=== PATIENT | female | born 1955 | race American Indian/Alaskan Native ===

== ENCOUNTER 2017-08-20 18:51 | Inpatient (IN) | payer OTHER ==
[~2017-08-20] VITALS: Ht 160 cm; Wt 74.4 kg
[~2017-08-20 18:51] MED LIST: ABILIFY5 MG; ABILIFY5 MG PO; ALLOPURINOL100 MG PO; AMITRIPTYLINE H10 MG PO; AMITRIPTYLINE H50 MG PO; ASPIR 8181 MG PO; BUPROPION HCL100 MG PO; CALCICARB650 MG PO; CALCIUM 600 +1 EAC3 PO; CALCIUM500 MG PO; CARAFATE1 GM PO; CELEBREX200 MG PO; CLONAZEPAM0.5 MG PO; CYCLOBENZAPRINE10 MG PO; FIORICET 50-301 EACH PO; HYDROCODON-ACE1 EAC8 PO; IMITREX25 MG PO; LORAZEPAM1 MG PO; MUPIROCIN22 GM TOP; NORCO 5-325 TA1 EACH PO; OMEGA-31000 MG PO; OMEPRAZOLE20 MG PO; OXYCODONE-ACET1 EAC1 PO; PRILOSEC20 MG PO; REGLAN10 MG PO; ROBAXIN-750750 MG PO; SIMVASTATIN20 MG PO; SUCRALFATE1 GM PO; TOPROL XL25 MG PO; VITAMIN B COMP1 EAC1 PO; VITAMIN D350000 UNIT PO; ZESTRIL40 MG PO; ZOFRAN2 MG/1 ML PO
--- NOTE | 2017-08-20 22:52 | NUR ---
PT ARRIVED FROM ED ON STRETCHER, HAS HAD MID ABDOMINAL PAIN ALL DAY SINCE EATING [place] FRIED NOODLES FROM A LOCAL BUSINESS. VOMITED MULT TIMES TODAY, WELL HAD LOOSE STOOLS. RATES HER PAIN 3/10 AT THIS TIME. H/O OF ACID REFLUX AND SURGERY TO REPAIR. ASSISTED PT UP TO USE THE BATHOOM, ABLE TO AMBULATE WITHOUT DIFFICULTY. IV IN LA INFUSING PER ORDER. EDUCATED PATIENT ON THE CALL LIGHT, THE BED CONTROLS, THE LIGHT CONTROLS, REQUESTED PT TO CALL FOR ASSISTANCE. PLAN TO COMPARE WEIGHTS WITH STANDING SCALE PT SURPRISED OF HER WEIGHT, BELIEVES SHE WEIGHS MORE.
--- NOTE | 2017-08-20 23:40 | NUR ---
MEDICATED WITH ZOFRAN 4MG IV C/O FEELING NAUSEATED, NO EMESIS NOTED. IN BED COOPERATIVE, IVF INFUSING W/O PROBLEMS
--- NOTE | 2017-08-21 00:44 | NUR ---
RESTING, EYES CLOSED, NO FURTHER C/O UPSET STOMACH
--- NOTE | 2017-08-21 02:07 | NUR ---
AWAKE, NO C/O PAIN OR N/V, COMFORTABLE
--- NOTE | 2017-08-21 06:03 | NUR ---
PT CURRENTLY RESTING, EYES CLOSED. CONTINUES TO NICK UPSET STOMACH, WAS MEDICATED X1 WITH ZOFRAN, EFFECTIVE, NO FURTHER C/O UPSET STOMACH STATED. uP TO BRP WITH 1 SBA, VOIDING QS, IVF INFUSING W/O PROBLEMS. NO TOEHR REQUESTS OR C/O
--- NOTE | 2017-08-21 06:49 | NUR ---
C/O H/A, ICE PACKS GIVEN NO C.O ABD PAIN OR N/V. DR OTOOLE IN ROOM TALKING TO PT
--- NOTE | 2017-08-21 07:20 | NUR ---
REPORT RECEIVED FROM PAVEL IZQUIERDO. PT IS AWAKE LAYING IN BED WITH ICE PACK TO HEAD. REPORTED HEADACHE TO PAVEL IZQUIERDO THIS AM. DENIES OTHER NEEDS AT THIS TIME.
--- NOTE | 2017-08-21 08:59 | NUR ---
PT RESTING IN BED WITH EYES CLOSED AND BLANKET OVER HEAD. EASILY AROUSED. GIVEN IMATREX FOR HEADACHE PAIN 12/18. UP TO BATHROOM WITH SBA. REPORTED SOME DIZZINESS/NAUSEA. HAS ONLY BEEN TAKING SMALL SIPS OF WATER. RESTING AGAIN WITH EYE MASK ON. DENIES OTHER NEEDS AT THIS TIME.
--- NOTE | 2017-08-21 09:00 | NUR ---
PATIENT SLEEPING, WILL CHECK IN LATER.
--- NOTE | 2017-08-21 09:54 | NUR ---
PATIENT RESTING IN BED WITH EYES CLOSED. PATIENT STATES THAT THE MEDICATION IS STARTING TO HELP HER HEAD ACHE TO GO AWAY AND REFUSED ANYMORE ICE PACKS. PATIENT HAS NOT EATEN ANY OF HER CLEAR LIQUIDS AT THIS TIME. FRESH ICE WATER GIVEN. CALL BUTTON IN REACH. NO OTHER NEEDS AT THIS TIME.
--- NOTE | 2017-08-21 10:04 | NUR ---
PT APPEARS TO BE SLEEPING. RESPIRATIONS EVEN AND UNLABORED.
--- NOTE | 2017-08-21 12:03 | NUR ---
PT RESTING IN BED. STATES PAIN IN HEAD IS MANAGEABLE. ATE A CUP OF JELLO BEFORE TAKING DOSE OF POTASSIUM. HAS TOLERATED SO FAR. EMESIS BAG AT BEDSIDE. PT WILL CALL IF THEY BECOME NAUSEOUS. DC PLAN DISCUSSED. DENIES OTHER NEEDS AT THIS TIME. CALL LIGHT IN REACH.
--- NOTE | 2017-08-21 12:27 | NUR ---
PT LAYING IN BED, RM DARKENED. PT WAS ALERT, ORIENTED AND PLEASANT UNDER THE CIRCUMSTANCES. SHE MENTIONED THAT PAIN IS BETTER THAN YESTERDAY, AND THAT THE DR SEEMS TO FEEL IT IS A PROBLEM WITH K STONES OR THE DUCTS. PT REQUESTED PRAYER. WILL CONTINUE TO FOLLOW NEEDED
--- NOTE | 2017-08-21 13:23 | NUR ---
PT BACK TO BED. TOOK SHOWER. DENIED DIZZINESS OR NAUSEA. HAS BEEN TOLERATING SMALL AMOUNTS OF CLEAR LIQUIDS.
--- NOTE | 2017-08-21 14:15 | NUR ---
PT IN BED WITH LIGHTS OFF. RATED PAIN 6/10. DECLINED PAIN MEDS. ICE PACK TO FOREHEAD. STATED THAT SHE WAS STARTING TO FEEL NAUSEOUS BUT HAS NOT HAD EMESIS. EMESIS BAG ON BED. SOME GENERALIZED TRACE EDEMA, MOST NOTICABLE IN HANDS/ARMS. LUNGS CLEAR. HEART REGULAR.
--- NOTE | 2017-08-21 15:22 | NUR ---
PT GIVEN 1 TAB OF EXCEDRIN FOR HEADACHE 09/17 UNRELIEVED WITH REST AND ICE PACK. PT GIVEN POTASSIUM WITH CUP OF JELLO. UP TO BATHROOM, SBA. SOME DIZZINESS WHEN SITTING UP. KNOWS OWN LIMIT. VOIDING QS. BACK TO BED WITH WARM BLANKET FOR COMFORT. CALL LIGHT IN REACH.
--- NOTE | 2017-08-21 16:03 | NUR ---
PT GOT 8MG ZOFRAN FOR PERSISTANT NAUSEA. DILUTED AND INFUSED OVER 6 MINUTES. PT STATED "IT HELPED". APPEARS COMFORTABLE. IN BED ON CELL PHONE WITH ICE PACK STILL TO FOREHEAD.
--- NOTE | 2017-08-21 17:00 | NUR ---
PT HAD MIGRAINE AND NAUSEA THROUGHOUT DAY. RELIEVED WITH IMAGEX X1, EXCEDRIN X1 AND 8MG ZOFRAN. PT HAS BEEN SBA TO BATHROOM. SHOWERED TODAY. HAS KEPT ROOM DARK ALL DAY AND ICE PACK TO FOREHEAD. LARGE QUANTITY OF PALE YELLOW URINE. NO HEMATURIA NOTED. BEEN TOLERATING SMALL AMOUNTS OF CLEAR LIQUID DIET. NEEDS STOOL SAMPLE. PLAN TO OBSERVE AND RE-EVALUATE CONDITION IN AM.
--- NOTE | 2017-08-21 18:00 | NUR ---
PT RESTING IN BED WATCHING TV. DENIES NEEDS OR CONCERNS AT THIS TIME. CALL LIGHT WITHIN REACH.
--- NOTE | 2017-08-21 19:10 | NUR ---
REPORT RECEIVED FROM DAY SHIFT NURSE. PATIENT RESTING IN BED WATCHING TV. PATIENT DENIES ANY NEEDS AT THIS TIME. CALL LIGHT WITHIN REACH.
--- NOTE | 2017-08-21 19:20 | CONS ---
[facility] [address], [place] [address] Signed DATE OF CONSULTATION: 08/21/2017 CHIEF COMPLAINT: Generalized abdominal pain. HISTORY OF PRESENT ILLNESS: Michael is a 61-year-old lady who has chosen not to take any medications for 2 years. She also suffers with significant headaches and has had prior strokes apparently related to hypertension. She comes in with generalized abdominal pain, nausea, vomiting, and diarrhea, and a headache. In the emergency room, her white count was up a little bit of 16.9 and she said there is always blood in her urine, but to her knowledge has never been worked up. She ended up with a CT scan and she has had a previous cholecystectomy and she spoke of having a common bile duct and a pancreatic duct stent in the past. She cannot remember that any stones were actually removed from her duct at [facility] back in the day. There seemed to be some old stones there now and her liver function tests seemed to be fine. I was asked to admit her last night as a general surgeon on-call. PAST MEDICAL HISTORY: Gastroesophageal reflux disease, TIAs, hypertension, depression, hyperlipidemia, gastroparesis, migraine headaches. PAST SURGICAL HISTORY: 1. Laparoscopic band converted to laparoscopic fundoplication at [facility] in [facility]. 2. Hysterectomy. 3. Laparoscopic cholecystectomy at [facility]. 4. Left upper extremity fracture repair with metal remaining and common bile duct and pancreatic duct stents placed at [facility]. SOCIAL HISTORY: She quit smoking, but she likes marijuana. She does not drink. She is with the [facility]. Mariana Key is her sister at [phone]. FAMILY HISTORY: Not reviewed. REVIEW OF SYSTEMS: She had 10 systems reviewed and no new findings. ALLERGIES: None. Electronically Signed By: ESTEFANY OTOOLE MD 08/21/17 192 PATIENT NAME: MICHAEL DAWSON CONSULTATION DATE OF : 57 REPORT #: [id number] PHYSICIAN: ESTEFANY OTOOLE MD PCP: DONA LIN REPORT IS CONFIDENTIAL AND NOT TO BE RELEASED WITHOUT AUTHORIZATION [facility] [address], [place] [address] Signed MEDICATIONS: She has taken none of these in 2 years including Robaxin, Fioricet, aspirin, simvastatin, vitamin D, omega-3, lisinopril, calcium, Percocet, amitriptyline, Prilosec, and Abilify. PHYSICAL EXAMINATION: VITAL SIGNS: Blood pressure 163/76, heart rate 62, respiratory rate 16, and temperature is 98.2. She is 98% on room air. She is 5 feet 3 inches, at 74 kg. She has been able to take some diet last night, had a bowel movement and had 1.8 L out of urine. GENERAL: Michael is a 61-year-old female, lying supine in her hospital bed with an ice bag on her head because of the headaches. She told me she had previous temporal artery biopsies. LUNGS: Clear to auscultation. HEART: Regular rate and rhythm. ABDOMEN: Soft and flat, but she seems to be diffusely tender. LABORATORY DATA: Her white blood count is 16.9, hemoglobin 16, neutrophils 79, and bands are 14. BUN 9, creatinine 0.7. Liver function tests are negative. Albumin is 5. Urine shows some protein, ketones and some blood, which she says is chronic. RADIOGRAPHIC STUDIES: CT scan of abdomen and pelvis is reviewed and she has what looks like some stones in her common bile duct with the common bile duct about 15 mm, apparently that is an old finding. ASSESSMENT AND PLAN: Probable gastroenteritis with untreated medical conditions including her hypertension, headaches, and her hematuria. She has taken no medications for 2 years. At this point, I am not sure that she is a surgical patient. We are going to go ahead and consult our hospitalist and see if we can help her with these chronic medical issues and her headache. She has expressed understanding and agrees with above plan. Estefany Otoole MD ALB/MODL /[id number] Electronically Signed By: ESTEFANY OTOOLE MD 08/21/17 1920 PATIENT NAME: MICHAEL DAWSON CONSULTATION DATE OF : 57 REPORT #: [id number] PHYSICIAN: ESTEFANY OTOOLE MD PCP: DONA LIN REPORT IS CONFIDENTIAL AND NOT TO BE RELEASED WITHOUT AUTHORIZATION [address] [address] Signed cc: MD Adriano Mason MD Copies: ESTEFANY OTOOLE MD, REX MD ~ Electronically Signed By: ESTEFANY OTOOLE MD 08/21/17 1920 PATIENT NAME: MICHAEL DAWSON CONSULTATION DATE OF : 57 REPORT #: [id number] PHYSICIAN: ESTEFANY OTOOLE MD PCP: DONA LIN REPORT IS CONFIDENTIAL AND NOT TO BE RELEASED WITHOUT AUTHORIZATION
--- NOTE | 2017-08-21 20:50 | NUR ---
PATIENT ASSESSMENT COMPLETED. PATIENT REQUESTS PAIN MEDICATION 9/10 PAIN. WHEN RETURNED TO THE ROOM PATIENT FOUND DRY HEAVINGM, NO EMESIS NOTED. PRN NAUSEA MEDICATION GIVEN. PATIENT EDUCATED ABOUT WAITING TO TAKE PAIN MEDICAITON TIL NAUSEA SUBSIDES. ICA PACK PLACED ON FOREHEAD. I&Os RECORDED. WILL CONTINUE TO MONITOR. CALL LIGHT WITHIN REACH. PATIENT DENIES ANY OTHER NEEDS. WILL RETURN.
--- NOTE | 2017-08-21 21:30 | NUR ---
PATIENT STATES NAUSEA IS SUBSIDED. NO EMESIS NOTED. JELLO X1 GIVEN. PRN PAIN MEDICATION GIVEN. PATIENT TOLERATED SNACK WELL. VITAL SIGNS RECORDED. PATIENT ASSISTED TO THE RESTROOM, SBA. PATIENT ABLE TO VOID. PATIENT BACK IN BED WATCHING TV. ICE PACK PLACED ON FOREHEAD. PATIENT DENIES ANY OTHER NEEDS AT THIS TIME. CALL LIGHT WITHIN REACH. WILL CONTINUE TO MONITOR.
--- NOTE | 2017-08-21 23:45 | NUR ---
PATIENT RESTING IN BED WITH EYES CLOSED, TV OFF. BREATHING UNLABORED AND EVEN, RR 16. IV RUNNING CONTINUOUSLY. CALL LIGHT WITHIN REACH.
--- NOTE | 2017-08-22 02:30 | NUR ---
PATIENT RESTING IN BED WITH EYES CLOSED. PATIENT STATES PAIN IS "OKAY". IV FLUIDS RUNNING CONTINUOUSLY. PATIENT DENIES ANY NEEDS AT THIS TIME. RR 15. CALL LIGHT WITHIN REACH. ASSESSMENT COMPLETED.
--- NOTE | 2017-08-22 04:52 | NUR ---
PATIENT RESTED WELL THROUGHOUT THE NIGHT. PATIENT WAS NOTED DRY HEAVING DURING THE NIGHT X1. PRN NAUSEA MEDICATION GIVEN X1. PATIENT STATED MIGRAINE X1. PRN PAIN MEDICATION GIVEN X1. PATIENT ON RA. CLEAR LIQUID DIET. SBA WITH AMBULATION. CONTINUOUS IV FLUIDS RUNNING IN LEFT FOREARM. NO EMESIS NOTED. STOOL SAMPLE NEEDS TO BE COLLECTED. VOIDED YELLOW URINE, QS.
--- NOTE | 2017-08-22 05:20 | NUR ---
PATIENT UP TO RESTROOM, SBA. PATIENT ABLE TO VOID. VITAL SIGNS AND I&Os RECORDED. WARM BLANKET PROVIDED. PATIENT DENIES ANY OTHER NEEDS AT THIS TIME. CALL LIGHT WITHIN REACH.
--- NOTE | 2017-08-22 05:56 | NUR ---
PATIENT RATES PAIN 6/10 IN ABDOMEN. PATIENT DENIES THE NEED FOR PRN PAIN MEDICATION. WARM BLANKET PROVIDED FOR COMFORT. PATIENT DENIES ANY OTHER NEEDS AT THIS TIME. CALL LIGHT WITHIN REACH.
--- NOTE | 2017-08-22 06:35 | NUR ---
PATIENT COMPLAINED OF NAUSEA. PRN NAUSEA MEDICATION GIVEN PER ORDER. PATIENT RESTING IN BED. PATIENT DENIES ANY OTHER NEEDS AT THIS TIME. CALL LIGHT WITHIN REACH. PATIENT STATES PAIN IS TOLERABLE.
--- NOTE | 2017-08-22 07:15 | NUR ---
BEDSIDE HANDOFF REPORT RECEIVED FROM HAMMER REPAIRER RN. PT SLEEPING, LEFT UNDISTURBED.
--- NOTE | 2017-08-22 08:40 | NUR ---
PT RESTING IN BED. PT ASSISTED TO BATHROOM, SBA, COMPLAINT OF DIZZINESS, VOIDING WIHOUT DIFFICULTY. PT ON ROOM AIR, LUNG SOUNDS CLEAR, DENIES SOB. PT BOWEL TONES ACTIVE, SMALL APPETITE, TOLERATING CLEAR LIQUID DIET, DENIES NAUSEA. CMS INTACT, WIHTOUT EDEMA. D5LR INFUSING AT 100 ML/HR. PT DENIES OTHER NEEDS AT THIS TIME. DISCUSSED PLAN OF CARE FOR THE DAY.
--- NOTE | 2017-08-22 09:26 | NUR ---
PATIENT SITTING UP IN BED. PATIENT STATES PAIN LEVEL IS A 4 OUT OF 10. RN NOTIFIED. CALL LIGHT WITHIN REACH. VITALS & I&Os DONE. FRESH ICE WATER. NO OTHER NEEDS AT THIS TIME.
--- NOTE | 2017-08-22 09:27 | NUR ---
MED REC COMPLETE
--- NOTE | 2017-08-22 11:12 | NUR ---
PATIENT RESTING IN BED UPON ENTERING ROOM, IV PUMP CLEARED, PATIENT WAKES AND DENIES NAUSEA. PATIENT WAS ABLE TO EAT JELLO AND TEA WITHOUT NAUSEA/VOMITTING. PATIENT DOES REPORT SLIGHT RIGHT SIDE HEADACHE, PATIENT DENIES NEED FOR INTERVENTIONS.
--- NOTE | 2017-08-22 15:02 | NUR ---
PATIENT SITTING UP IN BED. CALL LIGHT WITHIN REACH. NO OTHER NEEDS AT THIS TIME.
--- NOTE | 2017-08-22 15:45 | NUR ---
PT ASSISTED TO BATHROOM AND BACK TO BED. PT ON ROOM AIR, LUNG SOUNDS CLEAR. PT CONTINUES TO RATE PAIN 4/10. IV FLUIDS INFUSING D5LR AT 75 ML/HR, IV MAGNESIUM INFUSING. PT TOLERATING CLEAR LIQUID DIET, WILL ATTEMPT FULL LIQUIDS FOR DINNER, DENIES NAUSEA. NO ACUTE CHANGES. PT DENIES NEEDS AT THIS TIME.
--- NOTE | 2017-08-22 17:32 | NUR ---
PT ON ROOM AIR, LUNG SOUNDS CLEAR. PT ADVANCED TO FULL LIQUID DIET, TOLERATING WELL. COMPLAINT OF ABD PAIN, DID NOT REQUIRE PAIN MEDICATION. D5LR AT 75 ML/HR, MAG RIDER GIVEN. CORNELIUS GONZALEZ ACTIVE, UNABLE TO COLLECT STOOL SAMPLE. SBA TO BATHROOM, COMPLAINT OF DIZZINESS AT TIMES. VOIDING QS.
--- NOTE | 2017-08-22 18:08 | NUR ---
PT HYPERTENIVE, RECEIVED AMLODIPINE AT 1700, CONTINUES TO BE HYPERTENISVE, BP NOW 178/101. MD NOTIFIED, NO NEW ORDERS, CONTINUE TO MONITOR.
--- NOTE | 2017-08-22 19:05 | NUR ---
REPORT RECEIVED FROM DAY SHIFT NURSE. PATIENT RESTING IN BED WATCHING TV. PATIENT DENIES ANY NEEDS AT THIS TIME. CALL LIGHT WITHIN REACH.
--- NOTE | 2017-08-22 19:56 | NUR ---
PATIENT SITTING UP IN BED. CALL LIGHT WITHIN REACH. NO OTHER NEEDS AT THIS TIME.
--- NOTE | 2017-08-22 20:00 | NUR ---
PATIENTS ASSESSMENT COMPLETED. PATIENT RATES PAIN 4/10 IN ABDOMEN. PATIENT STATES THIS IS TOLERABLE AND DENIES PRN PAIN MEDICATION. PATIENTS BP ELEVATED, MD NOTIFIED. PATIENTS IV FLUIDS RUNNING CONTINUOUSLY. FULL LIQUID DIET. SBA WHEN AMBULATING. WARM BLANKET AND FRESH WATER PROVIDED. PATIENT DENIES ANY OTHER NEEDS AT THIS TIME. CALL LIGHT WITHIN REACH. PATIENT DENIES NAUSEA. WILL CONTINUE TO MONITOR.
--- NOTE | 2017-08-22 21:45 | NUR ---
BP MEDICATION GIVEN PER ORDER. PATIENT COMPLAINS OF "SLIGHT" HEADACHE, DENIES THE NEED FOR PRN PAIN MEDICATION. PATIENT DENIES ANY OTHER NEEDS AT THIS TIME. WILL CONTINUE TO MONITOR. CALL LIGHT WITHIN REACH.
--- NOTE | 2017-08-22 22:51 | NUR ---
PATIENTS BP REASSESED, BP WNL. PATIENT RATES PAIN 5/10 IN HER HEAD AND ABDOMEN. PRN PAIN MEDICATION GIVEN PER ORDER. PATIENT DENIES NAUSEA. IV FLUIDS RUNNING CONTINUOUSLY. PATIENT RESTING IN BED WATCHING TV. PATIENT DENIES ANY OTHER NEEDS. CALL LIGHT WITHIN REACH.
--- NOTE | 2017-08-23 00:42 | NUR ---
PATIENT RESTING IN BED WITH EYES CLOSED. BREATHING UNLABORED AND EVEN, RR 14. IV FLUIDS RUNNING CONTINUOUSLY. CALL LIGHT WITHIN REACH.
--- NOTE | 2017-08-23 02:58 | NUR ---
PATIENT ASSESSMENT COMPLETED. PATIENT UP TO RESTROOM, SBA. PATIENTS GAIT STEADY. PATIENT DENIES NAUSEA. PATIENT RATES PAIN 5/10, PRN PAIN MEDICATION OFFERED. PATIENT DENIES THE NEED FOR PRN MEDICATION. WILL CONTINUE TO MONITOR. IV FLUIDS RUNNING CONINUOUSLY. WARM BLANKET APPLIED TO ABDOMEN FOR COMFORT. FRESH WATER GIVEN. PATIENT DENIES ANY OTHER NEEDS AT THIS TIME. CALL LIGHT WITHIN REACH.
--- NOTE | 2017-08-23 05:01 | NUR ---
PATIENT RESTED WELL THROUGHOUT THE NIGHT. PATIENT IS ON RA. FULL LIQUID DIET. PATIENT DENIED NAUSEA THROUGHTOUT THE NIGHT. PRN PAIN MEDICATION GIVEN X1. PATIENT UP INDEPENDENT IN ROOM X1. PATIENTS IV FLUIDS RUNNING CONTINUOUSLY IN LEFT FOREARM. PATIENT VOIDING QS. PATIENT AMBULATES WITH A STEADY GAIT. STOOL SAMPLE NEEDED.
--- NOTE | 2017-08-23 06:16 | NUR ---
PATIENT RESTING IN BED. ASSESSMENT COMPLETED. PATIENT RATES PAIN 5/10 IN HER HEAD. PATIENT DENIES THE NEED FOR PRN PAIN MEDICATIONS. PATIENT STATES IT IS TOLERABLE. PATIENT DENIES NAUSEA. PATIENT DENIES ANY OTHER NEEDS AT THIS TIME. CALL LIGHT WITHIN REACH.
--- NOTE | 2017-08-23 07:05 | NUR ---
BEDSIDE HAND OFF REPORT RECEIVED FROM SLIP COVER ESTIMATOR RN. PT SLEEPING, LEFT UNDISTURBED.
--- NOTE | 2017-08-23 09:15 | NUR ---
PT RESTING IN BED. PT RATING PAIN 4/10 AT THIS TIME. PT DENIES NAUSEA. PT ON ROOM AIR, LUNG SOUNDS CLEAR. BOWEL TONES ACTIVE, TOLERATING FULL LIQUID DIET. CMS INTACT, WITHOUT EDEMA, PULSES PALPABLE. IV FLUIDS INFUSING AT 75 ML/HR, IV PATENT. PT INDEPENDENT IN ROOM. VOIDING QS. PT HAS STILL NOT HAD A BOWEL MOVEMENT, STOOL SAMPLE NEEDED. PT DENIES OTHER NEEDS AT THIS TIME.
--- NOTE | 2017-08-23 11:21 | NUR ---
PT COMPLAINT OF NAUSEA, IV INFILTARTED, IV INFUSION STOPPED, IV DISCONTINUED. NEW IV OBTAINED TO RIGHT UPPER ARM, 8 MG IV ZOFRAN GIVEN, D5LR INFUSING AT 75 ML/HR. PT DENIES OTHER NEEDS AT THIS TIME.
--- NOTE | 2017-08-23 14:46 | NUR ---
PT LAYING IN BED, WELCOMED ME IN. SHE IS ALERT AND ORIENTED. WAS VERY EXCITED TO TELL ME ABOUT HER VILLAGRAN WHEN I COMMENTED ON THEM. FEELING BETTER, DID MENTION THAT SHE FELT SOME NAUSEA EARLIER TODAY, BUT SEEMS TO HAVE SUBSIDED. I EXTENDED A BLESSING, WILL FOLLOW NEEDED
[2017-08-23] MEDS ORDERED: NORVASC5 MG PO (15:29)
[2017-08-23] MEDS ORDERED: LISINOPRIL10 MG PO (15:30)
--- NOTE | 2017-08-24 07:57 | DS ---
[facility] [address], [place] [address] Signed ADMISSION DATE: 08/22/2017 DISCHARGE DATE: 08/23/2017 FINAL DIAGNOSES: 1. Gastroenteritis. 2. Hypertension. 3. Hypercholesterolemia. 4. Chronic hematuria. 5. Headache. PROCEDURES: CT scan of abdomen and pelvis. HISTORY OF PRESENT ILLNESS: Michael is a 61-year-old female, who 2 years ago decided to take herself off all medications, which is a fair list actually. She had come into the emergency room with generalized abdominal pain, nausea, vomiting, and diarrhea. She had generalized abdominal tenderness on exam. Systolic blood pressures were running in the 160s and her white count was up at 16.9. She also has some chronic blood in her urine. CT scan showed really no major issues. She apparently had some stones either in her common bile duct or in the pancreatic duct in the past. Apparently, those were old. She talked about having a common bile duct and pancreatic duct stent in the past. As a result, I was asked to admit her with probable gastroenteritis, her headache and her uncontrolled hypertension. HOSPITAL COURSE: Michael was admitted as above and I started on IV fluids and we had our Internal Medicine Service come and see her. Within a day, she was already looking and feeling much better. She had passed flatus. She was tolerating a clear liquid diet. Her abdominal pain was improved and she had mild diffuse tenderness by the 2nd day. White count had come down to normal at 7, so we increased her diet and decreased IV fluids. She was started on lisinopril 10 mg p.o. at bedtime and amlodipine 5 mg p.o. daily per the Internal Medicine Service. Her systolic blood pressures came down nicely into the 130s. Hemoglobin A1c was checked and it was good at 5.2. Lipid panel was sent off and sure enough, her cholesterol is running high. Overall, though she is markedly improved, I felt that she could go home. DISCHARGE PLANS AND MEDICATIONS: I had a long discussion with Michael and I explained to her that her blood pressures have been running high and so is a cholesterol and she really needs to address those issues with her primary care provider as they will cause her trouble in the future. Electronically Signed By: ESTEFANY OTOOLE MD 08/24/17 0757 PATIENT NAME: MICHAEL DAWSON DISCHARGE SUMMARY DATE OF : 57 REPORT #: [id number] PHYSICIAN: ESTEFANY OTOOLE MD PCP: DONA LIN REPORT IS CONFIDENTIAL AND NOT TO BE RELEASED WITHOUT AUTHORIZATION [facility] [address], [place] [address] Signed When she goes home, she will be able to continue her diet as tolerated and continue her activities of daily living as tolerated including walking up and down stairs and showering and bathing as usual. There was really no need to follow up my office. She can certainly call us if she has any concerns. I have asked her to call her primary care provider and follow up within a week or 2 for some of these chronic issues. Her headache responded nicely to Imitrex, but I think she gets her blood pressure under control that will help significantly. She has expressed understanding and agrees above plan. Estefany Otoole MD ALB/MODL /[id number] cc: MD Estefany Parker MD Copies: LORIN CARVER MD, ANDREW L MD ~ Electronically Signed By: ESTEFANY OTOOLE MD 08/24/17 0757 PATIENT NAME: MICHAEL DAWSON DISCHARGE SUMMARY DATE OF : 57 REPORT #: [id number] PHYSICIAN: ESTEFANY OTOOLE MD PCP: DONA LIN REPORT IS CONFIDENTIAL AND NOT TO BE RELEASED WITHOUT AUTHORIZATION
== END 2017-08-23 16:05 | disposition home or self-care (01) | DRG 392 ==
LOC: ED 18:51 → MS 18:54
PROVIDERS: ADMIT Colon & Rectal Surgery
DX: K52.9 Noninfective gastroenteritis and colitis, unspecified (principal); K91.86 Retained cholelithiasis following cholecystectomy; R31.9 Hematuria, unspecified; I10 Essential (primary) hypertension; K21.9 Gastro-esophageal reflux disease without esophagitis; E78.5 Hyperlipidemia, unspecified; F32.9 Major depressive disorder, single episode, unspecified; G43.909 Migraine, unspecified, not intractable, without status migrainosus; Z87.891 Personal history of nicotine dependence; Z86.73 Personal history of transient ischemic attack (TIA), and cerebral infarction without residual deficits
CPT/HCPCS: 36415; 74177; 80048; 80053; 80061; 81001; 83036; 83690; 83735; 85025; 85610; 85730; 96361; 96374; 96375; 96376; 99285; G0378; J1170; J2405; J3475; J7030; J7040; J7120; Q9967

== ENCOUNTER 2017-10-24 19:24 | Emergency (ER) | payer OTHER ==
[~2017-10-24] VITALS: Ht 160 cm; Wt 74.4 kg
[~2017-10-24 19:24] MED LIST changes: +LISINOPRIL10 MG PO; +NORVASC5 MG PO
[2017-10-24] MEDS ORDERED: OMEPRAZOLE20 MG PO (21:41)
[2017-10-24] MEDS ORDERED: REGLAN10 MG PO (21:41)
== END 2017-10-24 21:57 | disposition home or self-care (01) ==
LOC: ED 19:24
DX: K31.84 Gastroparesis (principal); I10 Essential (primary) hypertension; Z87.891 Personal history of nicotine dependence; Z79.899 Other long term (current) drug therapy
CPT/HCPCS: 80053; 81001; 83690; 85025; 96361; 96374; 96375; 99284; J1200; J2270; J2405; J2765; J7030

== ENCOUNTER 2017-12-25 13:57 | Emergency (ER) | payer OTHER ==
[~2017-12-25] VITALS: Ht 160 cm; Wt 74.4 kg
--- OUTSIDE RECORDS SUMMARY | ~2017-12-25 | XMS | Clinical Summary ---
Demographics + + + | Address | [address] | | | [place] [address] | + + + | Home Phone | | + + + | Preferred Language | Unknown | + + + | Marital Status | Single | + + + | Rastafarian Affiliation | Unknown | + + + | Race | Unknown | + + + | Ethnic Group | Unknown | + + + Author + + + | Author | [facility] | | | and [place] | + + + | Organization | [facility] | | | and [place] | + + + | Address | Unknown | + + + | Phone | Unavailable | + + + Support + + + + + | Name | Relationship | Address | Phone | + + + + + | Mariana Scott | ECON | [place] | | | | | [phone] | | + + + + + Care Team Providers + +------+ + | Care Promotional Marketing Agent Name | Role | Phone | + +------+ + | Herminio Gomez PA-C | PP | Unavailable | + +------+ + Allergies No Known Allergies Current Medications No known medications Active Problems + + + | Problem | Noted Date | + + + | Headache | 06/08/2016 | + + + | Blurred vision | 06/08/2016 | + + + | Double vision | 06/08/2016 | + + + | Rheumatoid arthritis (HCC) | 06/08/2016 | + + + | Gastroparesis | 05/30/2014 | + + + | Hypertension | 05/30/2014 | + + + | MALAISE | 06/10/2011 | + + + | INFLUENZA | 06/10/2011 | + + + | OTHER NONSPECIFIC ABNORMAL SERUM ENZYME LEVELS | 06/10/2011 | + + + + + | Overview: 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 | + + + + + | OTHER ABNORMAL BLOOD CHEMISTRY | 06/10/2011 | + + + + + | Overview: 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 | + + + +---+ | HYPERLIPIDEMIA | | + +---+ | HYPERTENSION, BENIGN | | + +---+ | CHEST PAIN | | + +---+ | FATIGUE | | + +---+ Family History + + +------+ + | [...] on file | | + + + Last Filed Vital Signs + + + + | Vital Sign | Reading | Time Taken | + + + + | Blood Pressure | 126/80 | 07/04/2016854 PDT | + + + + | Pulse | 62 | 07/04/2016854 PDT | + + + + | Temperature | 36.4 C (97.6 F) | 06/13/2016856 PST | + + + + | Respiratory Rate | 14 | 07/04/2016854 PDT | + + + + | Oxygen Saturation | 98% | 06/13/2016856 PST | + + + + | Inhaled Oxygen | - | - | | Concentration | | | + + + + | Weight | 77.1 kg (170 lb) | 07/04/2016854 PDT | + + + + | Height | 165.1 cm (5' 5") | 07/04/2016854 PDT | + + + + | Body Mass Index | 28.29 | 07/04/2016854 PDT | + + + + Plan of Treatment + + + + + | Health Maintenance | Due Date | Last Done | Comments | + + + + + | Hepatitis C | | | | | Screening | 7 | | | + + + + + | Vaccine: | | | | | Dtap/Tdap/Td (1 - | 6 | | | | Tdap) | | | | + + + + + | Vaccine: | | | | | Pneumococcal 19-64 | 6 | | | | (PPSV23 only) Medium | | | | | Risk (1 of 1 - | | | | | PPSV23) | | | | + + + + + | BREAST CANCER | | | | | SCREENING (MAMM Q2 | 7 | | | | YEARS 50-74) | | | | + + [...] | | | | (optimal intensity) | 5 | | | + + + + + | Vaccine: Influenza | | | | | (#1) | 8 | | | + + + + + Results Not on filefrom Last 3 Months Insurance +-------+--------+ +------+-------+---------+ | Payer | Benefi | Subscriber | Type | Phone | Address | | | t Plan | ID | | | | | | / | | | | | | | Group | | | | | +-------+--------+ +------+-------+---------+ | AETNA | AETNA | [id number] | PPO | | | | | PPO | | | | | +-------+--------+ +------+-------+---------+ + +--------+ +--------+ + + | Guarantor Name | Accoun | Relation to | Date | Phone | Billing Address | | | t Type | Patient | of | | | | | | | | | | + +--------+ +--------+ + + | MICHAEL DAWSON | Person | Self [birth year] | Home: | [address] | | | [address] | | 1955 | [phone] | [address] [place], | | | [place] | | | [phone] | [place] [phone] | + +--------+ +--------+ + +
--- OUTSIDE RECORDS SUMMARY | ~2017-12-25 | XMS | Clinical Summary ---
Demographics + + + | Address | [address] | | | [place] [address] | + + + | Home Phone | | + + + | Preferred Language | Unknown | + + + | Marital Status | Single | + + + | Religion Affiliation | Unknown | + + + | Race | Unknown | + + + | Ethnic Group | Unknown | + + + Author + + + | Author | [facility] | | | and [place] | + + + | Organization | [facility] | | | and [place] | + + + | Address | Unknown | + + + | Phone | Unavailable | + + + Support + + + + + | Name | Relationship | Address | Phone | + + + + + | Mariana Scott | ECON | [place] | | | | | [phone] | | + + + + + Care Team Providers + +------+ + | Care Material Attendant Name | Role | Phone | + [...] + + + | 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
[2017-12-25] MEDS ORDERED: ONDANSETRON ODT8 MG PO (19:52)
[2017-12-25] MEDS ORDERED: NORCO 5-325 TA1 EACH PO (19:52)
== END 2017-12-25 20:08 | disposition home or self-care (01) ==
LOC: ED 13:57
DX: K52.9 Noninfective gastroenteritis and colitis, unspecified (principal); I10 Essential (primary) hypertension; K21.9 Gastro-esophageal reflux disease without esophagitis; Z79.899 Other long term (current) drug therapy
CPT/HCPCS: 70450; 74177; 80053; 81001; 83690; 85025; 96361; 96374; 96375; 99284; J1170; J2405; J7030; J7040; Q9967

== ENCOUNTER 2018-08-25 07:43 | Emergency (ER) | payer BC, OTHER ==
[~2018-08-25] VITALS: Ht 160 cm; Wt 74.4 kg
--- OUTSIDE RECORDS SUMMARY | ~2018-08-25 | XMS | Clinical Summary ---
Demographics + + + | Address | [address] | | | [place] [address] | + + + | Home Phone | | + + + | Preferred Language | Unknown | + + + | Marital Status | Single | + + + | Anabaptism Affiliation | Unknown | + + + | Race | Unknown | + + + | Ethnic Group | Unknown | + + + Author + + + | Author | [facility] | | | and [place] | + + + | Organization | [facility] | | | and [place] | + + + | Address | Unknown | + + + | Phone | Unavailable | + + + Support + + + + + | Name | Relationship | Address | Phone | + + + + + | Mariana Scott | ECON | [place] | | | | | [phone] | | + + + + + Care Team Providers + +------+ + | Care Improvement Spec Name | Role | Phone | + +------+ + | Herminio Gomez PA-C | PP | Unavailable | + +------+ + Allergies No Known Allergies Medications No known medications Active Problems + [...] + + + | 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: 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 | + + + + + | OTHER ABNORMAL BLOOD CHEMISTRY | 06/10/2011 | + + + + + | 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: 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 | + + + +---+ | [...] Vaccine: Influenza | | | | | (Season Ended) | 9 | | | + + + + + Results Not on filefrom Last 3 Months Insurance +-------+--------+ +--------+-------+---------+------+ | Payer | Benefi | Subscriber | Effect | Phone | Address | Type | | | t Plan | ID | leeann | | | | | | / | | Dates | | | | | | Group | | | | | | +-------+--------+ +--------+-------+---------+------+ | AETNA | AETNA | [id number] | 05/11/19 | | | PPO | | | PPO | | 17-Pre | | | | | | | | sent | | | | +-------+--------+ +--------+-------+---------+------+ + +--------+ +--------+ + + | Guarantor Name | Accoun | Relation to | Date | Phone | Billing Address | | | t Type | Patient | of | | | | | | | | | | + +--------+ +--------+ + + | Swathi Dumont | Person | Self | [birth year] | | [address] | | | al/[place] | | 1956 | [phone] | [address] [place], | | | [place] | | | [address] (Home) | [place] [phone] | + +--------+ +--------+ + + Advance Directives Patient has advance care planning documents on file. For more information, please contact:[facility] [place] [address]
--- OUTSIDE RECORDS SUMMARY | ~2018-08-25 | XMS | Clinical Summary ---
Demographics + + + | Address | [address] | | | [place] [address] | + + + | Home Phone | | + + + | Preferred Language | Unknown | + + + | Marital Status | Single | + + + | Pentecostal Affiliation | Unknown | + + + | Race | Unknown | + + + | Ethnic Group | Unknown | + + + Author + + + | Author | [facility] | | | and [place] | + + + | Organization | [facility] | | | and [place] | + + + | Address | Unknown | + + + | Phone | Unavailable | + + + Support + + + + + | Name | Relationship | Address | Phone | + + + + + | Mariana Scott | ECON | [place] | | | | | [phone] | | + + + + + Care Team Providers + +------+ + | Care Senior Geotechnical Engineer Name | Role | Phone | + [...] + + + | Overview: Problem 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 For more information, please contact:[facility] [place] [address]
[~2018-08-25 07:43] MED LIST changes: +ONDANSETRON ODT8 MG PO
--- NOTE | 2018-08-25 13:19 | EKG ---
[facility] [address] [facility] [place], [place] [address] Signed Sinus bradycardia Otherwise normal ECG No previous ECGs available Confirmed by ISMA STREETER DO ([id number]) on 08/25/2018 1:19:40 PM Electronically Signed By: ISMA STREETER DO 08/25/18 1319 PATIENT NAME: MICHAEL DAWSON Electrocardiogram DATE OF : 57 PHYSICIAN: ISMA STREETER DO REPORT #: [id number] REPORT IS CONFIDENTIAL AND NOT TO BE RELEASED WITHOUT AUTHORIZATION
== END 2018-08-25 10:45 | disposition short-term general hospital (02) ==
LOC: ED 07:43
DX: K80.51 Calculus of bile duct without cholangitis or cholecystitis with obstruction (principal); I10 Essential (primary) hypertension; E78.5 Hyperlipidemia, unspecified; Z87.891 Personal history of nicotine dependence; Z90.710 Acquired absence of both cervix and uterus; Z90.49 Acquired absence of other specified parts of digestive tract
CPT/HCPCS: 80053; 83690; 85025; 93005; 93010; 96361; 96365; 96375; 96376; 99285-25; C9113; J0696; J1170; J2405; J2550; J7030

== ENCOUNTER 2018-09-02 10:13 | Observation (INO) | payer OTHER ==
[~2018-09-02] VITALS: Ht 160 cm; Wt 73.4 kg
--- OUTSIDE RECORDS SUMMARY | ~2018-09-02 | XMS | Encounter Summary ---
Demographics + + + | [address] | | | [place] [address] | + + + | Home Phone | | + + + | Preferred Language | Unknown | + + + | Marital Status | Single | + + + | Scientologist Affiliation | Unknown | + + + | Race | Unknown | + + + | Ethnic Group | Unknown | + + + Author + + + | Author | [facility] | | | and [place] | + + + | Organization | [facility] | | | and [place] | + + + | Address | Unknown | + + + | Phone | Unavailable | + + + Support + + + + + | Name | Relationship | Address | Phone | + + + + + | Mariana Scott | ECON | [place] | | | | | [phone] | | + + + + + Care Team Providers + +------+ + | Care Medical Nurse Name | Role | Phone | + +------+ + | Herminio Gomez PA-C | PCP | Unavailable | + +------+ + Reason for Visit Auth/Cert +--------+--------+ + + + + | Status | Reason | Specialty | Diagnoses / | Referred By | Referred To | | | | | Procedures | Contact | Contact | +--------+--------+ + + + + | | | | Diagnoses | | | | | | | | | | | | | | cholelithias | | | | | | | is | | | | | | | Procedures | | | | | | | ERCP | | | +--------+--------+ + + + + Encounter Details +--------+ + + + + | Date | Type | Department | Care Team | Description | +--------+ + + + + | 08/26/ | Anesthesia | [facility] | Lester Zhao MD | | | 2019 | Event | [facility] | [address] | | | | | [address] | [place] | | | | | [place] | [address] | | | | | [phone] | [phone] | | | | | [phone] | | | +--------+ + + + + Anesthesia Record + + + + + | Procedure Name | Responsible | Anesthesia Start | Anesthesia Stop Time | | | Anesthesiologist | Time | | + + + + + | ERCP (N/A Jamil) | Lester Zhao MD | 08/26/18803 | 08/26/18913 | + + + + + +----+---+ + + | Da | T | Event | Comment | | te | i | | | | | m | | | | | e | | | +----+---+ + + | 05 | 0 | An Checkout | Pre-use anesthesia machine/equipment checkout. | | /1 | 7 | | | | 9/ | 5 | | | | 20 | 8 | | | | 19 | | | | +----+---+ + + | | 0 | An Start | Reassessment prior to anesthesia induction/procedure. | | | 8 | | | | | 0 | | | | | 4 | | | +----+---+ + + | | 0 | | | | | 8 | | | | | 0 | | | | | 6 | | | +----+---+ + + | | 0 | An Start | | | | 8 | Data | | | | 0 | | | | | 6 | | | +----+---+ + + | | 0 | An | | | | 8 | Induction | | | | 0 | | | | | 8 | | | +----+---+ + + | | 0 | An | | | | 8 | Intubation | | | | 0 | | | | | 9 | | | +----+---+ + + | | 0 | Pre-Procedu | | | | 8 | ral Timeout | | | | 1 | Completed | | | | 0 | | | +----+---+ + + | | 0 | First | | | | 8 | Inc/Proc St | | | | 1 | | | | | 1 | | | +----+---+ + + | | 0 | Breathing | | | | 9 | Spontaneous | | | | 0 | ly | | | | 7 | | | +----+---+ + + | | 0 | an stop | | | | 9 | data | | | | 0 | | | | | 7 | | | +----+---+ + + | | 0 | An Stop | Patient handed off to recovery nurse. | | | 1 | | | | | 4 | | | +----+---+ + + +------+ | Meds | +------+ + + + | Name | Total | + + + | propofol | 170 mg | + + + | propofol | 741.64 mg | + + + | lidocaine 2% | 50 mg | + + + | lactated ringers (LR) infusion | 550 mL | + + + + + | No agents on file. | + + + + | No blood administrations on file. | + + +--------+ + + + | Type | Details | Placement | Removal | +--------+ + + + | Periph | 08/25/18; yes; Left; Antecubital; | 08/25/18 0000 by | 08/28/18 1500 by | | eral | 20 gauge; site symptomatic; | Michelle Smallwood RN | Lizzeth Pete RN | | IV | 08/28/18; 1500 | | | +--------+ + + + | Airway | Placement Date: 08/26/18; | 08/26/18 0809 by | 08/26/18 0908 by Jarod | | | Placement Time: 08; Airway | Lester Zhao MD | Angela Murrieta RN | | | Type: laryngeal mask, oral, | | | | | cuffed; Size: 3 (LMA Gastro); | | | | | Tube Reference Point: secure and | | | | | patent; Trauma: none; Placement | | | | | Check: bilateral chest rise, | | | | | exhaled CO2 detection device; | | | | | Removal: removed by RN, per | | | | | protocol; Removal Date: 08/26/18; | | | | | Removal Time: 0908 | | | +--------+ + + + documented in this encounter Social History + + + +--------+------+ | Tobacco Use | Types | Packs/Day | Years | Date | | | | | Used | | + + + +--------+------+ | Current Every Day | Cigarettes | 0.3 | | | | Smoker | | | | | + + + +--------+------+ + +---+---+---+ | Smokeless Tobacco: | | | | | Never Used | | | | + +---+---+---+ + + | Comments: Started smoking age 18. | + + + + +---------+ + | Alcohol Use | Drinks/We | oz/Week | Comments | | | ek | | | + + +---------+ + | No | | | | + + +---------+ + + + + | Sex Assigned at | Date Recorded | | | | + + + | Not on file | | + + + + + + + | Job Start Date | Occupation | Industry | + + + + | Not on file | Not on file | Not on file | + + + + + + + + | Travel History | Travel Start | Travel End | + + + + + + | No recent travel history available. | + + documented as of this encounter Plan of Treatment Not on filedocumented as of this encounter Visit Diagnoses Not on filedocumented in this encounter Administered Medications + + + +------+-------+------+ | Medication Order | MAR | Action | Dose | Rate | Site | | | Action | Date | | | | + + + +------+-------+------+ | lactated ringers (LR) infusion | Continue | 08/27/19 | | 100 | | | at 100 mL/hr, Intravenous, | d Bag | 19 9:53 | | mL/hr | | | CONTINUOUS, Starting 08/25/18 | | PDT | | | | | at 1230 | | | | | | + + + +------+-------+------+ +---------+ +---+-------+---+ | New Bag | 08/27/19 | | | | | | 19 7:55 | | | | | | PDT | | | | +---------+ +---+-------+---+ | New Bag | 08/26/19 | | 100 | | | | 19 23:16 | | mL/hr | | | | PDT | | | | +---------+ +---+-------+---+ +---+---+ | | | +---+---+ + +-------+ +-------+---+---+ | lidocaine (PF) 2% injection | Given | 08/27/19 | 50 mg | | | | Intravenous, PRN, Starting Sun | | 19 8:08 | | | | | 08/26/18 at 08, Anesthesia | | PDT | | | | | Intra-op | | | | | | + +-------+ +-------+---+---+ +---+---+ | | | +---+---+ + +-------+ +-------+---+---+ | propofol (DIPRIVAN) injection | Given | 08/27/19 | 50 mg | | | | Intravenous, PRN, Starting Sun | | 19 8:11 | | | | | 08/26/18 at 0808, Anesthesia | | PDT | | | | | Intra-op | | | | | | + +-------+ +-------+---+---+ +-------+ +--------+---+---+ | Given | 08/27/19 | 110 mg | | | | | 19 8:09 | | | | | | PDT | | | | +-------+ +--------+---+---+ | Given | 08/27/19 | 10 mg | | | | | 19 8:08 | | | | | | PDT | | | | +-------+ +--------+---+---+ +---+---+ | | | +---+---+ + + + + +-------+---+ | propofol (DIPRIVAN) injection | Rate/Dos | 08/27/19 | 210 | 95.3 | | | Intravenous, CONTINUOUS PRN, | e Change | 19 8:30 | mcg/kg/m | mL/hr | | | Starting 08/26/18 at 0810, | | PDT | in | | | | Anesthesia Intra-op | | | | | | + + + + +-------+---+ + + + +-------+---+ | Rate/Dose Change | 08/27/19 | 200 | 90.7 | | | | 19 8:22 | mcg/kg/m | mL/hr | | | | PDT | in | | | + + + +-------+---+ | Rate/Dose Change | 08/27/19 | 180 | 81.6 | | | | 19 8:11 | mcg/kg/m | mL/hr | | | | PDT | in | | | + + + +-------+---+ +---+---+ | | | +---+---+ documented in this encounter"
--- OUTSIDE RECORDS SUMMARY | ~2018-09-02 | XMS | Encounter Summary ---
Demographics + + + | [facility] [address] [facility] [facility] | | [place] [address] | + + + | Home Phone | | + + + | Preferred Language | Unknown | + + + | Marital Status | Single | + + + | Roman Catholic Affiliation | Unknown | + + + | Race | Unknown | + + + | Ethnic Group | Unknown | + + + Author + + + | Author | [facility] | | | and [place] | + + + | Organization | [facility] | | | and [place] | + + + | Address | Unknown | + + + | Phone | Unavailable | + + + Support + + + + + | Name | Relationship | Address | Phone | + + + + + | Mariana Scott | ECON | [place] | | | | | [phone] | | + + + + + Care Team Providers + +------+ + | Care Freezing Room Worker Name | Role | Phone | + [...] | | | | | | | COMMON BILE | | | | | | | DUCT STONES | | | +--------+--------+ + + + + Encounter Details +--------+ + + + + | Date | Type | Department | Care Team | Description | +--------+ + + + + | 08/26/ | Hospital | [facility] | Polo Ferrell MD | Calculus of bile | | 2019 - | Encounter | [facility] | [address] [place] | duct with acute on | | | | SURGICAL [address] | [address] [place], [place] | chronic | | 08/30/ | | [place], [place] | [address] | cholecystitis with | | 2019 | | [address] | | obstruction; | | | | [phone] | Amarjit, Miranda, | Essential | | | | | [address] | hypertension; | | | | | [address] | Choledocholithiasis; | | | | | [place] [address] | Acute biliary | | | | | [phone] | pancreatitis without | | | | | | infection or | | | | | Lynne Sweet | necrosis; Acute | | | | | MD Alejandro [address] | biliary | | | | | [address] | pancreatitis, | | | | | [place] [address] | unspecified | | | | | [phone] | complication status; | | | | | | Depression, | | | | | | unspecified | | | | | | depression type; S/P | | | | | | ERCP; Acute | | | | | | pancreatitis, | | | | | | unspecified | | | | | | complication status, | | | | | | unspecified | | | | | | pancreatitis type | +--------+ + + + + Social History + + + +--------+------+ | [...] + + documented as of this encounter Last Filed Vital Signs + + + + | Vital Sign | Reading | Time Taken | + + + + | Blood Pressure | 146/89 | 08/30/2018 0721 PDT | + + + + | Pulse | 67 | 08/30/2018720 PDT | + + + + | Temperature | 37.1 C (98.8 F) | 08/30/2018720 PDT | + + + + | Respiratory Rate | 16 | 08/30/2018720 PDT | + + + + | Oxygen Saturation | 98% | 08/30/2018720 PDT | + + + + | Inhaled Oxygen | - | - | | Concentration | | | + + + + | Weight | 74.1 kg (163 lb 6.4 | 08/26/2018 1530 PDT | | | oz) | | + + + + | Height | 160 cm (5' 3") | 08/26/2018 1530 PDT | + + + + | Body Mass Index | 28.95 | 08/26/2018 1530 PDT | + + + + documented in this encounter Discharge Summaries Lynne Sweet MD - 08/30/2018 0856 PDTFormatting of this note might be differ ent from the original. [facility] FACULTY HOSPITALIST DISCHARGE SUMMARY PATIENT NAME: Swathi Dumont DATE OF : 1955 DATE OF ADMISSION: 08/26/2018 DATE OF DISCHARGE: 08/30/18 PRIMARY CARE PHYSICIAN: Herminio Gomez PA-C ISSUES REQUIRING FOLLOW UP AFTER DISCHARGE: as below FOLLOW UP: Herminio Gomez PA-C [id number] [facility] [id number] office will call to schedule appt Marj Colbert MD [address] [facility] [address] [facility] [place] [phone] will need f/up for stent placement in 6-8 weeks DISCHARGE DISPOSITION: Home CONSULTANTS THIS ADMISSION: GI([facility]) HOSPITAL COURSE: Mrs. Dumont is a 62-year-old lady with h/o HTN, TIA, depression and anxiety, marijuana use , cholecystectomy 1995, gastroparesis s/p pyloroplasty in 2014 and long-standing history of choledocholithiasis admitted on 08/26/18 as a transfer from OSH after failed ERCP at OSH on for symptomatic CBD stones with elevated LFTs. Acute gallstone pancreatitis. ERCP/EUS by on 08/27 sphincterotomy, sphincteroplasty and stone removal and stent placement. Needed epi infection due to bleeding post sphincteroplasty. Hgb remained stable after proce dure. Pt had post procedure pancreatitis/abd pain that has been managed for >48 hours on ora l pain control, dilaudid oral seems to work best. Pt was also started on lisinopril and norv asc for accelerated htn. Pt has been tolerating oral diet and denies nausea >24 hours. given 1 week worth or oral dilaudid at d/c. Pt moving bowels. Pt will need to f/up with GI in 6-8 weeks in regards to stent. DISCHARGE DIAGNOSES: Active Hospital Problems Diagnosis Choledocholithiasis with obstruction Acute pancreatitis Depression Anxiety TIA (transient ischemic attack) Essential hypertension Resolved Hospital Problems No resolved problems to display. DISCHARGE EXAM: Temp: [36.2 C (97.1 F)-37.1 C (98.8 F)] 37.1 C (98.8 F) Pulse: [62-78] 67 Resp: [16-20] 16 BP: (111-189)/(69-121) 146/89 Physical Exam Constitutional: She is oriented to person, place, and time. She appears well-developed and well-nourished. HENT: Head: Normocephalic. Nose: Nose normal. Eyes: Pupils are equal, round, and reactive to light. Conjunctivae are normal. Neck: Normal range of motion. Neck supple. Cardiovascular: Normal rate and intact distal pulses. Pulmonary/Chest: Effort normal and breath sounds normal. Abdominal: Soft. Bowel sounds are normal. Musculoskeletal: Normal range of motion. Neurological: She is alert and oriented to person, place, and time. Skin: Skin is warm. Capillary refill takes less than 2 seconds. Psychiatric: She has a normal mood and affect. Nursing note and vitals reviewed. DISCHARGE MEDICATIONS: Discharge Medications New Medications Details amLODIPine 5 mg tablet Take 1 tablet by mouth Daily. aka: NORVASC Start: 08/31/2018 HYDROmorphone 4 MG tablet Replaces: HYDROmorphone injection Take 1-2 tablets by mouth every 4 hours as needed for Pain. aka: DILAUDID lisinopril 20 mg tablet Take 1 tablet by mouth Daily. aka: PRINIVIL ZESTRIL Start: 08/31/2018 ondansetron 4 mg disintegrating tablet Take 1 tablet by mouth every 6 hours as needed for Nausea or Vomiting. aka: ZOFRAN ODT pantoprazole 40 mg tablet Take 1 tablet by mouth every morning (before breakfast). aka: PROTONIX Unchanged Medications Details polyethylene glycol packet Take 1 diluted packet by mouth Daily as needed for Constipation. aka: MIRALAX Discontinued Medications acetaminophen 325 mg tablet aka: TYLENOL aluminum & magnesium hydroxide-simethicone 200-200-20 mg/5 mL suspension aka: MAALOX PLUS REGULAR STRENGTH docusate sodium 100 MG capsule aka: COLACE hydrALAZINE 20 mg/mL injection aka: APRESOLINE HYDROmorphone injection aka: DILAUDID Replaced by: HYDROmorphone 4 MG tablet labetalol 5 mg/mL injection aka: TRANDATE lactated ringers infusion aka: LR metoprolol tartrate 1 mg/mL injection aka: LOPRESSOR naloxone 0.4 mg/mL injection aka: NARCAN ondansetron 2 mg/mL Soln aka: ZOFRAN PROCEDURES THIS ADMISSION: as above PERTINENT LAB AND IMAGING RESULTS: as above CONDITION AT DISCHARGE: Fair TIME SPENT ON DISCHARGE: greater than 30 minutes Electronically signed by: Lynne Sweet MD 08/30/2018 9:09 Portions of this chart may have been created with Stemnion voice recognition software. Occasi onal wrong-word or sound-alike substitutions may have occurred due to the inherent pino itations of voice recognition software. Please read the chart carefully and recognize, using context, where these substitutions have occurred documented in this encounter Discharge Instructions Instructions Lynne Sweet MD - 08/30/2018Formatting of this note might be di fferent from the original. Discharge Instructions for Acute Pancreatitis You have been diagnosed with acute pancreatitis. Your pancreas is inflamed or swollen. The pancreas is an organ that makes digestive juices and hormones. Gallstones are a common cause of pancreatitis. These hard stones form in the gallbladder. The gallbladder shares a tube w ith the pancreas into the small intestine. If gallstones block this tube, fluid can t leav e the pancreas. The fluid backs up and causes redness and swelling (inflammation).There ar e other causes of pancreatitis. Make sure you understand the cause of your pancreatitis. The n you can try to stop it from happening again. Immediate home care Find someone to drive you to appointments. Acute pancreatitis is a serious condition, an d you should never drive if you are experiencing symptoms. Stop drinking if your illness was caused by alcohol. ? Ask your healthcare provider about alcohol abuse programs and support groups such as [place] holics Anonymous. ? Ask your provider about prescription medicines that can help you stop drinking. ? Tell your provider about the alcohol withdrawal symptoms you have when you stop drinking. This is very important. You may need close medical supervision and special medicineswhen you stop drinking. This will depend on your alcohol withdrawal history. Take your medicines exactly as directed. Don t skip doses. Eat a low-fat diet. Ask your provider for menus and other diet information. Learn to take your own pulse. Keep a record of your results. Ask your provider which eva dings mean that you need medical attention. Ongoingcare Tell your provider about any medicines you are taking. Some medicines can cause this con dition. Before starting any new medicine, ask your provider if it will harm your pancreas. This includes any new huvb-rcf-uguishb medicines, vitamins, or herbal supplements. Tell your provider if you lose weight without dieting. Be aware of symptoms that may mean your pancreatitis has come back. These symptoms inclu de belly pain, nausea and vomiting, and fever. Keep all follow-up appointments with your provider. Problems can often show up later. Follow-up Follow up with your healthcare provider, or as advised. When to call your provider Call your healthcare provider right away if you have any of the following: [id number](38.0C) or higher, or as advised by your provider Severe pain from your upper belly to your back Nausea and vomiting Feely dizzy or lightheaded Yellowing of your skin or eyes (jaundice) Bruises on your belly or back Belly swelling and tenderness Rapid pulse Shallow, fast breathing Date Last Reviewed: 11/09/201519995005-7287 [employer]. [address] [place] [address], [place] [address]. All righ ts reserved. This information is not intended as a substitute for professional medical care. Always follow your healthcare professional's instructions. documented in this encounter Medications at Time of Discharge + + + +---------+ + + | Medication | Sig | Dispensed | Refills | Start | End Date | | | | | | Date | | + + + +---------+ + + | amLODIPine | Take 1 tablet by | 30 | 3 | 09/01/19 | | | (NORVASC) 5 mg | mouth Daily. | tablet | | 19 | | | tablet | | | | | | + + + +---------+ + + | HYDROmorphone | Take 1-2 tablets by | 40 | 0 | 08/31/19 | | | (DILAUDID) 4 MG | mouth every 4 hours | tablet | | 19 | | | tablet | as needed for Pain. | | | | | + + + +---------+ + + | lisinopril | Take 1 tablet by | 30 | 3 | 09/01/19 | | | (PRINIVIL, ZESTRIL) | mouth Daily. | tablet | | 19 | | | 20 mg tablet | | | | | | + + + +---------+ + + | ondansetron | Take 1 tablet by | 20 | 0 | 08/31/19 | | | (ZOFRAN ODT) 4 mg | mouth every 6 hours | tablet | | 19 | | | disintegrating | as needed for Nausea | | | | | | tablet | or Vomiting. | | | | | + + + +---------+ + + | pantoprazole | Take 1 tablet by | 30 | 3 | 08/31/19 | | | (PROTONIX) 40 mg | mouth every morning | tablet | | 19 | | | tablet | (before breakfast). | | | | | + + + +---------+ + + | polyethylene | Take 1 diluted | | 0 | 08/27/19 | | | glycol (MIRALAX) | packet by mouth | | | 19 | | | packet | Daily as needed for | | | | | | | Constipation. | | | | | + + + +---------+ + + documented as of this encounter Progress Notes Lynne Sweet MD - 08/30/2018 0921 PDT08/30/2018 To Whom it May Concern, Ms Swathi Dumont has been hospitalized at [facility] from 08/27/18 to 08/09 06/26. She was transferred from [facility] where she stayed from 08/25/18 to 08/27/18. Please excuse Ms Dumont from work. Barring complications, anticipate she will be able to return to work on Tuesday, September 04, 2018. Sincerely, Dr Lynne Sweet MD ocaLynne darnell MD - 08/29/2018 1401 PDTFormatting of this note migh t be different from the original. Patient: Swathi Dumont Date of : 1955 Admit Date: 08/26/2018 Date of Service: 08/29/2018 PCP: Herminio Gomez PA-C Hospital Day: 2 Hospital Course: Mrs. Dumont is a 62-year-old lady with h/o HTN, TIA, depression and anxiety, marijuana use , cholecystectomy 1995, gastroparesis s/p pyloroplasty in 2014 and long-standing history of choledocholithiasis admitted on 08/26/18 as a transfer from OSH after failed ERCP at OSH on for symptomatic CBD stones with elevated LFTs. Acute gallstone pancreatitis. ERCP/EUS by on 08/27 sphincterotomy, sphincteroplasty and stone removal and stent placement. Needed epi infection due to bleeding post sphincteroplasty. Gi rec f/u H and H post procedu re 12 hrs and then 24 hrs. Assessment and Plan: Assessment of active problems addressed today: Choledocholithiasis with obstruction/elevated LFTs after failed ERCP at OSH: ERCP attempt failed on 08/26/18 at OSH ERCP and EUS on 08/27. S/p sphincterotomy and stent placement She had bleeding at the sphincterotomy site needing epi infection Still in significant pain, changing pain meds to dilaudid po and valium. Advance diet slowly based on pain control- LFTs are improving. Stent removal planned for 2 months in outpt setting. Essential hypertension: Poor controlin the setting ofpain andnonadherencewith antihypertensive medication s Not on any medications at home Lisinopril and amlodipine started inpatient. Acute pancreatitis. Gall stone related. S/p remote cholecystectomy S/p ERCP Lipase improving Advance diet slowly per clinical improvement and pain control Depression and anxiety: Med mgmt defer to PCP Active Hospital Problems Diagnosis Choledocholithiasis with obstruction Acute pancreatitis Depression Anxiety TIA (transient ischemic attack) Essential hypertension Resolved Hospital Problems No resolved problems to display. I have reviewed and updated the problem list. Disposition: home CODE STATUS: Full Code DVT prophylaxis: subcutaneous heparin Subjective: CC: pt is c/o pain. When pain is worst, BP is 180/110. Changed pain meds to dilaudid and va lium from [employer] to see if helped. Pt toleratign diet, no vomiting. Review of Systems Constitutional: Positive for malaise/fatigue. Negative for fever. HENT: Negative. Eyes: Negative. Respiratory: Negative for cough. Cardiovascular: Negative for chest pain. Gastrointestinal: Positive for abdominal pain. Negative for blood in stool, nausea and vomi ting. Genitourinary: Negative. Musculoskeletal: Negative. Skin: Negative. Neurological: Negative. Endo/Heme/Allergies: Negative. Psychiatric/Behavioral: Negative. Objective: Vital Signs 08/27 0700 - 08/28 0659 08/28 0700 - 08/29 0659 08/29 0700 - 08/29 1401 Most Rec ent Temp (C) 36.1 - 37.5 36.1 - 36.9 36.9 - 37 36.9 (98.4) Pulse 60 - 79 62 - 79 61 - 78 78 Resp 16 - 20 18 - 20 18 - 20 20 BP 140/68 - 222/117 139/79 - 156/81 156/83 - 189/121 189/121 SpO2 (%) 95 - 99 96 - 100 97 - 98 97 I/O last 3 completed shifts: In: 1992 [P.O.:1020; I.V.:973] Out: 2149 [Urine:2149] Wt Readings from Last 3 Encounters: 08/26/18 74.1 kg (163 lb 6.4 oz) 08/25/18 75.6 kg (166 lb 10.7 oz) 07/04/16 77.1 kg (170 lb) Active Lines None Active Tubes/Drains None Physical Exam Constitutional: She appears well-developed and well-nourished. HENT: Head: Normocephalic. Nose: Nose normal. Eyes: Pupils are equal, round, and reactive to light. Conjunctivae are normal. Neck: Normal range of motion. Neck supple. Cardiovascular: Normal rate and intact distal pulses. Pulmonary/Chest: Effort normal and breath sounds normal. Abdominal: Soft. Bowel sounds are normal. Musculoskeletal: Normal range of motion. Neurological: She is alert. Skin: Skin is warm. Capillary refill takes less than 2 seconds. Psychiatric: She has a normal mood and affect. Nursing note and vitals reviewed. 24 HOUR LABS: Recent Results (from the past 24 hour(s)) Comprehensive Metabolic Panel Result Value Ref Range Na 136 135 - 145 mmol/L K 3.2 (L) 3.5 - 5.0 mmol/L Cl 104 99 - 109 mmol/L CO2 23 21 - 28 mmol/L Ca 8.9 8.5 - 10.2 mg/dL Anion Gap 9 5 - 16 mmol/L Albumin 4.0 3.3 - 4.8 g/dL BUN 6 (L) 8 - 25 mg/dL Creatinine 0.69 0.50 - 1.00 mg/dL Glucose 117 (H) 65 - 99 mg/dL Total Protein 6.4 6.1 - 7.8 g/dL Alkaline Phosphatase 222 (H) 35 - 115 U/L ALT 112 (H) 10 - 65 U/L AST 110 (H) 10 - 45 U/L Bilirubin Total 1.1 0.2 - 1.1 mg/dL Estimated GFR 94 >=90 mL/min/1.73m2 Lipase Result Value Ref Range Lipase 85 (H) 11 - 82 U/L C-Reactive Protein Result Value Ref Range CRP 12.4 (H) 0.0 - 1.5 mg/dL No results found for: POCGLU All pertinent labs and imaging have been reviewed. Please refer to the Assessment and Plan for details on management. I spent 35 minutes with the patient and on the patient's unit, with over 50% spent in coun seling and/or coordination of care. Please refer to the Assessment and Plan for details. Electronically signed by: Lynne Sweet MD 08/29/2018 14:01 Portions of this chart may have been created with St[employer] voice recognition software. Occasi onal wrong-word or sound-alike substitutions may have occurred due to the inherent pino itations of voice recognition software. Please read the chart carefully and recognize, using context, where these substitutions have occurred Davida Barnard RN - 08/29/2018 1346 PDTVAT: assessed both forearms with ultrasound and could not fine viable vein. She has some surface veins that may accommodate a 24 gauge. Primary RN says annette at she has oral medications ordered and is ok without IV access at this time. May consider m idline placement if reliable access is needed. Electronically signed by: Kathy Morales 08/29/2018 13:48 Kristen Howard MSW - 08/29/2018 1038 PDTBlue: no d/c needs identified at this time. Brianna Nugent PA - 08/29/2018 0856 PDT GASTROENTEROLOGY INPATIENT DAILY PROGRESS NOTE Brianna Connolly PA-C PATIENT INFORMATION Patient Name: Swathi Dumont Date of : 1955 Date of Admission: 08/26/2018 Hospital Day #: LOS: 2 days Encounter Information: Date of Service: 08/29/2018 8:57 Impression and Plan: -Choledocholithiasis s/p ERCP w/ sphincterotomy, sphincteroplasty, and stone removal -Post-sphincterotomy bleeding s/p placement of 10 mm x 4 cm full covered metal stent -Gallstone pancreatitis s/p ERCP Pt seen and examined, and case discussed with Dr. Dr. Ortez. Pt feels worse today. Oral pain meds not controlling her pain. I will switch her back to clear liquids for now , and r echeck a lipase and CRP. ( I suspect her pain still related to pancreatitis) She definitely needs IV access of some type in order to get her pain under better control. Further recomnendations to follow. Subjective: Swathi Dumont is a 62 y.o. female being seen in follow-up s/p ERCP. LFTs trending down- Pt in more pain today. Trying full liquids but still with pain. Team was unable to get IV or PICC yest (per pt) so she is just on oral pain meds- not contr olling he rpain. Fever past 24 hrs: NONE Remarkable labs: see LFTs below Abx: none GI meds: none Anticoag: none Diet: full liquids Tolerating? yes Results for SWATHI DUMONT ( ) as of 08/29/2018 08:56 Ref. Range 08/27/2018 05:11 08/27/2018 08:54 08/28/2018 02:57 08/29/2018 00:42 ALK PHOS Latest Ref Range: 35 - 115 U/L 287 (H) 242 (H) 222 (H) ALT (SGPT) (REF) Latest Ref Range: 10 - 65 U/L 151 (H) 126 (H) 112 (H) AST (SGOT) (REF) Latest Ref Range: 10 - 45 U/L 131 (H) 143 (H) 110 (H) Bilirubin Total (Calculated) Latest Ref Range: 0.2 - 1.1 mg/dL 1.5 (H) 1.3 (H) 1.1 Objective: Vitals: Temp: 37 C (98.6 F) BP: 156/83 Pulse: 61 Resp: 18 SpO2: 98 % on Min/Max Temp past 24 hours:Temp Av.6 C (97.9 F) Min: 36.1 C (97 F) Max: 37 C (98.6 F) Wt. Admission: Weight: 74.1 kg (163 lb 6.4 oz) Wt. Current: Weight: 74.1 kg (163 lb 6.4 oz) Physical Examination: GEN: well-developed, well-nourished; in no acute distress. Pt diaphoretic HEENT: atraumatic, normocephalic, conjunctiva clear; sclera nonicteric RESP: lungs clear without W/R/R, normal respiratory effort C/V: regular rate and rhythm without murmurs GI: soft, + diffuse TTP all quads, nondistended with active bowel tones; no organomegaly o r masses SKIN: warm, dry, no lesions, rash, jaundice M/S: Gait deferred PSYCH: normal mood and affect, cooperative NEURO: alert and oriented x 3 Recent Labs Lab 08/27/18 2234 08/27/18 0511 08/26/18 0557 WBC 13.52* 10.54 8.1 HGB 15.1 15.9* 14.0 HCT 44.3 46.8* 42.1 PLT 268 307 311 Recent Labs Lab 08/29/18 0042 08/28/18 0257 08/27/18 0511 NA 136 138 140 K 3.2* 3.7 3.6 CL 104 105 104 CO2 23 34* 23 BUN 6* <5* 7* CREA 0.69 0.61 0.71 CALCIUM 8.9 8.5 9.1 Laboratory and Diagnostic Studies Reviewed: Available data and images were reviewed person ally. See reports. Significant results and findings are addressed here or in the Assessment and Plan. Brianna Connolly PA-C [facility] ynne Sweet MD - 08/28/2018 1557 PDT Patient: Swathi Dumont Date of : 1955 Admit Date: 08/26/2018 Date of Service: 08/28/2018 PCP: Herminio Gomez PA-C Hospital Day: 1 Hospital Course: Mrs. Dumont is a 62-year-old lady with h/o HTN, TIA, depression and anxiety, marijuana use , cholecystectomy 1995, gastroparesis s/p pyloroplasty in 2014 and long-standing history of choledocholithiasis admitted on 08/26/18 as a transfer from OSH after failed ERCP at OSH on for symptomatic CBD stones with elevated LFTs. Acute gallstone pancreatitis. ERCP/EUS by on 08/27 sphincterotomy, sphincteroplasty and stone removal and stent placement. Needed epi infection due to bleeding post sphincteroplasty. Gi rec f/u H and H post procedu re 12 hrs and then 24 hrs. Assessment and Plan: Assessment of active problems addressed today: Choledocholithiasis with obstruction/elevated LFTs after failed ERCP at OSH: ERCP attempt failed on 08/26/18 at OSH ERCP and EUS on 08/27. S/p sphincterotomy and stent placement She had bleeding at the sphincterotomy site needing epi infection Still in significant pain. Advance diet slowly based on pain control- LFTs are improving. Stent removal planned for 2 months in outpt setting. Essential hypertension: Poor control in the setting of pain andnon adherence with antihypertensive medications Not on any medications at home Lisinopril and amlodipine started inpatient. Acute pancreatitis. Gall stone related. S/p remote cholecystectomy S/p ERCP Lipase improving Advance diet slowly per clinical improvement and pain control Depression and anxiety: Med mgmt defer to PCP Active Hospital Problems Diagnosis Choledocholithiasis with obstruction Acute pancreatitis Depression Anxiety TIA (transient ischemic attack) Essential hypertension Resolved Hospital Problems No resolved problems to display. I have reviewed and updated the problem list. Disposition: home CODE STATUS: Prior DVT prophylaxis: SCDs Subjective: CC: pt still c/o pain in abdomen, but tolerating clears today. Lost IV site. Review of Systems Constitutional: Negative for fever. HENT: Negative. Eyes: Negative. Respiratory: Negative for cough. Cardiovascular: Negative for chest pain. Gastrointestinal: Negative for nausea. Genitourinary: Negative. Musculoskeletal: Negative. Skin: Negative. Neurological: Positive for weakness. Endo/Heme/Allergies: Negative. Psychiatric/Behavioral: Negative. Objective: Vital Signs 08/26 07 - 08/27 0659 08/27 07 - 08/28 0659 08/28 07 - 08/28 1557 Most Rec ent Temp (C) 36.2 - 36.9 36.1 - 37.5 36.1 - 36.9 36.1 (97) Pulse 55 - 85 60 - 79 62 - 68 62 Resp 13 - 16 16 - 20 18 - 20 18 BP 145/70 - 210/118 140/68 - 222/117 139/79 - 151/73 139/79 SpO2 (%) 93 - 99 95 - 99 96 - 97 97 Weight (kg) 74.1 I/O last 3 completed shifts: In: 2074 [P.O.:100; I.V.:1974] Out: 651 [Urine:651] Wt Readings from Last 3 Encounters: 08/26/18 74.1 kg (163 lb 6.4 oz) 08/25/18 75.6 kg (166 lb 10.7 oz) 07/04/16 77.1 kg (170 lb) Active Lines PIV Line Peripheral IV Line - Single Lumen 08/25/18 Left Antecubital 20 gauge 3 days Active Tubes/Drains None Physical Exam 24 HOUR LABS: Recent Results (from the past 24 hour(s)) CBC no Differential Result Value Ref Range WBC 13.52 (H) 3.80 - 11.00 K/uL RBC 5.07 3.70 - 5.10 M/uL Hemoglobin 15.1 11.3 - 15.5 g/dL Hct 44.3 34.0 - 46.0 % MCV 87.4 80.0 - 100.0 fL MCH 29.8 27.0 - 34.0 pg MCHC 34.1 32.0 - 35.5 g/dL RDW-CV 13.2 11.0 - 15.5 % Platelet Count 268 150 - 400 K/uL MPV 10.1 9.3 - 12.7 fL Comprehensive Metabolic Panel Result Value Ref Range Na 138 135 - 145 mmol/L K 3.7 3.5 - 5.0 mmol/L Cl 105 99 - 109 mmol/L CO2 34 (H) 21 - 28 mmol/L Ca 8.5 8.5 - 10.2 mg/dL Anion Gap -1 (L) 5 - 16 mmol/L Albumin 4.0 3.3 - 4.8 g/dL BUN <5 (L) 8 - 25 mg/dL Creatinine 0.61 0.50 - 1.00 mg/dL Glucose 80 65 - 99 mg/dL Total Protein 6.2 6.1 - 7.8 g/dL Alkaline Phosphatase 242 (H) 35 - 115 U/L ALT 126 (H) 10 - 65 U/L AST 143 (H) 10 - 45 U/L Bilirubin Total 1.3 (H) 0.2 - 1.1 mg/dL Estimated GFR 98 >=90 mL/min/1.73m2 Lipase Result Value Ref Range Lipase 212 (H) 11 - 82 U/L No results found for: POCGLU All pertinent labs and imaging have been reviewed. Please refer to the Assessment and Plan for details on management. I spent 30 minutes with the patient and on the patient's unit, with over 50% spent in coun seling and/or coordination of care. Please refer to the Assessment and Plan for details. Electronically signed by: Lynne Sweet MD 08/28/2018 15:57 Portions of this chart may have been created with St[employer] voice recognition software. Occasi onal wrong-word or sound-alike substitutions may have occurred due to the inherent pino itations of voice recognition software. 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 PAIN MODERATELY WELL M ANAGED PO NORCO. IV INFILTRATED DC'D. IV THERAPY ASSESSED, PATIENT IS DIFFICULT TO RESTART OR PLACE PICC. DIET ADVANCED , PLAN TO ENCOURAGE ORAL INTAKE. Dx/Tx: Procedure(s) (LRB): ENDOSCOPIC RETROGRADE CHOLANGIOPANREATOG with sphincterotomy, dilation and stent placement (N/A) ENDOSCOPIC ULTRASOUND (UPPER) (N/A) Anesthesia Type General OR/Procedure Time Date of Surgery 08/27/2018 1 Day Post-Op Active Diet Order: Active Orders Diet Diet fiber restricted; full liquid; Effective Now PICC/Central Line? Active PICC Lines None Active Gtt: sodium chloride 0.9% Stopped (08/28/18 1100) Abn Labs/Tx: Skin/Wounds: Jean Carlos Score: 21 Comments: Mobility/HRF: Therapy Involved? (PT/OT/ST/RT) [] Yes [x] No DC Plan: (Able to manage at home?) Rawls/Voiding: [x] Voiding [] BU [] Check Void Time Active Urinary Caths None Drain: Active Drains None Ostomy: Active NG/OG/PEGs None Last bowel movement: Stool Occurrence: 1(In toliet for nurse/doc to see. Type 6.) (08/27/18 1607) Last Bowel Movement: 08/24/18 (08/28/18 0104) Pain Management: Next Dose: CAM CAM Score: no MD Notification: Notification Provider Name/Title: DR VILLA (08/28/18851) Reason for Communication: (LOST IV) (08/28/18851) Method of Communication: Call (08/28/18851) Photographic Artist for Provider: LUZ ZHAO (08/28/18851) Response: See orders (08/28/18851) Vitals: 08/27/18 2103 08/28/18 0026 08/28/18 0300 08/28/18 0810 BP: 140/68 168/89 155/72 151/73 Pulse: 71 67 74 65 Resp: 16 16 20 20 Temp: 37.5 C (99.5 F) 36.3 C (97.4 F) 36.8 C (98.3 F) 36.9 C (98.5 F) TempSrc: Oral Temporal Temporal Oral SpO2: 95% 95% 96% 96% Weight: Height: No results found for: POCGLU Brianna Nugent PA - 2018 1043 PDT GASTROENTEROLOGY INPATIENT DAILY PROGRESS NOTE Brianna Connolly PA-C PATIENT INFORMATION Patient Name: Swathi Dumont Date of : 1955 Date of Admission: 08/26/2018 Hospital Day #: LOS: 1 day Encounter Information: Date of Service: 08/28/2018 10:43 Impression and Plan: -Choledocholithiasis s/p ERCP w/ sphincterotomy, sphincteroplasty, and stone removal -Post-sphincterotomy bleeding s/p placement of 10 mm x 4 cm full covered metal stent -Gallstone pancreatitis s/p ERCP Pt seen and examined, and case discussed with Dr. Colbert. Pt is feeling a bit better. Lipase and LFTs are trending down. Hgb stable. No evidence of ongoing post-sphincterotomy bleeding. We will arrange for f/u ERCP 2 months for stent removal. Home once tolerating po and on ora l pain meds. Subjective: Swathi Dumont is a 62 y.o. female being seen in follow-up s/p ERCP. LFTs trending down- She is feeling a bit better than pre-procedure. She has tolerated clear liquids and is plan del to try solids for lunch. Lipase continues to trend down. Fever past 24 hrs: tmax 99.5 Remarkable labs: see LFTs below Abx: none GI meds: none Anticoag: none Diet: NPO Tolerating? Results for SWATHI DUMONT ( ) as of 08/28/2018 10:48 Ref. Range 08/27/2018 05:11 08/27/2018 08:54 08/28/2018 02:57 ALK PHOS Latest Ref Range: 35 - 115 U/L 287 (H) 242 (H) ALT (SGPT) (REF) Latest Ref Range: 10 - 65 U/L 151 (H) 126 (H) AST (SGOT) (REF) Latest Ref Range: 10 - 45 U/L 131 (H) 143 (H) Bilirubin Total (Calculated) Latest Ref Range: 0.2 - 1.1 mg/dL 1.5 (H) 1.3 (H) Objective: Vitals: Temp: 36.9 C (98.5 F) BP: 151/73 Pulse: 65 Resp: 20 SpO2: 96 % on Min/Max Temp past 24 hours:Temp Av.7 C (98.1 F) Min: 36.1 C (97 F) Max: 37. 5 C (99.5 F) Wt. Admission: Weight: 74.1 kg (163 lb 6.4 oz) Wt. Current: Weight: 74.1 kg (163 lb 6.4 oz) Physical Examination: GEN: well-developed, well-nourished; in no acute distress HEENT: atraumatic, normocephalic, conjunctiva clear; sclera nonicteric RESP: lungs clear without W/R/R, normal respiratory effort C/V: regular rate and rhythm without murmurs GI: soft, + diffuse TTP all quads, nondistended with active bowel tones; no organomegaly o r masses SKIN: warm, dry, no lesions, rash, jaundice M/S: Gait deferred PSYCH: normal mood and affect, cooperative NEURO: alert and oriented x 3 Recent Labs Lab 08/27/18 2234 08/27/18 0511 08/26/18 0557 WBC 13.52* 10.54 8.1 HGB 15.1 15.9* 14.0 HCT 44.3 46.8* 42.1 PLT 268 307 311 Recent Labs Lab 08/28/18 0257 08/27/18 0511 08/26/18 0557 NA 138 140 136 K 3.7 3.6 3.6 CL 105 104 103 CO2 34* 23 26 BUN <5* 7* 6* CREA 0.61 0.71 0.73 CALCIUM 8.5 9.1 9.1 Laboratory and Diagnostic Studies Reviewed: Available data and images were reviewed person pilyy. See reports. Significant results and findings are addressed here or in the Assessment and Plan. Brianna Connolly PA-C [facility] [place] Reyes RN - 2018 1030 PDTVAT pt assessed with US for PIV, however, pt at this time does not have any sites to place a PIV. Please consider other options ---> CL or Midline. T don you Miranda Giraldo MD - 08/27/2018 1641 PDT Patient: Swathi Dumont Date of : 1955 Admit Date: 08/26/2018 Date of Service: 08/27/2018 PCP: Herminio Gomez PA-C Hospital Day: 0 Hospital Course: Mrs. Dumont is a 62-year-old lady with h/o HTN, TIA, depression and anxiety, marijuana use , cholecystectomy 1995, gastroparesis s/p pyloroplasty in 2014 and long-standing history of choledocholithiasis admitted on 08/26/18 as a transfer from OSH after failed ERCP at OSH on for symptomatic CBD stones with elevated LFTs. Acute gallstone pancreatitis. ERCP/EUS by on 08/27 sphincterotomy, sphincteroplasty and stone removal and stent placement. Needed epi infection due to bleeding post sphincteroplasty. Gi rec f/u H and H post procedu re 12 hrs and then 24 hrs. Assessment and Plan: Assessment of active problems addressed today: Symptomatic Choledocholithiasis with obstruction with elevated LFTs and failed ERCP at OSH: AST 363, ALT 254, T jacob 4.5 and alkaline phosphatase 276 on 08/25/18 ERCP attempt failed on 08/26/18 at OSH Received ceftriaxone 1 dose on 08/25/18 per OSH record No indication for antibiotics ERCP and EUS on 08/27. S/p sphincterotomy and stent placement She had bleeding at the sphincterotomy site needing epi infection GI recs f/u H and H 12 hrs and then in 24 hrs H and H ordered fro 1200 pm today Still in significant pain. Change diet to ice chips and sips only Advance diet slowly based on pain control and clinical improvement. IVF. Essential hypertension: Poor control in the setting of pain and non adherence with antihypertensive medications Not on any medications at home for 2.5 years Started lisinopril and amlodipine Hx of stroke Prn labetalol and hydralazine Acute pancreatitis. Gall stone related. S/p cholecystectomy remote S/p ERCP Lipase improving Advance diet slowly per clinical improvement and pain control Depression and anxiety: Stable Not on any medications at home for 2.5 years Med mgmt defer to PCP H/o TIA: Asymptomatic Not on antiplatelet therapy for 2.5 years Discussed starting her on aspirin and low dose statin Pt agreeable. Would wait now in the setting of acute pancreatitis Could start EC aspirin if hb stable on discharge. Disposition: home in 2 days. DVT prophylaxis: SCDs hold off on heparin or lovenox. CODE STATUS: Prior Active Hospital Problems Diagnosis Choledocholithiasis with obstruction Depression Anxiety TIA (transient ischemic attack) Essential hypertension Resolved Hospital Problems No resolved problems to display. I have reviewed and updated the problem list. Subjective: CC: reports abdominal pain, nausea. Denies headache, sob or cp ROS: as above. Objective: Vital Signs 08/25 07 - 08/26 0659 08/26 07 - 08/27 0659 08/27 699 - 08/27 1641 Most Rec ent Temp (C) 36.9 - 37.7 36.2 - 36.9 36.4 - 37.3 36.5 (97.7) Pulse 59 - 69 55 - 85 60 - 79 65 Resp 14 - 16 13 - 16 16 - 18 16 BP 158/83 - 190/90 145/70 - 210/118 145/98 - 222/117 165/84 SpO2 (%) 94 - 98 93 - 99 95 - 99 95 Weight (kg) 75.6 74.1 I/O last 3 completed shifts: In: 320 [I.V.:320] Out: - Wt Readings from Last 3 Encounters: 08/26/18 74.1 kg (163 lb 6.4 oz) 08/25/18 75.6 kg (166 lb 10.7 oz) 07/04/16 77.1 kg (170 lb) Active Lines PIV Line Peripheral IV Line - Single Lumen 08/25/18 Left Antecubital 20 gauge 2 days Active Tubes/Drains None Physical Exam Constitutional: She is oriented to person, place, and time. No distress. HENT: Head: Normocephalic. Eyes: Pupils are equal, round, and reactive to light. Neck: Neck supple. Cardiovascular: Normal rate and regular rhythm. Pulmonary/Chest: Effort normal and breath sounds normal. No respiratory distress. Abdominal: Soft. Bowel sounds are normal. Epi and bilateral upper quadrants pain Tender to palpation No guarding Musculoskeletal: She exhibits no edema. Neurological: She is alert and oriented to person, place, and time. In pain Vitals reviewed. 24 HOUR LABS: Recent Results (from the past 24 hour(s)) CBC with Differential Result Value Ref Range WBC 10.54 3.80 - 11.00 K/uL RBC 5.35 (H) 3.70 - 5.10 M/uL Hemoglobin 15.9 (H) 11.3 - 15.5 g/dL Hct 46.8 (H) 34.0 - 46.0 % MCV 87.5 80.0 - 100.0 fL MCH 29.7 27.0 - 34.0 pg MCHC 34.0 32.0 - 35.5 g/dL RDW-CV 13.1 11.0 - 15.5 % Platelet Count 307 150 - 400 K/uL MPV 9.4 9.3 - 12.7 fL % Neutrophils 76.3 (H) 40.0 - 75.0 % % Lymphocytes 11.1 (L) 15.0 - 48.0 % % Monocytes 9.1 0.0 - 12.0 % % Eosinophils 2.3 0.0 - 7.0 % % Basophils 0.4 0.0 - 2.0 % % Immature Granulocytes 0.8 0.0 - 1.0 % Absolute Neutrophils 8.04 (H) 1.90 - 7.40 K/uL Absolute Lymphocytes 1.17 1.00 - 3.90 K/uL Absolute Monocytes 0.96 (H) 0.00 - 0.80 K/uL Absolute Eosinophils 0.24 0.00 - 0.50 K/uL Absolute Basophils 0.04 0.00 - 0.10 K/uL Absolute Immature Granulocytes 0.08 (H) 0.00 - 0.03 K/uL Comprehensive Metabolic Panel Result Value Ref Range Na 140 135 - 145 mmol/L K 3.6 3.5 - 5.0 mmol/L Cl 104 99 - 109 mmol/L CO2 23 21 - 28 mmol/L Ca 9.1 8.5 - 10.2 mg/dL Anion Gap 13 5 - 16 mmol/L Albumin 4.3 3.3 - 4.8 g/dL BUN 7 (L) 8 - 25 mg/dL Creatinine 0.71 0.50 - 1.00 mg/dL Glucose 91 65 - 99 mg/dL Total Protein 6.7 6.1 - 7.8 g/dL Alkaline Phosphatase 287 (H) 35 - 115 U/L ALT 151 (H) 10 - 65 U/L AST 131 (H) 10 - 45 U/L Bilirubin Total 1.5 (H) 0.2 - 1.1 mg/dL Estimated GFR 92 >=90 mL/min/1.73m2 Lipase Result Value Ref Range Lipase 607 (H) 11 - 82 U/L No results found for: POCGLU I expect this patient will be hospitalized for greater than 2-midnights and expect the post -hospital plan to be discharge to home or to an adult foster home. All pertinent labs and imaging have been reviewed. Please refer to the Assessment and Plan for details on management. I spent 35 minutes with the patient and on the patient's unit, with over 50% spent in coun seling and/or coordination of care. Please refer to the Assessment and Plan for details. Electronically signed by: Miranda Ocasio MD 08/27/2018 16:41 Portions of this chart may have been created with Stemnion voice recognition software. Occasi onal wrong-word or sound-alike substitutions may have occurred due to the inherent pino itations of voice recognition software. Please read the chart carefully and recognize, using context, where these substitutions have occurred lNiki tamez RN - 08/26/2018 1536 PDTAdmission screen completed by Mil Prince Report handoff given to 5 [facility] PAVEL Jaeger RN has completed admission flow sheet except for shift assessment, fall risk, jean carlos assessment. Mil RN has also completed Patient belongings Information for admission documentation was received from patient Patient is A+O Electronically signed by: Niki Castañeda RN 08/26/2018 15:37 documented in this en counter Plan of Treatment Not on filedocumented as of this encounter Procedures + +--------+ + + + | Procedure Name | Priori | Date/Time | Associated Diagnosis | Comments | | | ty | | | | + +--------+ + + + | COMPREHENSIVE | Routin | 08/30/2018 | | Results for this | | METABOLIC PANEL | e | 9:40 PDT | | procedure are in the | | | | | | results section. | + +--------+ + + + | C-REACTIVE PROTEIN | Routin | 08/29/2018 | | Results for this | | | e | 12:13 PDT | | procedure are in the | | | | | | results section. | + +--------+ + + + | LIPASE | Routin | 08/29/2018 | | Results for this | | | e | 12:13 PDT | | procedure are in the | | | | | | results section. | + +--------+ + + + | COMPREHENSIVE | Routin | 08/29/2018 | | Results for this | | METABOLIC PANEL | e | 0:42 PDT | | procedure are in the | | | | | | results section. | + +--------+ + + + | LIPASE | Routin | 08/28/2018 | | Results for this | | | e | 2:57 PDT | | procedure are in the | | | | | | results section. | + +--------+ + + + | COMPREHENSIVE | Routin | 08/28/2018 | | Results for this | | METABOLIC PANEL | e | 2:57 PDT | | procedure are in the | | | | | | results section. | + +--------+ + + + | CBC NO DIFFERENTIAL | Routin | 08/27/2018 | | Results for this | | | e | 22:34 PDT | | procedure are in the | | | | | | results section. | + +--------+ + + + | ENDOSCOPIC | | 08/27/2018 | | | | ULTRASOUND (UPPER) | | 13:20 PDT | choledecleolithesis | | + +--------+ + + + | ENDOSCOPIC | | 08/27/2018 | | | | RETROGRADE | | 13:20 PDT | choledecleolithesis | | | CHOLANGIOPANREATOG | | | | | + +--------+ + + + | FL ERCP BILIARY ONLY | Routin | 08/27/2018 | | Results for this | | | e | 11:46 PDT | | procedure are in the | | | | | | results section. | + +--------+ + + + | ENDOSCOPIC | Routin | 08/27/2018 | | Results for this | | ULTRASOUND (UPPER) | e | 10:42 PDT | | procedure are in the | | | | | | results section. | + +--------+ + + + | ERCP | Routin | 08/27/2018 | | Results for this | | | e | 10:42 PDT | | procedure are in the | | | | | | results section. | + +--------+ + + + | LIPASE | Routin | 08/27/2018 | | Results for this | | | e | 8:54 PDT | | procedure are in the | | | | | | results section. | + +--------+ + + + | CBC WITH | Routin | 08/27/2018 | | Results for this | | DIFFERENTIAL | e | 5:11 PDT | | procedure are in the | | | | | | results section. | + +--------+ + + + | COMPREHENSIVE | Routin | 08/27/2018 | | Results for this | | METABOLIC PANEL | e | 5:11 PDT | | procedure are in the | | | | | | results section. | + +--------+ + + + documented in this encounter Results Comprehensive Metabolic Panel (08/30/2018 9:40 PDT) + + + + + + | Component | Value | Ref Range | Performed | Pathologist | | | | | At | Signature | + + + + + + | Na | 138 | 135 - 145 | [facility] | | | | | mmol/L | [facility] | | | | | [facility] | | | | | | [facility] | | | | | | [facility] | | | | | | LABORATORY | | | | | | [facility] | | + + + + + + | K | 3.9 | 3.5 - 5.0 | [facility] | | | | | mmol/L | [facility] | | | | | [facility] | | | | | | [facility] | | | | | | [facility] | | | | | | LABORATORY | | | | | | [facility] | | + + + + + + | Cl | 106 | 99 - 109 mmol/L | [facility] | | | | | | [facility] | [facility] | | | | | | [facility] | | | | | | [facility] | | | | | | LAB[facility]ATORY | | | | | | [facility] | | + + + + + + | CO2 | 19 (L) | 21 - 28 mmol/L | [facility] | | | | | | [facility] | [facility] | | | | | | [facility] | | | | | | [facility] | | | | | | LAB[facility]ATORY | | | | | | [facility] | | + + + + + + | Ca | 9.2 | 8.5 - 10.2 | [facility] | | | | | mg/dL | [facility] | | | | | [facility] | | | | | | [facility] | | | | | | [facility] | | | | | | LAB[facility]ATORY | | | | | | [facility] | | + + + + + + | Anion Gap | 13 | 5 - 16 mmol/L | [facility] | | | | | | [facility] | [facility] | | | | | | [facility] | | | | | | [facility] | | | | | | LAB[facility] | | | | | | [facility] | | + + + + + + | Albumin | 4.2 | 3.3 - 4.8 g/dL | [facility] | | | | | | [facility] | [facility] | | | | | | [facility] | | | | | | [facility] | | | | | | LAB[facility]ATORY | | | | | | [facility] | | + + + + + + | BUN | 9 | 8 - 25 mg/dL | [facility] | | | | | | [facility] | | | | | [facility] | | | | | | [facility] | | | | | | [facility] | | | | | | LAB[facility]ATORY | | | | | | [facility] | | + + + + + + | Creatinine | 0.63 | 0.50 - 1.00 | [facility] | | | | | mg/dL | [facility] | | | | | [facility] | | | | | | [facility] | | | | | | [facility] | | | | | | LAB[facility]ATORY | | | | | | [facility] | | + + + + + + | Glucose | 88 | 65 - 99 mg/dL | [facility] | | | | | | [facility] | | [facility] | [facility] | | | | | | [facility] | | | | | | [facility] | | | | | | LAB[facility]ATORY | | | | | | [facility] | | + + + + + + | Total | 6.9 | 6.1 - 7.8 g/dL | [facility] | | | Protein | | | [facility] | | | | | | [facility] | | | | | | [facility] | | | | | | [facility] | | | | | | LAB[facility]ATORY | | | | | | [facility] | | + + + + + + | Alkaline | 213 (H) | 35 - 115 U/L | [facility] | | | Phosphatase | | | [facility] | | | | | [facility] | | | | | | [facility] | | | | | | [facility] | | | | | | LABORATORY | | | | | | [facility] | | + + + + + + | ALT | 96 (H) | 10 - 65 U/L | [facility] | | | | | | [facility] | | | | | | [facility] | | | | | | [facility] | | | | | | [facility]ENTER | | | | | | LABORATORY | | | | | | [facility] | | + + + + + + | AST | 101 (H) | 10 - 45 U/L | [facility] | | | | | | [facility] | | | | | | [facility] | | | | | | MED[facility] | | | | | | CENTER | | | | | | LABORATORY | | | | | | [facility] | | + + + + + + | Bilirubin | 0.9 | 0.2 - 1.1 mg/dL | [facility] | | | Total | | | [facility] | | | | | | [facility] | | | | | | MED[facility] | | | | | | [facility]ENTER | | | | | | LABORATORY | | | | | | [facility] | | + + + + + + | Estimated | 97Comment: eGFR<60 | >=90 | [facility] | | | GFR | consistent with impaired | mL/min/1.73m2 | [facility] | | | | kidney | | HEART | | | | function.Performed by | | MEDICAL | | | | [facility] [address], | | [place] | | | | [place] [address] | | LABORATORY | | | | | | [facility] | | + + + + + + + + | Specimen | + + | Blood | + + + + + + + | Performing | Address | City/State/Zipcode | Phone Number | | Organization | | | | + + + + + | [facility] | [address] | [place] [address] | | | [facility] | | | | | [facility]AT[facility] | | | | + + + + + C-Reactive Protein (08/29/2018 12:13 PDT) + + + + + + | Component | Value | Ref Range | Performed | Pathologist | | | | | At | Signature | + + + + + + | CRP | 12.4 (H)Comment: | 0.0 - 1.5 mg/dL | [facility] | | | | Performed by [facility] [address] | | [facility] | | | | [address] [place], [place] | | HEART | | | | [address] | | MEDICAL | | | | | | CENTER | | | | | | LABORATORY | | | | | | [facility] | | + + + + + + + + | Specimen | + + | Blood | + + + + + + + | Performing | Address | City/State/Zipcode | Phone Number | | Organization | | | | + + + + + | [facility] | [address] | [place] [address] | | | [facility] | | | | | LAB[facility]AT[facility] | | | | + + + + + Lipase (08/29/2018 12:13 PDT) + + + + + + | Component | Value | Ref Range | Performed | Pathologist | | | | | At | Signature | + + + + + + | Lipase | 85 (H)Comment: | 11 - 82 U/L | [facility] | | | | Performed by [facility] [address] | | [facility] | | | | [address], [place] | | HEART | | | | | | MEDICAL | | | | | | CENTER | | | | | | LABORATORY | | | | | | [facility] | | + + + + + + + + | Specimen | + + | Blood | + + + + + + + | Performing | Address | City/State/Zipcode | Phone Number | | Organization | | | | + + + + + | [facility] | [address] | [place] | | | [facility] | | | | | [facility]AT[facility] | | | | + + + + + Comprehensive Metabolic Panel (08/29/2018 0:42 PDT) + + + + + + | Component | Value | Ref Range | Performed | Pathologist | | | | | At | Signature | + + + + + + | Na | 136 | 135 - 145 | [facility] | | | | | mmol/L | [facility] | | | | | | HE[facility] | | | | | | MEDICAL | | | | | | CENTER | | | | | | LABORATORY | | | | | | [facility] | | + + + + + + | K | 3.2 (L) | 3.5 - 5.0 | [facility] | | | | | mmol/L | [facility] | | | | | | HE[facility] | | | | | | MEDICAL | | | | | | CENTER | | | | | | LABORATORY | | | | | | [facility] | | + + + + + + | Cl | 104 | 99 - 109 mmol/L | [facility] | | | | | | [facility] | | | | | | HE[facility] | | | | | | MEDICAL | | | | | | CENTER | | | | | | LABORATORY | | | | | | [facility] | | + + + + + + | CO2 | 23 | 21 - 28 mmol/L | [facility] | | | | | | [facility] | | | | | | HE[facility] | | | | | | MEDICAL | | | | | | CENTER | | | | | | LABORATORY | | | | | | [facility] | | + + + + + + | Ca | 8.9 | 8.5 - 10.2 | [facility] | | | | | mg/dL | [facility] | | | | | | [facility] | | | | | | MEDICAL | | | | | | CENTER | | | | | | LABORATORY | | | | | | [facility] | | + + + + + + | Anion Gap | 9 | 5 - 16 mmol/L | [facility] | | | | | | [facility] | | | | | | [facility] | | | | | | MED[facility] | | | | | | CENTER | | | | | | LABORATORY | | | | | | [facility] | | + + + + + + | Albumin | 4.0 | 3.3 - 4.8 g/dL | [facility] | | | | | | [facility] | | | | | | [facility] | | | | | | MED[facility] | | | | | | CENTER | | | | | | LABORATORY | | | | | | [facility] | | + + + + + + | BUN | 6 (L) | 8 - 25 mg/dL | [facility] | | | | | | [facility] | | | | | | [facility] | | | | | | [facility] | | | | | | CENTER | | | | | | LABORATORY | | | | | | [facility] | | + + + + + + | Creatinine | 0.69 | 0.50 - 1.00 | [facility] | | | | | mg/dL | [facility] | | | | | | [facility] | | | | | | MEDICAL | | | | | | CENTER | | | | | | LABORATORY | | | | | | [facility] | | + + + + + + | Glucose | 117 (H) | 65 - 99 mg/dL | [facility] | | | | | | [facility] | | | | | | [facility] | | | | | | MED[facility] | | | | | | CENTER | | | | | | LABORATORY | | | | | | [facility] | | + + + + + + | Total | 6.4 | 6.1 - 7.8 g/dL | [facility] | | | Protein | | | [facility] | | | | | | [facility] | | | | | | MEDICAL | | | | | | CENTER | | | | | | LABORATORY | | | | | | [facility] | | + + + + + + | Alkaline | 222 (H) | 35 - 115 U/L | [facility] | | | Phosphatase | | | [facility] | | | | | | [facility] | | | | | | MEDICAL | | | | | | CENTER | | | | | | LABORATORY | | | | | | [facility] | | + + + + + + | ALT | 112 (H) | 10 - 65 U/L | [facility] | | | | | | [facility] | | | | | | [facility] | | | | | | MED[facility] | | | | | | [facility]ENTER | | | | | | LABORATORY | | | | | | [facility] | | + + + + + + | AST | 110 (H) | 10 - 45 U/L | [facility] | | | [facility] | [facility] | [facility] | | | | | | [facility] | | | | | | [facility]ENTER | | | | | | LABORATORY | | | | | | [facility] | | + + + + + + | Bilirubin | 1.1 | 0.2 - 1.1 mg/dL | [facility] | | | Total | | | [facility] | | | | | | [facility] | | | | | | MEDICAL | | | | | | [facility]ENTER | | | | | | LABORATORY | | | | | | [facility] | | + + + + + + | Estimated | 94Comment: eGFR<60 | >=90 | [facility] | | | GFR | consistent with impaired | mL/min/1.73m2 | [facility] | | | | kidney | | HEART | | | | function.Performed by | | MEDICAL | | | | [facility] [address], | | [place] | | | | [place] [address] | | LABORATORY | | | | | | ASHANTI | | + + + + + + + + | Specimen | + + | Blood | + + + + + + + | Performing | Address | City/State/Zipcode | Phone Number | | Organization | | | | + + + + + | [facility] | [address] | [place] [address] | | | [facility] | | | | | LABORAT[facility] | | | | + + + + + Lipase (08/28/2018 2:57 PDT) + + + + + + | Component | Value | Ref Range | Performed | Pathologist | | | | | At | Signature | + + + + + + | Lipase | 212 (H)Comment: | 11 - 82 U/L | [facility] | | | | Performed by [facility] [address] | | [facility]CR[facility] | | | | [address] [place], [place] | | HEART | | | | [id number] | | MEDICAL | | | | | | CENTER | | | | | | LABORATORY | | | | | | [facility] | | + + + + + + + + | Specimen | + + | Blood | + + + + + + + | Performing | Address | City/State/Zipcode | Phone Number | | Organization | | | | + + + + + | [facility] | [address] | [place] [address] | | | [facility] | | | | | LABORAT[facility] | | | | + + + + + Comprehensive Metabolic Panel (08/28/2018 2:57 PDT) + + + + + + | Component | Value | Ref Range | Performed | Pathologist | | | | | At | Signature | + + + + + + | Na | 138 | 135 - 145 | [facility] | | | | | mmol/L | [facility]CRED | | | | | | HEART | | | | | | MEDICAL | | | | | | CENTER | | | | | | LABORATORY | | | | | | [facility] | | + + + + + + | K | 3.7 | 3.5 - 5.0 | [facility] | | | | | mmol/L | SACRED | | | | | | HEART | | | | | | MEDICAL | | | | | | CENTER | | | | | | LABORATORY | | | | | | [facility] | | + + + + + + | Cl | 105 | 99 - 109 mmol/L | [facility] | | | | | | [facility]CR[facility] | | | | | | HEART | | | | | | MEDICAL | | | | | | CENTER | | | | | | LABORATORY | | | | | | [facility] | | + + + + + + | CO2 | 34 (H) | 21 - 28 mmol/L | [facility] | | | | | | [facility]CR[facility] | | | | | | HEART | | | | | | MEDICAL | | | | | | CENTER | | | | | | LABORATORY | | | | | | [facility] | | + + + + + + | Ca | 8.5 | 8.5 - 10.2 | [facility] | | | | | mg/dL | SACRED | | | | | | HEART | | | | | | MEDICAL | | | | | | CENTER | | | | | | LABORATORY | | | | | | [facility] | | + + + + + + | Anion Gap | -1 (L) | 5 - 16 mmol/L | [facility] | | | | | | [facility]CR[facility] | | | | | | HEART | | | | | | MEDICAL | | | | | | CENTER | | | | | | LABORATORY | | | | | | [facility] | | + + + + + + | Albumin | 4.0 | 3.3 - 4.8 g/dL | [facility] | | | | | | [facility] | | | | | | HEART | | | | | | MEDICAL | | | | | | CENTER | | | | | | LABORATORY | | | | | | [facility] | | + + + + + + | BUN | <5 (L) | 8 - 25 mg/dL | [facility] | | | | | | [facility]CR[facility] | | | | | | HEART | | | | | | MEDICAL | | | | | | CENTER | | | | | | LABORATORY | | | | | | [facility] | | + + + + + + | Creatinine | 0.61 | 0.50 - 1.00 | [facility] | | | | | mg/dL | SACRED | | | | | | HEART | | | | | | MEDICAL | | | | | | CENTER | | | | | | LABORATORY | | | | | | [facility] | | + + + + + + | Glucose | 80 | 65 - 99 mg/dL | [facility] | | | | | | [facility]CR[facility] | | | | | | HEART | | | | | | MEDICAL | | | | | | CENTER | | | | | | LABORATORY | | | | | | [facility] | | + + + + + + | Total | 6.2 | 6.1 - 7.8 g/dL | [facility] | | | Protein | | | SACRED | | | | | | HEART | | | | | | MEDICAL | | | | | | CENTER | | | | | | LABORATORY | | | | | | [facility] | | + + + + + + | Alkaline | 242 (H) | 35 - 115 U/L | [facility] | | | Phosphatase | | | SACRED | | | | | | HEART | | | | | | MEDICAL | | | | | | CENTER | | | | | | LABORATORY | | | | | | [facility] | | + + + + + + | ALT | 126 (H) | 10 - 65 U/L | [facility] | | | | | | [facility]CR[facility] | | | | | | HEART | | | | | | MEDICAL | | | | | | CENTER | | | | | | LABORATORY | | | | | | [facility] | | + + + + + + | AST | 143 (H) | 10 - 45 U/L | [facility] | | | | | | [facility]CR[facility] | | | | | | HEART | | | | | | MEDICAL | | | | | | CENTER | | | | | | LABORATORY | | | | | | [facility] | | + + + + + + | Bilirubin | 1.3 (H) | 0.2 - 1.1 mg/dL | [facility] | | | Total | | | SACRED | | | | | | HEART | | | | | | MEDICAL | | | | | | CENTER | | | | | | LABORATORY | | | | | | [facility] | | + + + + + + | Estimated | 98Comment: eGFR<60 | >=90 | [facility] | | | GFR | consistent with impaired | mL/min/1.73m2 | SACRED | | | | kidney | | HEART | | | | function.Performed by | | MEDICAL | | | | [facility] [address], | | CENTER | | | | [place] [address] | | LABORATORY | | | | | | [facility] | | + + + + + + + + | Specimen | + + | Blood | + + + + + + + | Performing | Address | City/State/Zipcode | Phone Number | | Organization | | | | + + + + + | [facility] | [address] | [place] [address] | | | [facility] | | | | | LABORATORY [facility] | | | | + + + + + CBC no Differential (08/27/2018 22:34 PDT) + + + +-------- -----+ + | Component | Value | Ref Range | Perform ed | Pathologist | | | | | At | Signature | + + + +-------- -----+ + | WBC | 13.52 (H) | 3.80 - 11.00 | [facility] | | | | | K/uL | SACRED | | | | | | HEART | | | | | | MEDICAL | | | | | | CENTER | | | | | | LABORAT ORY | | | | | | [facility] | | + + + +-------- -----+ + | RBC | 5.07 | 3.70 - 5.10 | [facility] | | | | | M/uL | [facility]CRED | | | | | | HEART | | | | | | MEDICAL | | | | | | CENTER | | | | | | LABORAT ORY | | | | | | [facility] | | + + + +-------- -----+ + | Hemoglobin | 15.1 | 11.3 - 15.5 | [facility] | | | | | g/dL | SACRED | | | | | | HEART | | | | | | MEDICAL | | | | | | CENTER | | | | | | LABORAT ORY | | | | | | [facility] | | + + + +-------- -----+ + | Hct | 44.3 | 34.0 - 46.0 % | [facility] | | | | | | SACRED | | | | | | HEART | | | | | | MEDICAL | | | | | | CENTER | | | | | | LABORAT ORY | | | | | | [facility] | | + + + +-------- -----+ + | MCV | 87.4 | 80.0 - 100.0 fL | [facility] | | | | | | SACRED | | | | | | HEART | | | | | | MEDICAL | | | | | | CENTER | | | | | | LABORAT ORY | | | | | | [facility] | | + + + +-------- -----+ + | MCH | 29.8 | 27.0 - 34.0 pg | [facility] | | | | | | SACRED | | | | | | HEART | | | | | | MEDICAL | | | | | | CENTER | | | | | | LABORAT ORY | | | | | | [facility] | | + + + +-------- -----+ + | MCHC | 34.1 | 32.0 - 35.5 | [facility] | | | | | g/dL | SACRED | | | | | | HEART | | | | | | MEDICAL | | | | | | CENTER | | | | | | LABORAT ORY | | | | | | [facility] | | + + + +-------- -----+ + | RDW-CV | 13.2 | 11.0 - 15.5 % | [facility] | | | | | | [facility]CRED | | | | | | HEART | | | | | | MEDICAL | | | | | | CENTER | | | | | | LABORAT ORY | | | | | | [facility] | | + + + +-------- -----+ + | Platelet | 268 | 150 - 400 K/uL | [facility] | | | Count | | | SACRED | | | | | | HEART | | | | | | MEDICAL | | | | | | CENTER | | | | | | LABORAT ORY | | | | | | [facility] | | + + + +-------- -----+ + | MPV | 10.1Comment: Performed | 9.3 - 12.7 fL | [facility] | | | | by [facility] [address], | | SACRED | | | | [place] [address] | | HEART | | | |Performed by [facility] [address], [place] [address] | | MEDICAL | | | | | | CENTER | | | | | | LABORAT ORY | | | | | | [facility] | | + + + +-------- -----+ + + + | Specimen | + + | Blood | + + + + + + + | Performing | Address | City/State/Zipcode | Phone Number | | Organization | | | | + + + + + | [facility] | [address] | [place] [address] | | | [facility] | | | | | BRENDA BURRELL | | | | + + + + + [place] ERCP Biliary Only (08/27/2018 11:46 PDT) + + | Specimen | + + | | + + + + + | Narrative | Performed At | + + + | ERCP BILIARY CLINICAL INFORMATION: Common bile duct stone. | [facility] | | COMPARISON: 08/25/2018. FINDINGS: Nineteen spot views obtained | | | shows placement of a common bile duct stent. 2 minutes 15 | | | seconds IMPRESSION: Fluoroscopic assistance for ERCP and CBD | | | stent placement. Signed by: Zain Abbott, Daniel Sign | | | Date/Time: 08/27/2018 12:34 PM | | + + + + + | Procedure Note | + + | Brad, Rad Results In - 08/27/2018 1238 PDT | | ERCP BILIARY | | | | CLINICAL INFORMATION: | | Common bile duct stone. | | | | COMPARISON: | | 08/25/2018. | | | | FINDINGS: | | Nineteen spot views obtained shows placement of a common bile duct | | stent. | | | | 2 minutes 15 seconds | | | | IMPRESSION: | | Fluoroscopic assistance for ERCP and CBD stent placement. | | | | | | | | | | Signed by: Zain Abbott, Daniel | | Sign Date/Time: 08/27/2018 12:34 PM | + + + +---------+ + + | Performing | Address | City/State/Zipcode | Phone Number | | Organization | | | | + +---------+ + + | [facility] | | | | + +---------+ + + EUS Upper (08/27/2018 10:42 PDT) + + | Specimen | + + | | + + + + + | Narrative | Performed At | + + + | [facility] | [place] | | [facility] | [facility] | | [facility] | | | Patient Name: Swathi Dumont Procedure | | | Date: 08/27/2018 10:42 AMMRN: | | | [id number] Account Number: | | | [id number] of : 1955 Note | | | Status: FinalizedAttending MD: MARJ COLBERT MD | | | | | | Procedure Type: Upper | | | EUSIndications: Suspected | | | choledocholithiasisPatient Profile: Patient with | | | choledocholithiasis, had a failed ERCP | | | yesterday in [place], | | | undergoing EUS to evaluate | | | and rule out distal CBD | | | stricture or pancreatic mass | | | lesionReferring: | | | KINGS ANDREA, | | | MDMedicines: Monitored Anesthesia | | | CareComplications: No immediate | | | complications. | | | Procedure: Pre-Anesthesia | | | Assessment: - Prior to the procedure, a History and Physical | | | was performed, and patient medications and allergies were | | | reviewed. The patient's tolerance of previous anesthesia was | | | also reviewed. The risks and benefits of the procedure and | | | the sedation options and risks were discussed with the | | | patient. All questions were answered, and informed consent was | | | obtained. Prior Anticoagulants: The patient has taken no | | | previous anticoagulant or antiplatelet agents. ASA Grade | | | Assessment: II - A patient with mild systemic disease. After | | | reviewing the risks and benefits, the patient was deemed in | | | satisfactory condition to undergo the procedure. After | | | informed consent was obtained including risks, benefits and | | | alternatives, the endoscope was passed under direct vision. Throughout | | | the procedure, the patient's blood pressure, pulse, and | | | oxygen saturations were monitored continuously. The Endoscope | | | was introduced through the mouth, and advanced to the second | | | part of duodenum. The upper EUS was accomplished without | | | difficulty. The patient tolerated the procedure | | | well. | | | | | | Findings: ENDOSONOGRAPHIC FINDING: | | | : There was no sign of significant endosonographic abnormality | | | in the pancreatic head, pancreatic body, pancreatic tail, | | | uncinate process of the pancreas, pancreatic neck and main | | | pancreatic duct. The pancreatic duct measured up to 4 mm in | | | diameter. No masses, no cysts, no calcifications. | | | There was dilation in the common bile duct which measured up to 12 | | | mm. Two stones were visualized endosonographically in the | | | common bile duct. The stones measured up to 10 mm in greatest | | | dimension. The stones were oval. They were hyperechoic and | | | characterized by shadowing. Evidence of a previous | | | cholecystectomy was identified endosonographically. | | | Visualized portions of the left lobe of the liver, spleen, left | | | adrenal gland and left kidney were normal on ultrasound | | | examination. No abnormal-appearing lymph nodes were | | | identified in the mediastinum or | | | abdomen. | | | | | | Impression: - There was no sign of | | | significant pathology in the pancreatic head, pancreatic | | | body, pancreatic tail, uncinate process of the pancreas, | | | pancreatic neck and main pancreatic duct. - There was dilation | | | in the common bile duct which measured up to 12 mm. - Two | | | stones were visualized endosonographically in the common bile | | | duct. - Evidence of a cholecystectomy. - No specimens | | | collected. | | | | | | Recommendation: - Resume previous | | | diet. - Continue present medications. - Return patient | | | to [facility] for [facility]. - Perform an ERCP | | | today. | | | | | | MARJ COLBERT MD08/27/2018 | | | 11:54:31 AMThis report has been signed electronically. Note Initiated | | | On: 08/27/2018 10:42 AMNumber of Addenda: 0 [facility] | | | [facility] | | | | | | [facility] | | + + + + +---------+ + + | Performing | Address | City/State/Zipcode | Phone Number | | Organization | | | | + +---------+ + + | [facility] | | | | + +---------+ + + ERCP (08/27/2018 10:42 PDT) + + | Specimen | + + | | + + + + + | Narrative | Performed At | + + + | [facility] | [place] [facility] | | [facility] | [facility] | | [facility] | | | Patient Name: Swathi Dumont Procedure | | | Date: 08/27/2018 10:42 AMMRN: | | | [id number] Account Number: | | | [id number] of : 1955 Note | | | Status: FinalizedAttending MD: MARJ COLBERT MD | | | | | | Procedure Type: | | | ERCPIndications: Bile duct stone(s)Patient | | | Profile: CBD stonesReferring: SIEW | | | MIN NOAM ANDREAedicines: Monitored Anesthesia | | | CareComplications: No immediate | | | complications. | | | Procedure: Pre-Anesthesia | | | Assessment: - Prior to the procedure, a History and Physical | | | was performed, and patient medications and allergies were | | | reviewed. The patient's tolerance of previous anesthesia was | | | also reviewed. The risks and benefits of the procedure and | | | the sedation options and risks were discussed with the | | | patient. All questions were answered, and informed consent was | | | obtained. Prior Anticoagulants: The patient has taken no | | | previous anticoagulant or antiplatelet agents. ASA Grade | | | Assessment: II - A patient with mild systemic disease. After | | | reviewing the risks and benefits, the patient was deemed in | | | satisfactory condition to undergo the procedure. - The patient | | | was placed in left lateral decubitus position. After informed | | | consent was obtained including risks, benefits and | | | alternatives, the scope was passed under direct vision. Throughout the | | | procedure, the patient's blood pressure, pulse, and oxygen | | | saturations were monitored continuously. The duodenoscope was | | | introduced through the mouth, and advanced to the duodenum | | | and used to inject contrast into the bile duct. The ERCP was | | | accomplished without difficulty. The patient tolerated the | | | procedure | | | well. | | | | | | Findings: A collections professional film of the abdomen | | | was obtained. Surgical clips, consistent with previous | | | cholecystectomy, were seen in the area of the right upper | | | quadrant of the abdomen. The esophagus was successfully intubated | | | under direct vision. The scope was advanced to a normal major | | | papilla in the descending duodenum without detailed | | | examination of the pharynx, larynx and associated structures, | | | and upper GI tract. The upper GI tract was grossly normal. | | | Using a 4.4 spine sphincterotome loaded with a 0.035 inch | | | guidewire, deep biliary cannulation was easily achieved. Contrast | | | was injected and I personally interpreted all radiological | | | images. The common bile duct was dilated to about 12-13 mm in | | | size. 2 filling defects were seen in the mid to distal CBD. | | | A generous sphincterotomy was then performed. After that, a | | | 10 mm hurricane balloon catheter was used to perform | | | sphincteroplasty. One stent, a 12-15 mm retrieval balloon | | | catheter was used to perform balloon sweeps and during stone | | | delivery, bleeding was seen and the stones likely flew through into | | | the duodenum. Further balloon sweeps did not deliver any more | | | stones. Occlusion cholangiogram showed normal intrahepatics | | | and a dilated CBD of about 15 mm tapering down to about 12 mm | | | distally. No further filling defects were seen. Bleeding was | | | seen from the sphincterotomy site and an inflated balloon | | | was used to perform balloon tamponade but this did not stop | | | the bleeding. Then, a 10 mm x 4 cm fully covered [employer] | | | wall flex biliary stent was successfully placed across the | | | papilla. Bleeding decreased significantly but oozing was | | | still seen. A total of 4 mL of 1 in 10,000 epinephrine was | | | then injected at the tip of the sphincterotomy. Good | | | hemostasis was achieved and procedure was terminated. The | | | total fluoroscopy exposure time was 2 minutes and 15 | | | seconds. | | | | | | Impression: 1. Choledocholithiasis | | | status post sphincterotomy, sphincteroplasty and stone | | | removal using balloon sweeps 2. Due to post-sphincterotomy | | | bleeding, 10 mm x 4 cm fully covered metal stent placed and | | | epinephrine | | | injected | | | | | | Recommendation: - Continue present | | | medications. - Return patient to [facility] for ongoing | | | care. - Advance diet as tolerated. - Check CBC q12 x | | | 24 hours - Watch for persistent GI bleed - Repeat ERCP | | | in 2 months for stent | | | removal | | | | | | MARJ COLBERT MD08/27/2018 | | | 11:59:53 AMThis report has been signed electronically. Note Initiated | | | On: 08/27/2018 10:42 AMNumber of Addenda: 0 [facility] | | | [facility] | | + + + + +---------+ + + | Performing | Address | City/State/Zipcode | Phone Number | | Organization | | | | + +---------+ + + | [facility] | | | | + +---------+ + + Lipase (08/27/2018 8:54 PDT) + + + + + + | Component | Value | Ref Range | Performed | Pathologist | | | | | At | Signature | + + + + + + | Lipase | 607 (H)Comment: | 11 - 82 U/L | [facility] | | | | Performed by [facility] [address] | SACRED | | | | [address] [place] | | HEART | | | | [id number] | | MEDICAL | | | | | | CENTER | | | | | | LABORATORY | | | | | | [facility] | | + + + + + + + + | Specimen | + + | Blood | + + + + + + + | Performing | Address | City/State/Zipcode | Phone Number | | Organization | | | | + + + + + | [facility] | [address] | [place] [address] | | | [facility] | | | | | LABORAT[facility] | | | | + + + + + Comprehensive Metabolic Panel (08/27/2018 5:11 PDT) + + + + + + | Component | Value | Ref Range | Performed | Pathologist | | | | | At | Signature | + + + + + + | Na | 140 | 135 - 145 | [facility] | | | | | mmol/L | SACRED | | | | | | HEART | | | | | | MEDICAL | | | | | | CENTER | | | | | | LABORATORY | | | | | | [facility] | | + + + + + + | K | 3.6 | 3.5 - 5.0 | [facility] | | | | | mmol/L | SACRED | | | | | | HEART | | | | | | MEDICAL | | | | | | CENTER | | | | | | LABORATORY | | | | | | [facility] | | + + + + + + | Cl | 104 | 99 - 109 mmol/L | [facility] | | | | | | SACRED | | | | | | HEART | | | | | | MEDICAL | | | | | | CENTER | | | | | | LABORATORY | | | | | | [facility] | | + + + + + + | CO2 | 23 | 21 - 28 mmol/L | [facility] | | | | | | SACRED | | | | | | HEART | | | | | | MEDICAL | | | | | | CENTER | | | | | | LABORATORY | | | | | | [facility] | | + + + + + + | Ca | 9.1 | 8.5 - 10.2 | [facility] | | | | | mg/dL | SACRED | | | | | | HEART | | | | | | MEDICAL | | | | | | CENTER | | | | | | LABORATORY | | | | | | [facility] | | + + + + + + | Anion Gap | 13 | 5 - 16 mmol/L | [facility] | | | | | | SACRED | | | | | | HEART | | | | | | MEDICAL | | | | | | CENTER | | | | | | LABORATORY | | | | | | [facility] | | + + + + + + | Albumin | 4.3 | 3.3 - 4.8 g/dL | [facility] | | | | | | SACRED | | | | | | HEART | | | | | | MEDICAL | | | | | | CENTER | | | | | | LABORATORY | | | | | | [facility] | | + + + + + + | BUN | 7 (L) | 8 - 25 mg/dL | [facility] | | | | | | SACRED | | | | | | HEART | | | | | | MEDICAL | | | | | | CENTER | | | | | | LABORATORY | | | | | | [facility] | | + + + + + + | Creatinine | 0.71 | 0.50 - 1.00 | [facility] | | | | | mg/dL | SACRED | | | | | | HEART | | | | | | MEDICAL | | | | | | CENTER | | | | | | LABORATORY | | | | | | [facility] | | + + + + + + | Glucose | 91 | 65 - 99 mg/dL | [facility] | | | | | | SACRED | | | | | | HEART | | | | | | MEDICAL | | | | | | CENTER | | | | | | LABORATORY | | | | | | [facility] | | + + + + + + | Total | 6.7 | 6.1 - 7.8 g/dL | [facility] | | | Protein | | | SACRED | | | | | | HEART | | | | | | MEDICAL | | | | | | CENTER | | | | | | LABORATORY | | | | | | [facility] | | + + + + + + | Alkaline | 287 (H) | 35 - 115 U/L | [facility] | | | Phosphatase | | | SACRED | | | | | | HEART | | | | | | MEDICAL | | | | | | CENTER | | | | | | LABORATORY | | | | | | [facility] | | + + + + + + | ALT | 151 (H) | 10 - 65 U/L | [facility] | | | | | | SACRED | | | | | | HEART | | | | | | MEDICAL | | | | | | CENTER | | | | | | LABORATORY | | | | | | [facility] | | + + + + + + | AST | 131 (H) | 10 - 45 U/L | [facility] | | | | | | SACRED | | | | | | HEART | | | | | | MEDICAL | | | | | | CENTER | | | | | | LABORATORY | | | | | | [facility] | | + + + + + + | Bilirubin | 1.5 (H) | 0.2 - 1.1 mg/dL | [facility] | | | Total | | | SACRED | | | | | | HEART | | | | | | MEDICAL | | | | | | CENTER | | | | | | LABORATORY | | | | | | [facility] | | + + + + + + | Estimated | 92Comment: eGFR<60 | >=90 | [facility] | | | GFR | consistent with impaired | mL/min/1.73m2 | SACRED | | | | kidney | | HEART | | | | function.Performed by | | MEDICAL | | | | [facility] [address] | | CENTER | | | | [place] [address] | | LABORATORY | | | | | | [facility] | | + + + + + + + + | Specimen | + + | Blood | + + + + + + + | Performing | Address | City/State/Zipcode | Phone Number | | Organization | | | | + + + + + | [facility] | [address] | [place] [address] | | | [facility] | | | | | [facility]AT[facility] | | | | + + + + + CBC with Differential (08/27/2018 5:11 PDT) + + + + + + | Component | Value | Ref Range | Performed | Pathologist | | | | | At | Signature | + + + + + + | WBC | 10.54 | 3.80 - 11.00 | [facility] | | | | | K/uL | SACRED | | | | | | HEART | | | | | | MEDICAL | | | | | | CENTER | | | | | | LABORATORY | | | | | | [facility] | | + + + + + + | RBC | 5.35 (H) | 3.70 - 5.10 | [facility] | | | | | M/uL | SACRED | | | | | | HEART | | | | | | MEDICAL | | | | | | CENTER | | | | | | LABORATORY | | | | | | [facility] | | + + + + + + | Hemoglobin | 15.9 (H) | 11.3 - 15.5 | [facility] | | | | | g/dL | SACRED | | | | | | HEART | | | | | | MEDICAL | | | | | | CENTER | | | | | | LABORATORY | | | | | | [facility] | | + + + + + + | Hct | 46.8 (H) | 34.0 - 46.0 % | [facility] | | | | | | SACRED | | | | | | HEART | | | | | | MEDICAL | | | | | | CENTER | | | | | | LABORATORY | | | | | | [facility] | | + + + + + + | MCV | 87.5 | 80.0 - 100.0 fL | [facility] | | | | | | SACRED | | | | | | HEART | | | | | | MEDICAL | | | | | | CENTER | | | | | | LABORATORY | | | | | | [facility] | | + + + + + + | MCH | 29.7 | 27.0 - 34.0 pg | [facility] | | | | | | SACRED | | | | | | HEART | | | | | | MEDICAL | | | | | | CENTER | | | | | | LABORATORY | | | | | | [facility] | | + + + + + + | MCHC | 34.0 | 32.0 - 35.5 | [facility] | | | | | g/dL | SACRED | | | | | | HEART | | | | | | MEDICAL | | | | | | CENTER | | | | | | LABORATORY | | | | | | [facility] | | + + + + + + | RDW-CV | 13.1 | 11.0 - 15.5 % | [facility] | | | | | | SACRED | | | | | | HEART | | | | | | MEDICAL | | | | | | CENTER | | | | | | LABORATORY | | | | | | [facility] | | + + + + + + | Platelet | 307 | 150 - 400 K/uL | [facility] | | | Count | | | SACRED | | | | | | HEART | | | | | | MEDICAL | | | | | | CENTER | | | | | | LABORATORY | | | | | | [facility] | | + + + + + + | MPV | 9.4 | 9.3 - 12.7 fL | [facility] | | | | | | SACRED [facility] | | | | [facility] | | | | | | [facility] | | | | | | LABORATORY | | | | | | [facility] | | + + + + + + | % | 76.3 (H) | 40.0 - 75.0 % | [facility] | | | Neutrophils | | | [facility] | | | | [facility] | | | | | | [facility] | | | | | | [facility]ENTER | | | | | | LABORATORY | | | | | | [facility] | | + + + + + + | % | 11.1 (L) | 15.0 - 48.0 % | [facility] | | | Lymphocytes | | | [facility] | | | | | [facility] | | | | | | [facility] | | | | | | [facility]ENTER | | | | | | LABORATORY | | | | | | [facility] | | + + + + + + | % Monocytes | 9.1 | 0.0 - 12.0 % | [facility] | | [facility] | [facility] | | | | | | [facility] | | | | | | [facility] | | | | | | LABORATORY | | | | | | [facility] | | + + + + + + | % | 2.3 | 0.0 - 7.0 % | [facility] | | | Eosinophils | | | [facility] | | | | | | HEART | | | | | | MEDICAL | | | | | | CENTER | | | | | | LABORATORY | | | | | | [facility] | | + + + + + + | % Basophils | 0.4 | 0.0 - 2.0 % | [facility] | | | | | | [facility] | | | | | | [facility] | | | | | | [facility] | | | | | | [facility]ENTER | | | | | | LABORATORY | | | | | | [facility] | | + + + + + + | % Immature | 0.8Comment: Immature | 0.0 - 1.0 % | [facility] | | | Granulocyte | granulocytes are | | [facility] | | | s | left-shifted | | HEART | | | | granulocytes and do not | | MEDICAL | | | | equal blasts. They | | CENTER | | | | are composed of | | LABORATORY | | | | metamyelocytes, | | [facility] | | | | myelocytes, and | | | | | | promyelocytes. Their | | | | | | presence can be seen in | | | | | | infection, inflammation, | | | | | | certain medication's | | | | | | effect, or other bone | | | | | | marrow | | | | | | stimuli. Occasionally | | | | | | , persistent increase in | | | | | | immature granulocytes | | | | | | may be part of myeloid | | | | | | neoplastic | | | | | | process. Correlation | | | | | | with clinical findings | | | | | | is recommended for | | | | | | complete interpretation | | | | | | of this | | | | | | parameter. Please | | | | | | also note that | | | | | | peripheral blood with | | | | | | immature granulocytes | | | | | | >5% will be manually | | | | | | reviewed by lab | | | | | | personnel and/or | | | | | | pathologists. | | | | + + + + + + | Absolute | 8.04 (H) | 1.90 - 7.40 | [facility] | | | Neutrophils | | K/uL | [facility] | | | | | | [facility] | | | | | | MEDICAL | | | | | | CENTER | | | | | | LABORATORY | | | | | | [facility] | | + + + + + + | Absolute | 1.17 | 1.00 - 3.90 | [facility] | | | Lymphocytes | | K/uL | [facility] | | | | | | HE[facility] | | | | | | MEDICAL | | | | | | CENTER | | | | | | LABORATORY | | | | | | [facility] | | + + + + + + | Absolute | 0.96 (H) | 0.00 - 0.80 | [facility] | | | Monocytes | | K/uL | [facility] | | | | | | HE[facility] | | | | | | MEDICAL | | | | | | CENTER | | | | | | LABORATORY | | | | | | [facility] | | + + + + + + | Absolute | 0.24 | 0.00 - 0.50 | [facility] | | | Eosinophils | | K/uL | [facility] | | | | | | HE[facility] | | | | | | MEDICAL | | | | | | CENTER | | | | | | LABORATORY | | | | | | [facility] | | + + + + + + | Absolute | 0.04 | 0.00 - 0.10 | [facility] | | | Basophils | | K/uL | [facility] | | | | | | HEART | | | | | | MEDICAL | | | | | | CENTER | | | | | | LABORATORY | | | | | | [facility] | | + + + + + + | Absolute | 0.08 (H)Comment: | 0.00 - 0.03 | [facility] | | | Immature | Performed by [facility] [address] | K/uL | [facility] | | | Granulocyte | [address], [place] | | HEART | | | s | [id number] | | MEDICAL | | | | | | CENTER | | | | | | LABORATORY | | | | | | [facility] | | + + + + + + + + | Specimen | + + | Blood | + + + + + + + | Performing | Address | City/State/Zipcode | Phone Number | | Organization | | | | + + + + + | [facility] | [address] 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 with obstruction | + + | Essential hypertension Unspecified essential hypertension | + + | Choledocholithiasis Calculus of bile duct without mention of cholecystitis or | | obstruction | + + | Acute biliary pancreatitis without infection or necrosis | + + | Acute biliary pancreatitis, unspecified complication status | + + | Depression, unspecified depression type | + + | S/P ERCP Personal history of surgery to other organs | + + | Acute pancreatitis, unspecified complication status, unspecified pancreatitis type | + + | Anxiety Anxiety state, unspecified | + + | TIA (transient ischemic attack) Unspecified transient cerebral ischemia | + + documented in this encounter Administered Medications + +--------+ +--------+------+------+ | Medication Order | MAR | Action | Dose | Rate | Site | | | Action | Date | | | | + +--------+ +--------+------+------+ | acetaminophen (TYLENOL) tablet | Given | 08/28/19 | 650 mg | | | | 650 mg 650 mg, Oral, EVERY 4 | | 19 2:57 | | | | | HOURS PRN, Pain, or fever >= 38.6 | | PDT | | | | | C (101.5 F), Starting Sun | | | | | | | 08/26/18 at 1046 | | | | | | + +--------+ +--------+------+------+ +-------+ +--------+---+---+ | Given | 08/27/19 | 650 mg | | | | | 19 23:01 | | | | | | PDT | | | | +-------+ +--------+---+---+ | Given | 08/27/19 | 650 mg | | | | | 19 17:08 | | | | | | PDT | | | | +-------+ +--------+---+---+ +---+---+ | | | +---+---+ + +-------+ +------+---+---+ | amLODIPine (NORVASC) tablet 5 | Given | 08/31/19 | 5 mg | | | | mg 5 mg, Oral, DAILY, First dose | | 19 8:08 | | | | | on 08/27/18 at 1445 | | PDT | | | | + +-------+ +------+---+---+ +-------+ +------+---+---+ | Given | 08/30/19 | 5 mg | | | | | 19 8:33 | | | | | | PDT | | | | +-------+ +------+---+---+ | Given | 08/29/19 | 5 mg | | | | | 19 11:31 | | | | | | PDT | | | | +-------+ +------+---+---+ +---+---+ | | | +---+---+ + +---------+ +---+ +---+ | balanced electrolytes in water | New Bag | 08/27/19 | | 65 mL/hr | | | (PLASMALYTE-148/NORMOSOL-R) | | 19 23:00 | | | | | infusion at 65 mL/hr, | | PDT | | | | | Intravenous, CONTINUOUS, Starting | | | | | | | 08/27/18 at 0000, When pt NPO | | | | | | | for ERCP, | | | | | | + +---------+ +---+ +---+ +---+---+ | | | +---+---+ + +-------+ +--------+---+---+ | cloNIDine (CATAPRES) tablet | Given | 08/30/19 | 0.1 mg | | | | 0.1-0.2 mg 0.1-0.2 mg, Oral, 4 | | 19 13:43 | | | | | TIMES DAILY PRN, SBP >180/100, | | PDT | | | | | Starting 08/29/18 at 1309 | | | | | | + +-------+ +--------+---+---+ +---+---+ | | | +---+---+ + +-------+ +------+---+---+ | diazePAM (VALIUM) tablet 5 mg | Given | 08/31/19 | 5 mg | | | | 5 mg, Oral, ONCE, [facility] 08/30/18 at | | 19 10:49 | | | | | 0930, For 1 dose | | PDT | | | | + +-------+ +------+---+---+ +---+---+ | | | +---+---+ + +-------+ +------+---+---+ | diazePAM (VALIUM) tablet 5-10 | Given | 08/30/19 | 5 mg | | | | mg 5-10 mg, Oral, EVERY 6 HOURS | | 19 13:43 | | | | | PRN, Anxiety, Muscle spasms, | | PDT | | | | | Starting [facility] 08/29/18 at 1311 | | | | | | + +-------+ +------+---+---+ + +---+ | | | + +---+ | docusate-senna (SENOKOT-S) | | | 50-8.6 mg per tablet 2 tablet 2 | | | tablet, Oral, 2 TIMES DAILY PRN, | | | Constipation, Starting [facility] | | | 08/30/18 at 0830 | | + +---+ | | | + +---+ + +-------+ +-------+---+---+ | hydrALAZINE (APRESOLINE) | Given | 08/28/19 | 10 mg | | | | injection 10 mg 10 mg, | | 19 4:14 | | | | | Intravenous, EVERY 4 HOURS PRN, | | PDT | | | | | Systolic BP greater than 160 | | | | | | | mmHg, Starting 08/26/18 at | | | | | | | 1451 | | | | | | + +-------+ +-------+---+---+ +---+---+ | | | +---+---+ + +-------+ +------+---+---+ | hydrALAZINE (APRESOLINE) | Given | 08/28/19 | 5 mg | | | | injection 5 mg 5 mg, | | 19 12:33 | | | | | Intravenous, ONCE, 08/27/18 at | | PDT | | | | | 1300, For 1 dose, Post-op/Phase | | | | | | | II | | | | | | + +-------+ +------+---+---+ +---+---+ | | | +---+---+ + +-------+ +-------+---+---+ | hydrALAZINE (APRESOLINE) tablet | Given | 08/28/19 | 50 mg | | | | 50 mg 50 mg, Oral, 2 TIMES | | 19 8:03 | | | | | DAILY, First dose on 08/26/18 | | PDT | | | | | at 1515 | | | | | | + +-------+ +-------+---+---+ +-------+ +-------+---+---+ | Given | 08/27/19 | 50 mg | | | | | 19 15:07 | | | | | | PDT | | | | +-------+ +-------+---+---+ +---+---+ | | | +---+---+ + +-------+ +---------+---+---+ | HYDROcodone-acetaminophen | Given | 05/22/20 | 2 | | | | (NORCO) 10-325 mg per tablet 1-2 | | 19 12:34 | tablets | | | | tablet 1-2 tablet, Oral, EVERY 4 | | PDT | | | | | HOURS PRN, Pain, Starting Tue | | | | | | | 08/28/18 at 1630 | | | | | | + +-------+ +---------+---+---+ +-------+ +---------+---+---+ | Given | 08/30/19 | 2 | | | | | 19 8:33 | tablets | | | | | PDT | | | | +-------+ +---------+---+---+ | Given | 08/30/19 | 2 | | | | | 19 4:16 | tablets | | | | | PDT | | | | +-------+ +---------+---+---+ +---+---+ | | | +---+---+ + +-------+ +---------+---+---+ | HYDROcodone-acetaminophen | Given | 08/29/19 | 2 | | | | (NORCO) 5-325 mg per tablet 1-2 | | 19 16:06 | tablets | | | | tablet 1-2 tablet, Oral, EVERY 4 | | PDT | | | | | HOURS PRN, Pain, Starting Mon | | | | | | | 08/27/18 at 1600 | | | | | | + +-------+ +---------+---+---+ +-------+ +---------+---+---+ | Given | 08/29/19 | 2 | | | | | 19 12:23 | tablets | | | | | PDT | | | | +-------+ +---------+---+---+ | Given | 08/29/19 | 2 | | | | | 19 7:52 | tablets | | | | | PDT | | | | +-------+ +---------+---+---+ + +---+ | | | + +---+ | HYDROmorphone (DILAUDID) 2 | | | mg/mL injection Starting Mon | | | 08/27/18 at 1217, For 1 dose, | | | Jaky Castellano : yolie | | | override, | | + +---+ | | | + +---+ + +-------+ +--------+---+---+ | HYDROmorphone (DILAUDID) | Given | 08/27/19 | 0.2 mg | | | | injection 0.2 mg 0.2 mg, | | 19 15:07 | | | | | Intravenous, EVERY 2 HOURS PRN, | | PDT | | | | | Pain, Starting 08/26/18 at | | | | | | | 1047, Use IV morphine first if | | | | | | | ordered. Slow IV push, not faster | | | | | | | than 0.25 mg/minute. If | | | | | | | ineffective or not tolerated and | | | | | | | unable to take oral opioid - | | | | | | | contact MD., | | | | | | + +-------+ +--------+---+---+ +---+---+ | | | +---+---+ + +-------+ +--------+---+---+ | HYDROmorphone (DILAUDID) | Given | 08/28/19 | 0.4 mg | | | | injection 0.2-0.4 mg 0.2-0.4 mg, | | 19 15:42 | | | | | Intravenous, EVERY 2 HOURS PRN, | | PDT | | | | | Pain, Starting 08/26/18 at | | | | | | | 1643, Use IV morphine first if | | | | | | | ordered. Slow IV push, not faster | | | | | | | than 0.25 mg/minute. If | | | | | | | ineffective or not tolerated and | | | | | | | unable to take oral opioid - | | | | | | | contact MD., | | | | | | + +-------+ +--------+---+---+ +-------+ +--------+---+---+ | Given | 08/28/19 | 0.4 mg | | | | | 19 7:35 | | | | | | PDT | | | | +-------+ +--------+---+---+ | Given | 08/28/19 | 0.4 mg | | | | | 19 5:44 | | | | | | PDT | | | | +-------+ +--------+---+---+ +---+---+ | | | +---+---+ + +-------+ +--------+---+---+ | HYDROmorphone (DILAUDID) | Given | 08/28/19 | 0.5 mg | | | | injection 0.4-0.8 mg 0.4-0.8 mg, | | 19 22:53 | | | | | Intravenous, EVERY 2 HOURS PRN, | | PDT | | | | | Pain, Starting 08/27/18 at | | | | | | | 1600, Use IV morphine first if | | | | | | | ordered. Slow IV push, not faster | | | | | | | than 0.25 mg/minute. If | | | | | | | ineffective or not tolerated and | | | | | | | unable to take oral opioid - | | | | | | | contact MD., | | | | | | + +-------+ +--------+---+---+ +-------+ +--------+---+---+ | Given | 08/28/19 | 0.8 mg | | | | | 19 20:37 | | | | | | PDT | | | | +-------+ +--------+---+---+ | Given | 08/28/19 | 0.8 mg | | | | | 19 18:13 | | | | | | PDT | | | | +-------+ +--------+---+---+ +---+---+ | | | +---+---+ + +-------+ +--------+---+---+ | HYDROmorphone (DILAUDID) | Given | 08/28/19 | 0.5 mg | | | | injection 0.5 mg 0.5 mg, | | 19 12:47 | | | | | Intravenous, EVERY 10 MIN PRN, | | PDT | | | | | Pain, Starting 08/27/18 at | | | | | | | 1216, For 4 doses, Post-op/Phase | | | | | | | II | | | | | | + +-------+ +--------+---+---+ +-------+ +--------+---+---+ | Given | 08/28/19 | 0.5 mg | | | | | 19 12:19 | | | | | | PDT | | | | +-------+ +--------+---+---+ +---+---+ | | | +---+---+ + +-------+ +------+---+---+ | HYDROmorphone (DILAUDID) tablet | Given | 08/31/19 | 8 mg | | | | 4-8 mg 4-8 mg, Oral, EVERY 4 | | 19 10:49 | | | | | HOURS PRN, Pain, Starting Wed | | PDT | | | | | 08/29/18 at 1310 | | | | | | + +-------+ +------+---+---+ +-------+ +------+---+---+ | Given | 08/31/19 | 8 mg | | | | | 19 6:27 | | | | | | PDT | | | | +-------+ +------+---+---+ | Given | 08/31/19 | 8 mg | | | | | 19 2:21 | | | | | | PDT | | | | +-------+ +------+---+---+ +---+---+ | | | +---+---+ + +-------+ +--------+---+---+ | indomethacin (INDOCIN) | Given | 08/28/19 | 100 mg | | | | suppository PRN, Starting Mon | | 19 11:14 | | | | | 08/27/18 at 1114 | | PDT | | | | + +-------+ +--------+---+---+ + +---+ | | | + +---+ | labetalol (TRANDATE) 5 mg/mL | | | injection 10-20 mg 10-20 mg, | | | Intravenous, EVERY 4 HOURS PRN, | | | SBP greater than 170, Starting | | | 08/27/18 at 1536 | | + +---+ | | | + +---+ + +-------+ +-------+---+---+ | lisinopril (PRINIVIL, ZESTRIL) | Given | 08/31/19 | 20 mg | | | | tablet 20 mg 20 mg, Oral, DAILY, | | 19 8:08 | | | | | First dose on Mon08/27/18 at | | PDT | | | | | 1600 | | | | | | + +-------+ +-------+---+---+ +-------+ +-------+---+---+ | Given | 08/30/19 | 20 mg | | | | | 19 8:33 | | | | | | PDT | | | | +-------+ +-------+---+---+ | Given | 08/29/19 | 20 mg | | | | | 19 11:31 | | | | | | PDT | | | | +-------+ +-------+---+---+ +---+---+ | | | +---+---+ + +-------+ +------+---+---+ | ondansetron (ZOFRAN ODT) | Given | 08/30/19 | 4 mg | | | | disintegrating tablet 4 mg 4 mg, | | 19 18:34 | | | | | Oral, EVERY 6 HOURS PRN, Nausea, | | PDT | | | | | Vomiting, Starting 08/28/18 | | | | | | | at 0543 | | | | | | + +-------+ +------+---+---+ +-------+ +------+---+---+ | Given | 08/30/19 | 4 mg | | | | | 19 8:04 | | | | | | PDT | | | | +-------+ +------+---+---+ | Given | 08/30/19 | 4 mg | | | | | 19 5:00 | | | | | | PDT | | | | +-------+ +------+---+---+ +---+---+ | | | +---+---+ + +-------+ +------+---+---+ | ondansetron (ZOFRAN) injection | Given | 08/28/19 | 4 mg | | | | 4 mg 4 mg, Intravenous, EVERY 6 | | 19 12:11 | | | | | HOURS PRN, Nausea, Vomiting, | | PDT | | | | | Starting 08/26/18 at 1047, | | | | | | | First line agent, | | | | | | + +-------+ +------+---+---+ +-------+ +------+---+---+ | Given | 08/28/19 | 4 mg | | | | | 19 5:35 | | | | | | PDT | | | | +-------+ +------+---+---+ | Given | 08/27/19 | 4 mg | | | | | 19 17:56 | | | | | | PDT | | | | +-------+ +------+---+---+ +---+---+ | | | +---+---+ + +-------+ +------+---+---+ | ondansetron (ZOFRAN) injection | Given | 08/29/19 | 4 mg | | | | 4 mg 4 mg, Intravenous, EVERY 6 | | 19 5:15 | | | | | HOURS PRN, Nausea, Vomiting, | | PDT | | | | | Starting 08/28/18 at 0543 | | | | | | + +-------+ +------+---+---+ +---+---+ | | | +---+---+ + +-------+ +------+---+---+ | oxyCODONE (ROXICODONE) tablet | Given | 08/28/19 | 5 mg | | | | 5-10 mg 5-10 mg, Oral, EVERY 4 | | 19 2:57 | | | | | HOURS PRN, Pain, Moderate Pain, | | PDT | | | | | Severe Pain, Starting 08/26/18 | | | | | | | at 2122 | | | | | | + +-------+ +------+---+---+ +-------+ +------+---+---+ | Given | 08/27/19 | 5 mg | | | | | 19 23:01 | | | | | | PDT | | | | +-------+ +------+---+---+ + +---+ | | | + +---+ | polyethylene glycol (MIRALAX) | | | powder 17 g 17 g, Oral, DAILY | | | PRN, Constipation, Starting [place] | | | 08/30/18 at 0829 | | + +---+ | | | + +---+ + +-------+ +-------+---+---+ | prochlorperazine (COMPAZINE) | Given | 08/29/19 | 10 mg | | | | injection 10 mg 10 mg, | | 19 7:47 | | | | | Intravenous, EVERY 6 HOURS PRN, | | PDT | | | | | Nausea, Vomiting, Starting Sun | | | | | | | 08/26/18 at 1047 | | | | | | + +-------+ +-------+---+---+ +-------+ +-------+---+---+ | Given | 08/28/19 | 10 mg | | | | | 19 7:45 | | | | | | PDT | | | | +-------+ +-------+---+---+ +---+---+ | | | +---+---+ + +-------+ +-------+---+---+ | prochlorperazine tablet 10 mg | Given | 08/30/19 | 10 mg | | | | 10 mg, Oral, EVERY 6 HOURS PRN, | | 19 19:13 | | | | | Nausea, Vomiting, Starting Sun | | PDT | | | | | 08/26/18 at 1047, Use if | | | | | | | ondansetron ineffective after 30 | | | | | | | minutes or not ordered., | | | | | | + +-------+ +-------+---+---+ +-------+ +-------+---+---+ | Given | 08/27/19 | 10 mg | | | | | 19 17:08 | | | | | | PDT | | | | +-------+ +-------+---+---+ +---+---+ | | | +---+---+ + +---------+ +---+-------+---+ | sodium chloride 0.9% (NS) | New Bag | 08/29/19 | | 125 | | | infusion at 125 mL/hr, | | 19 7:15 | | mL/hr | | | Intravenous, CONTINUOUS, Starting | | PDT | | | | | 08/27/18 at 1600 | | | | | | + +---------+ +---+-------+---+ +---------+ +---+-------+---+ | New Bag | 05/20/20 | | 125 | | | | 19 16:07 | | mL/hr | | | | PDT | | | | +---------+ +---+-------+---+ +---+---+ | | | +---+---+ documented in this encounter
--- OUTSIDE RECORDS SUMMARY | ~2018-09-02 | XMS | Encounter Summary ---
Demographics + + + | [address] [facility] [address] | | | [place] [address] | + + + | Home Phone | | + + + | Preferred Language | Unknown | + + + | Marital Status | Single | + + + | Cheondoism Affiliation | Unknown | + + + | Race | Unknown | + + + | Ethnic Group | Unknown | + + + Author + + + | Author | [facility] | | | and [place] | + + + | Organization | [facility] | | | and [place] | + + + | Address | Unknown | + + + | Phone | Unavailable | + + + Support + + + + + | Name | Relationship | Address | Phone | + + + + + | Mariana Scott | ECON | [place] | | | | | [phone] | | + + + + + Care Team Providers + +------+ + | Care Services Delivery Driver Name | Role | Phone | + [...] | +--------+ + + + + | 08/27/ | Anesthesia | [facility] | Beatris Hartmann MD | | | 2019 | Event | [facility] | [address] | | | | | INTRA OP [address] | [place] [address] | | | | | Ave [place], [place] | [phone] | | | | | [address] | | | | | | [phone] | | | +--------+ + + + + Anesthesia Record + + + + + | Procedure Name | Responsible | Anesthesia Start | Anesthesia Stop Time | | | Anesthesiologist | Time | | + + + + + | ENDOSCOPIC | Beatris Hartmann MD | 08/27/18 1052 | 08/27/18 1157 | | RETROGRADE | | | | | CHOLANGIOPANREATOG | | | | | with sphincterotomy, | | | | | dilation and stent | | | | | placement (N/A ) | | | | + + + + + +----+---+ + + | Da | T | Event | Comment | | te | i | | | | | m | | | | | e | | | +----+---+ + + | 05 | 1 | | | | /2 | 0 | | | | 0/ | 4 | | | | 20 | 3 | | | | 19 | | | | +----+---+ + + | | 1 | An Checkout | Pre-use anesthesia machine/equipment checkout. | | | 0 | | | | | 4 | | | | | 5 | | | +----+---+ + + | | 1 | An Start | Reassessment prior to anesthesia induction/procedure. | | | 0 | | | | | 5 | | | | | 2 | | | +----+---+ + + | | 1 | AN Bite | | | | 0 | Block | | | | 5 | | | | | 9 | | | +----+---+ + + | | 1 | An | | | | 1 | Induction | | | | 0 | | | | | 1 | | | +----+---+ + + | | 1 | Pre-Procedu | | | | 1 | ral Timeout | | | | 0 | Completed | | | | 2 | | | +----+---+ + + | | 1 | AN | Per surgeon request | | | 1 | Antibiotic | | | | 0 | declined | | | | 2 | | | +----+---+ + + | | 1 | First | | | | 1 | Inc/Proc St | | | | 0 | | | | | 3 | | | +----+---+ + + | | 1 | Quick Note | BP cuff adjusted. | | | 1 | | | | | 0 | | | | | 7 | | | +----+---+ + + | | 1 | Quick Note | Scope out | | | 1 | | | | | 0 | | | | | 9 | | | +----+---+ + + | | 1 | Oropharynx | | | | 1 | Suctioned | | | | 2 | | | | | 3 | | | +----+---+ + + | | 1 | an tyson now | Epi injection at surgical site by Dr. Colbert | | | 1 | | | | | 3 | | | | | 4 | | | +----+---+ + + | | 1 | an tyson now | Scope out | | | 1 | | | | | 3 | | | | | 5 | | | +----+---+ + + | | 1 | Moving | | | | 1 | Purposefull | | | | 4 | y | | | | 3 | | | +----+---+ + + | | 1 | An Stop | Patient handed off to recovery nurse. BP elevated. Dr. Hartmann | | | 1 | | informed. Labetolol and hydralazine administered. All other VSS | | | 5 | | and [place] airway patent on Ra.. Patient alert, oriented and | | | 7 | | resting comfortably at this time. Report given and all questions | | | | | answered. Electronically signed by: Lolis Velarde CRNA at | | | | | 08/27/2018 11:57 | +----+---+ + + +------+ | Meds | +------+ + + + | Name | Total | + + + | lidocaine 2% | 60 mg | + + + | propofol | 50 mg | + + + | propofol | 440.9 mg | + + + | fentaNYL (Intravenous) | 100 mcg | + + + | labetalol | 20 mg | + + + | hydrALAZINE (APRESOLINE) | 5 mg | | injection (vial) | | + + + | LR (Infusion) | 500 mL | + + + + + | Name | + + | N2O Flow Rate (L/Min) | + + | O2 Flow Rate (L/Min) | + + | Insp O2 | + + | Exp N2O | + + | Air Flow Rate (L/Min) | + + + + | No [...] filedocumented in this encounter Administered Medications + +--------+ +--------+------+------+ | Medication Order | MAR | Action | Dose | Rate | Site | | | Action | Date | | | | + +--------+ +--------+------+------+ | fentaNYL (PF) injection | Given | 08/28/19 | 50 mcg | | | | Intravenous, PRN, Starting Mon | | 19 11:15 | | | | | 08/27/18 at 1115, Anesthesia | | PDT | | | | | Intra-op | | | | | | + +--------+ +--------+------+------+ +-------+ +--------+---+---+ | Given | 08/28/19 | 50 mcg | | | | | 19 11:12 | | | | | | PDT | | | | +-------+ +--------+---+---+ +---+---+ | | | +---+---+ + +-------+ +------+---+---+ | hydrALAZINE (APRESOLINE) | Given | 08/28/19 | 5 mg | | | | injection PRN, Starting Mon | | 19 11:54 | | | | | 08/27/18 at 1154, Anesthesia | | PDT | | | | | Intra-op | | | | | | + +-------+ +------+---+---+ +---+---+ | | | +---+---+ + +-------+ +-------+---+---+ | labetalol (TRANDATE) 5 mg/mL | Given | 08/28/19 | 10 mg | | | | injection Intravenous, PRN, | | 19 11:48 | | | | | Starting 08/27/18 at 1128, | | PDT | | | | | Anesthesia Intra-op | | | | | | + +-------+ +-------+---+---+ +-------+ +------+---+---+ | Given | 08/28/19 | 5 mg | | | | | 19 11:32 | | | | | | PDT | | | | +-------+ +------+---+---+ | Given | 08/28/19 | 5 mg | | | | | 19 11:28 | | | | | | PDT | | | | +-------+ +------+---+---+ +---+---+ | | | +---+---+ + +---------+ +---+---+---+ | lactated ringers (LR) infusion | New Bag | 08/28/19 | | | | | Intravenous, CONTINUOUS PRN, | | 19 10:53 | | | | | Starting 08/27/18 at 1053, | | PDT | | | | | Anesthesia Intra-op | | | | | | + +---------+ +---+---+---+ +---+---+ | | | +---+---+ + +-------+ +-------+---+---+ | lidocaine (PF) 2% injection | Given | 05/20/20 | 60 mg | | | | Intravenous, PRN, Starting Mon | | 19 11:01 | | | | | 08/27/18 at 1101, Anesthesia | | PDT | | | | | Intra-op | | | | | | + +-------+ +-------+---+---+ +---+---+ | | | +---+---+ + +-------+ +-------+---+---+ | propofol (DIPRIVAN) injection | Given | 08/28/19 | 50 mg | | | | Intravenous, PRN, Starting Mon | | 19 11:01 | | | | | 08/27/18 at 1101, Anesthesia | | PDT | | | | | Intra-op | | | | | | + +-------+ +-------+---+---+ +---+---+ | | | +---+---+ + + + + +-------+---+ | propofol (DIPRIVAN) injection | Rate/Dos | 08/28/19 | 200 | 88.9 | | | Intravenous, CONTINUOUS PRN, | e Change | 19 11:28 | mcg/kg/m | mL/hr | | | Starting 08/27/18 at 1101, | | PDT | in | | | | Anesthesia Intra-op | | | | | | + + + + +-------+---+ + + + +-------+---+ | Rate/Dose Change | 08/28/19 | 150 | 66.7 | | | | 19 11:19 | mcg/kg/m | mL/hr | | | | PDT | in | | | + + + +-------+---+ | Rate/Dose Change | 08/28/19 | 200 | 88.9 | | | | 19 11:09 | mcg/kg/m | mL/hr | | | | PDT | in | | | + + + +-------+---+ +---+---+ | | | +---+---+ documented in this encounter"
--- OUTSIDE RECORDS SUMMARY | ~2018-09-02 | XMS | Encounter Summary ---
Demographics + + + | [address] | [address] | | | [place] [address] | + + + | Home Phone | | + + + | Preferred Language | Unknown | + + + | Marital Status | Single | + + + | Restorationism Affiliation | Unknown | + + + | Race | Unknown | + + + | Ethnic Group | Unknown | + + + Author + + + | Author | [facility] | | | and [place] | + + + | Organization | [facility] | | | and [place] | + + + | Address | Unknown | + + + | Phone | Unavailable | + + + Support + + + + + | Name | Relationship | Address | Phone | + + + + + | Mariana Scott | ECON | [place] | | | | | [address] | | + + + + + Care Team Providers + +------+ + | Care Pumping Station Supervisor Name | Role | Phone | + [...] +--------+--------+ + + + + Encounter Details +--------+---------+ + + + | Date | Type | Department | Care Team | Description | +--------+---------+ + + + | 08/26/ | Surgery | [facility] | Zari Murdock MD | ERCP | | 2019 | | MED [facility] | [address] | | | | | [address] | [place], [place] | | | | | [place], [place] | [address] | | | | | [address] | [phone] | | | | | [phone] | | | +--------+---------+ + + + Social History + + [...] + + + | Blood Pressure | 193/88 | 08/26/20181054 PDT | + + + + | Pulse | 60 | 08/26/20181054 PDT | + + + + | Temperature | 36.9 C (98.4 F) | 08/26/20181054 PDT | + + + + | Respiratory Rate | 16 | 08/26/20181054 PDT | + + + + | Oxygen Saturation | 95% | 08/26/2018 1055 PDT | + + + + | Inhaled Oxygen | - | - | | Concentration | | | + + + + | Weight | 75.6 kg (166 lb 10.7 | 08/25/2018 2124 PDT | | | oz) | | + + + + | Height | 160 cm (5' 3") | 08/25/2018 1145 PDT | + + + + | Body Mass Index | 29.52 | 08/25/2018 1145 PDT | + + + + documented in this encounter Discharge Summaries Mariluz aBker MD - 08/26/2018 1247 PDTFormatting of this note might be different alonso m the original. Patient Id: Swathi Dumont [id number] 62 y.o.. 1955 Admit date: 08/25/2018 Discharge date and time: 08/26/2018 Admitting Physician: Mauro Ellis MD Discharge Physician: Mariluz [place] Admission Diagnoses: Choledocholithiasis with obstruction Discharge Diagnoses: Problem List Items Addressed This Visit Digestive * (Principal) Choledocholithiasis with obstruction Admission Condition: fair Discharged Condition: stable Indication for Admission: Choledocholithiasis with obstruction Hospital Course: Ms Swathi Dumont is a 62 y.o. white female with a past medical history significant for TIA, GERD, laparoscopic cholecystectomy, hysterectomy, laparoscopic band converted to laparo scopic fundoplication,?Rheumatoid arthritis/?MS who presented to the ED at [facility] for evaluation of rt UQ pain x 2-3 days. Upon further evaluation there she was referred for adm ission here due to concern for choledocholithiasis and evaluation for ERCP. She had reporte d 2-3 times yearly episodes of similar rt UQ pain and epigastric pain. This particular episo de started 2 nights prior to presentation. This time the rt UQ pain was persistent and she h ad decreased oral intake due to nausea and dry heaves throughout the day. She denied having any fever or chills, diarrhea, chest pain or shortness of breath. No imaging was performed a t the outside facility. A prior CT abd/pelvis from 04/25/2018 showed choledocholithiasis wit h two 8 mm stones present in the common bile duct. A CT of the abdomen and pelvis was done here yesterday and demonstrated multiple gallstones within the common bile duct. The most d istal calculus within the common bile duct was in the head of the pancreas and measured 7.7 mm. The CBD measured 1.2 cm in diameter. Labs were performed here which showed a wbc of 1 0, bili of 5.3, AST 409, ALT 250, alk phos 242. Her initial lipase was 72 and today it was u p to 1864. She was given a dose of IV ceftriaxone on admission. GI consultation was request ed and Dr.Siewmin Murdock saw her in consultation and recommended doing an ERCP today. Unfortu nately she was unable to cannulate the common bile duct so she recommended the patient be tr ansferred to a higher level of care where the ERCP can be done. Ms. Dumont is stable for transfer to [facility] in [place]. [facility] will do her ERCP tomorrow. Consults: GI Significant Diagnostic Studies: Recent Labs Lab 08/26/18 0557 08/25/18 1253 WBC 8.1 10.0 HGB 14.0 15.3 HCT 42.1 46.7 MCV 87.9 90.3 PLT 311 267 NEUPCT 73.4 82.9* Recent Labs Lab 08/26/18 0557 08/25/18 1258 GLU 87 94 NA 136 137 K 3.6 4.2 CL 103 106 CO2 26 22 ANIONGAP 7 9 BUN 6* 5* CREA 0.73 0.70 GFRNONAA >60 >60 CALCIUM 9.1 9.0 ALBUMIN 4.0 4.0 TOTALPROTEIN 6.2 6.4 BILITOT 2.8* 4.5* ALKPHOS 275* 276* ALT 179* 254* AST 169* 363* Recent Labs Lab 08/26/18 0557 08/25/18 1258 MG 1.8 1.8 Recent Labs Lab 08/26/18 0953 08/25/18 1258 LIPASE 1,864* 72* Ct Abdomen Pelvis W Contrast Result Date: 08/26/2018 CT ABDOMEN AND PELVIS WITH CONTRAST CLINICAL INFORMATION: Eval for CBD dilation, stones. CO MPARISON: CT ABDOMEN PELVIS W CONTRAST (04/25/2018); PROCEDURE: Axial images through the abdo men and pelvis after the administration of 85 ml Omnipaque 350 intravenous contrast. Multipl cinthya reconstructions. At least one of the following CT dose optimization techniques were use d: Automated exposure control; Adjustment of mA and/or kV according to patient size; Use of iterative reconstruction technique. FINDINGS: LUNG BASES: No significant pulmonary abnormali ty. No pleural effusion or pneumothorax. ABDOMEN Liver and Biliary: There are multiple galls tones within the common bile duct. The most distal calculus within the common bile duct in the head of the pancreas measures 7.7 mm. Common bile duct measures 1.3 cm in diameter. No intrahepatic biliary ductal dilatation. Mildly heterogeneous hepatic attenuation. The prasanth er demonstrates mild diffuse fatty infiltration. Gallbladder absent. Pancreas, Spleen and A drenals: No pancreatitis or pancreatic mass. No splenomegaly, splenic mass or splenic hemorr jonny. No significant adrenal abnormality. Kidneys: No solid renal mass or hydronephrosis. T iny punctate nonobstructing calculus inferior pole left kidney. ABDOMEN AND PELVIS Bowel: No small bowel or colonic dilation or adjacent inflammation. No appendiceal dilation or inflam mation. Vessels: No significant abnormality in the aorta or its proximal branches. No signif icant abnormality in the portal veins, mesenteric veins or systemic veins. Lymph Nodes: No a denopathy. Peritoneum and Retroperitoneum: Small amount of free fluid in the pelvis. No yonny e air. No significant retroperitoneal abnormality. PELVIS Genitourinary: Small volume free f luid in the pelvis. Distal ureters and bladder appear normal. No pelvic masses. BODY WALL Soft Tissues: No bowel or inflamed fat containing hernia, mass or hemorrhage. Bones: No acut e fracture or vertebral end plate destruction. No lytic or blastic lesion. IMPRESSION- Gosia docholithiasis, with multiple common bile duct stones present. Mildly dilated common bile du ct, measuring 1.3 cm. No intrahepatic biliary ductal dilatation. A teleradiology preliminar y report was provided by Zain Mcfarlane, Su, 08/25/2018 9:55:18 PM Dictated and Signed by: Tian Smallwood MD Electronically signed: 08/26/2018 12:43 PM Treatments: IV hydration, analgesia: Dilaudid, cardiac meds: metoprolol and procedures: ERCP (unsuccess ful) Discharge Exam: General Appearance: Sleepy post procedure, no distress, appears stated age Head: Normocephalic, without obvious abnormality, atraumatic Eyes: PERRL, conjunctiva/corneas clear, EOM's intact, fundi benign, both eyes Nose: Nares normal, septum midline, mucosa normal, no drainage or sinus tenderness Throat: Lips, mucosa, and tongue normal; teeth and gums normal Neck: Supple, symmetrical, trachea midline, no adenopathy; thyroid: No enlargement/tenderness/nodules; no carotid bruit or JVD Lungs: Clear to auscultation bilaterally, respirations unlabored Chest wall: No tenderness or deformity Heart: Regular rate and rhythm, S1 and S2 normal, no murmur, rub or gallop Abdomen: Soft, non-tender, bowel sounds active all four quadrants, no masses, no organomegaly Extremities: Extremities normal, atraumatic, no cyanosis or edema Pulses: 2+ and symmetric all extremities Skin: Skin color, texture, turgor normal, no rashes or lesions Lymph nodes: Cervical, supraclavicular, and axillary nodes normal Neurologic: CNII-XII intact. Normal strength, sensation and reflexes throughout Disposition: [facility] [place] Discharge Medications New Medications Details acetaminophen 325 mg tablet Take 2 tablets by mouth every 4 hours as needed for Pain (or fever >= 38.6 C (101.5 F)). aka: TYLENOL aluminum & magnesium hydroxide-simethicone 200-200-20 mg/5 mL suspension Take 30 mLs by mouth every 4 hours as needed for Indigestion. aka: MAALOX PLUS REGULAR STRENGTH docusate sodium 100 MG capsule Take 100 mg by mouth Twice daily as needed for Constipation. aka: COLACE hydrALAZINE 20 mg/mL injection Inject 0.5 mLs into the vein every 4 hours as needed (SBPn> 180; DBP> 105). aka: APRESOLINE HYDROmorphone injection Inject 0.8 mg into the vein every 3 hours as needed for Pain. aka: DILAUDID labetalol 5 mg/mL injection Inject 2 mLs into the vein every 4 hours as needed (SBP >200; DBP >110. Hold if HR < 55). Indications: Hypertensive Urgency, Severely High Blood Pressure aka: TRANDATE lactated ringers infusion Inject into the vein continuous. aka: LR metoprolol tartrate 1 mg/mL injection Inject 10 mLs into the vein every 6 hours. aka: LOPRESSOR naloxone 0.4 mg/mL injection Inject 0.1 mLs into the vein as needed for Apnea or Decreased Responsiveness. aka: NARCAN ondansetron 2 mg/mL Soln Inject 2 mLs into the vein every 6 hours as needed for Nausea or Vomiting. aka: ZOFRAN polyethylene glycol packet Take 1 diluted packet by mouth Daily as needed for Constipation. aka: MIRALAX Patient Instructions: Activity: activity as tolerated Diet: NPO for now Wound Care: as directed Follow-up with Herminio Gomez PA-C in 5 days. Time invested in discharge planning was greater than 30 minutes Signed: Mariluz Baker MD 08/26/2018 12:47 [facility] documented in this e ncounter Medications at Time of Discharge + + + +---------+ + + | Medication | Sig | Dispensed | Refills | Start | End Date | | | | | | Date | | + + + +---------+ + + | amLODIPine | Take 1 tablet by | 30 | 3 | / | | | (NORVASC) 5 mg | [...] tablet by | 30 | 3 | 05/24/20 | | | (PRINIVIL, ZESTRIL) | mouth [...] + + + +---------+ + + | acetaminophen | Take 2 tablets by | 120 | 0 | 08/27/19 | | | (TYLENOL) 325 mg | mouth every 4 hours | tablet | | 19 | 9 | | tablet | as needed for Pain | | | | | | | (or fever >= 38.6 C | | | | | | | (101.5 F)). | | | | | + + + +---------+ + + | aluminum & | Take 30 mLs by mouth | | 0 | 08/27/19 | | | magnesium | every 4 hours as | | | 19 | 9 | | hydroxide-simethicon | needed for | | | | | | e (MAALOX PLUS | Indigestion. | | | | | | REGULAR STRENGTH) | | | | | | | 200-200-20 mg/5 mL | | | | | | | suspension | | | | | | + + + +---------+ + + | docusate sodium | Take 100 mg by mouth | 30 | 0 | 08/27/19 | | | (COLACE) 100 MG | Twice daily as | capsule | | 19 | 9 | | capsule | needed for | | | | | | | Constipation. | | | | | + + + +---------+ + + | hydrALAZINE | Inject 0.5 mLs into | | 0 | 08/27/19 | | | (APRESOLINE) 20 | the vein every 4 | | | 19 | 9 | | mg/mL injection | hours as needed | | | | | | | (SBPn> 180; DBP> | | | | | | | 105). | | | | | + + + +---------+ + + | HYDROmorphone | Inject 0.8 mg into | | 0 | 08/27/19 | | | (DILAUDID) injection | the vein every 3 | | | 19 | 9 | | | hours as needed for | | | | | | | Pain. | | | | | + + + +---------+ + + | labetalol | Inject 2 mLs into | | 0 | 08/27/19 | | | (TRANDATE) 5 mg/mL | the vein every 4 | | | 19 | 9 | | injectionIndications | hours as needed (SBP | | | | | | : Hypertensive | >200; DBP >110. | | | | | | Urgency, Severe | Hold if HR < 55). | | | | | | Hypertension | Indications: | | | | | | | Hypertensive | | | | | | | Urgency, Severely | | | | | | | High Blood Pressure | | | | | + + + +---------+ + + | lactated ringers | Inject into the | | 0 | 08/27/19 | | | (LR) infusion | vein continuous. | | | 19 | 9 | + + + +---------+ + + | metoprolol | Inject 10 mLs into | | 0 | 08/27/19 | | | tartrate (LOPRESSOR) | the vein every 6 | | | 19 | 9 | | 1 mg/mL injection | hours. | | | | | + + + +---------+ + + | naloxone (NARCAN) | Inject 0.1 mLs into | | 0 | 08/27/19 | | | 0.4 mg/mL injection | the vein as needed | | | 19 | 9 | | | for Apnea or | | | | | | | Decreased | | | | | | | Responsiveness. | | | | | + + + +---------+ + + | ondansetron | Inject 2 mLs into | 84 mL | 0 | 08/27/19 | | | (ZOFRAN) 2 mg/mL | the vein every 6 | | | 19 | 9 | | SOLN | hours as needed for | | | | | | | Nausea or Vomiting. | | | | | + + + +---------+ + + documented as of this encounter Plan of Treatment Not on filedocumented as of this encounter Procedures + +--------+ + + + | Procedure Name | Priori | Date/Time | Associated Diagnosis | Comments | | | ty | | | | + +--------+ + + + | ECG - EXTERNAL SCAN | | 08/30/2018 | | Results for this | | | | 0:00 PDT | | procedure are in the | | | | | | results section. | + +--------+ + + + | LIPASE | Routin | 08/26/2018 | | Results for this | | | e | 9:53 PDT | | procedure are in the | | | | | | results section. | + +--------+ + + + | FL ERCP | Routin | 08/26/2018 | | Results for this | | | e | 8:56 PDT | | procedure are in the | | | | | | results section. | + +--------+ + + + | ERCP | | 08/26/2018 | cholelithiasis | | | | | 8:00 PDT | | | + +--------+ + + + | PROTIME INR | Routin | 08/26/2018 | | Results for this | | | e | 5:57 PDT | | procedure are in the | | | | | | results section. | + +--------+ + + + | CBC WITH | Routin | 08/26/2018 | | Results for this | | DIFFERENTIAL | e | 5:57 PDT | | procedure are in the | | | | | | results section. | + +--------+ + + + | MAGNESIUM | Routin | 08/26/2018 | | Results for this | | | e | 5:57 PDT | | procedure are in the | | | | | | results section. | + +--------+ + + + | COMPREHENSIVE | Routin | 08/26/2018 | | Results for this | | METABOLIC PANEL | e | 5:57 PDT | | procedure are in the | | | | | | results section. | + +--------+ + + + | CT ABDOMEN PELVIS W | Routin | 08/25/2018 | | Results for this | | CONTRAST | e | 17:27 PDT | | procedure are in the | | | | | | results section. | + +--------+ + + + | LACTIC ACID | STAT | 08/25/2018 | | Results for this | | | | 13:01 PDT | | procedure are in the | | | | | | results section. | + +--------+ + + + | MAGNESIUM | STAT | 08/25/2018 | | Results for this | | | | 12:58 PDT | | procedure are in the | | | | | | results section. | + +--------+ + + + | LIPASE | STAT | 08/25/2018 | | Results for this | | | | 12:58 PDT | | procedure are in the | | | | | | results section. | + +--------+ + + + | HEPATIC FUNCTION | STAT | 08/25/2018 | | Results for this | | PANEL | | 12:58 PDT | | procedure are in the | | | | | | results section. | + +--------+ + + + | BASIC METABOLIC | STAT | 08/25/2018 | | Results for this | | PANEL | | 12:58 PDT | | procedure are in the | | | | | | results section. | + +--------+ + + + | URINALYSIS WITH | Routin | 08/25/2018 | | Results for this | | MICROSCOPIC WITH | e | 12:57 PDT | | procedure are in the | | CULTURE IF INDICATED | | | | results section. | + +--------+ + + + | PROTIME INR | STAT | 08/25/2018 | | Results for this | | | | 12:53 PDT | | procedure are in the | | | | | | results section. | + +--------+ + + + | CBC WITH | STAT | 08/25/2018 | | Results for this | | DIFFERENTIAL | | 12:53 PDT | | procedure are in the | | | | | | results section. | + +--------+ + + + | IMAGING REPORT - | | 04/25/2018 | | Results for this | | EXTERNAL SCAN | | 0:00 PST | | procedure are in the | | | | | | results section. | + +--------+ + + + documented in this encounter Results ECG - EXTERNAL SCAN (08/30/2018 0:00 PDT) + + + | Narrative | Performed At | + + + | Ordered by an | | | unspecified provider. | | + + + Lipase (08/26/2018 9:53 PDT) + + + + + + | Component | Value | Ref Range | Performed | Pathologist | | | | | At | Signature | + + + + + + | Lipase | 1,864 (H) | 12 - 53 U/L | [facility] | | | | | [facility] | | [facility] | | | | | | [facility] - | | | | | | LABORATORY | | + + + + + + + + | Specimen | + + | Blood | + + + + + + + | Performing | Address | City/State/Zipcode | Phone Number | | Organization | | | | + + + + + | [facility] | [address] | [place] | [phone] | | [facility] | | [address] | | | - LABORATORY | | | | + + + + + FL ERCP (08/26/2018 8:56 PDT) + + | Specimen | + + | | + + + + + | Narrative | Performed At | + + + | FINDING/IMPRESSION - Fluoroscopic images are obtained during | [facility] | | an ERCP. See procedure report for further details. Dictated and | | | Signed by: Tian Smallwood MD Electronically signed: 08/26/2018 | | | 2:55 PM | | + + + + + | Procedure Note | + + | Chente Salinas Results In - 08/26/2018 1458 PDT | | FINDING/IMPRESSION - | | | | Fluoroscopic images are obtained during an ERCP. See procedure report for | | further details. | | | | Dictated and Signed by: Tian Smallwood MD | | Electronically signed: 08/26/2018 2:55 PM | + + + +---------+ + + | Performing | Address | City/State/Zipcode | Phone Number | | Organization | | | | + +---------+ + + | [facility] | | | | + +---------+ + + Protime INR (08/26/2018 5:57 PDT) + + + + + + | Component | Value | Ref Range | Performed | Pathologist | | | | | At | Signature | + + + + + + | Prothrombin | 12.9 | 11.3 - 13.9 | [facility] | | | Time | | seconds | [facility] | | | | | | MEDICAL | | | | | | CENTER - | | | | | | LABORATORY | | + + + + + + | INR | 1.0Comment: Usual Oral | 0.9 - 1.1 | [facility] | | | | Anticoagulation | | [facility] | | | | Range: 2.0 - | | MEDICAL | | | | 3.0High Level Oral | | CENTER - | | | | Anticoagulation Range: | | LABORATORY | | | | 2.5 - 3.5 | | | | + + + + + + + + | Specimen | + + | Blood | + + + + + + + | Performing | Address | City/State/Zipcode | Phone Number | | Organization | | | | + + + + + | [facility] | [address] | [place] | [phone] | | [facility] | | [address] | | | - LABORATORY | | | | + + + + + Magnesium (08/26/2018 5:57 PDT) + +-------+ + + + | Component | Value | Ref Range | Performed | Pathologist | | | | | At | Signature | + +-------+ + + + | Magnesium | 1.8 | 1.6 - 2.6 mg/dL | [facility] | | | | | | [facility] | | | | | | [facility] | | | | | | CENTER - | | | | | | LABORATORY | | + +-------+ + + + + + | Specimen | + + | Blood | + + + + + + + | Performing | Address | City/State/Zipcode | Phone Number | | Organization | | | | + + + + + | [facility] | [address] | [place] | [phone] | | [facility] | | [address] | | | - LABORATORY | | | | + + + + + Comprehensive Metabolic Panel (08/26/2018 5:57 PDT) + + + + + + | Component | Value | Ref Range | Performed | Pathologist | | | | | At | Signature | + + + + + + | Na | 136 | 136 - 145 | [facility] | | | | | mmol/L | [facility] | | | | | | MEDICAL | | | | | | CENTER - | | | | | | LABORATORY | | + + + + + + | K | 3.6 | 3.4 - 5.1 | [facility] | | | | | mmol/L | [facility] | | | | | | MEDICAL | | | | | | CENTER - | | | | | | LABORATORY | | + + + + + + | Cl | 103 | 98 - 107 mmol/L | [facility] | | | | | | [facility] | | | | | | MEDICAL | | | | | | CENTER - | | | | | | LABORATORY | | + + + + + + | CO2 | 26 | 20 - 31 mmol/L | [facility] | | | | | | [facility] | | | | | | MEDICAL | | | | | | CENTER - | | | | | | LABORATORY | | + + + + + + | Anion Gap | 7 | 3 - 16 mmol/L | [facility] | | | | | | [facility] | | | | | | MEDICAL | | | | | | CENTER - | | | | | | LABORATORY | | + + + + + + | Glucose | 87 | 60 - 106 mg/dL | [facility] | | | | | | [facility] | | | | | [facility] | | | | | | CENTER - | | | | | | LABORATORY | | + + + + + + | BUN | 6 (L) | 9 - 23 mg/dL | [facility] | | | | | | [facility] | | | | | | MEDICAL | | | | | | CENTER - | | | | | | LABORATORY | | + + + + + + | Creatinine | 0.73 | 0.55 - 1.02 | [facility] | | | | | mg/dL | [facility] | | | | | | MED[facility] | | | | | | CENTER - | | | | | | LABORATORY | | + + + + + + | eGFR if not | >60Comment: GLOMERULAR | >=60 | [facility] | | | | FILTRATION | mL/min/1.73m2 | [facility] | | | QATARI | RATE,ESTIMATED mL/min | | MEDICAL | | | | /[id number] than 60 | | CENTER - | | | | Chronic kidney | | LABORATORY | | | | disease,if found over a | | | | | | 3-month period.Less than | | | | | | 15 Kidney | | | | | | failureFor | | | | | | Americans,multiply the | | | | | | calculated GFR by 1.21. | | | | | | | | | | + + + + + + | Ca | 9.1 | 8.7 - 10.4 | [facility] | | | | | mg/dL | [facility] | | | | | | [facility] | | | | | | CENTER - | | | | | | LABORATORY | | + + + + + + | Albumin | 4.0 | 3.2 - 4.8 g/dL | [facility] | | | | | | [facility] | | | | | | MEDICAL | | | | | | CENTER - | | | | | | LABORATORY | | + + + + + + | Bilirubin | 2.8 (H) | 0.3 - 1.2 mg/dL | [facility] | | | Total | | | [facility] | | | | | | MEDICAL | | | | | | CENTER - | | | | | | LABORATORY | | + + + + + + | Total | 6.2 | 5.7 - 8.2 g/dL | [facility] | | | Protein | | | [facility] | | | | | | MEDICAL | | | | | | CENTER - | | | | | | LABORATORY | | + + + + + + | AST | 169 (H) | 0 - 34 U/L | [facility] | | | | | | [facility] | | | | | | [facility]ICAL | | | | | | CENTER - | | | | | | LABORATORY | | + + + + + + | ALT | 179 (H) | 10 - 49 U/L | [facility] | | | | | | [facility] | | | | | | MEDICAL | | | | | | CENTER - | | | | | | LABORATORY | | + + + + + + | Alkaline | 275 (H) | 46 - 116 U/L | [facility] | | | Phosphatase | | | [facility] | | | | | | MEDICAL | | | | | | CENTER - | | | | | | LABORATORY | | + + + + + + | Globulin | 2.2 | 2.1 - 3.8 g/dL | [facility] | | | | | | [facility] | | | | | | MEDICAL | | | | | | CENTER - | | | | | | LABORATORY | | + + + + + + | Albumin/Gifty | 1.8 | 0.8 - 1.9 | [facility] | | | bulin Ratio | | | [facility] | | | | | | MEDICAL | | | | | | CENTER - | | | | | | LABORATORY | | + + + + + + | BUN/Creatin | 8.2 | | [facility] | | | ine Ratio | | | [facility] | | | | | | MEDICAL | | | | | | CENTER - | | | | | | LABORATORY | | + + + + + + + + | Specimen | + + | Blood | + + + + + + + | Performing | Address | City/State/Zipcode | Phone Number | | Organization | | | | + + + + + | [facility] | [address] | [place] | [phone] | | [facility] | | [address] | | | - LABORATORY | | | | + + + + + CBC with Differential (08/26/2018 5:57 PDT) + + + + + + | Component | Value | Ref Range | Performed | Pathologist | | | | | At | Signature | + + + + + + | WBC | 8.1 | 4.0 - 11.0 K/uL | [facility] | | | | | | [facility] | | | | | | MEDICAL | | | | | | CENTER - | | | | | | LABORATORY | | + + + + + + | RBC | 4.79 | 3.70 - 5.20 | [facility] | | | | | M/uL | [facility] | | | | | | [facility] | | | | | | CENTER - | | | | | | LABORATORY | | + + + + + + | Hemoglobin | 14.0 | 11.5 - 16.0 | [facility] | | | | | g/dL | [facility] | | | | | | MEDICAL | | | | | | CENTER - | | | | | | LABORATORY | | + + + + + + | Hematocrit | 42.1 | 34.0 - 47.0 % | [facility] | | | | | | [facility] | | | | | | MEDICAL | | | | | | CENTER - | | | | | | LABORATORY | | + + + + + + | MCV | 87.9 | 83.0 - 101.0 fL | [facility] | | | | | | [facility] | | | | | | [facility] | | | | | | CENTER - | | | | | | LABORATORY | | + + + + + + | MCH | 29.2 | 28.0 - 35.0 pg | [facility] | | | | | | [facility] | | | | | | [facility] | | | | | | CENTER - | | | | | | LABORATORY | | + + + + + + | MCHC | 33.3 | 32.0 - 36.0 | [facility] | | | | | g/dL | [facility] | | | | | | MEDICAL | | | | | | CENTER - | | | | | | LABORATORY | | + + + + + + | RDW-CV | 13.3 | <15.0 % | [facility] | | | | | | [facility] | | | | | | MEDICAL | | | | | | CENTER - | | | | | | LABORATORY | | + + + + + + | RDW-SD | 43.5 | 35.1 - 46.3 fL | [facility] | | | | | | [facility] | | | | | | MED[facility] | | | | | | CENTER - | | | | | | LABORATORY | | + + + + + + | Platelet | 311 | 140 - 440 K/uL | [facility] | | | Count | | | [facility] | | | | | [facility] | | | | [facility] - | | | | | | LABORATORY | | + + + + + + | MPV | 9.7 | 6.5 - 12.4 fL | [facility] | | | | | | [facility] | | [facility] | | | [facility] | | | | | | [facility] - | | | | | | LABORATORY | | + + + + + + | % | 73.4 | 45.0 - 82.0 % | [facility] | | | Neutrophils | | | [facility] | | | | | | [facility] | | | | | | [facility]ENTER - | | | | | | LABORATORY | | + + + + + + | % | 13.7 (L) | 20.0 - 45.0 % | [facility] | | | Lymphocytes | | | [facility] | | | | | | [facility] | | | | | | [facility] - | | | | | | LABORATORY | | + + + + + + | % Monocytes | 9.6 | 4.0 - 12.0 % | [facility] | | | | | | [facility] | | | | | | [facility] | | | | | | [facility] - | | | | | | LABORATORY | | + + + + + + | % | 2.3 | 0.0 - 5.0 % | [facility] | | | Eosinophils | | | [facility] | | | | | | [facility] | | | | | | CENTER - | | | | | | LABORATORY | | + + + + + + | % Basophils | 0.5 | 0.0 - 1.0 % | [facility] | | | | | | [facility] | | | | | | [facility] | | | | | | C[facility] - | | | | | | LABORATORY | | + + + + + + | % Immature | 0.5 (H)Comment: | 0.0 - 0.4 % | [facility] | | | Granulocyte | Preliminary studies have | | [facility] | | | s | indicated the IG% | | MEDICAL | | | | and/or IG# show promise | | CENTER - | | | | as an early indicator | | LABORATORY | | | | for infection. | | | | + + + + + + | Absolute | 5.96 | 1.80 - 8.50 | [facility] | | | Neutrophils | | K/uL | [facility] | | | | | | [facility] | | | | | | C[facility] - | | | | | | LABORATORY | | + + + + + + | Absolute | 1.11 | 0.60 - 3.20 | [facility] | | | Lymphocytes | | K/uL | [facility] | | | | | | [facility] | | | | | | CENTER - | | | | | | LABORATORY | | + + + + + + | Absolute | 0.78 | 0.00 - 1.00 | [facility] | | | Monocytes | | K/uL | [facility] | | [facility] | [facility] | | | | | | CENTER - | | | | | | LABORATORY | | + + + + + + | Absolute | 0.19 | 0.00 - 0.40 | [facility] | | | Eosinophils | | K/uL | [facility] | | | | | | [facility] | | | | | | CENTER - | | | | | | LABORATORY | | + + + + + + | Absolute | 0.04 | 0.00 - 0.10 | [facility] | | | Basophils | | K/uL | [facility] | | | | | | [facility] | | | | | | CENTER - | | | | | | LABORATORY | | + + + + + + | Absolute | 0.04 (H) | 0.00 - 0.03 | [facility] | | | Immature | | K/uL | [facility] | | | Granulocyte | | | MEDICAL | | | s | | | CENTER - | | | | | | LABORATORY | | + + + + + + | % nRBC | 0 | 0 - 2 per 100 | [facility] | | | | | WBCs | [facility] | | | | | | [facility]ICAL | | | | | | CENTER - | | | | | | LABORATORY | | + + + + + + | Absolute | 0.00 | 0.00 - 0.01 | [facility] | | | nRBC | | K/uL | [facility] | | | | | | [facility]ICAL | | | | | | CENTER - | | | | | | LABORATORY | | + + + + + + + + | Specimen | + + | Blood | + + + + + + + | Performing | Address | City/State/Zipcode | Phone Number | | Organization | | | | + + + + + | [facility] | [address] | [place], [place] | [phone] | | [facility] | | [address] | | | - LABORATORY | | | | + + + + + CT Abdomen Pelvis w Contrast (08/25/2018 17:27 PDT) + + | Specimen | + + | | + + + + + | Narrative | Performed At | + + + | CT ABDOMEN AND PELVIS WITH CONTRAST CLINICAL INFORMATION: | [facility] | | Eval for CBD dilation, stones. COMPARISON: CT ABDOMEN PELVIS W | | | CONTRAST (04/25/2018); PROCEDURE: Axial images through the abdomen | | | and pelvis after the administration of 85 ml Omnipaque 350 | | | intravenous contrast. Multiplanar reconstructions. At least one of | | | the following CT dose optimization techniques were used: Automated | | | exposure control; Adjustment of mA and/or kV according to patient | | | size; Use of iterative reconstruction technique. FINDINGS: LUNG | | | BASES: No significant pulmonary abnormality. No pleural effusion or | | | pneumothorax. ABDOMEN Liver and Biliary: There are multiple | | | gallstones within the common bile duct. The most distal calculus | | | within the common bile duct in the head of the pancreas measures 7.7 | | | mm. Common bile duct measures 1.3 cm in diameter. No | | | intrahepatic biliary ductal dilatation. Mildly heterogeneous | | | hepatic attenuation. The liver demonstrates mild diffuse fatty | | | infiltration. Gallbladder absent. Pancreas, Spleen and Adrenals: | | | No pancreatitis or pancreatic mass. No splenomegaly, splenic mass or | | | splenic hemorrhage. No significant adrenal abnormality. Kidneys: No | | | solid renal mass or hydronephrosis. Tiny punctate nonobstructing | | | calculus inferior pole left kidney. ABDOMEN AND PELVIS Bowel: No | | | small bowel or colonic dilation or adjacent inflammation. No | | | appendiceal dilation or inflammation. Vessels: No significant | | | abnormality in the aorta or its proximal branches. No significant | | | abnormality in the portal veins, mesenteric veins or systemic veins. | | | Lymph Nodes: No adenopathy. Peritoneum and Retroperitoneum: Small | | | amount of free fluid in the pelvis. No free air. No significant | | | retroperitoneal abnormality. PELVIS Genitourinary: Small volume | | | free fluid in the pelvis. Distal ureters and bladder appear | | | normal. No pelvic masses. BODY WALL Soft Tissues: No bowel or | | | inflamed fat containing hernia, mass or hemorrhage. Bones: No acute | | | fracture or vertebral end plate destruction. No lytic or blastic | | | lesion. IMPRESSION- Choledocholithiasis, with multiple common | | | bile duct stones present. Mildly dilated common bile duct, measuring | | | 1.3 cm. No intrahepatic biliary ductal dilatation. A | | | teleradiology preliminary report was provided by Zain Mcfarlane, | | | Su, 08/25/2018 9:55:18 PM Dictated and Signed by: | | | Tian Smallwood MD Electronically signed: 08/26/2018 12:43 PM | | + + + + + | Procedure Note | + + | Brad, Rad Results In - 08/26/2018 1246 PDT | | CT ABDOMEN AND PELVIS WITH CONTRAST | | | | CLINICAL INFORMATION: | | Eval for CBD dilation, stones. | | | | COMPARISON: | | CT ABDOMEN PELVIS W CONTRAST (04/25/2018); | | | | PROCEDURE: | | Axial images through the abdomen and pelvis after the administration of | | 85 ml Omnipaque 350 intravenous contrast. Multiplanar reconstructions. | | | | At least one of the following CT dose optimization techniques were | | used: Automated exposure control; Adjustment of mA and/or kV according | | to patient size; Use of iterative reconstruction technique. | | | | FINDINGS: | | LUNG BASES: No significant pulmonary abnormality. No pleural effusion | | or pneumothorax. | | | | ABDOMEN | | Liver and Biliary: There are multiple gallstones within the common bile | | duct. The most distal calculus within the common bile duct in the head | | of the pancreas measures 7.7 mm. Common bile duct measures 1.3 cm in | | diameter. No intrahepatic biliary ductal dilatation. Mildly | | heterogeneous hepatic attenuation. The liver demonstrates mild diffuse | | fatty infiltration. Gallbladder absent. | | Pancreas, Spleen and Adrenals: No pancreatitis or pancreatic mass. No | | splenomegaly, splenic mass or splenic hemorrhage. No significant | | adrenal abnormality. | | Kidneys: No solid renal mass or hydronephrosis. Tiny punctate | | nonobstructing calculus inferior pole left kidney. | | | | ABDOMEN AND PELVIS | | Bowel: No small bowel or colonic dilation or adjacent inflammation. No | | appendiceal dilation or inflammation. | | Vessels: No significant abnormality in the aorta or its proximal | | branches. No significant abnormality in the portal veins, mesenteric | | veins or systemic veins. | | Lymph Nodes: No adenopathy. | | Peritoneum and Retroperitoneum: Small amount of free fluid in the pelvis. No | | free air. No significant | | retroperitoneal abnormality. | | | | PELVIS | | Genitourinary: Small volume free fluid in the pelvis. Distal ureters | | and bladder appear normal. No pelvic masses. | | | | BODY WALL | | Soft Tissues: No bowel or inflamed fat containing hernia, mass or | | hemorrhage. | | Bones: No acute fracture or vertebral end plate destruction. No lytic | | or blastic lesion. | | | | IMPRESSION- | | Choledocholithiasis, with multiple common bile duct stones present. | | Mildly dilated common bile duct, measuring 1.3 cm. No intrahepatic | | biliary ductal dilatation. | | | | | | A teleradiology preliminary report was provided by Zain Mcfarlane, Su, | | 08/25/2018 9:55:18 PM | | | | Dictated and Signed by: Tian Smallwood MD | | Electronically signed: 08/26/2018 12:43 PM | + + + +---------+ + + | Performing | Address | City/State/Zipcode | Phone Number | | Organization | | | | + +---------+ + + | [facility] | | | | + +---------+ + + Lactic Acid (08/25/2018 13:01 PDT) + +-------+ + + + | Component | Value | Ref Range | Performed | Pathologist | | | | | At | Signature | + +-------+ + + + | Lactate | 0.9 | 0.5 - 2.2 | [facility] | | | | | mmol/L | [facility] | | | | | | MEDICAL | | | | | | CENTER - | | | | | | LABORATORY | | + +-------+ + + + + + | Specimen | + + | Blood | + + + + + + + | Performing | Address | City/State/Zipcode | Phone Number | | Organization | | | | + + + + + | [facility] | [address] | [place] | [phone] | | [facility] | | [address] | | | - LABORATORY | | | | + + + + + Lipase (08/25/2018 12:58 PDT) + +--------+ + + + | Component | Value | Ref Range | Performed | Pathologist | | | | | At | Signature | + +--------+ + + + | Lipase | 72 (H) | 12 - 53 U/L | [facility] | | | | | | [facility] | | | | | | MEDICAL | | | | | | CENTER - | | | | | | LABORATORY | | + +--------+ + + + + + | Specimen | + + | Blood | + + + + + + + | Performing | Address | City/State/Zipcode | Phone Number | | Organization | | | | + + + + + | [facility] | [address] | [place] | [phone] | | [facility] | | [address] | | | - LABORATORY | | | | + + + + + Hepatic Function Panel (08/25/2018 12:58 PDT) + + + + + + | Component | Value | Ref Range | Performed | Pathologist | | | | | At | Signature | + + + + + + | Bilirubin | 4.5 (H) | 0.3 - 1.2 mg/dL | [facility] | | | Total | | | [facility] | | | | | | MEDICAL | | | | | | CENTER - | | | | | | LABORATORY | | + + + + + + | Total | 6.4 | 5.7 - 8.2 g/dL | [facility] | | | Protein | | | [facility] | | | | | | [facility] | | | | | | CENTER - | | | | | | LABORATORY | | + + + + + + | Albumin | 4.0 | 3.2 - 4.8 g/dL | [facility] | | | | | | [facility] | | | | | | MEDICAL | | | | | | CENTER - | | | | | | LABORATORY | | + + + + + + | AST | 363 (H) | 0 - 34 U/L | [facility] | | | | | | [facility] | | | | | | MEDICAL | | | | | | CENTER - | | | | | | LABORATORY | | + + + + + + | ALT | 254 (H) | 10 - 49 U/L | [facility] | | | | | | [facility] | | | | | | [facility]ICAL | | | | | | CENTER - | | | | | | LABORATORY | | + + + + + + | Alkaline | 276 (H) | 46 - 116 U/L | [facility] | | | Phosphatase | | | [facility] | | | | | | MEDICAL | | | | | | CENTER - | | | | | | LABORATORY | | + + + + + + | Globulin | 2.4 | 2.1 - 3.8 g/dL | [facility] | | | | | | [facility] | | | | | | MEDICAL | | | | | | CENTER - | | | | | | LABORATORY | | + + + + + + | Albumin/Gifty | 1.7 | 0.8 - 1.9 | [facility] | | | bulin Ratio | | | [facility] | | | | | | MEDICAL | | | | | | CENTER - | | | | | | LABORATORY | | + + + + + + | Bilirubin, | 3.40 (H) | 0.00 - 0.30 | [facility] | | | Direct | | mg/dl | [facility] | | | | | | MEDICAL | | | | | | CENTER - | | | | | | LABORATORY | | + + + + + + + + | Specimen | + + | Blood | + + + + + + + | Performing | Address | City/State/Zipcode | Phone Number | | Organization | | | | + + + + + | [facility] | [address] | [place], [place] | [phone] | | [facility] | | [address] | | | - LABORATORY | | | | + + + + + Basic Metabolic Panel (08/25/2018 12:58 PDT) + + + + + + | Component | Value | Ref Range | Performed | Pathologist | | | | | At | Signature | + + + + + + | Na | 137 | 136 - 145 | [facility] | | | | | mmol/L | [facility] | | | | | | MEDICAL | | | | | | CENTER - | | | | | | LABORATORY | | + + + + + + | K | 4.2 | 3.4 - 5.1 | [facility] | | | | | mmol/L | [facility] | | | | | | MEDICAL | | | | | | CENTER - | | | | | | LABORATORY | | + + + + + + | Cl | 106 | 98 - 107 mmol/L | [facility] | | | | | | [facility] | | | | | | MEDICAL | | | | | | CENTER - | | | | | | LABORATORY | | + + + + + + | CO2 | 22 | 20 - 31 mmol/L | [facility] | | | | | | [facility] | | | | | | MEDICAL | | | | | | CENTER - | | | | | | LABORATORY | | + + + + + + | Anion Gap | 9 | 3 - 16 mmol/L | [facility] | | | | | | [facility] | | | | | | MEDICAL | | | | | | CENTER - | | | | | | LABORATORY | | + + + + + + | Glucose | 94 | 60 - 106 mg/dL | [facility] | | | | | | [facility] | | | | | | MEDICAL | | | | | | CENTER - | | | | | | LABORATORY | | + + + + + + | BUN | 5 (L) | 9 - 23 mg/dL | [facility] | | | | | | [facility] | | | | | | MEDICAL | | | | | | CENTER - | | | | | | LABORATORY | | + + + + + + | Creatinine | 0.70 | 0.55 - 1.02 | [facility] | | | | | mg/dL | [facility] | | | | [facility] | [facility] | | | | | | CENTER - | | | | | | LABORATORY | | + + + + + + | eGFR if not | >60Comment: GLOMERULAR | >=60 | [facility] | | | | FILTRATION | mL/min/1.73m2 | [facility] | | | QATARI | RATE,ESTIMATED mL/min | | MEDICAL | | | | /1.12e5Xgtp than 60 | | CENTER - | | | | Chronic kidney | | LABORATORY | | | | disease,if found over a | | | | | | 3-month period.Less than | | | | | | 15 Kidney | | | | | | failureFor | | | | | | Americans,multiply the | | | | | | calculated GFR by 1.21. | | | | | | | | | | + + + + + + | Ca | 9.0 | 8.7 - 10.4 | [facility] | | | | | mg/dL | [facility] | | | | | | MEDICAL | | | | | | CENTER - | | | | | | LABORATORY | | + + + + + + | BUN/Creatin | 7.1 | | [facility] | | | ine Ratio | | | [facility] | | | | | | MEDICAL | | | | | | CENTER - | | | | | | LABORATORY | | + + + + + + + + | Specimen | + + | Blood | + + + + + + + | Performing | Address | City/State/Zipcode | Phone Number | | Organization | | | | + + + + + | [facility] | [address] | [place] | [phone] | | [facility] | | [address] | | | - LABORATORY | | | | + + + + + Magnesium (08/25/2018 12:58 PDT) + +-------+ + + + | Component | Value | Ref Range | Performed | Pathologist | | | | | At | Signature | + +-------+ + + + | Magnesium | 1.8 | 1.6 - 2.6 mg/dL | [facility] | | | | | | [facility] | | | | | | [facility]ICAL | | | | | | CENTER - | | | | | | LABORATORY | | + +-------+ + + + + + | Specimen | + + | Blood | + + + + + + + | Performing | Address | City/State/Zipcode | Phone Number | | Organization | | | | + + + + + | [facility] | [address] | [place] | [phone] | | [facility] | | [address] | | | - LABORATORY | | | | + + + + + Urinalysis with Microscopic with Culture if Indicated (08/25/2018 12:57 PDT) + + + + + + | Component | Value | Ref Range | Performed | Pathologist | | | | | At | Signature | + + + + + + | Color | Yellow | Light Yellow, | [facility] | | | | | Yellow, Straw | [facility] | | | | | | MEDICAL | | | | | | CENTER - | | | | | | LABORATORY | | + + + + + + | Clarity | Clear | Clear | [facility] | | | | | | [facility] | | | | | | MEDICAL | | | | | | CENTER - | | | | | | LABORATORY | | + + + + + + | pH, Urine | 7.0 | 5.0 - 8.0 | [facility] | | | | | | [facility] | | | | | | MEDICAL | | | | | | CENTER - | | | | | | LABORATORY | | + + + + + + | Specific | 1.006 | 1.001 - 1.030 | [facility] | | | Sagle | | | [facility] | | | | | | MEDICAL | | | | | | CENTER - | | | | | | LABORATORY | | + + + + + + | Protein, | Negative | Negative | [facility] | | | Urine | | | [facility] | | | | | | MEDICAL | | | | | | CENTER - | | | | | | LABORATORY | | + + + + + + | Blood, | Moderate (A) | Negative | [facility] | | | Urine | | | [facility] | | | | | | MEDICAL | | | | | | CENTER - | | | | | | LABORATORY | | + + + + + + | Glucose, | Negative | Negative | [facility] | | | Urine | | | [facility] | | | | | | MEDICAL | | | | | | CENTER - | | | | | | LABORATORY | | + + + + + + | Ketones, | 20 mg/dL (A) | Negative | [facility] | | | Urine | | | [facility] | | | | | | MEDICAL | | | | | | CENTER - | | | | | | LABORATORY | | + + + + + + | Bilirubin, | Negative | Negative | [facility] | | | Urine | | | [facility] | | | | | | MEDICAL | | | | | | CENTER - | | | | | | LABORATORY | | + + + + + + | Nitrite, | Negative | Negative | [facility] | | | Urine | | | [facility] | | | | | | MEDICAL | | | | | | CENTER - | | | | | | LABORATORY | | + + + + + + | Leukocyte | Negative | Negative | [facility] | | | Esterase, | | | [facility] | | | Urine | | | MEDICAL | | | | | | CENTER - | | | | | | LABORATORY | | + + + + + + | Urobilinoge | Negative | 0.2 mg/dL, 1.0 | [facility] | | | n, Urine | | mg/dL, Negative | [facility] | | | | | | MEDICAL | | | | | | CENTER - | | | | | | LABORATORY | | + + + + + + | WBC UA | 0-2 | 0 - 2 /HPF | [facility] | | | | | | [facility] | | | | | | MEDICAL | | | | | | CENTER - | | | | | | LABORATORY | | + + + + + + | RBC UA | 5-10 (A) | 0 - 2 /HPF | [facility] | | | | | | [facility] | | | | | | MEDICAL | | | | | | CENTER - | | | | | | LABORATORY | | + + + + + + | SQUAMOUS | 5-10 (A) | 0 - 2 /LPF | [facility] | | | EPITHELIAL | | | [facility] | | | UA | | | MEDICAL | | | | | | CENTER - | | | | | | LABORATORY | | + + + + + + | BACTERIA UA | 1+ (A) | Negative /HPF | [facility] | | | | | | [facility] | | | | | | MEDICAL | | | | | | CENTER - | | | | | | LABORATORY | | + + + + + + | URINE | Urine Culture Not | | [facility] | | | COMMENT | Indicated | | [facility] | | | | | | [facility] | | | | | | CENTER - | | | | | | LABORATORY | | + + + + + + + + | Specimen | + + | Urine | + + + + + + + | Performing | Address | City/State/Zipcode | Phone Number | | Organization | | | | + + + + + | [facility] | [address] | [place] | [phone] | | [facility] | | [address] | | | - LABORATORY | | | | + + + + + Neelamime INR (08/25/2018 12:53 PDT) + + + + + + | Component | Value | Ref Range | Performed | Pathologist | | | | | At | Signature | + + + + + + | Prothrombin | 12.0 | 11.3 - 13.9 | [facility] | | | Time | | seconds | [facility] | | | | | | MEDICAL | | | | | | CENTER - | | | | | | LABORATORY | | + + + + + + | INR | 0.9Comment: Usual Oral | 0.9 - 1.1 | [facility] | | | | Anticoagulation | | [facility] | | | | Range: 2.0 - | | MEDICAL | | | | 3.0High Level Oral | | CENTER - | | | | Anticoagulation Range: | | LABORATORY | | | | 2.5 - 3.5 | | | | + + + + + + + + | Specimen | + + | Blood | + + + + + + + | Performing | Address | City/State/Zipcode | Phone Number | | Organization | | | | + + + + + | [facility] | [address] | [place], [place] | [phone] | | [facility] | | [address] | | | - LABORATORY | | | | + + + + + CBC with Differential (08/25/2018 12:53 PDT) + + + + + + | Component | Value | Ref Range | Performed | Pathologist | | | | | At | Signature | + + + + + + | WBC | 10.0 | 4.0 - 11.0 K/uL | [facility] | | | | | [facility] | | | | | | C[facility] - | | | | | | LABORATORY | | + + + + + + | RBC | 5.17 | 3.70 - 5.20 | [facility] | | | | | M/uL | [facility] | | | | | | MEDICAL | | | | | | CENTER - | | | | | | LABORATORY | | + + + + + + | Hemoglobin | 15.3 | 11.5 - 16.0 | [facility] | | | | | g/dL | [facility] | | | | | | MEDICAL | | | | | | CENTER - | | | | | | LABORATORY | | + + + + + + | Hematocrit | 46.7 | 34.0 - 47.0 % | [facility] | | | | | | [facility] | | | | | | MEDICAL | | | | | | CENTER - | | | | | | LABORATORY | | + + + + + + | MCV | 90.3 | 83.0 - 101.0 fL | [facility] | | | | | | [facility] | | | | | | MEDICAL | | | | | | CENTER - | | | | | | LABORATORY | | + + + + + + | MCH | 29.6 | 28.0 - 35.0 pg | [facility] | | | | | | [facility] | | | | | | MEDICAL | | | | | | CENTER - | | | | | | LABORATORY | | + + + + + + | MCHC | 32.8 | 32.0 - 36.0 | [facility] | | | | | g/dL | [facility] | | | | | | MEDICAL | | | | | | CENTER - | | | | | | LABORATORY | | + + + + + + | RDW-CV | 13.4 | <15.0 % | [facility] | | | | | | [facility] | | | | | | MEDICAL | | | | | | CENTER - | | | | | | LABORATORY | | + + + + + + | RDW-SD | 45.2 | 35.1 - 46.3 fL | [facility] | | | | | | [facility] | | | | | | MEDICAL | | | | | | CENTER - | | | | | | LABORATORY | | + + + + + + | Platelet | 267 | 140 - 440 K/uL | [facility] | | | Count | | | [facility] | | | | | | MEDICAL | | | | | | CENTER - | | | | | | LABORATORY | | + + + + + + | MPV | 10.3 | 6.5 - 12.4 fL | [facility] | | | | | | [facility] | | | | | | MEDICAL | | | | | | CENTER - | | | | | | LABORATORY | | + + + + + + | % | 82.9 (H) | 45.0 - 82.0 % | [facility] | | | Neutrophils | | | [facility] | | | | | | MEDICAL | | | | | | CENTER - | | | | | | LABORATORY | | + + + + + + | % | 9.3 (L) | 20.0 - 45.0 % | [facility] | | | Lymphocytes | | | [facility] | | | | | | MEDICAL | | | | | | CENTER - | | | | | | LABORATORY | | + + + + + + | % Monocytes | 6.1 | 4.0 - 12.0 % | [facility] | | | | | | [facility] | | | | | | MEDICAL | | | | | | CENTER - | | | | | | LABORATORY | | + + + + + + | % | 0.8 | 0.0 - 5.0 % | [facility] | | | Eosinophils | | | [facility] | | | | | | MEDICAL | | | | | | CENTER - | | | | | | LABORATORY | | + + + + + + | % Basophils | 0.4 | 0.0 - 1.0 % | [facility] | | | | | | [facility] | | | | | | MEDICAL | | | | | | CENTER - | | | | | | LABORATORY | | + + + + + + | % Immature | 0.5 (H)Comment: | 0.0 - 0.4 % | [facility] | | | Granulocyte | Preliminary studies have | | [facility] | | | s | indicated the IG% | | MEDICAL | | | | and/or IG# show promise | | CENTER - | | | | as an early indicator | | LABORATORY | | | | for infection. | | | | + + + + + + | Absolute | 8.29 | 1.80 - 8.50 | [facility] | | | Neutrophils | | K/uL | [facility] | | | | | | MEDICAL | | | | | | CENTER - | | | | | | LABORATORY | | + + + + + + | Absolute | 0.93 | 0.60 - 3.20 | [facility] | | | Lymphocytes | | K/uL | [facility] | | | | | | MED[facility] | | | | | | [facility] - | | | | | | LABORATORY | | + + + + + + | Absolute | 0.61 | 0.00 - 1.00 | [facility] | | | Monocytes | | K/uL | [facility] | | | | | | [facility] | | | | | | [facility] - | | | | | | LABORATORY | | + + + + + + | Absolute | 0.08 | 0.00 - 0.40 | [facility] | | | Eosinophils | | K/uL | [facility] | | | | | | [facility] | | | | | | [facility] - | | | | | | LABORATORY | | + + + + + + | Absolute | 0.04 | 0.00 - 0.10 | [facility] | | | Basophils | | K/uL | [facility] | | | | | | [facility] | | | | | | C[facility] - | | | | | | LABORATORY | | + + + + + + | Absolute | 0.05 (H) | 0.00 - 0.03 | [facility] | | | Immature | | K/uL | [facility] | | | Granulocyte | | | MEDICAL | | | s | | | CENTER - | | | | | | LABORATORY | | + + + + + + | % nRBC | 0 | 0 - 2 per 100 | [facility] | | | | | WBCs | [facility] | | | | | | [facility] | | | | | | CENTER - | | | | | | LABORATORY | | + + + + + + | Absolute | 0.00 | 0.00 - 0.01 | [facility] | | | nRBC | | [facility]uL | [facility] | | | [facility] | [facility] | | | | | | C[facility] - | | | | | | LABORATORY | | + + + + + + + + | Specimen | + + | Blood | + + + + + + + | Performing | Address | City/State/Zipcode | Phone Number | | Organization | | | | + + + + + | [facility] | [address] | [place] | [phone] | | [facility] | | [id number] | | | - LABORATORY | | | | + + + + + IMAGING REPORT - EXTERNAL SCAN (04/25/2018 0:00 PST) + + + | Narrative | Performed At | + + + | Ordered by an | | | unspecified provider. | | + + + documented in this encounter Visit Diagnoses Not on filedocumented in this encounter Admitting Diagnoses + + | Diagnosis | + + | Cholelithiasis Calculus of gallbladder without mention of cholecystitis or | | obstruction | + + documented in this encounter Administered Medications + +--------+ +--------+------+------+ | Medication Order | MAR | Action | Dose | Rate | Site | | | Action | Date | | | | + +--------+ +--------+------+------+ | acetaminophen (TYLENOL) tablet | Given | 08/26/19 | 650 mg | | | | 650 mg 650 mg, Oral, EVERY 4 | | 19 20:24 | | | | | HOURS PRN, Pain, or fever >= 38.6 | | PDT | | | | | C (101.5 F), Starting Sat | | | | | | | 08/25/18 at 1212 | | | | | | + +--------+ +--------+------+------+ + +---+ | | | + +---+ | hydrALAZINE (APRESOLINE) | | | injection 10 mg 10 mg, | | | Intravenous, EVERY 4 HOURS PRN, | | | SBPn> 180; DBP> 105, Starting Sun | | | 08/26/18 at 1032 | | + +---+ | | | + +---+ + +-------+ +--------+---+---+ | HYDROmorphone (DILAUDID) | Given | 08/27/19 | 0.8 mg | | | | injection 0.8 mg 0.8 mg, | | 19 10:32 | | | | | Intravenous, EVERY 3 HOURS PRN, | | PDT | | | | | Pain, Starting 08/25/18 at | | | | | | | 1636 | | | | | | + +-------+ +--------+---+---+ +-------+ +--------+---+---+ | Given | 08/27/19 | 0.8 mg | | | | | 19 5:03 | | | | | | PDT | | | | +-------+ +--------+---+---+ | Given | 08/27/19 | 0.8 mg | | | | | 19 1:47 | | | | | | PDT | | | | +-------+ +--------+---+---+ +---+---+ | | | +---+---+ + +-------+ +-------+---+---+ | labetalol (TRANDATE) 5 mg/mL | Given | 08/27/19 | 10 mg | | | | injection 10 mg 10 mg, | | 19 13:06 | | | | | Intravenous, EVERY 4 HOURS PRN, | | PDT | | | | | SBP >200; DBP >110. Hold if HR < | | | | | | | 55, Starting 08/26/18 at 1032 | | | | | | + +-------+ +-------+---+---+ +---+---+ | | | +---+---+ + + + +---+-------+---+ | lactated ringers (LR) infusion | Continue | 08/27/19 | | 100 | | | at 100 mL/hr, Intravenous, | d Bag | 19 9:53 | | mL/hr | | | CONTINUOUS, Starting 08/25/18 | | PDT | | | | | at 1230 | | | | | | + + + +---+-------+---+ +---------+ +---+-------+---+ | New Bag | 08/27/19 [...] | | +---+---+ + +-------+ +------+---+---+ | metoprolol tartrate (LOPRESSOR) | Given | 08/27/19 | 5 mg | | | | injection 10 mg 10 mg, | | 19 11:44 | | | | | Intravenous, EVERY 6 HOURS (4 | | PDT | | | | | times per day), First dose on Sun | | | | | | | 08/26/18 at 1200, Hold if SBP < | | | | | | | 110; DBP < 55; or HR < 55, | | | | | | + +-------+ +------+---+---+ + +---+ | | | + +---+ | naloxone (NARCAN) 0.4 mg/mL | | | injection 0.04 mg 0.04 mg, | | | Intravenous, PRN, Apnea, | | | Decreased Responsiveness, | | | Starting 08/25/18 at 1214, mix | | | 0.4mg naloxone with 9 ml normal | | | saline in syringe and give 0.04 | | | mg = 1 ml initial dose. Give | | | every 2 minutes as needed | | | Initiate emergency response and | | | contact provider, | | + +---+ | | | + +---+ + +-------+ +------+---+---+ | ondansetron (ZOFRAN) injection | Given | 08/27/19 | 4 mg | | | | 4 mg 4 mg, Intravenous, EVERY 6 | | 19 5:05 | | | | | HOURS PRN, Nausea, Vomiting, | | PDT | | | | | Starting 08/25/18 at 1318 | | | | | | + +-------+ +------+---+---+ +-------+ +------+---+---+ | Given | 08/26/19 | 4 mg | | | | | 19 20:24 | | | | | | PDT | | | | +-------+ +------+---+---+ | Given | 08/26/19 | 4 mg | | | | | 19 13:53 | | | | | | PDT | | | | +-------+ +------+---+---+ +---+---+ | | | +---+---+ documented in this encounter
--- OUTSIDE RECORDS SUMMARY | ~2018-09-02 | XMS | Encounter Summary ---
Demographics + + + | [address] [facility] [address] [facility] [address] | | | [place] [address] | + + + | Home Phone | | + + + | Preferred Language | Unknown | + + + | Marital Status | Single | + + + | Yazidism Affiliation | Unknown | + + + | Race | Unknown | + + + | Ethnic Group | Unknown | + + + Author + + + | Author | [facility] | | | and [place] | + + + | Organization | [facility] | | | and [place] | + + + | Address | Unknown | + + + | Phone | Unavailable | + + + Support + + + + + | Name | Relationship | Address | Phone | + + + + + | Mariana Scott | ECON | [place] | | | | | [address] | | + + + + + Care Team Providers + +------+ + | Care Vat Operator Name | Role | Phone | + [...] + | 08/26/ | Anesthesia | [facility] | Lester Zhao MD | | | 2019 | Event | [facility] | [address] | | | | | [address] | [place] | | | | | [place] | [id number] | | | | | [address] | [phone] | | | | | [phone] | | | +--------+ + + + [...]
--- OUTSIDE RECORDS SUMMARY | ~2018-09-02 | XMS | Clinical Summary ---
Demographics + + + | Address | [address] [facility] | | | [place] [address] | + + + | Home Phone | | + + + | Preferred Language | Unknown | + + + | Marital Status | Single | + + + | Protestant Affiliation | Unknown | + + + | Race | Unknown | + + + | Ethnic Group | Unknown | + + + Author + + + | Author | [facility] | | | and [place] | + + + | Organization | [facility] | | | and [place] | + + + | Address | Unknown | + + + | Phone | Unavailable | + + + Support + + + + + | Name | Relationship | Address | Phone | + + + + + | Mariana Scott | ECON | [place] | | | | | [phone] | | + + + + + Care Team Providers + +------+ + | Care Medical Tech Name | Role | Phone | + +------+ + | Herminio Gomez PA-C | PP | Unavailable | + +------+ + Allergies No Known Allergies Medications + + + +---------+------+------+-------+ | Medication | Sig | Dispensed | Refills | Star | End | Statu | | | | | | t | Date | s | | | | | | Date | | | + + + +---------+------+------+-------+ | polyethylene | Take 1 diluted | | 0 | 05/1 | | Activ | | glycol (MIRALAX) | packet by mouth | | | 9/20 | | e | | packet | Daily as needed for | | | 19 | | | | | Constipation. | | | | | | + + + +---------+------+------+-------+ | amLODIPine | Take 1 tablet by | 30 | 3 | 05/2 | | Activ | | (NORVASC) 5 mg | mouth Daily. | tablet | | 4/20 | | e | | tablet | | | | 19 | | | + + + +---------+------+------+-------+ | HYDROmorphone | Take 1-2 tablets by | 40 | 0 | 05/2 | | Activ | | (DILAUDID) 4 MG | mouth every 4 hours | tablet | | 3/20 | | e | | tablet | as needed for Pain. | | | 19 | | | + + + +---------+------+------+-------+ | lisinopril | Take 1 tablet by | 30 | 3 | 05/2 | | Activ | | (PRINIVIL, ZESTRIL) | mouth Daily. | tablet | | 4/20 | | e | | 20 mg tablet | | | | 19 | | | + + + +---------+------+------+-------+ | ondansetron | Take 1 tablet by | 20 | 0 | 05/2 | | Activ | | (ZOFRAN ODT) 4 mg | mouth every 6 hours | tablet | | 3/20 | | e | | disintegrating | as needed for Nausea | | | 19 | | | | tablet | or Vomiting. | | | | | | + + + +---------+------+------+-------+ | pantoprazole | Take 1 tablet by | 30 | 3 | 05/2 | | Activ | | (PROTONIX) 40 mg | mouth every morning | tablet | | 3/20 | | e | | tablet | (before breakfast). | | | 19 | | | + + + +---------+------+------+-------+ | lactated ringers | Inject into the | | 0 | 05/1 | 05/2 | Disco | | (LR) infusion | vein continuous. | | | / | 3/20 | ntinu | | | | | | 19 | 19 | ed | + + + +---------+------+------+-------+ | acetaminophen | Take 2 tablets by | 120 | 0 | 05/1 | 05/2 | Disco | | (TYLENOL) 325 mg | mouth every 4 hours | tablet | | 9/20 | 3/20 | ntinu | | tablet | as needed for Pain | | | 19 | 19 | ed | | | (or fever >= 38.6 C | | | | | | | | (101.5 F)). | | | | | | + + + +---------+------+------+-------+ | docusate sodium | Take 100 mg by mouth | 30 | 0 | 05/1 | 05/2 | Disco | | (COLACE) 100 MG | Twice daily as | capsule | | 9/20 | 3/20 | ntinu | | capsule | needed for | | | 19 | 19 | ed | | | Constipation. | | | | | | + + + +---------+------+------+-------+ | aluminum & | Take 30 mLs by mouth | | 0 | 05/1 | 05/2 | Disco | | magnesium | every 4 hours as | | | 9/20 | 3/20 | ntinu | | hydroxide-simethicon | needed for | | | 19 | 19 | ed | | e (MAALOX PLUS | Indigestion. | | | | | | | REGULAR STRENGTH) | | | | | | | | 200-200-20 mg/5 mL | | | | | | | | suspension | | | | | | | + + + +---------+------+------+-------+ | naloxone (NARCAN) | Inject 0.1 mLs into | | 0 | 05/1 | 05/2 | Disco | | 0.4 mg/mL injection | the vein as needed | | | 9/20 | 3/20 | ntinu | | | for Apnea or | | | 19 | 19 | ed | | | Decreased | | | | | | | | Responsiveness. | | | | | | + + + +---------+------+------+-------+ | ondansetron | Inject 2 mLs into | 84 mL | 0 | 05/1 | 05/2 | Disco | | (ZOFRAN) 2 mg/mL | the vein every 6 | | | 9/20 | 3/20 | ntinu | | SOLN | hours as needed for | | | 19 | 19 | ed | | | Nausea or Vomiting. | | | | | | + + + +---------+------+------+-------+ | HYDROmorphone | Inject 0.8 mg into | | 0 | 05/1 | 05/2 | Disco | | (DILAUDID) injection | the vein every 3 | | | 9/20 | 3/20 | ntinu | | | hours as needed for | | | 19 | 19 | ed | | | Pain. | | | | | | + + + +---------+------+------+-------+ | metoprolol | Inject 10 mLs into | | 0 | 05/1 | 05/2 | Disco | | tartrate (LOPRESSOR) | the vein every 6 | | | 9/20 | 3/20 | ntinu | | 1 mg/mL injection | hours. | | | 19 | 19 | ed | + + + +---------+------+------+-------+ | hydrALAZINE | Inject 0.5 mLs into | | 0 | 05/1 | 05/2 | Disco | | (APRESOLINE) 20 | the vein every 4 | | | 9/20 | 3/20 | ntinu | | mg/mL injection | hours as needed | | | 19 | 19 | ed | | | (SBPn> 180; DBP> | | | | | | | | 105). | | | | | | + + + +---------+------+------+-------+ | labetalol | Inject 2 mLs into | | 0 | 08/08 | 08/09 | Disco | | (TRANDATE) 5 mg/mL | the vein every 4 | | | 12/28 | 06/27 | ntinu | | injectionIndications | hours as needed (SBP | | | 19 | 19 | ed | | : Hypertensive | >200; DBP >110. | | | | | | | Urgency, Severe | Hold if HR < 55). | | | | | | | Hypertension | Indications: | | | | | | | | Hypertensive | | | | | | | | Urgency, Severely | | | | | | | | High Blood Pressure | | | | | | + + + +---------+------+------+-------+ Active Problems + + + | Problem | Noted Date | + + + | Cholelithiasis | 08/26/2018 | + + + | LFT elevation | 08/26/2018 | + + + | Acute pancreatitis | 08/26/2018 | + + + | Depression | 08/26/2018 | + + + | Anxiety | 08/26/2018 | + + + | TIA (transient ischemic attack) | 08/26/2018 | + + + | Choledocholithiasis with obstruction | 08/25/2018 | + + + | Headache | 06/08/2016 | + + + | Blurred vision | 06/08/2016 | + + + | Double vision | 06/08/2016 | + + + | Rheumatoid arthritis | 06/08/2016 | + + + | Gastroparesis | 05/30/2014 | + + + | Essential hypertension | 05/30/2014 | + + + | MALAISE | 06/10/2011 | + + + | INFLUENZA | 06/10/2011 | + + + | OTHER NONSPECIFIC ABNORMAL SERUM ENZYME LEVELS | 06/10/2011 | + + + + + | 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 | + + + + + | OTHER ABNORMAL BLOOD CHEMISTRY | 06/10/2011 | + + + + + | 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 | + + + +---+ | HYPERLIPIDEMIA | | + +---+ | Hypertension, benign | | + +---+ | CHEST PAIN | | + +---+ | FATIGUE | | + +---+ Encounters +--------+ + + + + | Date | Type | Specialty | Care Team | Description | +--------+ + + + + | 08/31/ | Telephone | | Luz, | Hospital Follow-up | | 2019 | | | Lynne Allen MD | | +--------+ + + + + | 08/30/ | Orders Only | | Marj Colbert MD | Common bile duct | | 2018 | | | | calculus (Primary | | | | | | Dx) | +--------+ + + + + | 08/28/ | Orders Only | | Brianna Connolly PA | Choledocholithiasis | | 2018 | | | | (Primary Dx) | +--------+ + + + + | 08/27/ | Surgery | | | ENDOSCOPIC | | 2019 | | | | RETROGRADE | | | | | | CHOLANGIOPANREATOG | | | | | | with sphincterotomy, | | | | | | dilation and stent | | | | | | placement | +--------+ + + + + | 08/27/ | Anesthesia | | Beatris Hartmann MD | | | 2019 | Event | | | | +--------+ + + + + | 08/26/ | Hospital | | Polo Ferrell MD | Calculus of bile | | 2018 - | Encounter | | Miranda Ocasio, | duct with acute on | | | | | MD Escobar, | chronic | | 08/30/ | | | Lynne Allen MD | cholecystitis with | | 2019 | | | | obstruction; | | | | | | Essential | | | | | | hypertension; | | | | | | Choledocholithiasis; | | | | | | Acute biliary | | | | | | pancreatitis without | | | | | | infection or | | | | | | necrosis; Acute | | | | | | biliary | | | | | | pancreatitis, | | | | | | unspecified | | | | | | complication status; | | | | [...] type | +--------+ + + + + +---+ + | | Discharge | | | Summary - | | | Luz, | | | Lynne | | | MD Alejandro | | | - | | | 08/30/2018 | | | 8:56 PDT | | | Formatting | | | of this | | | note might | | | be | | | different | | | from the | | | original.[place] | [facility] | | | [facility]OSPITAL[facility] | | | DISCHARGE | | | SUMMARYPATI | | | ENT NAME: | | | Swathi | | | Meli | | | JohnsonDATE | | | OF : | | | 1955DA | | | TE OF | | | ADMISSION: | | | 08/26/2018DA | | | TE OF | | | DISCHARGE: | | | 08/30/18PRI | | | [facility] | | | PHYSICIAN: | | | Herminio Miller | | | Patricia | | | DAVE | | | REQUIRING | | | FOLLOW UP | | | AFTER | | | DISCHARGE: | | | as | | | belowFOLLOW | | | UP: Herminio | | | L Patricia, | | | [id number] | | | CONFEDERATE | | | D | | | [place] | | | n [place] | | | [phone] | | | [phone] | | | e will call | | | to | | | schedule | | | apptNishant | | | [place], | | | MD[address] | | | [phone] | | | [place] | | | [phone] | | | [phone] | | | need f/up | | | for stent | | | placement | | | in 6-8 | | | weeksDISCHA | | | RGE | | | DISPOSITION | | | : | | | HomeCONSULT | | | ANTS THIS | | | ADMISSION: | | | GI([facility] | | | PITAL | | | COURSE:Mrs. | | | Tim is | | | a | | | 62-year-old | | | lady with | | | h/o HTN, | | | TIA, | | | depression | | | and | | | anxiety, | | | marijuana | | | use, | | | cholecystec | | | dennis 1995, | | | gastropares | | | is s/p | | | pyloroplast | | | y in 2014 | | | and | | | long-standi | | | ng history | | | of | | | choledochol | | | ithiasis | | | admitted on | | | 08/26/18 as | | | a transfer | | | from OSH | | | after | | | failed ERCP | | | at OSH on | | | 08/26/18 for | | | | | | symptomatic | | | CBD stones | | | with | | | elevated | | | LFTs. Acute | | | gallstone | | | pancreatiti | | | s. ERCP/EUS | | | by | | | Dr.[place] on | | | 08/27 | | | sphincterot | | | bhakti, | | | sphincterop | | | lasty and | | | stone | | | removal and | | | stent | | | placement. | | | Needed epi | | | infection | | | due to | | | bleeding | | | post | | | sphincterop | | | lasty. Hgb | | | remained | | | stable | | | after | | | procedure. | | | Pt had post | | | procedure | | | pancreatiti | | | s/abd pain | | | that has | | | been | | | managed for | | | >48 hours | | | on oral | | | pain | | | control, | | | dilaudid | | | oral seems | | | to work | | | best. Pt | | | was also | | | started on | | | lisinopril | | | and norvasc | | | for | | | accelerated | | | htn. Pt | | | has been | | | tolerating | | | oral diet | | | and denies | | | nausea >24 | | | hours. | | | given 1 | | | week worth | | | or oral | | | dilaudid at | | | d/c. Pt | | | moving | | | bowels. Pt | | | will need | | | to f/up | | | with GI in | | | 6-8 weeks | | | in regards | | | to | | | stent.DISCH | | | ARGE | | | DIAGNOSES:A | | | ctive | | | Hospital | | | Problems | | | Diagnosis | | | | | | | | | Choledochol | | | ithiasis | | | with | | | obstruction | | | | | | Acute | | | pancreatiti | | | s | | | | | | Depression | | | | | | Anxiety | | | | | | TIA | | | (transient | | | ischemic | | | attack) | | | Essential | | | | | | hypertensio | | | n Resolved | | | Hospital | | | Problems No | | | resolved | | | problems to | | | display. | | | DISCHARGE | | | EXAM:Temp: | | | [36.2 C | | | (97.1 | | | F)-37.1 | | | C (98.8 | | | F)] 37.1 | | | C (98.8 | | | F)Pulse: | | | [62-78] | | | 67Resp: | | | [16-20] | | | 16BP: | | | (111-189)/( | | | 69-121) | | | 146/89Physi | | | onur Exam | | | Constitutio | | | nal: She is | | | oriented | | | to person, | | | place, and | | | time. She | | | appears | | | well-develo | | | ped and | | | well-nouris | | | hed. HENT: | | | Head: | | | Normocephal | | | ic. Nose: | | | Nose | | | normal. | | | Eyes: | | | Pupils are | | | equal, | | | round, and | | | reactive to | | | light. | | | Conjunctiva | | | e are | | | normal. | | | Neck: | | | Normal | | | range of | | | motion. | | | Neck | | | supple. | | | Cardiovascu | | | lar: Normal | | | rate and | | | intact | | | distal | | | pulses. | | | Pulmonary/C | | | hest: | | | Effort | | | normal and | | | breath | | | sounds | | | normal. | | | Abdominal: | | | Soft. Bowel | | | sounds are | | | normal. | | | Musculoskel | | | etal: | | | Normal | | | range of | | | motion. | | | Neurologica | | | l: She is | | | alert and | | | oriented to | | | person, | | | place, and | | | time. Skin: | | | Skin is | | | warm. | | | Capillary | | | refill | | | takes less | | | than 2 | | | seconds. | | | Psychiatric | | | : She has a | | | normal | | | mood and | | | affect. | | | Nursing | | | note and | | | vitals | | | reviewed.DI | | | SCHARGE | | | MEDICATIONS | | | : Discharge | | | | | | Medications | | | New | | | Medications | | | Details | | | amLODIPine | | | 5 mg | | | tablet Take | | | 1 tablet | | | by mouth | | | Daily.aka: | | | | | | NORVASCStar | | | t: | | | 08/31/2018 | | | HYDROmorpho | | | ne 4 MG | | | tabletRepla | | | luther: | | | HYDROmorpho | | | ne | | | injection | | | Take 1-2 | | | tablets by | | | mouth every | | | 4 hours as | | | needed for | | | Pain.aka: | | | DILAUDID | | | lisinopril | | | 20 mg | | | tablet Take | | | 1 tablet | | | by mouth | | | Daily.aka: | | | PRINIVIL, | | | ZESTRILStar | | | t: | | | 08/31/2018 | | | ondansetron | | | 4 mg | | | disintegrat | | | ing tablet | | | Take 1 | | | tablet by | | | mouth every | | | 6 hours as | | | needed for | | | Nausea or | | | Vomiting.ak | | | a: ZOFRAN | | | ODT | | | pantoprazol | | | e 40 mg | | | tablet Take | | | 1 tablet | | | by mouth | | | every | | | morning | | | (before | | | breakfast). | | | aka: | | | PROTONIX | | | Unchanged | | | Medications | | | Details | | | | | | polyethylen | | | e glycol | | | packet Take | | | 1 diluted | | | packet by | | | mouth Daily | | | as needed | | | for | | | Constipatio | | | n.aka: | | | MIRALAX | | | Discontinue | | | d | | | Medications | | | | | | acetaminoph | | | en 325 mg | | | tabletaka: | | | TYLENOL | | | aluminum & | | | magnesium | | | hydroxide-s | | | imethicone | | | 200-200-20 | | | mg/5 mL | | | suspensiona | | | ka: MAALOX | | | PLUS | | | REGULAR | | | STRENGTH | | | docusate | | | sodium 100 | | | MG | | | capsuleaka: | | | COLACE | | | hydrALAZINE | | | 20 mg/mL | | | injectionak | | | a: | | | APRESOLINE | | | HYDROmorpho | | | ne | | | injectionak | | | a: | | | DILAUDIDRep | | | laced by: | | | HYDROmorpho | | | ne 4 MG | | | tablet | | | labetalol 5 | | | mg/mL | | | injectionak | | | a: | | | TRANDATE | | | lactated | | | ringers | | | infusionaka | | | : LR | | | metoprolol | | | tartrate 1 | | | mg/mL | | | injectionak | | | a: | | | LOPRESSOR | | | naloxone | | | 0.4 mg/mL | | | injectionak | | | a: NARCAN | | | ondansetron | | | 2 mg/mL | | | Solnaka: | | | ZOFRAN | | | PROCEDURES | | | THIS | | | ADMISSION: | | | as | | | abovePERTIN | | | ENT LAB AND | | | IMAGING | | | RESULTS: as | | | | | | aboveCONDIT | | | ION AT | | | DISCHARGE: | | | FairTIME | | | SPENT ON | | | DISCHARGE: | | | greater | | | than 30 | | | minutesElec | | | tronically | | | signed by: | | | Lynne | | | S. | | | Luz, | | | MD | | | 08/30/2018 | | | 9:09Portion | | | s of this | | | chart may | | | have been | | | created | | | with Dragon | | | voice | | | recognition | | | software. | | | Occasional | | | wrong-word | | | or | | | | | | sound-alike | | | | | | | | | substitutio | | | ns may have | | | occurred | | | due to the | | | inherent | | | limitations | | | of voice | | | recognition | | | software. | | | Please read | | | the chart | | | carefully | | | and | | | recognize, | | | using | | | context, | | | where these | | | | | | substitutio | | | ns have | | | occurred | | | Electronica | | | lly signed | | | by | | | Lynne | | | Alejandro | | | Luz | | | at | | | 08/30/2018 | | | 9:09 PDT | +---+ + +--------+ +---+ + + | 08/26/ | Anesthesia | | Lester Zhao MD | | | 2018 | Event | | | | +--------+ +---+ + + | 08/26/ | Surgery | | Zari Andrea MD | ERCP | | 2018 | | | | | +--------+ +---+ + + | 08/25/ | Hospital | | Mauro Ellis, | Calculus of bile | | 2018 - | Encounter | | MD | duct without | | | | | | cholecystitis with | | 08/26/ | | | | obstruction; Acute | | 2018 | | | | biliary pancreatitis | | | | | | without infection | | | | | | or necrosis; Blurred | | | | | | vision; Mixed | | | | | | hyperlipidemia; | | | | | | Essential | | | | | | hypertension | +--------+ +---+ + + +---+ + | | Discharge | | | Summary - | | | Awobokun, | | | Oluyemisi, | | | MD - | | | 08/26/2018 | | | 12:47 PDT | | | Formatting | | | of this | | | note might | | | be | | | different | | | from the | | | original.Pa | | | tient | | | Id:Swathi | | | M | | | [id number] | | | [id number] | | | y.o.. | | | [birth year]Admit | | | date: | | | 08/25/2018Di | | | scharge | | | date and | | | time: | | | 08/26/2018Ad | | | mitting | | | Physician: | | | Mauro | | | Meillier, | | | MDDischarge | | | Physician: | | | Oluyemisi | | | AwobokunAdm | | | ission | | | Diagnoses: | | | Choledochol | | | ithiasis | | | with | | | obstruction | | | Discharge | | | Diagnoses: | | | Problem | | | List Items | | | Addressed | | | This Visit | | | | | | Digestive | | | * | | | (Principal) | | | | | | Choledochol | | | ithiasis | | | with | | | obstruction | | | Admission | | | Condition: | | | | | | fairDischar | | | ged | | | Condition: | | | stableIndic | | | ation for | | | Admission:C | | | holedocholi | | | thiasis | | | with | | | obstruction | | | Hospital | | | Course: Ms | | | Swathi M | | | Tim is | | | a 62 y.o. | | | white | | | female with | | | a past | | | medical | | | history | | | significant | | | for TIA, | | | GERD, | | | laparoscopi | | | c | | | cholecystec | | | dennis, | | | hysterectom | | | y, | | | laparoscopi | | | c band | | | converted | | | to | | | laparoscopi | | | c | | | fundoplicat | | | ion,?Rheuma | | | toid | | | arthritis/? | | | MS who | | | presented | | | to [facility] ED | | | at [facility] | | | for | | | evaluation | | | of rt UQ | | | pain x 2-3 | | | days. Upon | | | further | | | evaluation | | | there she | | | was | | | referred | | | for | | | admission | | | here due to | | | concern | | | for | | | choledochol | | | ithiasis | | | and | | | evaluation | | | for ERCP. | | | She had | | | reported | | | 2-3 times | | | yearly | | | episodes of | | | similar rt | | | UQ pain | | | and | | | epigastric | | | pain. This | | | particular | | | episode | | | started 2 | | | nights | | | prior to | | | presentatio | | | n. This | | | time the rt | | | UQ pain | | | was | | | persistent | | | and she had | | | decreased | | | oral intake | | | due to | | | nausea and | | | dry heaves | | | throughout | | | the day. | | | She denied | | | having any | | | fever or | | | chills, | | | diarrhea, | | | chest pain | | | or | | | shortness | | | of breath. | | | No imaging | | | was | | | performed | | | at the | | | outside | | | facility. | | | A prior CT | | | abd/pelvis | | | from | | | 04/25/2018 | | | showed | | | choledochol | | | ithiasis | | | with two 8 | | | mm stones | | | present in | | | the common | | | bile duct. | | | A CT of | | | the abdomen | | | and pelvis | | | was done | | | here | | | yesterday | | | and | | | demonstrate | | | d multiple | | | gallstones | | | within the | | | common bile | | | duct. The | | | most | | | distal | | | calculus | | | within the | | | common bile | | | duct was | | | in the head | | | of the | | | pancreas | | | and | | | measured | | | 7.7 mm. | | | The CBD | | | measured | | | 1.2 cm in | | | diameter. | | | Labs were | | | performed | | | here which | | | showed a | | | wbc of 10, | | | bili of | | | 5.3, AST | | | 409, ALT | | | 250, alk | | | phos 242. | | | Her initial | | | lipase was | | | 72 and | | | today it | | | was up to | | | 1864. She | | | was given a | | | dose of IV | | | | | | ceftriaxone | | | on | | | admission. | | | GI | | | consultatio | | | n was | | | requested | | | and | | | | | | Andrea saw | | | her in | | | consultatio | | | n and | | | recommended | | | doing an | | | ERCP today. | | | | | | Unfortunate | | | ly she was | | | unable to | | | cannulate | | | the common | | | bile duct | | | so she | | | recommended | | | the | | | patient be | | | transferred | | | to a | | | higher | | | level of | | | care where | | | the ERCP | | | can be | | | done.Ms. | | | Tim is | | | [facility] | [facility] | [place] | | | will do her | | | ERCP | | | tomorrow. | | | Consults: | | | GISignifica | | | nt | | | Diagnostic | | | Studies: | | | Recent Labs | | | Lab | | | | | | 7 | | | | | | 3 WBC 8.1 | | | 10.0 HGB | | | 14.0 15.3 | | | HCT 42.1 | | | 46.7 MCV | | | 87.9 90.3 | | | PLT 311 267 | | | NEUPCT | | | 73.4 82.9* | | | Recent | | | Labs Lab | | | | | | 7 | | | | | | 8 GLU 87 94 | | | NA 136 137 | | | K 3.6 4.2 | | | CL 103 106 | | | CO2 26 22 | | | ANIONGAP 7 | | | 9 BUN 6* 5* | | | CREA 0.73 | | | 0.70 | | | GFRNONAA | | | >60 >60 | | | CALCIUM 9.1 | | | 9.0 | | | ALBUMIN 4.0 | | | 4.0 | | | TOTALPROTEI | | | N 6.2 6.4 | | | BILITOT | | | 2.8* 4.5* | | | ALKPHOS | | | 275* 276* | | | ALT 179* | | | 254* AST | | | 169* 363* | | | Recent Labs | | | Lab | | | | | | 7 | | | | | | 8 MG 1.8 | | | 1.8 Recent | | | Labs Lab | | | | | | 3 | | | | | | 8 LIPASE | | | 1,864* 72* | | | Ct Abdomen | | | Pelvis W | | | ContrastRes | | | ult Date: | | | 08/26/2018CT | | | ABDOMEN | | | AND PELVIS | | | WITH | | | CONTRAST | | | CLINICAL | | | INFORMATION | | | : Eval for | | | CBD | | | dilation, | | | stones. | | | COMPARISON: | | | CT ABDOMEN | | | PELVIS W | | | CONTRAST | | | (04/25/2018) | | | ; | | | PROCEDURE: | | | Axial | | | images | | | through the | | | abdomen | | | and pelvis | | | after the | | | administrat | | | ion of 85 | | | ml | | | Omnipaque | | | 350 | | | intravenous | | | contrast. | | | Multiplanar | | | | | | reconstruct | | | ions. At | | | least one | | | of the | | | following | | | CT dose | | | optimizatio | | | n | | | techniques | | | were used: | | | Automated | | | exposure | | | control; | | | Adjustment | | | of mA | | | and/or kV | | | according | | | to patient | | | size; Use | | | of | | | iterative | | | reconstruct | | | ion | | | technique. | | | FINDINGS: | | | LUNG BASES: | | | No | | | significant | | | pulmonary | | | abnormality | | | . No | | | pleural | | | effusion or | | | | | | pneumothora | | | x. ABDOMEN | | | Liver and | | | Biliary: | | | There are | | | multiple | | | gallstones | | | within the | | | common bile | | | duct. The | | | most | | | distal | | | calculus | | | within the | | | common bile | | | duct in | | | the head of | | | the | | | pancreas | | | measures | | | 7.7 mm. | | | Common bile | | | duct | | | measures | | | 1.3 cm in | | | diameter. | | | No | | | intrahepati | | | c biliary | | | ductal | | | dilatation. | | | Mildly | | | heterogeneo | | | us hepatic | | | attenuation | | | . The | | | liver | | | demonstrate | | | s mild | | | diffuse | | | fatty | | | infiltratio | | | n. | | | Gallbladder | | | absent. | | | Pancreas, | | | Spleen and | | | Adrenals: | | | No | | | pancreatiti | | | s or | | | pancreatic | | | mass. No | | | splenomegal | | | y, splenic | | | mass or | | | splenic | | | hemorrhage. | | | No | | | significant | | | adrenal | | | abnormality | | | . Kidneys: | | | No solid | | | renal mass | | | or | | | hydronephro | | | sis. Tiny | | | punctate | | | nonobstruct | | | ing | | | calculus | | | inferior | | | pole left | | | kidney. | | | ABDOMEN AND | | | PELVIS | | | Bowel: No | | | small bowel | | | or colonic | | | dilation | | | or adjacent | | | | | | inflammatio | | | n. No | | | appendiceal | | | dilation | | | or | | | inflammatio | | | n. Vessels: | | | No | | | significant | | | | | | abnormality | | | in the | | | aorta or | | | its | | | proximal | | | branches. | | | No | | | significant | | | | | | abnormality | | | in the | | | portal | | | veins, | | | mesenteric | | | veins or | | | systemic | | | veins. | | | Lymph | | | Nodes: No | | | adenopathy. | | | Peritoneum | | | and | | | Retroperito | | | neum: Small | | | amount of | | | free fluid | | | in the | | | pelvis. No | | | free air. | | | No | | | significant | | | | | | retroperito | | | mindy | | | abnormality | | | . PELVIS | | | Genitourina | | | ry: Small | | | volume free | | | fluid in | | | the pelvis. | | | Distal | | | ureters and | | | bladder | | | appear | | | normal. No | | | pelvic | | | masses. | | | BODY WALL | | | Soft | | | Tissues: No | | | bowel or | | | inflamed | | | fat | | | containing | | | hernia, | | | mass or | | | hemorrhage. | | | Bones: No | | | acute | | | fracture or | | | vertebral | | | end plate | | | destruction | | | . No lytic | | | or blastic | | | lesion. | | | IMPRESSION- | | | | | | Choledochol | | | ithiasis, | | | with | | | multiple | | | common bile | | | duct | | | stones | | | present. | | | Mildly | | | dilated | | | common bile | | | duct, | | | measuring | | | 1.3 cm. No | | | | | | intrahepati | | | c biliary | | | ductal | | | dilatation. | | | A | | | teleradiolo | | | gy | | | preliminary | | | report was | | | provided | | | by | | | Mcfarlane, | | | M.D., | | | Su, | | | 08/25/2018 | | | 9:55:18 PM | | | Dictated | | | and Signed | | | by: Tian | | | MD Cl | | | | | | Electronica | | | lly signed: | | | 08/26/2018 | | | 12:43 PM | | | Treatments: | | | IV | | | hydration, | | | analgesia: | | | Dilaudid, | | | cardiac | | | meds: | | | metoprolol | | | and | | | procedures: | | | ERCP | | | (unsuccessf | | | ul)Discharg | | | e | | | Exam:Genera | | | l | | | Appearance: | | | Sleepy | | | post | | | procedure, | | | no | | | distress, | | | appears | | | stated age | | | Head: | | | Normocephal | | | ic, without | | | obvious | | | abnormality | | | , | | | atraumatic | | | Eyes: | | | PERRL, | | | conjunctiva | | | /corneas | | | clear, | | | EOM's | | | intact, | | | fundi | | | benign, | | | both eyes | | | Nose: | | | Nares | | | normal, | | | septum | | | midline, | | | mucosa | | | normal, no | | | drainage | | | or sinus | | | tenderness | | | Throat: | | | Lips, | | | mucosa, and | | | tongue | | | normal; | | | teeth and | | | gums normal | | | Neck: | | | Supple, | | | symmetrical | | | , trachea | | | midline, no | | | | | | adenopathy; | | | | | | thyroid: | | | No | | | enlargement | | | /tenderness | | | /nodules; | | | no carotid | | | bruit or | | | JVD Lungs: | | | Clear | | | to | | | auscultatio | | | n | | | bilaterally | | | , | | | respiration | | | s unlabored | | | Chest | | | wall: No | | | tenderness | | | or | | | deformity | | | Heart: | | | Regular | | | rate and | | | rhythm, S1 | | | and S2 | | | normal, no | | | murmur, rub | | | or | | | gallop | | | Abdomen: | | | Soft, | | | non-tender, | | | bowel | | | sounds | | | active all | | | four | | | quadrants, | | | no | | | masses, no | | | organomegal | | | y | | | Extremities | | | : | | | Extremities | | | normal, | | | atraumatic, | | | no | | | cyanosis or | | | edema | | | Pulses: | | | 2+ and | | | symmetric | | | all | | | extremities | | | Skin: | | | Skin color, | | | texture, | | | turgor | | | normal, no | | | rashes or | | | lesions | | | Lymph | | | nodes: | | | Cervical, | | | supraclavic | | | ular, and | | | axillary | | | nodes | | | normal | | | Neurologic: | | | CNII-XII | | | intact. | | | Normal | | | strength, | | | sensation | | | and | | | reflexes | | | | | | throughout | | | Disposition | [facility] : [facility], | | | [place] | | | Discharge | | | Medications | | | New | | | Medications | | | Details | | | | | | acetaminoph | | | en 325 mg | | | tablet Take | | | 2 tablets | | | by mouth | | | every 4 | | | hours as | | | needed for | | | Pain (or | | | fever >= | | | 38.6 C | | | (101.5 | | | F)).aka: | | | TYLENOL | | | aluminum & | | | magnesium | | | hydroxide-s | | | imethicone | | | 200-200-20 | | | mg/5 mL | | | suspension | | | Take 30 mLs | | | by mouth | | | every 4 | | | hours as | | | needed for | | | Indigestion | | | .aka: | | | MAALOX PLUS | | | REGULAR | | | STRENGTH | | | docusate | | | sodium 100 | | | MG capsule | | | Take 100 mg | | | by mouth | | | Twice | | | daily as | | | needed for | | | Constipatio | | | n.aka: | | | COLACE | | | hydrALAZINE | | | 20 mg/mL | | | injection | | | Inject 0.5 | | | mLs into | | | the vein | | | every 4 | | | hours as | | | needed | | | (SBPn> 180; | | | DBP> | | | 105).aka: | | | APRESOLINE | | | HYDROmorpho | | | ne | | | injection | | | Inject 0.8 | | | mg into the | | | vein every | | | 3 hours as | | | needed for | | | Pain.aka: | | | DILAUDID | | | labetalol 5 | | | mg/mL | | | injection | | | Inject 2 | | | mLs into | | | the vein | | | every 4 | | | hours as | | | needed (SBP | | | >200; DBP | | | >110. Hold | | | if HR < | | | 55). | | | Indications | | | : | | | Hypertensiv | | | e Urgency, | | | Severely | | | High Blood | | | Pressureaka | | | : TRANDATE | | | lactated | | | ringers | | | infusion | | | Inject | | | into the | | | vein | | | continuous. | | | aka: LR | | | metoprolol | | | tartrate 1 | | | mg/mL | | | injection | | | Inject 10 | | | mLs into | | | the vein | | | every 6 | | | hours.aka: | | | LOPRESSOR | | | naloxone | | | 0.4 mg/mL | | | injection | | | Inject 0.1 | | | mLs into | | | the vein as | | | needed for | | | Apnea or | | | Decreased | | | Responsiven | | | ess.aka: | | | NARCAN | | | ondansetron | | | 2 mg/mL | | | Soln Inject | | | 2 mLs into | | | the vein | | | every 6 | | | hours as | | | needed for | | | Nausea or | | | Vomiting.ak | | | a: ZOFRAN | | | polyethylen | | | e glycol | | | packet Take | | | 1 diluted | | | packet by | | | mouth Daily | | | as needed | | | for | | | Constipatio | | | n.aka: | | | MIRALAX | | | Patient | | | Instruction | | | s:Activity: | | | activity | | | as | | | toleratedDi | | | et: NPO for | | | nowWound | | | Care: as | | | directedFol | | | low-up with | | | Herminio L | | | Patricia, | | | PA-C in 5 | | | days.Time | | | invested in | | | discharge | | | planning | | | was greater | | | than 30 | | | minutesSign | | | ed:Oluyemis | | | i Awobokun, | | | | | | MD08/26/2018 | | | 12:47[facility] | | | [facility] | | | Electronica | | | lly signed | | | by | | | Oluyemisi | | | Awobokun, | | | MD at | | | 08/26/2018 | | | 13:19 PDT | +---+ + from Last 3 Months Family History + + +------+ + | Medical History | Relation | Name | Comments | + + +------+ + | Cirrhosis | Father | | | + + +------+ + | Diabetes | Father | | | + + +------+ + | Hepatitis C | Father | | | + + +------+ + | Osteoporosis | Mother | | | + + +------+ + | Other (see comment) | Mother | | Lung Crystalizing | + + +------+ + + +------+--------+ + | Relation | Name | Status | Comments | + +------+--------+ + | Father | | | | + +------+--------+ + | Mother | | | | + +------+--------+ + Social History + + + +--------+------+ [...] recent travel history available. | + + Last Filed Vital Signs + + + + | Vital Sign | Reading | Time Taken | + + + + | Blood Pressure | 146/89 | 08/30/2018720 PDT | + + + [...] | 74.1 kg (163 lb 6.4 | 08/26/20181529 PDT | | | oz) | | + + + + | Height | 160 cm (5' 3") | 08/26/2018 1530 PDT | + + + + | Body Mass Index | 28.95 | 08/26/2018 1530 PDT | + + + + Plan of Treatment + + + + + | Health Maintenance | Due Date | Last Done | Comments | + + + + + | Hepatitis C | | | | | Screening | 7 | | | + + + + + | Vaccine: | | | | | Pneumococcal 19-64 | 6 | | | | (PPSV23 only) Medium | | | | | Risk (1 of 1 - | | | | | PPSV23) | | | | + + + + + | Breast Cancer | | | | | Screening (Ages | 7 | | | | 50-74) | | | | + + + + + | Colorectal Cancer | | | | | Screening | 7 | | | | (Colonoscopy) | | | | + + + + + | Vaccine: Zoster (1 | | | | | of 2) | 7 | | | + + + + + | Vaccine: | | 03/18/2009, 02/14/2003, | | | Dtap/Tdap/Td (1 - | 9 | 01/05/1993, Additional history | | | Tdap) | | exists | | + + + + + | Statin Therapy | | | | | (optimal intensity) | 9 | | | + + + + + | Vaccine: Influenza | | 01/28/2016, 12/31/2014, | | | (Season Ended) | 9 | 01/16/2014, Additional history | | | | | exists | | + + + + + Implants + +-------+-------+ +--------+--------+--------+ | Implanted | Type | Area | Manufacture | Device | Shelf | Model | | | | | r | | Expira | / | | | | | | Identi | tion | Serial | | | | | | fier | Date | / Lot | + +-------+-------+ +--------+--------+--------+ | Stent Bili Wflx [id number] | Stent | N/A: | B[place]ON | | 05/28/ | [id number] / | | - [id number]: Qty: | | Bile | SCIENTIFIC | | 2020 | | | 1 on 08/27/2018 by Filemon, | | Duct | DEDRA - BSCI | | | /[id number] | | MD Marj | | | | | | 541 | + +-------+-------+ +--------+--------+--------+ Procedures + +--------+ + + + | [...] section. | + +--------+ + + + from Last 3 Months Results Comprehensive Metabolic Panel (08/30/2018 9:40 PDT)Only the most recent of 5 results withi n the time period is included. + + + + + + | [...] | | MEDICAL | | | | [facility] [address] [facility] [address], | | CENTER | | | | [place] [address] | | LABORATORY | | | | | | [place] | | + + + + + + + + | Specimen | + + | Blood | + + + + + + + | Performing | Address | City/State/Zipcode | Phone Number | | Organization | | | | + + + + + | [facility] | [address] | [place] [address] | | | [facility] | | | | | LABORATORY ASHANTI | | | | + + + + + ECG - EXTERNAL SCAN (08/30/2018 0:00 PDT) + + + | Narrative | Performed At | + + + | Ordered by an | | | unspecified provider. | | + + + C-Reactive Protein (08/29/2018 12:13 PDT) + + + + + + | Component | Value | Ref Range | Performed | Pathologist | | | | | At | Signature | + + + + + + | CRP | 12.4 (H)Comment: | 0.0 - 1.5 mg/dL | [facility] | | | | Performed by [facility] [address] | | [facility] | | | | [address] [place], [place] | | HEART | | | | [address] | | MEDICAL | | | | | | CENTER | | | | | | LABORATORY | | | | | | [place] | | + + + + + + + + | Specimen | + + | Blood | + + + + + + + | Performing | Address | City/State/Zipcode | Phone Number | | Organization | | | | + + + + + | [facility] | [address] | [place] [address] | | | [facility] | | | | | LABORATORY CERNER | | | | + + + + + Lipase (08/29/2018 12:13 PDT)Only the most recent of 5 results within the time period is in cluded. + + + + + + | Component | Value | Ref Range | Performed | Pathologist | | | | | At | Signature | + + + + + + | Lipase | 85 (H)Comment: | 11 - 82 U/L | [facility] | | | | Performed by [facility] [address] | | [address] | | | [address], [place] | | HEART | | | | [address] | | MEDICAL | | | | [...] + + + + + | [facility] | [address] | [place] [address] | | | [facility] | | | | | LABORATORY CERALEXSANDRA | | | | + + + [...] [facility] | | | | by [facility] [address], | | SACRED | | | | [place] [address] | | HEART | | | |Performed by [facility] [address], [place] [address] | | MEDICAL | | | | | | CENTER | | | | | | [facility]STINE[facility] | | | | | | [place] | | + + + +-------- -----+ + + + | Specimen | + + | Blood | + + + + + + + | Performing | Address | City/State/Zipcode | Phone Number | | Organization | | | | + + + + + | [facility] | [address] | [place] [address] | | | HEART [facility] | | | | | BRENDA BURRELL [...] + | Chente Salinas Results In - 08/27/2018 1238 PDT | [...] Performed At | + + + | [place] | [place] | | [facility] | [place] | | CenterGI | | | Patient Name: Swathi Dumont Procedure | | | Date: 08/27/2018 10:42 AMMRN: | | | [id number] Account Number: | | | [id number] of : 1955 Note | | | Status: FinalizedAttending MD: MARJ COLBERT MD | | | | | | Procedure Type: Upper | | | EUSIndications: Suspected | | | choledocholithiasisPatient Profile: Patient with | | | choledocholithiasis, had a failed ERCP | | | yesterday in [place], | | | undergoing EUS to evaluate | | | and rule out distal CBD | | | stricture or pancreatic mass | | | lesionReferring: | | | ZARI ANDREA, | | | MDMedicines: Monitored Anesthesia [...] On: 08/27/2018 10:42 AMNumber of Addenda: 0 [facility] | | | [facility] | | | | | | [facility] | | + + + + +---------+ + + | Performing | Address | City/State/Zipcode | Phone Number | | Organization | | | | + +---------+ + + | [place] | | | | + +---------+ + + ERCP (08/27/2018 10:42 PDT) + + | Specimen | + + | | + + + + + | Narrative | Performed At | + + + | [place] | [place] | | [facility] | [place] | | CenterGI | | | Patient Name: Swathi Dumont Procedure | | | Date: 08/27/2018 10:42 AMMRN: | | | [id number] Account Number: | | | [id number] of : 1955 Note | | | Status: FinalizedAttending MD: MARJ COLBERT MD | | | | | | Procedure Type: | | | ERCPIndications: Bile duct stone(s)Patient | | | Profile: CBD stonesReferring: SIEW | | | NOAM BLEVINSedicines: Monitored Anesthesia | | | CareComplications: No [...] | | | | | Findings: A graduate fellow film of the abdomen | | | [...] 10 mm x 4 cm fully covered [employer] | | | wall flex biliary [...] On: 08/27/2018 10:42 AMNumber of Addenda: 0 [place] [facility] | | | [facility] | | + + + + +---------+ + + | Performing | Address | City/State/Zipcode | Phone Number | | Organization | | | | + +---------+ + + | [place] | | | | + +---------+ + + CBC with Differential (08/27/2018 5:11 PDT)Only the most recent of 3 results within the ky period is included. + + + + + + | [...] LABORATORY | | | | | | [place] | | + + + + + [...] | | | Immature | Performed by [facility] [address] | K/uL | SACRED | | | Granulocyte | [place] | | HEART | | | s | [address] | | MEDICAL | | | | [...] + + + + + | [facility] | [address] | [place] [address] | | | HE[facility]ICAL CENTER | | | | | LABORATORY ASHANTI [...] +---------+ + + Protime INR (08/26/2018 5:57 PDT)Only the most recent of 2 results within the time period is included. + + + + + + | [...] [address] | [place] | [phone] | | [facility] | | [address] | | | - LABORATORY | | | | + + + + + Magnesium (08/26/2018 5:57 PDT)Only the most recent of 2 results within the time period is included. + +-------+ + + + | Component | Value | Ref Range | Performed | Pathologist | | | | | At | Signature | + +-------+ + + + | Magnesium | 1.8 | 1.6 - 2.6 mg/dL | [facility] | | | | | | [facility] | | | | | | [...] | + + + + + | [facility] | [address] | [place] | [phone] | | [facility] | | [address] | | | - LABORATORY | | [...] A teleradiology preliminary report was provided by Huan Mcfarlane., Su, | | 08/25/2018 9:55:18 PM | [...] + | [facility] | [address] | [place] | [phone] | | [facility] | | [address] | | | - LABORATORY | | [...] + | [facility] | [address] | [place] | [phone] | | [facility] | | [address] | | | - LABORATORY | | [...] | | | | mmol/L | [facility] | | | | [...] | | | | mg/dL | [facility] | | | | | | MEDICAL | | | | | | CENTER - | | | | | | LABORATORY | | + + + + + + | eGFR if not | >60Comment: GLOMERULAR | >=60 | [facility] | | | | FILTRATION | mL/min/1.73m2 | [facility] | | | IVORIAN | RATE,ESTIMATED mL/min | | MEDICAL | | | | /1.12p7Avch than 60 | | CENTER - | [...] | 9.0 | 8.7 - 10.4 | [facility] | | | | | mg/dL | [facility] | | | | | | MEDICAL | | | | | | CENTER - | | | | | | LABORATORY | | + + + + + + | BUN/Creatin | 7.1 | | [facility] | | | ine Ratio | | | [facility] | | | | | | [...] [address] | [place] | [phone] | | [facility] | | [address] | | | - LABORATORY | | [...] - 1.030 | [facility] | | | [place] | | | [facility] | | [...] | | EPITHELIAL | | | [facility] | | | [facility] | | | [...] | | COMMENT | Indicated | | [facility] | | | [...] | + + + + + | [facility] | [address] | [place] | [phone] | | [facility] | | [address] | | | - LABORATORY | | | | + + + + + from Last 3 Months Insurance + +--------+ +--------+ +---------+--------+ | Payer | Benefi | Subscriber | Effect | Phone | Address | Type | | | t Plan | ID | leeann | | | | | | / | | Dates | | | | | | Group | | | | | | + +--------+ +--------+ +---------+--------+ | [facility] | [facility] | [id number] | 08/09/19 | [phone] | | PPO | | | E BCBS | 8 | 19-Pre | 8 | | | | | GROUP | | sent | | | | | | ADMIN | | | | | | + +--------+ +--------+ +---------+--------+ | [facility] | IHS | [id number] | 08/09/19 | | | Indemn | | SERVICE | YELLOW | | 19-Pre | | | ity | | | HAWK | | sent | | | | + +--------+ +--------+ +---------+--------+ + +--------+ +--------+ + + | Guarantor Name | Accoun | Relation to | Date | Phone | Billing Address | | | t Type | Patient | of | | | | | | | | | | + +--------+ +--------+ + + | Swathi Dumont | Person | Self [birth year] | [address] | | [place] | raine/Yariel | | 1956 | [phone] | [place] | | | [place] | | | [address] ([place]) | [address] | + +--------+ +--------+ + + Advance Directives Patient has advance care planning documents, and code status on file. For more information, please contact:[facility] [place] [address] + + + + + | Code Status | Date | Date | Comments | | | Activated | Inactivated | | + + + + + | Full Code | 08/29/2018 | 08/30/2018 | | | | 13:59 | 13:42 | | + + + + + + + + +---+ | | | | | + + + +---+ | Full Code | 08/26/2018 | 08/26/2018 | | | | 12:45 | 14:40 | | + + + +---+ + + + +---+ | | | | | + + + +---+ | Full Code | 08/26/2018 | 08/26/2018 | | | | 10:48 | 12:45 | | + + + +---+ + + + +---+ | | | | | + + + +---+ | Full Code | 08/25/2018 | 08/26/2018 | | | | 12:13 | 10:48 | | + + + +---+
--- OUTSIDE RECORDS SUMMARY | ~2018-09-02 | XMS | Encounter Summary ---
Demographics + + + | [address] | [address] [facility] [address] | | | [place] [address] | + + + | Home Phone | | + + + | Preferred Language | Unknown | + + + | Marital Status | Single | + + + | Hoahaoism Affiliation | Unknown | + + + | Race | Unknown | + + + | Ethnic Group | Unknown | + + + Author + + + | Author | [facility] | | | and [place] | + + + | Organization | [facility] | | | and [place] | + + + | Address | Unknown | + + + | Phone | Unavailable | + + + Support + + + + + | Name | Relationship | Address | Phone | + + + + + | Mariana Scott | ECON | [place] | | | | | [address] | | + + + + + Care Team Providers + +------+ + | Care Level Glass Forming Machine Operator Name | Role | Phone | + +------+ + | Herminio oGmez PA-C | PCP | Unavailable | + [...] | +--------+ + + + + | 08/25/ | Hospital | [facility] | Mauro Ellis, | Calculus of bile | | 2019 - | Encounter | MED CTR SURGICAL | MD [address] | duct without | | | | [address] | [place] | cholecystitis with | | 08/26/ | | [place] [address] | [address] | obstruction; Acute | | 2019 | | [phone] | | biliary pancreatitis | | | | | | without infection | | | | | | or necrosis; Blurred | | | | | | vision; Mixed | | | | | | hyperlipidemia; | | | | | | Essential | | | | | | hypertension | +--------+ + + + + Social [...] + | Oxygen Saturation | 95% | 08/26/20181054 PDT | + + + + | Inhaled Oxygen | - | - | | Concentration | | | + + + + | Weight | 75.6 kg (166 lb 10.7 | 08/25/20182123 PDT | | | oz) | | + + + + | Height | 160 cm (5' 3") | 08/25/20181144 PDT | + + + + | Body Mass Index | 29.52 | 08/25/20181144 PDT | + + + + documented in this encounter Discharge Summaries Mariluz Baker MD - 08/26/2018 1247 PDTFormatting of this note might be different fro m the original. Patient Id: Swathi Dumont [id number] y.o.. 1955 Admit date: 08/25/2018 Discharge [...] arthritis/?MS who presented to the ED at [facility] for evaluation of rt UQ pain x [...] Ms. Dumont is stable for transfer to [facility] in [place]. Dr. Colbert, GI will do her ERCP tomorrow. Consults: GI [...] Normal strength, sensation and reflexes throughout Disposition: [facility], [place] Discharge Medications New Medications Details acetaminophen 325 [...] minutes Signed: Mariluz Baker MD 08/26/2018 12:47 [facility] documented in this e ncounter Medications [...] tablet by | 30 | 3 | //20 | | | (PRINIVIL, ZESTRIL) | mouth Daily. | tablet | | 19 | | | 20 mg tablet | | | | | | + + + +---------+ + + | ondansetron | Take 1 tablet by | 20 | 0 | 20 | | | (ZOFRAN ODT) 4 mg | mouth every 6 hours | tablet | | 19 | | | disintegrating | as needed for Nausea | | | | | | tablet | or Vomiting. | | | | | + + + +---------+ + + | pantoprazole | Take 1 tablet by | 30 | 3 | 20 | | | (PROTONIX) 40 mg | [address] | [place] | [phone] | | [facility] | | [address] | | | - LABORATORY | | [...] | | | + +---------+ + + Neelamime INR (08/26/2018 5:57 PDT) + + + [...] [address] | [place] | [phone] | | [facility] | | [address] | | | - LABORATORY | | [...] ST. | [address] | [place] | [phone] | | [facility] | | [address] | | | - LABORATORY | | [...] | 0.73 | 0.55 - 1.02 | [place] | | | | | mg/dL | [facility] | | | | | | MEDICAL | | | | | | CENTER - | | | | | | LABORATORY | | + + + + + + | eGFR if not | >60Comment: GLOMERULAR | >=60 | [facility] | | | | FILTRATION | mL/min/1.73m2 | [facility] | | | [place] | RATE,ESTIMATED mL/min | | MEDICAL | | | | /1.43m6Hwrr than 60 | | CENTER - | [...] + + + + + | [facility] | [address] | [place] | [phone] | | [facility] | | [address] | | | - LABORATORY | | | | + + + + + CBC with Differential (08/26/2018 5:57 PDT) + + + + + + | Component | Value | Ref Range | Performed | Pathologist | | | | | At | Signature | + + + + + + | WBC | 8.1 | 4.0 - 11.0 K/uL | [facility] | | | | | | [facility] | | | | | | MEDICAL | | | | | | CENTER - | | | | | | LABORATORY | | + + + + + + | RBC | 4.79 | 3.70 - 5.20 | [facility] | | | | | M/uL | [facility] | | | | | | MEDICAL | | | | | | CENTER - | | | | | | LABORATORY | | + + + + + + | Hemoglobin | 14.0 | 11.5 - 16.0 | [facility] | | | | | g/dL | [facility] | | | | [...] | | Eosinophils | | | [facility] | | [...] | Preliminary studies have | | [facility] | | | s | indicated the [...] | Neutrophils | | K/uL | [facility] | [...] [address] | [place] | [phone] | | [facility] | | [address] | | | - LABORATORY | | [...] + | [facility] | [address] | [place] | [phone] | | [facility] | | [address] | | | - LABORATORY | | [...] + + + + + | [facility] | [address] | [place] | [phone] | | [facility] | | [address] | | | - LABORATORY | | | | + + + + + Hepatic Function Panel (08/25/2018 12:58 PDT) + + + + + + | Component | Value | Ref Range | Performed | Pathologist | | | | | At | Signature | + + + + + + | Bilirubin | 4.5 (H) | 0.3 - 1.2 mg/dL | [facility] | | | Total | | | [facility] | | [...] ST. | [address] | [place] | [phone] | | [facility] | | [address] | | | - LABORATORY | | [...] | 0.70 | 0.55 - 1.02 | [facility] | | | | | mg/dL | [facility] | | | | | | MEDICAL | | | | | | CENTER - | | | | | | LABORATORY | | + + + + + + | eGFR if not | >60Comment: GLOMERULAR | >=60 | [facility] | | | | FILTRATION | mL/min/1.73m2 | [facility] | | | [place] | RATE,ESTIMATED mL/min | | MEDICAL | | | | /1.17i9Zoas than 60 | | CENTER - | [...] | 9.0 | 8.7 - 10.4 | [facility] | | | | | mg/dL | [facility] | | | | | | MEDICAL [...] | [address] | [place] | [phone] | | [facility] | | [address] | | | - LABORATORY | | | | + + + + + Magnesium (08/25/2018 12:58 PDT) + +-------+ + + + | Component | Value | Ref Range | Performed | Pathologist | | | | | At | Signature | + +-------+ + + + | Magnesium | 1.8 | 1.6 - 2.6 mg/dL | [facility] | | | | | | [facility] [...] + | [facility] | [address] | [place] | [phone] | | [facility] | | [address] | | | - LABORATORY | | [...] | | | | Yellow, Straw | [facility] | | | | [...] - 1.030 | [facility] | | | Floyd | | | [facility] | | [...] URINE | Urine Culture Not | | [facility] | | | COMMENT | Indicated | | [facility] | | | [address] | [place] | [phone] | | [facility] | | [address] | | | - LABORATORY | | | | + + + + + Protime INR (08/25/2018 12:53 PDT) + + + [...] [address] | [place] | [phone] | | [facility] | | [address] | | | - LABORATORY | | [...] | | | | M/uL | [facility] | | | | | | MEDICAL | | | | | | CENTER - | | | | | | LABORATORY | | + + + + + + | Hemoglobin | 15.3 | 11.5 - 16.0 | [facility] | | | | | g/dL | [facility] | | | | [...] | | Basophils | | K/uL | [facility] | | | | [...] | | | | | WBCs | [facility] | | | | [...] + + | [facility] | [address] | [place] | [phone] | | [facility] | | [address] | | | - LABORATORY | | | | + + + + + IMAGING REPORT - EXTERNAL SCAN (04/25/2018 0:00 PST) + + + | Narrative | Performed At | + + + | Ordered by an | | | unspecified provider. | | + + + documented in this encounter Visit Diagnoses + + | Diagnosis | + + | Calculus of bile duct without cholecystitis with obstruction | + + | Acute biliary pancreatitis without infection or necrosis | + + | Blurred vision Other specified visual disturbances | + + | Mixed hyperlipidemia | + + | Essential hypertension Unspecified essential hypertension | + + | Hypertension, benign Essential hypertension, benign | + + | Rheumatoid arthritis (HCC) | + + | Gastroparesis | + + | Cholelithiasis Calculus of gallbladder without mention of cholecystitis or | | obstruction | + + | LFT elevation Other abnormal blood chemistry | + + | Acute pancreatitis | + + documented in this encounter Admitting Diagnoses + + [...] HYDROmorphone (DILAUDID) | Given | 08/27/19 | 0.5 mg | | | | injection 0.2-0.5 mg 0.2-0.5 mg, | | 19 9:19 | | | | | Intravenous, EVERY 10 MIN PRN, | | PDT | | | | | Pain, Starting 08/26/18 at | | | | | | | 0914, Maximum total dose 4 mg. | | | | | | | PACU IV Narcotic Priority: Only | | | | | | | use fentanyl for immediate | | | | | | | post-op pain (one dose) or | | | | | | | breakthrough pain when any other | | | | | | | IV narcotics ordered have been | | | | | | | ineffective (if ordered). If | | | | | | | both morphine and hydromorphone | | | | | | | are ordered, use morphine first, | | | | | | | and use hydromorphone if morphine | | | | | | | ineffective., Recovery/Phase I | | | | | | + +-------+ +--------+---+---+ +---+---+ | | | +---+---+ + +-------+ +--------+---+---+ | HYDROmorphone (DILAUDID) | Given | 08/26/19 | 0.4 mg | | | | injection 0.4 mg 0.4 mg, | | 19 14:05 | | | | | Intravenous, EVERY 3 HOURS PRN, | | PDT | | | | | Pain, Starting 08/25/18 at | | | | | | | 1211 | | | | | | + [...] | | +---+---+ + +-------+ +--------+---+---+ | iohexol (OMNIPAQUE 350) 350 | Given | 08/26/19 | 85 mLs | | | | mg/mL injection 85 mL 85 mL, | | 19 17:28 | | | | | Intravenous, ONCE PRN, Other, for | | PDT | | | | | imaging CT study, Starting Sat | | | | | | | 08/25/18 at 1728, For 1 dose, | | | | | | | Radiology | | | | | | + +-------+ +--------+---+---+ +---+---+ | | | +---+---+ + +-------+ +-------+---+---+ | labetalol (TRANDATE) 5 mg/mL | Given | 08/27/19 | 10 mg | | | | injection 10 mg 10 mg, | | 19 2:55 | | | | | Intravenous, ONCE, Netta 08/26/18 at | | PDT | | | | | 0345, For 1 dose | | | | | | + [...] | | +---+---+ + +-------+ +------+---+---+ | labetalol (TRANDATE) 5 mg/mL | Given | 08/27/19 | 5 mg | | | | injection 3-5 mg 3-5 mg, | | 19 9:21 | | | | | Intravenous, EVERY 5 MIN PRN, For | | PDT | | | | | SBP > 180, DBP > 100, Starting | | | | | | | 08/26/18 at 0914, Hold if HR < | | | | | | | 50. Maximum total dose 30mg. | | | | | | | Notify anesthesia if patient | | | | | | | requires more than 30mg., | | | | | | | Recovery/Phase I | | | | | | + +-------+ +------+---+---+ +-------+ +------+---+---+ | Given | 08/27/19 | 5 mg | | | | | 19 9:15 | | | | | | PDT | | | | +-------+ +------+---+---+ + +---+ | | | + +---+ | labetalol (TRANDATE) 5 mg/mL | | | injection Starting 08/26/18 | | | at 0250, For 1 dose, Hawa, | | | Steffany : yolie álvarez, | | + +---+ | | | + +---+ + + + +---+-------+---+ | lactated ringers [...] +---+---+ | | | +---+---+ + +-------+ +---------+---+ + | promethazine (PHENERGAN) (IM | Given | 08/26/19 | 6.25 mg | | Deltoid- | | ONLY) injection 6.25 mg 6.25 mg, | | 19 18:37 | | | Left | | Intramuscular, ONCE, 08/25/18 | | PDT | | | | | at 1815, For 1 dose, Vesicant. | | | | | | | Give by deep IM injection into a | | | | | | | large muscle., | | | | | | + +-------+ +---------+---+ + +---+---+ | | | +---+---+ documented in this encounter
--- OUTSIDE RECORDS SUMMARY | ~2018-09-02 | XMS | Encounter Summary ---
Demographics + + + | Address | [address] [facility] | | | [place] [address] | + + + | Home Phone | | + + + | Preferred Language | Unknown | + + + | Marital Status | Single | + + + | Adventist Affiliation | Unknown | + + + | Race | Unknown | + + + | Ethnic Group | Unknown | + + + Author + + + | Author | [facility] | | | and [place] | + + + | Organization | [facility] | | | and [place] | + + + | Address | Unknown | + + + | Phone | Unavailable | + + + Support + + + + + | Name | Relationship | Address | Phone | + + + + + | Mariana Scott | ECON | [place] | | | | | [address] | | + + + + + Care Team Providers + +------+ + | Care Rice Cleaning Machine Tender Name | Role | Phone | + [...] + | 08/26/ | Anesthesia | [facility] | Lester Zhao MD | | | 2019 | Event | MED CTR MP INTRA OP | [address] | | | | | [address] | [place] | | | | | [place] | [address] | | | | | [address] | [phone] | | | | | [phone] | | | +--------+ + + + [...]
--- OUTSIDE RECORDS SUMMARY | ~2018-09-02 | XMS | Encounter Summary ---
Demographics + + + | [address] | [address] [facility] [facility] [address] | | | [place] [address] | + + + | Home Phone | | + + + | Preferred Language | Unknown | + + + | Marital Status | Single | + + + | Yarsanism Affiliation | Unknown | + + + | Race | Unknown | + + + | Ethnic Group | Unknown | + + + Author + + + | Author | [facility] | | | and [place] | + + + | Organization | [facility] | | | and [place] | + + + | Address | Unknown | + + + | Phone | Unavailable | + + + Support + + + + + | Name | Relationship | Address | Phone | + + + + + | Mariana Scott | ECON | [place] | | | | | [address] | | + + + + + Care Team Providers + +------+ + | Care Church History Professor Name | Role | Phone | + +------+ + | Herminio Gomez PA-C | PCP | Unavailable | + +------+ + Reason for Referral Evaluate & Treat (Routine) + + + + + + + | Status | Reason | Specialty | Diagnoses / | Referred By | Referred To | | | | | Procedures | Contact | Contact | + + + + + + + | Pending | Specialty | Gastroenterol | Diagnoses | Mohsen, | Filemon, | | Review | Services | ogy / Liver | | ZEN Reed | MD Flaco | | | Required | and Pancreas | Choledocholi | [address] | | | | Surgery | thiasis | [address], [address] | | | | | Procedures | [address] | [place], [place] | | | | | October-ERCP* | [place], [place] | [address] Phone: | | | | | with [place] 2 | [address] | [phone] | | | | | months | Phone: | Fax: | | | | | | [phone] | [phone] | | | | | | Fax: | | | | | | | [phone] | | + + + + + + + Encounter Details +--------+ + + + + | Date | Type | Department | Care Team | Description | +--------+ + + + + | 08/28/ | Orders Only | [facility] | Brianna Connolly PA | Choledocholithiasis | | 2019 | | and Pancreas GI | [address], [place] | (Primary Dx) | | | | [address] | [address] [place] | | | | | [address] | [address] | | | | | [place] | | | | | | [address] | | | | | | [phone] | | | +--------+ + + + + Social [...] as of this encounter Plan of Treatment +------+--------+ + + | Name | Priori | Associated Diagnoses | Order Schedule | | | ty | | | +------+--------+ + + | Filemon | Routin | | Ordered: 08/28/2018 | | | e | Choledocholithiasis | | +------+--------+ + + documented as of this encounter Visit Diagnoses + + | Diagnosis | + + | Choledocholithiasis - Primary Calculus of bile duct without mention of cholecystitis | | or obstruction | + + documented in this encounter"
--- OUTSIDE RECORDS SUMMARY | ~2018-09-02 | XMS | Encounter Summary ---
Demographics + + + | Address | [address] | | | [place] [address] | + + + | Home Phone | | + + + | Preferred Language | Unknown | + + + | Marital Status | Single | + + + | Yarsanism Affiliation | Unknown | + + + | Race | Unknown | + + + | Ethnic Group | Unknown | + + + Author + + + | Author | [facility] | | | and [place] | + + + | Organization | [facility] | | | and [place] | + + + | Address | Unknown | + + + | Phone | Unavailable | + + + Support + + + + + | Name | Relationship | Address | Phone | + + + + + | Mariana Scott | ECON | [place] | | | | | [address] | | + + + + + Care Team Providers + +------+ + | Care Welder Assistant Name | Role | Phone | + +------+ + | Herminio Gomez PA-C | PCP | Unavailable | + +------+ + Reason for Visit + + + | Reason | Comments | + + + | Hospital Follow-up | | + + + Encounter Details +--------+ + + + + | Date | Type | Department | Care Team | Description | +--------+ + + + + | 08/31/ | Telephone | [place] | Luz, | Hospital Follow-up | | 2019 | | Internal Medicine | Lynne Allen MD | | | | | Hospitalists [address] | | | | | [address] [place], [place] | FLOOR [place], [place] | | | | | [address] | [id number] | | | | | [phone] | | | +--------+ + + + [...] Visit Diagnoses Not on filedocumented in this encounter"
--- OUTSIDE RECORDS SUMMARY | ~2018-09-02 | XMS | Encounter Summary ---
Demographics + + + | Address | [address] [facility] [facility] [address] | | | [place] [address] | + + + | Home Phone | | + + + | Preferred Language | Unknown | + + + | Marital Status | Single | + + + | Nondenominational Affiliation | Unknown | + + + | Race | Unknown | + + + | Ethnic Group | Unknown | + + + Author + + + | Author | [facility] | | | and [place] | + + + | Organization | [facility] | | | and [place] | + + + | Address | Unknown | + + + | Phone | Unavailable | + + + Support + + + + + | Name | Relationship | Address | Phone | + + + + + | Mariana Scott | ECON | [place] | | | | | [address] | | + + + + + Care Team Providers + +------+ + | Care Dry Transfer Worker Name | Role | Phone | [...] + + | 08/31/ | Telephone | [place] | Luz, | Hospital Follow-up | | 2019 | | Internal Medicine | Lynne Allen MD | | | | | Hospitalists [address] | | | | | [address] [place], [place] | FLOOR [place], [place] | | | | | [address] | [id number] | | | | | [phone] | | | +--------+ + + + [...]
--- OUTSIDE RECORDS SUMMARY | ~2018-09-02 | XMS | Encounter Summary ---
Demographics + + + | Address | [address] [facility] [address] | | | [place] [address] | + + + | Home Phone | | + + + | Preferred Language | Unknown | + + + | Marital Status | Single | + + + | Baptist Affiliation | Unknown | + + + | Race | Unknown | + + + | Ethnic Group | Unknown | + + + Author + + + | Author | [facility] | | | and [place] | + + + | Organization | [facility] | | | and [place] | + + + | Address | Unknown | + + + | Phone | Unavailable | + + + Support + + + + + | Name | Relationship | Address | Phone | + + + + + | Mariana Scott | ECON | [place] | | | | | [address] | | + + + + + Care Team Providers + +------+ + | Care Medical Billing Representative Name | Role | Phone | + [...] + + | 08/26/ | Surgery | [facility] | Zari Murdock MD | ERCP | | 2019 | | MED CTR MP INTRA OP | [address] | | | | | [address] | [place], [place] | | | | | [place], [place] | [address] | | | | | [address] | [phone] | | | | | [phone] | | | +--------+---------+ + + + [...] m the original. Patient Id: Swathi Dumont [id number] y.o.. 1955 Admit date: 08/25/2018 Discharge [...] arthritis/?MS who presented to the ED at [facility] for evaluation of rt UQ pain x [...] Ms. Dumont is stable for transfer to [facility] in [place]. [facility]berg will do her ERCP tomorrow. [...] strength, sensation and reflexes throughout Disposition: [facility], [place] Discharge Medications New Medications Details acetaminophen 325 [...] minutes Signed: Mariluz Baker MD 08/26/2018 12:47 [facility] documented in this e ncounter Medications [...] ST. | [address] | [place] | [phone] | | [facility] | | [address] | | | - LABORATORY | | [...] + | [facility] | [address] | [place] | [phone] | | [facility] | | [address] | | | - LABORATORY | | [...] [address] | [place] | [phone] | | [facility] | | [address] | | | - LABORATORY | | [...] mL/min/1.73m2 | [facility] | | | [place] | RATE,ESTIMATED mL/min | | MEDICAL | | | | /1.49z5Ptgy than 60 | | CENTER - | [...] + | [facility] | [address] | [place] | [phone] | | [facility] | | [address] | | | - LABORATORY | | [...] | | | | g/dL | [facility] | | | | | | MEDICAL [...] | Preliminary studies have | | [facility] | | | s | indicated [...] + | [facility] | [address] | [place], [place] | [phone] | | [facility] | | [address] | | | - LABORATORY | | [...] + | [facility] | [address] | [place] | [phone] | | [facility] | | [address] | | | - LABORATORY | | [...] [address] | [place] | [phone] | | [facility] | | [address] | | | - LABORATORY | | [...] ST. | [address] | [place], [place] | [phone] | | [facility] | | [address] | | | - LABORATORY | | [...] mL/min/1.73m2 | [facility] | | | [place] | RATE,ESTIMATED mL/min | | MEDICAL | | | | /1.38v0Eofr than 60 | | CENTER - | [...] | 9.0 | 8.7 - 10.4 | [facility] | | | | | mg/dL | [...] [address] | [place] | [phone] | | [facility] | | [address] | | | - LABORATORY | | [...] + | [facility] | [address] | [place] | [phone] | | [facility] | | [address] | | | - LABORATORY | | [...] - 1.030 | [facility] | | | [place] | | | [facility] | | [...] | | COMMENT | Indicated | | [facility] | | | | | [...] [address] | [place] | [phone] | | [facility] | | [address] | | | - LABORATORY | | [...] ST. | [address] | [place], [place] | [phone] | | [facility] | | [address] | | | - LABORATORY | | [...] [address] | [place] | [phone] | | [facility] | | [address] | | | - LABORATORY | | [...]
--- OUTSIDE RECORDS SUMMARY | ~2018-09-02 | XMS | Encounter Summary ---
Demographics + + + | [address] | [address] | | | [place] [address] | + + + | Home Phone | | + + + | Preferred Language | Unknown | + + + | Marital Status | Single | + + + | Amish Affiliation | Unknown | + + + | Race | Unknown | + + + | Ethnic Group | Unknown | + + + Author + + + | Author | [facility] | | | and [place] | + + + | Organization | [facility] | | | and [place] | + + + | Address | Unknown | + + + | Phone | Unavailable | + + + Support + + + + + | Name | Relationship | Address | Phone | + + + + + | Mariana Scott | ECON | [place] | | | | | [address] | | + + + + + Care Team Providers + +------+ + | Care Department Specialist Name | Role | Phone | + [...] + + | 08/31/ | Telephone | [place] | [facility]z, | Hospital Follow-up | | 2019 | | Internal Medicine | Lynne Allen MD | | | | | Hospitalists [address] | [address] | | | | | [address] [place], [place] | FLOOR [place], [place] | | | | | [address] | [id number] | | | | | [phone] | | | +--------+ + + + [...]
--- OUTSIDE RECORDS SUMMARY | ~2018-09-02 | XMS | Encounter Summary ---
Demographics + + + | Address | [address] [facility] [address] | | | [place] [address] | + + + | Home Phone [...] | Author | [facility] | | | and [place] | + + + | Organization | [facility] | | | and [place] | + + + | Address | Unknown | + + + | Phone | Unavailable | + + + Support + + + + + | Name | Relationship | Address | Phone | + + + + + | Mariana Scott | ECON | [place] | | | | | [address] | | + + + + + Care Team Providers + +------+ + | Care Web Designer Developer Name | Role | Phone | + [...] + + | 08/26/ | Hospital | [facility] | Polo Ferrell MD | Calculus of bile | | 2019 - | Encounter | [facility] | [address] [place] | duct with acute on | | | | SURGICAL [address] | [address] [place], [place] | chronic | | 08/30/ | | [place], [place] | [address] | cholecystitis with | | 2019 | | [address] | | obstruction; | | | | [phone] | Amarjit, Miranda, | Essential | | | | | [address] | hypertension; | | | | | Avenue, 9th floor | Choledocholithiasis; | | | | | [place] [address] | Acute biliary | | | | | [phone] | pancreatitis without | | | | | | infection or | | | | | Lynne Sweet | necrosis; Acute | | | | | MD Alejandro [address] | biliary | | | | | [address] | pancreatitis, | | | | | [place] [address] | unspecified | | | | | [phone] | complication status; | | | | [...] might be differ ent from the original. [facility] FACULTY HOSPITALIST DISCHARGE SUMMARY PATIENT NAME: Swathi Dumont DATE OF : 1955 DATE OF ADMISSION: 08/26/2018 DATE OF DISCHARGE: 08/30/18 PRIMARY CARE PHYSICIAN: Herminio Gomez PA-C ISSUES REQUIRING FOLLOW UP AFTER DISCHARGE: as below FOLLOW UP: Herminio Gomez PA-C [address] [facility] [address] office will call to schedule appt Marj Colbert MD [address] [facility] [address] [facility] [phone] will need f/up for stent placement in [...] this chart may have been created with [employer] voice recognition software. Occasi onal wrong-word or [...] harm your pancreas. This includes any new taci-mno-pvrwdpn medicines, vitamins, or herbal supplements. Tell your [...] if you have any of the following: Rqepgyh209.4F(38.0C) or higher, or as advised by your provider Severe pain from your upper belly to your back Nausea and vomiting Feely dizzy or lightheaded Yellowing of your skin or eyes (jaundice) Bruises on your belly or back Belly swelling and tenderness Rapid pulse Shallow, fast breathing Date Last Reviewed: 11/09/201519992460-9622 [employer]. [address] [place] [address], [place] [address]. All righ ts reserved. This information is [...] Ms Swathi Dumont has been hospitalized at [facility] from 08/27/18 to 08/09 06/26. She was transferred from [facility] where she stayed from 08/25/18 to 08/27/18. [...] meds to dilaudid and va lium from [employer] to see if helped. Pt toleratign diet, [...] this chart may have been created with [employer] voice recognition software. Occasi onal wrong-word or [...] the Assessment and Plan. Brianna Connolly PA-C [employer] [facility] ynne Sweet MD - 08/28/2018 1557 PDT [...] this chart may have been created with [employer] voice recognition software. Occasi onal wrong-word or sound-alike substitutions may have occurred due to the inherent pino itations of voice recognition software. 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 Brianna Connolly PA-C [employer] [facility] Dallas Reyes RN - 2018 1030 PDTVAT [...] this chart may have been created with [employer] voice recognition software. Occasi onal wrong-word or sound-alike substitutions may have occurred due to the inherent pino itations of voice recognition software. Please read the chart carefully and recognize, using context, where these substitutions have occurred lNiki tamez RN - 08/26/2018 1536 PDTAdmission screen completed by Mil Prince Report handoff given to 5 [facility] PAVEL Jaeger RN has completed admission flow [...] | | MEDICAL | | | | [facility] [address], | | [place] | | | | [place] [address] | | LABORATORY | | | | | | ASHANTI | | + + + + + + + + | Specimen | + + | Blood | + + + + + + + | Performing | Address | City/State/Zipcode | Phone Number | | Organization | | | | + + + + + | [facility]ED | [address] | [place] [address] | | | [facility] | [...] [facility] | | | | Performed by [facility] [address] | | SACRED | | | | [address] [place], [place] | | HEART | | | | [address] | | MEDICAL | | | | [...] + + | JEREMIAH SHEPPARD | [address] | [place] [address] | | | [facility] | [...] PROVIDEVIKIE | | | | Performed by [facility] [address] | | SACRED [...] | | MEDICAL | | | | [facility] [address], | | [place] | | | | [place] [address] | | LABORATORY | | | | | | ASHANTI | | + + + + + + + + | Specimen | + + | Blood | + + + + + + + | Performing | Address | City/State/Zipcode | Phone Number | | Organization | | | | + + + + + | [facility] | [address] | [place] [address] | | | [facility] | [...] [facility] | | | | Performed by [facility] [address] | | SACRED | | | | [address] [place], [place] | | HEART | | | | [address] | | MEDICAL | | | | [...] + + | JEREMIAH SHEPPARD | [address] [place] | [place] [address] | | | [facility] | [...] | | MEDICAL | | | | [facility] [address], | | CENTER | | | | [place] [address] | | LABORATORY | | | | | | [place] | | + + + + + + + + | Specimen | + + | Blood | + + + + + + + | Performing | Address | City/State/Zipcode | Phone Number | | Organization | | | | + + + + + | JEREMIAH SHEPPARD | [address] [place] | [place] [address] | | | [facility] | [...] PROVIDE NCE | | | | by [facility] [address], | | SACRED | | | | [place] [address] | | HEART | | | |Performed by [facility] [address], [place] [address] | | MEDICAL | | | | [...] + + | ALLIEVIKIDenzel SHEPPARD | [address] | [place] [address] | | | [facility] | [...] Performed At | + + + | [employer] | [place] | | [facility] | [place]OV[place] | | CenterGI | | | Patient Name: Swathi Dumont Procedure | | | Date: 08/27/2018 10:42 AMMRN: | | | [id number] Account Number: | | | [id number] of : 1955 Note | | | Status: FinalizedAttending MD: MARJ COLBERT MD | | | | | | Procedure Type: Upper | | | EUSIndications: Suspected | | | choledocholithiasisPatient Profile: Patient with | | | choledocholithiasis, had a failed ERCP | | | yesterday in [place], | | | undergoing EUS to evaluate [...] On: 08/27/2018 10:42 AMNumber of Addenda: 0 [facility] | | | [facility] | | | | | | [facility] | | + + [...] Performed At | + + + | [employer] | [place] | | [facility] | PROVATION | | CenterGI | | | Patient Name: Swathi Dumont Procedure | | | Date: 08/27/2018 10:42 AMMRN: | | | [id number] Account Number: | | | [id number] of : 1955 Note | | | [...] | | | | | Findings: A tray checker film of the abdomen | | | [...] 10 mm x 4 cm fully covered [employer] | | | wall flex biliary [...] Addenda: 0 Jeremiah Sheppard | | | [facility] | | + + [...] [facility] | | | | Performed by [facility] [address] | | SACRED | | | | [address] [place], [place] | | HEART | | | | [address] | | MEDICAL | | | | [...] + + | [facility] | [address] | [place] [address] | | | [facility] | [...] | | MEDICAL | | | | [facility] [address], | | CENTER | | | | [place] [address] | | LABORATORY | | | | | | [place] | | + + + + + + + + | Specimen | + + | Blood | + + + + + + + | Performing | Address | City/State/Zipcode | Phone Number | | Organization | | | | + + + + + | PROVIDEVIKIE A[facility]OK | [address] | [place] [address] | | | [facility] | [...] | | | Immature | Performed by [facility] [address] | K/uL | SACRED | | | Granulocyte | [address], [place] | | HEART | | | s | [address] | | MEDICAL | | | | [...] JEREMIAH SACRED | [address] | [place] [address] | | | [facility] | [...] | | | 5 mg, Oral, ONCE, [facility] 08/30/18 at | | 19 10:49 | [...] PDT | | | | | Starting [facility] 08/29/18 at 1311 | | | | | | + +-------+ +------+---+---+ + +---+ | | | + +---+ | docusate-senna (SENOKOT-S) | | | 50-8.6 mg per tablet 2 tablet 2 | | | tablet, Oral, 2 TIMES DAILY PRN, | | | Constipation, Starting [facility] | | | 08/30/18 at 0830 | [...]
--- OUTSIDE RECORDS SUMMARY | ~2018-09-02 | XMS | Encounter Summary ---
Demographics + + + | Address | [address] | | | [place] [address] | + + + | Home Phone | | + + + | Preferred Language | Unknown | + + + | Marital Status | Single | + + + | Orthodox Affiliation | Unknown | + + + | Race | Unknown | + + + | Ethnic Group | Unknown | + + + Author + + + | Author | [facility] | | | and [place] | + + + | Organization | [facility] | | | and [place] | + + + | Address | Unknown | + + + | Phone | Unavailable | + + + Support + + + + + | Name | Relationship | Address | Phone | + + + + + | Mariana Scott | ECON | [place] | | | | | [address] | | + + + + + Care Team Providers + +------+ + | Care Casing Wringer Operator Name | Role | Phone | [...] | INTRA OP [address] | [place] [address] | | | | | Ave [place], [place] | [phone] | | | | | [address] | | | | | | [phone] | | | +--------+ + + + [...] | | | 5 | | and [place] airway patent on Ra.. Patient alert, oriented [...]
--- OUTSIDE RECORDS SUMMARY | ~2018-09-02 | XMS | Encounter Summary ---
Demographics + + + | Address | [address] [facility] [address] | | | [place] [address] | + + + | Home Phone | | + + + | Preferred Language | Unknown | + + + | Marital Status | Single | + + + | Denominational Affiliation | Unknown | + + + | Race | Unknown | + + + | Ethnic Group | Unknown | + + + Author + + + | Author | [facility] | | | and [place] | + + + | Organization | [facility] | | | and [place] | + + + | Address | Unknown | + + + | Phone | Unavailable | + + + Support + + + + + | Name | Relationship | Address | Phone | + + + + + | Mariana Scott | ECON | [place] | | | | | [address] | | + + + + + Care Team Providers + +------+ + | Care Package Car Driver Name | Role | Phone | [...] | | | Procedures | [address] | [place], [place] | | | | | October-ERCP* | [place], [place] | [address] Phone: | | | | | with [place] 2 | [address] | [phone] | | | | | months | Phone: | Fax: | | | | | | [phone] | [phone] | | | | | | Fax: | | | | | | | [phone] | | + + + + + + + Encounter Details +--------+ + + + + | Date | Type | Department | Care Team | Description | +--------+ + + + + | 08/28/ | Orders Only | [facility] | Brianna Connolly PA | Choledocholithiasis | | 2019 | | and Pancreas GI | [address], [place] | (Primary Dx) | | | | South [address] | [address] [place] | | | | | [address] | [address] | | | | | [place] | | | | | | [address] | | | | | | [phone] | | | +--------+ + + + [...]
--- OUTSIDE RECORDS SUMMARY | ~2018-09-02 | XMS | Encounter Summary ---
Demographics + + + | Address | [address] | | | [place] [address] | + + + | Home Phone | | + + + | Preferred Language | Unknown | + + + | Marital Status | Single | + + + | Yarsani Affiliation | Unknown | + + + | Race | Unknown | + + + | Ethnic Group | Unknown | + + + Author + + + | Author | [facility] | | | and [place] | + + + | Organization | [facility] | | | and [place] | + + + | Address | Unknown | + + + | Phone | Unavailable | + + + Support + + + + + | Name | Relationship | Address | Phone | + + + + + | Mariana Scott | ECON | [place] | | | | | [address] | | + + + + + Care Team Providers + +------+ + | Care Mental Health Nurse Name | Role | Phone | [...] | | | Procedures | [address] | [place], [place] | | | | | October-ERCP* | [place], [place] | [address] Phone: | | | | | with [place] 2 | [address] | [phone] | | | | | months | Phone: | Fax: | | | | | | [phone] | [phone] | | | | | | Fax: | | | | | | | [phone] | | + + + + + + + Encounter Details +--------+ + + + + | Date | Type | Department | Care Team | Description | +--------+ + + + + | 08/28/ | Orders Only | [facility] | Brianna Connolly PA | Choledocholithiasis | | 2019 | | and Pancreas GI | [address], [place] | (Primary Dx) | | | | South [address] | [address] [place] | | | | | [address] | [address] | | | | | [place] | | | | | | [address] | | | | | | [phone] | | | +--------+ + + + [...]
--- OUTSIDE RECORDS SUMMARY | ~2018-09-02 | XMS | Encounter Summary ---
Demographics + + + | Address | [address] [facility] | | | [place] [address] | + + + | Home Phone | | + + + | Preferred Language | Unknown | + + + | Marital Status | Single | + + + | Advent Affiliation | Unknown | + + + | Race | Unknown | + + + | Ethnic Group | Unknown | + + + Author + + + | Author | [facility] | | | and [place] | + + + | Organization | [facility] | | | and [place] | + + + | Address | Unknown | + + + | Phone | Unavailable | + + + Support + + + + + | Name | Relationship | Address | Phone | + + + + + | Mariana Scott | ECON | [place] | | | | | [address] | | + + + + + Care Team Providers + +------+ + | Care Healthcare Specialist Name | Role | Phone | [...] + + | 08/25/ | Hospital | [facility] | Mauro Ellis, | Calculus of bile | | 2019 - | Encounter | MED CTR SURGICAL | MD [address] | duct without | | | | [address] | [place] | cholecystitis with | | 08/26/ | | [place] [address] | [address] | obstruction; Acute | | 2019 | | [phone] | | biliary pancreatitis | | | [...] m the original. Patient Id: Swathi Dumont [id number] 62 y.o.. 1955 Admit date: 08/25/2018 Discharge date and time: 08/26/2018 Admitting Physician: Mauro Ellis MD Discharge Physician: Mariluz Baker Admission Diagnoses: Choledocholithiasis with obstruction Discharge Diagnoses: Problem List Items Addressed This Visit Digestive * (Principal) Choledocholithiasis with obstruction Admission Condition: fair Discharged Condition: stable Indication for Admission: Choledocholithiasis with obstruction Hospital Course: Ms Swathi Dmuont is a 62 y.o. white female with a past medical history significant for TIA, GERD, laparoscopic cholecystectomy, hysterectomy, laparoscopic band converted to laparo scopic fundoplication,?Rheumatoid arthritis/?MS who presented to the ED at [facility] for evaluation of rt UQ pain [...] Dumont is stable for transfer to [facility] in [place]. Dr. Colbert, GI will do her ERCP [...] Normal strength, sensation and reflexes throughout Disposition: [facility], [place] Discharge Medications New Medications Details acetaminophen 325 [...] minutes Signed: Mariluz Baker MD 08/26/2018 12:47 [facility] documented in this e ncounter Medications [...] [address] | [place] | [phone] | | [facility] | | [address] | | | - LABORATORY | | [...] | [address] | [place] | [phone] | | [facility] | | [address] | | | - LABORATORY | | [...] + | [address] | [address] | [place] | [phone] | | [facility] | | [address] | | | - LABORATORY | | [...] | 0.73 | 0.55 - 1.02 | [facility] | | | | | mg/dL | [facility] | | | | | | MEDICAL | | | | | | CENTER - | | | | | | LABORATORY | | + + + + + + | eGFR if not | >60Comment: GLOMERULAR | >=60 | [facility] | | | | FILTRATION | mL/min/1.73m2 | [facility] | | | [place] | RATE,ESTIMATED mL/min | | MEDICAL | | | | /1.85s8Fogs than 60 | | CENTER - | [...] [address] | [place] | [phone] | | [facility] | | [address] | | | - LABORATORY | | [...] [address] | [place] | [phone] | | [facility] | | [address] | | | - LABORATORY | | [...] + | [facility] | [address] | [place] | [phone] | | [facility] | | [address] | | | - LABORATORY | | [...] + | [facility] | [address] | [place] | [phone] | | [facility] | | [address] | | | - LABORATORY | | [...] ST. | [address] | [place] | [phone] | | [facility] | | [address] | | | - LABORATORY | | [...] | 0.70 | 0.55 - 1.02 | [facility] | | | | | mg/dL | [facility] | | | | | | MEDICAL | | | | | | CENTER - | | | | | | LABORATORY | | + + + + + + | eGFR if not | >60Comment: GLOMERULAR | >=60 | [facility] | | | | FILTRATION | mL/min/1.73m2 | [facility] | | | [place] | RATE,ESTIMATED mL/min | | MEDICAL | | | | /1.81v3Hbhi than 60 | | CENTER - | [...] | 9.0 | 8.7 - 10.4 | [facility] | | | | | mg/dL | [facility] | | | | | | MEDICAL [...] [address] | [place] | [phone] | | [facility] | | [address] | | | - LABORATORY | | [...] + | [facility] | [address] | [place] | [phone] | | [facility] | | [address] | | | - LABORATORY | | [...] - 1.030 | [facility] | | | [place] | | | [facility] | | [...] [address] | [place] | [phone] | | [facility] | | [address] | | | - LABORATORY | | [...] [address] | [place] | [phone] | | [facility] | | [address] | | | - LABORATORY | | [...] [address] | [place] | [phone] | | [facility] | | [address] | | | - LABORATORY | | [...]
--- OUTSIDE RECORDS SUMMARY | ~2018-09-02 | XMS | Clinical Summary ---
Demographics + + + | Address | [address] [facility] | | | [place] [address] | + + + | Home Phone | | + + + | Preferred Language | Unknown | + + + | Marital Status | Single | + + + | Tenriism Affiliation | Unknown | + + + | Race | Unknown | + + + | Ethnic Group | Unknown | + + + Author + + + | Author | [facility] | | | and [place] | + + + | Organization | [facility] | | | and [place] | + + + | Address | Unknown | + + + | Phone | Unavailable | + + + Support + + + + + | Name | Relationship | Address | Phone | + + + + + | Mariana Scott | ECON | [place] | | | | | [address] | | + + + + + Care Team Providers + +------+ + | Care Skein Inspector Name | Role | Phone | + [...] + + + | Overview: Problem list comprehensive ophthalmologist utility | + + + + + | OTHER ABNORMAL BLOOD CHEMISTRY | 06/10/2011 | + + + + + | Overview: Problem list comprehensive ophthalmologist utility | + + + +---+ | [...] | | from the | | | original.[place] | | | [place]ENCE | | | [...] | | L Patricia, | | | [id number] | | | CONFEDERATE | | | D | | | [place] | | | n [place] | | | [phone] | | | [phone] | | | e will call | | | to | | | schedule | | | apptNishant | | | Filemon, | | | MD[address] | | [address]AM | | | [address] | | | [place] | | | [phone] | | | [phone] | | | [...] | | | M | | | [id number] | | | [phone] | | | y.o.. | | | [...] | | | hospital, | | | [facility] | | | Discharge | | | [...] | | | [facility] | | | [place] | | | MEDICAL | | | [...] +-------+-------+ +--------+--------+--------+ | Stent Bili Wflx 8.5fr [id number] | Stent | N/A: | [place] | | 05/28/ | 7052 / | | - [id number]: Qty: | | Bile | SCIENTIFIC | | 2020 | | | 1 on 08/27/2018 by Filemon, | | Duct | DEDRA - BSCI | | | /[id number] | | MD Marj | | | [...] | | MEDICAL | | | | [facility] [address] [facility] [address], | | CENTER | | | | [place] [address] | | LABORATORY | | | | | | [place] | | + + + + + + + + | Specimen | + + | Blood | + + + + + + + | Performing | Address | City/State/Zipcode | Phone Number | | Organization | | | | + + + + + | JEREMIAH PULIDO | [address] | [place] [address] | | | [facility] | | | | | LABORATORY [...] [facility] | | | | Performed by [facility] [address] | | SACRED | | | | [address] [place], [place] | | HEART | | | | [address] | | MEDICAL | | | | [...] + + | ALLIEASHOK PULIDO | [address] | [place] [address] | | | [facility] | | | | | LABORATORY [...] [facility] | | | | Performed by [facility] [address] | | SACRED | | | | [address], [place] | | HEART | | | | [address] | | MEDICAL | | | | [...] [address] | [place] [address] | | | HE[facility]ENTER | [...] [facility] NCE | | | | by [facility] [address], | | SACRED | | | | [place] [address] | | HEART | | | |Performed by [facility] [address], [place] [address] | | MEDICAL | | | | [...] + + | JEREMIAH PULIDO | [address] | [place] [address] | | | HEART [facility] | | | | | BRENDA [...] Performed At | + + + | [place] | [place] | | [facility] | [place]OV[place] | | CenterGI | | | Patient Name: Swathi Dumont Procedure | | | Date: 08/27/2018 10:42 AMMRN: | | | [id number] Account Number: | | | [id number] of : 1955 Note | | | Status: FinalizedAttending MD: MARJ COLBERT MD | | | | | | Procedure Type: Upper | | | EUSIndications: Suspected | | | choledocholithiasisPatient Profile: Patient with | | | choledocholithiasis, had a failed ERCP | | | yesterday in [place], | | | undergoing EUS to evaluate [...] On: 08/27/2018 10:42 AMNumber of Addenda: 0 [facility] | | | [facility] | | | | | | [facility] | | + + [...] | [place] | [place] | | [facility] | [place]OVATION | | CenterGI | | | Patient Name: Swathi Dumont Procedure | | | Date: 08/27/2018 10:42 AMMRN: | | | [id number] Account Number: | | | [id number] of : 1955 Note | | | [...] | | | | | Findings: A silviculturist film of the abdomen | | | [...] 10 mm x 4 cm fully covered [employer] | | | wall flex biliary [...] On: 08/27/2018 10:42 AMNumber of Addenda: [address] [place] [facility] | | | [facility] | | + + + + +---------+ + + | Performing | Address | City/State/Zipcode | Phone Number | | Organization | | | | + +---------+ + + | [place] | | | | + +---------+ + + CBC with Differential (08/27/2018 5:11 PDT)Only the most recent of 3 results within the [place] period is included. + + + + [...] | | | Immature | Performed by [facility] [address] | K/uL | SACRED | | | Granulocyte | [place] | | HEART | | | s | [address] | | MEDICAL | | | | [...] + + | JEREMIAH PULIDO | [address] | [place] [address] | | | [facility]ICAL [facility]ENTER | [...] [address] | [place] | [phone] | | [facility] | | [address] | | | - LABORATORY | | [...] + | [address] | [address] | [place] | [phone] | | [facility] | | [address] | | | - LABORATORY | | [...] + | [facility] | [address] | [place] | [phone] | | [facility] | | [address] | | | - LABORATORY | | [...] + | [facility] | [address] | [place] | [phone] | | [facility] | | [address] | | | - LABORATORY | | [...] mL/min/1.73m2 | [facility] | | | [place] | RATE,ESTIMATED mL/min | | MEDICAL | | | | /1.72j6Xfxy than 60 | | CENTER - | [...] [address] | [place] | [phone] | | [facility] | | [address] | | | - LABORATORY | | [...] - 1.030 | [facility] | | | [place] | | | [facility] | | [...] | + + + + + | [address] [facility] | [address] | [place] | [phone] | | [facility] | | [address] | | | - LABORATORY | | [...] +--------+ +---------+--------+ | [facility] | [facility] | [id number] | 08/09/19 | [phone] | | PPO | | | E BCBS | 8 | 19-Pre | 8 | | | | | GROUP | | sent | | | | | | ADMIN | | | | | | + +--------+ +--------+ +---------+--------+ | [facility] | IHS | [id number] | 08/09/19 | | | Indemn | [...] Meli | raine/Yariel | | 1956 | [phone] | [place] | | | se[place] | | | 7 ([place]) | [address] | + +--------+ +--------+ + + Advance Directives Patient has advance care planning documents, and code status on file. For more information, please contact:[facility] [place] [address] + + + + + | Code [...]
--- OUTSIDE RECORDS SUMMARY | ~2018-09-02 | XMS | Encounter Summary ---
Demographics + + + | Address | [address] [facility] [address] | | | [place] [address] | + + + | Home Phone | | + + + | Preferred Language | Unknown | + + + | Marital Status | Single | + + + | Episcopalian Affiliation | Unknown | + + + | Race | Unknown | + + + | Ethnic Group | Unknown | + + + Author + + + | Author | [facility] | | | and [place] | + + + | Organization | [facility] | | | and [place] | + + + | Address | Unknown | + + + | Phone | Unavailable | + + + Support + + + + + | Name | Relationship | Address | Phone | + + + + + | Mariana Scott | ECON | [place] | | | | | [address] | | + + + + + Care Team Providers + +------+ + | Care Dessert Cup Machine Feeder Name | Role | Phone | + +------+ + | Herminio Gomez PA-C | PCP | Unavailable | + +------+ + Encounter Details +--------+ + + + + | Date | Type | Department | Care Team | Description | +--------+ + + + + | 08/30/ | Orders Only | [facility] | Flaco Colbert MD | Common bile duct | | 2019 | | and Pancreas GI | [address] | calculus (Primary | | | | South [address] | [address] [place] | Dx) | | | | [address] | [address] | | | | | [place] | | | | | | [address] | | | | | | [phone] | | | +--------+ + + + [...] as of this encounter Plan of Treatment + +--------+ + + | Name | Priori | Associated Diagnoses | Order Schedule | | | ty | | | + +--------+ + + | FL ERCP Biliary and Pancreatic | Routin | Common bile duct | Expected: | | | e | calculus | 09/30/2018, Expires: | | | | | 08/31/2019 | + +--------+ + + documented as of this encounter Visit Diagnoses + + | Diagnosis | + + | Common bile duct calculus - Primary Calculus of bile duct without mention of | | cholecystitis or obstruction | + + documented in this encounter"
--- OUTSIDE RECORDS SUMMARY | ~2018-09-02 | XMS | Encounter Summary ---
Demographics + + + | Address | [address] [facility] [address] | | | [place] [address] | + + + | Home Phone | | + + + | Preferred Language | Unknown | + + + | Marital Status | Single | + + + | Nondenominational Affiliation | Unknown | + + + | Race | Unknown | + + + | Ethnic Group | Unknown | + + + Author + + + | Author | [facility] | | | and [place] | + + + | Organization | [facility] | | | and [place] | + + + | Address | Unknown | + + + | Phone | Unavailable | + + + Support + + + + + | Name | Relationship | Address | Phone | + + + + + | Mariana Scott | ECON | [place] | | | | | [address] | | + + + + + Care Team Providers + +------+ + | Care Reception Specialist Name | Role | Phone | [...] + + | 08/25/ | Hospital | [facility] | Mauro Ellis, | Calculus of bile | | 2019 - | Encounter | [facility] | MD [address] | duct without | | | | [address] | [place] | cholecystitis with | | 08/26/ | | [place] [address] | [address] | obstruction; Acute | | 2019 | | [phone] | | biliary pancreatitis | | | [...] m the original. Patient Id: Swathi Dumont [id number] 62 y.o.. 1955 Admit date: 08/25/2018 Discharge [...] arthritis/?MS who presented to the ED at [facility] for evaluation of rt UQ pain x [...] Dumont is stable for transfer to [facility] in [place]. Dr. Colbert, GI will do her ERCP [...] Normal strength, sensation and reflexes throughout Disposition: [facility], [place] Discharge Medications New Medications Details acetaminophen 325 [...] Wound Care: as directed Follow-up with Herminio Gomze PA-C in 5 days. Time invested in discharge planning was greater than 30 minutes Signed: Mariluz Baker MD 08/26/2018 12:47 [facility] documented in this e ncounter Medications [...] [address] | [place] | [phone] | | [facility] | | [address] | | | - LABORATORY | | [...] [address] | [place] | [phone] | | [facility] | | [address] | | | - LABORATORY | | [...] [address] | [place] | [phone] | | [facility] | | [address] | | | - LABORATORY | | [...] | 0.73 | 0.55 - 1.02 | [facility] | | | | | mg/dL | [facility] | | | | | | MEDICAL | | | | | | CENTER - | | | | | | LABORATORY | | + + + + + + | eGFR if not | >60Comment: GLOMERULAR | >=60 | [facility] | | | | FILTRATION | mL/min/1.73m2 | [facility] | | | GRE[place]DIAN | RATE,ESTIMATED mL/min | | MEDICAL | | | | /1.05g9Hhpi than 60 | | CENTER - | [...] [address] | [place] | [phone] | | [facility] | | [address] | | | - LABORATORY | | [...] [address] | [place] | [phone] | | [facility] | | [address] | | | - LABORATORY | | [...] + | [facility] | [address] | [place] | [phone] | | [facility] | | [address] | | | - LABORATORY | | [...] + | [facility] | [address] | [place] | [phone] | | [facility] | | [address] | | | - LABORATORY | | [...] ST. | [address] | [place] | [phone] | | [facility] | | [address] | | | - LABORATORY | | [...] | 0.70 | 0.55 - 1.02 | [facility] | | | | | mg/dL | [facility] | | | | | | MEDICAL | | | | | | CENTER - | | | | | | LABORATORY | | + + + + + + | eGFR if not | >60Comment: GLOMERULAR | >=60 | [facility] | | | | FILTRATION | mL/min/1.73m2 | [facility] | | | GRENADIAN | RATE,ESTIMATED mL/min | | MEDICAL | | | | /1.71h7Khbq than 60 | | CENTER - | [...] | 9.0 | 8.7 - 10.4 | [facility] | | | | | mg/dL | [facility] | | | | | | MEDICAL [...] [address] | [place] | [phone] | | [facility] | | [address] | | | - LABORATORY | | [...] + | [facility] | [address] | [place] | [phone] | | [facility] | | [address] | | | - LABORATORY | | [...] - 1.030 | [facility] | | | [place] | | | [facility] | | [...] [address] | [place] | [phone] | | [facility] | | [address] | | | - LABORATORY | | [...] [address] | [place] | [phone] | | [facility] | | [address] | | | - LABORATORY | | [...] [address] | [place] | [phone] | | [facility] | | [address] | | | - LABORATORY | | [...]
--- OUTSIDE RECORDS SUMMARY | ~2018-09-02 | XMS | Clinical Summary ---
Demographics + + + | Address | [address] [facility] [address] | | | [place] [address] | + + + | Home Phone | | + + + | Preferred Language | Unknown | + + + | Marital Status | Single | + + + | Uatsdin Affiliation | Unknown | + + + | Race | Unknown | + + + | Ethnic Group | Unknown | + + + Author + + + | Author | [facility] | | | and [place] | + + + | Organization | [facility] | | | and [place] | + + + | Address | Unknown | + + + | Phone | Unavailable | + + + Support + + + + + | Name | Relationship | Address | Phone | + + + + + | Mariana Scott | ECON | [place] | | | | | [address] | | + + + + + Care Team Providers + +------+ + | Care Dowel Inspector Name | Role | Phone | [...] + + + | 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: 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 | | | [...] | | | hospital, | | | [place] | | | Discharge | | | [...] | | | [facility] | | | [place] | | | MEDICAL | | | [...] +-------+-------+ +--------+--------+--------+ | Stent Bili Wflx 8.5fr [id number] | Stent | N/A: | [place] | | 05/28/ | 7052 / | | - [id number]: Qty: | | Bile | SCIENTIFIC | | 2020 | | | 1 on 08/27/2018 by Filemon, | | Duct | DEDRA - BSCI | | | /[id number] | | MD Marj | | | [...] | | MEDICAL | | | | [facility] [address] [facility] [address], | | CENTER | | | | [place] [address] | | LABORATORY | | | | | | [place] | | + + + + + + + + | Specimen | + + | Blood | + + + + + + + | Performing | Address | City/State/Zipcode | Phone Number | | Organization | | | | + + + + + | JEREMIAH PULIDO | [address] | [place] [address] | | | [facility] | | | | | LABORATORY [...] [facility] | | | | Performed by [facility] [address] | | SACRED | | | | [address] [place], [place] | | HEART | | | | [address] | | MEDICAL | | | | [...] + + | ALLIEASHOK PULIDO | [address] | [place] [address] | | | [facility] | | | | | LABORATORY [...] [facility] | | | | Performed by [facility] [address] | | SACRED | | | | [address], [place] | | HEART | | | | [address] | | MEDICAL | | | | [...] [address] | [place] [address] | | | HEART MEDICAL CENTER | [...] [facility] NCE | | | | by [facility] [address] | | SACRED | | | | [place] [address] | | HEART | | | |Performed by [facility] [address], [place] [address] | | MEDICAL | | | | [...] + + | JEREMIAH PULIDO | [address] | [place] [address] | | | HEART [facility] CENTER | | | | [...] Performed At | + + + | [place] | [place] | | [facility] | PROVATION | | CenterGI | | | Patient Name: Swathi Dumont Procedure | | | Date: 08/27/2018 10:42 AMMRN: | | | [id number] Account Number: | | | [id number] of : 1955 Note | | | Status: FinalizedAttending MD: MARJ COLBERT MD | | | | | | Procedure Type: Upper | | | EUSIndications: Suspected | | | choledocholithiasisPatient Profile: Patient with | | | choledocholithiasis, had a failed ERCP | | | yesterday in [place], | | | undergoing EUS to evaluate [...] On: 08/27/2018 10:42 AMNumber of Addenda: 0 [facility] | | | [facility] | | | | | | [facility] | | + + [...] | [facility] | [place] | | [facility] | PROVATION | | CenterGI | | | Patient Name: Swathi Dumont Procedure | | | Date: 08/27/2018 10:42 AMMRN: | | | [id number] Account Number: | | | [id number] of : 1955 Note | | | [...] | | | | | Findings: A hydrographical technical officer film of the abdomen | | | [...] 10 mm x 4 cm fully covered [place] [employer] | | | wall flex biliary [...] On: 08/27/2018 10:42 AMNumber of Addenda: 0 [place] [facility] | | | [facility] | | + + + + +---------+ + + | Performing | Address | City/State/Zipcode | Phone Number | | Organization | | | | + +---------+ + + | [place] | | | | + +---------+ + + CBC with Differential (08/27/2018 5:11 PDT)Only the most recent of 3 results within the tn period is included. + + + + [...] | | | Immature | Performed by [facility] [address] | K/uL | SACRED | | | Granulocyte | [place] | | HEART | | | s | [address] | | MEDICAL | | | | [...] + + | JEREMIAH PULIDO | [address] | [place] [address] | | | HEART MEDICAL CENTER | [...] [address] | [place] | [phone] | | [facility] | | [address] | | | - LABORATORY | | [...] + | [facility] [facility] | [address] | [place] | [phone] | | [facility] | | [address] | | | - LABORATORY | | [...] + | [facility] | [address] | [place] | [phone] | | [facility] | | [address] | | | - LABORATORY | | [...] + | [facility] | [address] | [place] | [phone] | | [facility] | | [address] | | | - LABORATORY | | [...] mL/min/1.73m2 | [facility] | | | [place] | RATE,ESTIMATED mL/min | | MEDICAL | | | | /1.48t3Mkyf than 60 | | CENTER - | [...] [address] | [place] | [phone] | | [facility] | | [address] | | | - LABORATORY | | [...] - 1.030 | [facility] | | | [place] | | | [facility] | | [...] + | [address] | [address] | [place] | [phone] | | [facility] | | [address] | | | - LABORATORY | | [...] +--------+ +---------+--------+ | [facility] | [facility]ENC | [id number] | 08/09/19 | [phone] | | PPO | | | E BCBS | 8 | 19-Pre | 8 | | | | | GROUP | | sent | | | | | | ADMIN | | | | | | + +--------+ +--------+ +---------+--------+ | [facility] | IHS | [id number] | 08/09/19 | | | Indemn | [...] [address] | | Meli | ranie/Yariel | | 1956 | [phone] | [place] | | | [place] | | | 7 ([place]) | [address] | + +--------+ +--------+ + + Advance Directives Patient has advance care planning documents, and code status on file. For more information, please contact:[facility] [place] [address] + + + + + | Code [...]
--- OUTSIDE RECORDS SUMMARY | ~2018-09-02 | XMS | Encounter Summary ---
Demographics + + + | Address | [address] [facility] | | | [place] [address] | + + + | Home Phone | | + + + | Preferred Language | Unknown | + + + | Marital Status | Single | + + + | Spiritism Affiliation | Unknown | + + + | Race | Unknown | + + + | Ethnic Group | Unknown | + + + Author + + + | Author | [facility] | | | and [place] | + + + | Organization | [facility] | | | and [place] | + + + | Address | Unknown | + + + | Phone | Unavailable | + + + Support + + + + + | Name | Relationship | Address | Phone | + + + + + | Mariana Scott | ECON | [place] | | | | | [address] | | + + + + + Care Team Providers + +------+ + | Care Entry Level Paralegal Name | Role | Phone | + [...] Description | +--------+---------+ + + + | 08/27/ | Surgery | [facility] | | ENDOSCOPIC | | 2019 | | [facility] | | RETROGRADE | | | | INTRA OP [address] | | CHOLANGIOPANREATOG | | | | [place] | | with sphincterotomy, | | | | [address] | | dilation and stent | | | | [phone] | | placement | +--------+---------+ + + + Social History [...] might be differ ent from the original. [facility] FACULTY HOSPITALIST DISCHARGE SUMMARY PATIENT NAME: Swathi Dumont DATE OF : 1955 DATE OF ADMISSION: 08/26/2018 DATE OF DISCHARGE: 08/30/18 PRIMARY CARE PHYSICIAN: Herminio Gomez PA-C ISSUES REQUIRING FOLLOW UP AFTER DISCHARGE: as below FOLLOW UP: Herminio Gomez PA-C [address] [place] [address] office will call to schedule appt Marj Colbert MD [address] [place] [address] [facility] [phone] will need f/up for stent placement in [...] Take 1 tablet by mouth Daily. aka: PRINIVIL, ZESTRIL Start: 08/31/2018 ondansetron 4 mg disintegrating [...] this chart may have been created with [employer] voice recognition software. Occasi onal wrong-word or [...] harm your pancreas. This includes any new gjon-ppk-aobblaz medicines, vitamins, or herbal supplements. Tell your [...] if you have any of the following: Jvkshsc907.4F(38.0C) or higher, or as advised by your provider Severe pain from your upper belly to your back Nausea and vomiting Feely dizzy or lightheaded Yellowing of your skin or eyes (jaundice) Bruises on your belly or back Belly swelling and tenderness Rapid pulse Shallow, fast breathing Date Last Reviewed: 11/09/201519999138-[address] [employer] [place], [place] [address]. All righ ts reserved. This information is [...] tablets by | 40 | 0 | 20 | | | (DILAUDID) 4 MG | [...] Ms Swathi Dumont has been hospitalized at [facility] from 08/27/18 to 08/09 06/26. She was transferred from [facility] where she stayed from 08/25/18 to 08/27/18. Please excuse Ms Dumont from work. Barring complications, anticipate she will be able to return to work on Tuesday, September 04, 2018. Sincerely, Dr Lynne Sweet MD 19 9:24 Lynne Allen MD - 08/29/2018 1401 PDTFormatting of this [...] meds to dilaudid and va lium from What the Trend 10 to see if helped. Pt toleratign diet, no vomiting. Review of Systems Constitutional: Positive for malaise/fatigue. Negative for fever. HENT: Negative. Eyes: Negative. Respiratory: Negative for cough. Cardiovascular: Negative for chest pain. Gastrointestinal: Positive for abdominal pain. Negative for blood in stool, nausea and vomi ting. Genitourinary: Negative. Musculoskeletal: Negative. Skin: Negative. Neurological: Negative. Endo/Heme/Allergies: Negative. Psychiatric/Behavioral: Negative. Objective: Vital Signs 08/27 07 - 08/28 0659 08/28 07 - 08/29 0659 08/29 07 - 08/29 1401 Most Rec ent Temp [...] 97 I/O last 3 completed shifts: In: 1993 [P.O.:1020; I.V.:973] Out: 2149 [Urine:2150] Wt Readings from Last 3 Encounters: 08/26/18 [...] this chart may have been created with [employer] voice recognition software. Occasi onal wrong-word or sound-alike substitutions may have occurred due to the inherent pino itations of voice recognition software. Please read the chart carefully and recognize, using context, where these substitutions have occurred Davida Barnard RN - 08/29/2018 4696 PDTVAT: assessed both forearms with ultrasound and could not fine viable vein. She has some surface veins that may accommodate a 24 gauge. Primary RN says th at she has oral medications ordered and is ok without IV access at this time. May consider m idline placement if reliable access is needed. Electronically signed by: Kathy Morales 08/29/2018 13:48 Kristen Howard SUPERVISOR AUDIT CLERKS - 08/29/2018 1038 PDTBlue: no d/c needs [...] the Assessment and Plan. Brianna Connolly PA-C [facility] ocascLynne rushing MD - 08/28/2018 1557 PDT Patient: Swathi [...] 0659 08/27 07 - 08/28 0659 08/28 699 - 08/28 1557 Most Rec ent Temp [...] last 3 completed shifts: In: 2074 [P.O.:100; I.V.:1975] Out: 651 [Urine:651] Wt Readings from Last [...] this chart may have been created with [employer] voice recognition software. Occasi onal wrong-word or sound-alike substitutions may have occurred due to the inherent pino itations of voice recognition software. 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 Type 6.) (08/27/18 1607) Last Bowel Movement: 08/24/18 (08/28/18 0104) Pain Management: Next Dose: CAM CAM Score: no MD Notification: Notification Provider Name/Title: DR VILLA (08/28/18851) Reason for Communication: (LOST IV) (08/28/18851) Method of Communication: Call (08/28/18851) Drainage Engineer for Provider: LUZ ZHAO (08/28/18851) Response: See [...] Weight: Height: No results found for: POCGLU rianna Connolly PA - 2018 1043 PDT GASTROENTEROLOGY INPATIENT [...] the Assessment and Plan. Brianna Connolly PA-C [facility] Dallas Reyes RN - 2018 1030 PDTVAT pt assessed with US for PIV, however, pt at this time does not have any sites to place a PIV. Please consider other options ---> CL or Midline. Rg ochoa you Miranda Giraldo MD - 08/27/2018 1641 [...] ROS: as above. Objective: Vital Signs 08/25 699 - 08/26 0659 08/26 699 - 08/27 0659 08/27 699 - 08/27 [...] this chart may have been created with [employer] voice recognition software. Occasi onal wrong-word or sound-alike substitutions may have occurred due to the inherent pino itations of voice recognition software. Please read the chart carefully and recognize, using context, where these substitutions have occurred NAClNiki tamez RN - 08/26/2018 1536 PDTAdmission screen completed by Mil Prince Report handoff given to [address] [place] [address] PAVEL Jaeger RN has completed admission flow sheet except for shift assessment, fall risk, jean carlos assessment. Mil ZHAO has also completed Patient belongings Information for [...] | | MEDICAL | | | | [facility] [address] | | CENTER | | | | [place] [address] | | LABORATORY | | | | [...] [address] | [place] [address] | | | [facility] | | | | | [facility] [...] (H)Comment: | 0.0 - 1.5 mg/dL | [facility] | | | | Performed by [facility] [address] | | [address] | | | | [place] | | HEART | | | | [address] | | MEDICAL | | | | [...] + + | [facility] | [address] | [place] [address] | | | HE[facility] | [...] [facility] | | | | Performed by [facility] [address] | | SACRED | | | | [address] [place] | | HEART | | | | [address] | | MEDICAL | | | | [...] + + | [facility] | [address] | [place] [address] | | | HEART [facility]ICAL [facility]ENTER | [...] | | MEDICAL | | | | [facility] [address], | | CENTER | | | | [place] [address] | | LABORATORY | | | | | | [place] | | + + + + + + + + | Specimen | + + | Blood | + + + + + + + | Performing | Address | City/State/Zipcode | Phone Number | | Organization | | | | + + + + + | [facility] | [address] | [place] [address] | | | [facility] | | | | | LABORATORY [place] [...] [facility] | | | | Performed by [facility] [address] | | [address]CRED | | | | [address], [place] | | HEART | | | | [address] | | MEDICAL | | | | [...] + + | [facility] | [address] | [place] [address] | | | [facility] | | | | | LABORATORY [...] | | MEDICAL | | | | [facility] [address], | | CENTER | | | | [place] [address] | | LABORATORY | | | | | | [place] | | + + + + + + + + | Specimen | + + | Blood | + + + + + + + | Performing | Address | City/State/Zipcode | Phone Number | | Organization | | | | + + + + + | [facility] | [address] | [place] [address] | | | [facility] | | | | | LABORATORY CERN[place] [...] | | | | | | LABORAT [place] | | | | | | CERNER [...] PROVIDE NCE | | | | by [facility] [address], | | SACRED | | | | [place] [address] | | HEART | | | |Performed by [facility] [address], [place] [address] | | MEDICAL | | | | | | CENTER | | | | | | [place] | | | | | | ASHANTI | | + + + +-------- -----+ + + + | Specimen | + + | Blood | + + + + + + + | Performing | Address | City/State/Zipcode | Phone Number | | Organization | | | | + + + + + | [facility] | [address] | [place] [address] | | | HEART [facility] | | | | | BRENDA [...] Performed At | + + + | [facility] | [place] | | [facility] | PROVATION | | CenterGI | | | Patient Name: Swathi Dumont Procedure | | | Date: 08/27/2018 10:42 AMMRN: | | | [id number] Account Number: | | | [id number] of : 1955 Note | | | Status: FinalizedAttending MD: MARJ COLBERT MD | | | | | | Procedure Type: Upper | | | EUSIndications: Suspected | | | choledocholithiasisPatient Profile: Patient with | | | choledocholithiasis, had a failed ERCP | | | yesterday in [place], | | | undergoing EUS to evaluate [...] On: 08/27/2018 10:42 AMNumber of Addenda: 0 [facility] | | | [facility] | | | | | | [facility] | | + + [...] | + + + | [place] | [place] | | [facility] | [place]OVATION | | CenterGI | | | Patient Name: Swathi Dumont Procedure | | | Date: 08/27/2018 10:42 AMMRN: | | | [id number] Account Number: | | | [id number] of : 1955 Note | | | [...] | | | | | Findings: A oxygen equipment preparer film of the abdomen | | | [...] 10 mm x 4 cm fully covered [employer] | | | wall flex biliary [...] On: 08/27/2018 10:42 AMNumber of Addenda: 0 [facility] | | | [facility] | | + [...] [facility] | | | | Performed by [facility] [address] | | SACRED | | | | [address] [place] | | HEART | | | | [address] | | MEDICAL | | | | [...] + | [facility] | [address] | [place] [address] | | | [facility] | | | | | LABORATORY ASH[place]I [...] | | MEDICAL | | | | [facility] [address], | | CENTER | | | | [place] [address] | | LABORATORY | | | | | | [place] | | + + + + + + + + | Specimen | + + | Blood | + + + + + + + | Performing | Address | City/State/Zipcode | Phone Number | | Organization | | | | + + + + + | [facility] | [address] | [place] [address] | | | [facility] | | | | | [place]RELL [...] | | | Immature | Performed by Naga M[facility] | K/uL | SACRED | | | Granulocyte | [address] [place] | | HEART | | | s | [address] | | MEDICAL | | | | [...] PULIDO | [address] | [place] [address] | | | [facility] | | | | | LABORATORY [place] [...] | | | | Starting 08/29/18 at 1311 | | | | | | + +-------+ +------+---+---+ + +---+ | | | + +---+ | docusate-senna (SENOKOT-S) | | | 50-8.6 mg per tablet 2 tablet 2 | | | tablet, Oral, 2 TIMES DAILY PRN, | | | Constipation, Starting [place] | | | 08/30/18 at 0830 | | + +---+ | | | + +---+ + +-------+ +---------+---+---+ | HYDROcodone-acetaminophen | Given | 08/30/19 | 2 | | | | (NORCO) [...] | | | | First dose on 08/27/18 at | | PDT | | [...] + +---+ + +-------+ +-------+---+---+ | prochlorperazine tablet 10 [...] +-------+ +-------+---+---+ +---+---+ | | | +---+---+ documented in this encounter
--- OUTSIDE RECORDS SUMMARY | ~2018-09-02 | XMS | Encounter Summary ---
Demographics + + + | Address [address] | | | [place] [address] | + + + | Home Phone | | + + + | Preferred Language | Unknown | + + + | Marital Status | Single | + + + | Judaism Affiliation | Unknown | + + + | Race | Unknown | + + + | Ethnic Group | Unknown | + + + Author + + + | Author | [facility] | | | and [place] | + + + | Organization | [facility] | | | and [place] | + + + | Address | Unknown | + + + | Phone | Unavailable | + + + Support + + + + + | Name | Relationship | Address | Phone | + + + + + | Mariana Scott | ECON | [place] | | | | | [address] | | + + + + + Care Team Providers + +------+ + | Care Stock Mixer Name | Role | Phone | + [...] | INTRA OP [address] | [place] [address] | | | | | Ave [place], [place] | [phone] | | | | | [address] | | | | | | [phone] | | | +--------+ + + + [...] | 5 | | and [place] airway patent on Ra.. Patient alert, oriented [...]
--- OUTSIDE RECORDS SUMMARY | ~2018-09-02 | XMS | Encounter Summary ---
Demographics + + + | Address | [address] [facility] [address] [facility] [address] | | | [place] [address] | + + + | Home Phone | | + + + | Preferred Language | Unknown | + + + | Marital Status | Single | + + + | Baptism Affiliation | Unknown | + + + | Race | Unknown | + + + | Ethnic Group | Unknown | + + + Author + + + | Author | [facility] | | | and [place] | + + + | Organization | [facility] | | | and [place] | + + + | Address | Unknown | + + + | Phone | Unavailable | + + + Support + + + + + | Name | Relationship | Address | Phone | + + + + + | Mariana Scott | ECON | [place] | | | | | [address] | | + + + + + Care Team Providers + +------+ + | Care Public Health Dentist Name | Role | Phone | + [...] + + | 08/26/ | Surgery | [facility] | Zari Murdock MD | ERCP | | 2019 | | MED CTR MP INTRA OP | [address] | | | | | [address] | [place], [place] | | | | | [place], [place] | [address] | | | | | [address] | [phone] | | | | | [phone] | | | +--------+---------+ + + + [...] m the original. Patient Id: Swathi Dumont [id number] 62 y.o.. 1955 Admit date: 08/25/2018 Discharge [...] arthritis/?MS who presented to the ED at [facility] for evaluation of rt UQ pain [...] Ms. Dumont is stable for transfer to [facility] in [place]. ACE Eisenberg will do her ERCP tomorrow. [...] Normal strength, sensation and reflexes throughout Disposition: [facility], [place] Discharge Medications New Medications Details acetaminophen 325 [...] minutes Signed: Mariluz Baker MD 08/26/2018 12:47 [facility] documented in this e ncounter Medications [...] ST. | [address] | [place] | [phone] | | [facility] | | [address] | | | - LABORATORY | | [...] + | [facility] | [address] | [place] | [phone] | | [facility] | | [address] | | | - LABORATORY | | [...] [address] | [place] | [phone] | | [facility] | | [address] | | | - LABORATORY | | [...] mL/min/1.73m2 | [facility] | | | NEPALESE | RATE,ESTIMATED mL/min | | MEDICAL | | | | /1.93a0Aqgi than 60 | | CENTER - | [...] + | [facility] | [address] | [place] | [phone] | | [facility] | | [address] | | | - LABORATORY | | [...] + | [facility] | [address] | [place], [place] | [phone] | | [facility] | | [address] | | | - LABORATORY | | [...] + | [facility] | [address] | [place] | [phone] | | [facility] | | [address] | | | - LABORATORY | | [address] | [place] | [phone] | | [facility] | | [address] | | | - LABORATORY | | [...] ST. | [address] | [place], [place] | [phone] | | [facility] | | [address] | | | - LABORATORY | | [...] mL/min/1.73m2 | [facility] | | | NEPALESE | RATE,ESTIMATED mL/min | | MEDICAL | | | | /1.18f3Bvda than 60 | | CENTER - | [...] | 9.0 | 8.7 - 10.4 | [facility] | | | | | mg/dL | [...] [address] | [place] | [phone] | | [facility] | | [address] | | | - LABORATORY | | [...] + | [facility] | [address] | [place] | [phone] | | [facility] | | [address] | | | - LABORATORY | | [...] - 1.030 | [facility] | | | [place] | | | [facility] | | [...] | | COMMENT | Indicated | | [facility] | | | | | | [...] [address] | [place] | [phone] | | [facility] | | [address] | | | - LABORATORY | | [...] ST. | [address] | [place], [place] | [phone] | | [facility] | | [address] | | | - LABORATORY | | [...] [address] | [place] | [phone] | | [facility] | | [address] | | | - LABORATORY | | [...]
--- OUTSIDE RECORDS SUMMARY | ~2018-09-02 | XMS | Encounter Summary ---
Demographics + + + | Address | [address] [facility] [address] | | | [place] [address] | + + + | Home Phone | | + + + | Preferred Language | Unknown | + + + | Marital Status | Single | + + + | Congregation Affiliation | Unknown | + + + | Race | Unknown | + + + | Ethnic Group | Unknown | + + + Author + + + | Author | [facility] | | | and [place] | + + + | Organization | [facility] | | | and [place] | + + + | Address | Unknown | + + + | Phone | Unavailable | + + + Support + + + + + | Name | Relationship | Address | Phone | + + + + + | Mariana Scott | ECON | [place] | | | | | [address] | | + + + + + Care Team Providers + +------+ + | Care Lean Specialist Name | Role | Phone | [...] | with sphincterotomy, | | | | [phone] | | dilation and stent | | | | [phone] | | placement | +--------+---------+ + + [...] might be differ ent from the original. [facility] FACULTY HOSPITALIST DISCHARGE SUMMARY PATIENT NAME: Swathi Dumont DATE OF : 1955 DATE OF ADMISSION: 08/26/2018 DATE OF DISCHARGE: 08/30/18 PRIMARY CARE PHYSICIAN: Herminio Gomez PA-C ISSUES REQUIRING FOLLOW UP AFTER DISCHARGE: as below FOLLOW UP: Herminio Gomez PA-C [address] [place] [address] office will call to schedule appt Marj Colbert MD [address] [place] [address] [facility] [phone] will need f/up for stent placement in [...] this chart may have been created with byyd voice recognition software. Occasi onal wrong-word or [...] harm your pancreas. This includes any new nswz-wdm-ktgalhp medicines, vitamins, or herbal supplements. Tell your [...] if you have any of the following: Mjnjbvs246.4F(38.0C) or higher, or as advised by your provider Severe pain from your upper belly to your back Nausea and vomiting Feely dizzy or lightheaded Yellowing of your skin or eyes (jaundice) Bruises on your belly or back Belly swelling and tenderness Rapid pulse Shallow, fast breathing Date Last Reviewed: 11/09/201519997508-[address] [employer] [place], [place] [id number]. All righ ts reserved. This information is [...] Ms Swathi Dumont has been hospitalized at [facility] from 08/27/18 to 08/09 06/26. She was transferred from [facility] where she stayed from 08/25/18 [...] meds to dilaudid and va lium from [employer] to see if helped. Pt toleratign [...] this chart may have been created with byyd voice recognition software. Occasi onal wrong-word or sound-alike substitutions may have occurred due to the inherent pino itations of voice recognition software. Please read the chart carefully and recognize, using context, where these substitutions have occurred Davida Barnard RN - 08/29/2018 8956 PDTVAT: assessed both forearms with ultrasound and could not fine viable vein. She has some surface veins that may accommodate a 24 gauge. Primary RN says th at she has oral medications ordered and is ok without IV access at this time. May consider m idline placement if reliable access is needed. Electronically signed by: Kathy Morales 08/29/2018 13:48 Kristen Howard ASSISTANT DEAN OF STUDENTS - 08/29/2018 1038 PDTBlue: no d/c needs [...] the Assessment and Plan. Brianna Connolly PA-C [facility] ocascLynne rushing MD - 08/28/2018 1557 [...] this chart may have been created with byyd voice recognition software. Occasi onal wrong-word or sound-alike substitutions may have occurred due to the inherent pino itations of voice recognition software. Please read the chart carefully and recognize, using context, where these substitutions have occurred Luz Yu RN - 08/28/2018 1207 PDT Nursing Handoff Note Room # 553/553-01 Isolation: None Code Status: See prior hospital encounter Item for securities analyst Comments Shift Summary: A/O X4 ANXIOUS AT [...] None Last bowel movement: Stool Occurrence: 1(In [facility] for nurse/doc to see. Type 6.) (08/27/18 1607) Last Bowel Movement: 08/24/18 (08/28/18 0104) Pain Management: Next Dose: CAM CAM Score: no MD Notification: Notification Provider Name/Title: DR VILLA (08/28/18851) Reason for Communication: (LOST IV) (08/28/18851) Method of Communication: Call (08/28/18851) Lace Sewer for Provider: LUZ ZHAO (08/28/18851) Response: See [...] none Diet: NPO Tolerating? Results for SWATHI DUMOTN ( ) as of 08/28/2018 10:48 Ref. [...] the Assessment and Plan. Brianna Connolly PA-C [facility] Dallas Reyes RN - 2018 1030 [...] this chart may have been created with byyd voice recognition software. Occasi onal wrong-word or sound-alike substitutions may have occurred due to the inherent pino itations of voice recognition software. Please read the chart carefully and recognize, using context, where these substitutions have occurred NAClNiki tamez RN - 08/26/2018 1536 PDTAdmission screen completed by Mil Prince Report handoff given to [address] [place] [address] PAVEL Jaeger RN has completed admission flow [...] | | MEDICAL | | | | [facility] [address], | | CENTER | | | | [place] [address] | | LABORATORY | | | | [...] [address] | [place] [address] | | | [facility] | | | | | BRENDA BURRELL [...] JEREMIAH | | | | Performed by [facility] [address] | | [place] | | | | [place] | | HEART | | | | [address] | | MEDICAL | | | | [...] + + | JEREMIAH P[facility] | [address] | [place] [address] | | | HEART MEDICAL CENTER | [...] PROVIDENCE | | | | Performed by [facility] [address] | | SACRED | | | | [address] [place] | | HEART | | | | [address] | | MEDICAL | | | | [...] SACRED | [address] | [place] [address] | | | HEART MEDICAL CENTER | [...] | | MEDICAL | | | | [facility] [address], | | CENTER | | | | [place] [address] | | LABORATORY | | | | [...] [address] | [place] [address] | | | [facility] | | | | | LABORATORY ASHANTI [...] PROVIDENCE | | | | Performed by [facility] [address] | | SACRED | | | | [address], [place] | | HEART | | | | [address] | | MEDICAL | | | | [...] + + | JEREMIAH PULIDO | [address] | [place] [address] | | | [facility] | | | | | LABORATORY [...] | | MEDICAL | | | | [facility] [address], | | CENTER | | | | [place] [address] | | LABORATORY | | | | | | [place] | | + + + + + + + + | Specimen | + + | Blood | + + + + + + + | Performing | Address | City/State/Zipcode | Phone Number | | Organization | | | | + + + + + | [facility] | [address] | [place] [address] | | | [facility] | | | | | LABORATORY CERNER [...] PROVIDE NCE | | | | by [facility] [address], | | SACRED | | | | [place] [address] | | HEART | | | |Performed by [facility] [address], [place] [address] | | MEDICAL | | | | [...] + + | JEREMIAH PULIDO | [address] | [place] [address] | | | HEART [facility] CENTER | | | | | [...] Performed At | + + + | [facility] | [place] | | [facility] | PROVATION | | CenterGI | | | Patient Name: Swathi Dumont Procedure | | | Date: 08/27/2018 10:42 AMMRN: | | | [id number] Account Number: | | | [id number] of : 1955 Note | | | Status: FinalizedAttending MD: MARJ COLBERT MD | | | | | | Procedure Type: Upper | | | EUSIndications: Suspected | | | choledocholithiasisPatient Profile: Patient with | | | choledocholithiasis, had a failed ERCP | | | yesterday in [place], | | | undergoing EUS to evaluate [...] On: 08/27/2018 10:42 AMNumber of Addenda: 0 [facility] | | | [facility] | | | | | | [facility] | | + [...] | Jerem[place] | [place] | | [facility] | PROVATION | | CenterGI | | | Patient Name: Swathi Dumont Procedure | | | Date: 08/27/2018 10:42 AMMRN: | | | [id number] Account Number: | | | [id number] of : 1955 Note | | | [...] | | | | | Findings: A healthcare representative film of the abdomen | | | [...] 10 mm x 4 cm fully covered [employer] | | | wall flex biliary [...] On: 08/27/2018 10:42 AMNumber of Addenda: 0 [facility] | | | [facility] | | + [...] PROVIDENCE | | | | Performed by [facility] [address] | | SACRED | | | | [address] [place] | | HEART | | | | [address] | | MEDICAL | | | | [...] + | JEREMIAH PULIDO | [address] | [place] [address] | | | [facility] | | | | | LABORATORY ASHANTI [...] | | MEDICAL | | | | [facility] [address], | | CENTER | | | | [place] [address] | | LABORATORY | | | | | | [place]ERN[place] | | + + + + + + + + | Specimen | + + | Blood | + + + + + + + | Performing | Address | City/State/Zipcode | Phone Number | | Organization | | | | + + + + + | JEREMIAH PUL[facility] | [address] | [place] [address] | | | [facility] | | | | | BRENDA BURRELL [...] | | Granulocyte | [address] [place] | | HEART | | | s | [address] | | MEDICAL | | | | [...] PULIDO | [address] | [place] [address] | | | [facility] | | | | | LABORATORY CERNER [...]
--- OUTSIDE RECORDS SUMMARY | ~2018-09-02 | XMS | Encounter Summary ---
Demographics + + + | Address | [address] [facility] [address] | | | [place] [address] | + + + | Home Phone | | + + + | Preferred Language | Unknown | + + + | Marital Status | Single | + + + | Jain Affiliation | Unknown | + + + [...] | [place] | ECON | [place] | | | | | [address] | | + + + + + Care Team Providers + +------+ + | Care Celery Wrapper Name | Role | Phone | + +------+ + | Herminio Gomez PA-C | PCP | Unavailable | + +------+ + Encounter Details +--------+ + + + + | Date | Type | Department | Care Team | Description | +--------+ + + + + | 08/30/ | Orders Only | [facility] | Flaco Colbert MD | Common bile duct | | 2019 | | and Pancreas GI | [address] [place] | calculus (Primary | | | | South [address] | [address] [place] | Dx) | | | | [address] | [address] | | | | | [place] | | | | | | [address] | | | | | | [phone] | | | +--------+ + + + [...]
--- OUTSIDE RECORDS SUMMARY | ~2018-09-02 | XMS | Encounter Summary ---
Demographics + + + | Address | [address] | | | [place] [address] | + + + | Home Phone | | + + + | Preferred Language | Unknown | + + + | Marital Status | Single | + + + | Mosque Affiliation | Unknown | + + + | Race | Unknown | + + + | Ethnic Group | Unknown | + + + Author + + + | Author | [facility] | | | and [place] | + + + | Organization | [facility] | | | and [place] | + + + | Address | Unknown | + + + | Phone | Unavailable | + + + Support + + + + + | Name | Relationship | Address | Phone | + + + + + | [place] | ECON | [place] | | | | | [address] | | + + + + + Care Team Providers + +------+ + | Care Front Worker Name | Role | Phone | [...] + + | 08/26/ | Hospital | [facility] | Polo Ferrell MD | Calculus of bile | | 2019 - | Encounter | [facility] | [address] [place] | duct with acute on | | | | SURGICAL [address] | [address] [place], [place] | chronic | | 08/30/ | | [place] | [address] | cholecystitis with | | 2019 | | [address] | | obstruction; | | | | [phone] | Amarjit, Miranda, | Essential | | | | | [address] | hypertension; | | | | | Avenue, [address] floor | Choledocholithiasis; | | | | | [place] [address] | Acute biliary | | | | | [phone] | pancreatitis without | | | | | | infection or | | | | | Lynne Sweet | necrosis; Acute | | | | | MD Alejandro [address] | biliary | | | | | [address] | pancreatitis, | | | | | [place] [address] | unspecified | | | | | [phone] | complication status; | | | | [...] might be differ ent from the original. [facility] FACULTY HOSPITALIST DISCHARGE SUMMARY PATIENT NAME: Swathi Dumont DATE OF : 1955 DATE OF ADMISSION: 08/26/2018 DATE OF DISCHARGE: 08/30/18 PRIMARY CARE PHYSICIAN: Herminio Gomez PA-C ISSUES REQUIRING FOLLOW UP AFTER DISCHARGE: as below FOLLOW UP: Herminio Gomez PA-C [address] [facility] [address] office will call to schedule appt Marj Colbert MD [address] [facility] [address] [facility] [phone] will need f/up for stent placement in [...] this chart may have been created with Sim[employer]ium voice recognition software. Occasi onal wrong-word or [...] harm your pancreas. This includes any new rrvo-zlo-hxznapd medicines, vitamins, or herbal supplements. Tell your [...] if you have any of the following: Aqegxwg359.4F(38.0C) or higher, or as advised by your provider Severe pain from your upper belly to your back Nausea and vomiting Feely dizzy or lightheaded Yellowing of your skin or eyes (jaundice) Bruises on your belly or back Belly swelling and tenderness Rapid pulse Shallow, fast breathing Date Last Reviewed: 11/09/201519997579-0799 [employer]. [address] [place] [address], [place] [address]. All righ ts reserved. This information is [...] Swathi Dumont has been hospitalized at [facility] from 08/27/18 to 08/09 06/26. She was transferred from [facility] where she stayed from 08/25/18 [...] meds to dilaudid and va lium from [employer] to see if helped. Pt toleratign diet, [...] this chart may have been created with Simperium voice recognition software. Occasi onal wrong-word or [...] the Assessment and Plan. Brianna Connolly PA-C [facility] ynne Sweet MD - 08/28/2018 1557 PDT [...] this chart may have been created with Simperium voice recognition software. Occasi onal wrong-word or sound-alike substitutions may have occurred due to the inherent pino itations of voice recognition software. Please read the chart carefully and recognize, using context, where these substitutions have occurred scanabella, Luz Miller RN - 08/28/2018 1207 PDT Nursing Handoff Note Room # 553/553-01 Isolation: None Code Status: See prior hospital encounter Item for gearman Comments Shift Summary: A/O X4 ANXIOUS AT [...] IV) (08/28/18851) Method of Communication: Call (08/28/18851) Shake Table Operator for Provider: LUZ ZHAO (08/28/18851) Response: See [...] the Assessment and Plan. Brianna Connolly PA-C [facility] Dallas Reyes RN - 2018 1030 [...] this chart may have been created with Sim[employer]ium voice recognition software. Occasi onal wrong-word or sound-alike substitutions may have occurred due to the inherent pino itations of voice recognition software. Please read the chart carefully and recognize, using context, where these substitutions have occurred lNiki tamez RN - 08/26/2018 1536 PDTAdmission screen completed by Mil Prince Report handoff given to [facility] PAVEL Jaeger RN has completed admission [...] | | MEDICAL | | | | [facility] [address], | | [place] | | | | [place] [address] | | LABORATORY | | | | | | ASHANTI | | + + + + + + + + | Specimen | + + | Blood | + + + + + + + | Performing | Address | City/State/Zipcode | Phone Number | | Organization | | | | + + + + + | [facility] | [address] | [place] [address] | | | [facility] | | | | | [...] PROVIDENCE | | | | Performed by [facility] [address] | | SACRED | | | | [address] [place], [place] | | HEART | | | | [address] | | MEDICAL | | | | [...] + + | JEREMIAH SHEPPARD | [address] | [place] [address] | | | [facility] | | | | | [...] PROVIDEVIKIE | | | | Performed by [facility] [address] | | SACRED | [...] | | MEDICAL | | | | [facility] [address], | | [place] | | | | [place] [address] | | LABORATORY | | | | | | ASHANTI | | + + + + + + + + | Specimen | + + | Blood | + + + + + + + | Performing | Address | City/State/Zipcode | Phone Number | | Organization | | | | + + + + + | [facility] | [address] | [place] [address] | | | [facility] | | | | | [...] PROVIDENCE | | | | Performed by [facility] [address] | | SACRED | | | | [address] [place], [place] | | HEART | | | | [address] | | MEDICAL | | | | [...] + + | JEREMIAH SHEPPARD | [address] | [place] [address] | | | [facility] | | | | | [...] | | MEDICAL | | | | [facility] [address], | | CENTER | | | | [place] [address] | | LABORATORY | | | | | | CERNER | | + + + + + + + + | Specimen | + + | Blood | + + + + + + + | Performing | Address | City/State/Zipcode | Phone Number | | Organization | | | | + + + + + | JEERMIAH SHEPPARD | [address] | [place] [address] | | | [facility] | | | | | LABORATORY LAXMINER [...] PROVIDE NCE | | | | by [facility] [address], | | SACRED | | | | [place] [address] | | HEART | | | |Performed by [facility] [address], [place] [address] | | MEDICAL | | | | [...] + + | ALLIEVIKIDenzel SHEPPARD | [address] | [place] [address] | | | [facility] | | | | | BRENDA [...] Performed At | + + + | [place] | [place] | | [facility] | [place]OVATION | | CenterGI | | | Patient Name: Swathi Dumont Procedure | | | Date: 08/27/2018 10:42 AMMRN: | | | [id number] Account Number: | | | [id number] of : 1955 Note | | | Status: FinalizedAttending MD: MARJ COLBERT MD | | | | | | Procedure Type: Upper | | | EUSIndications: Suspected | | | choledocholithiasisPatient Profile: Patient with | | | choledocholithiasis, had a failed ERCP | | | yesterday in [place], | | | undergoing EUS to evaluate [...] On: 08/27/2018 10:42 AMNumber of Addenda: 0 [facility] | | | [facility] | | | | | | [facility] | | + [...] Performed At | + + + | [place] | [place] | | [facility] | PROVATION | | CenterGI | | | Patient Name: Swathi Dumont Procedure | | | Date: 08/27/2018 10:42 AMMRN: | | | [id number] Account Number: | | | [id number] of : 1955 Note | | | [...] | | | | | Findings: A cat wagon operator film of the abdomen | | | [...] 10 mm x 4 cm fully covered [employer] | | | wall flex biliary [...] Addenda: 0 Jeremiah Sheppard | | | [facility] [...] PROVIDENCE | | | | Performed by [facility] [address] | | SACRED | | | | [address] [place], [place] | | HEART | | | | [address] | | MEDICAL | | | | [...] + + | [facility] | [address] | [place] [address] | | | [facility] | | | | | [...] | | MEDICAL | | | | [facility] [address], | | CENTER | | | | [place] [address] | | LABORATORY | | | | | | CERNER | | + + + + + + + + | Specimen | + + | Blood | + + + + + + + | Performing | Address | City/State/Zipcode | Phone Number | | Organization | | | | + + + + + | PROVIDEVIKIE ASHOK | [address] | [place] [address] | | | [facility] | | | | | LABORATORY LAXMINER [...] | | | Immature | Performed by [facility] [address] | K/uL | SACRED | | | Granulocyte | [address], [place] | | HEART | | | s | [phone] | | MEDICAL | | | | [...] SACRED | [address] | [place] [address] | | | [facility]ART MEDICAL CENTER | [...] | | | 5 mg, Oral, ONCE, [facility] 08/30/18 at | | 19 10:49 [...] PDT | | | | | Starting [facility] 08/29/18 at 1311 | | | | | | + +-------+ +------+---+---+ + +---+ | | | + +---+ | docusate-senna (SENOKOT-S) | | | 50-8.6 mg per tablet 2 tablet 2 | | | tablet, Oral, 2 TIMES DAILY PRN, | | | Constipation, Starting [facility] | | | 08/30/18 at 0830 [...]
--- OUTSIDE RECORDS SUMMARY | ~2018-09-02 | XMS | Encounter Summary ---
Demographics + + + | Address | [address] | | | [place] [address] | + + + | Home Phone | | + + + | Preferred Language | Unknown | + + + | Marital Status | Single | + + + | Bahai Affiliation | Unknown | + + + [...] [place] | | | | | [address] | | + + + + + Care Team Providers + +------+ + | Care Milk Truck Driver Name | Role | Phone | + +------+ + | Herminio Gomez PA-C | PCP | Unavailable | + +------+ + Encounter Details +--------+ + + + + | Date | Type | Department | Care Team | Description | +--------+ + + + + | 08/30/ | Orders Only | [facility] | Flaco Colbert MD | Common bile duct | | 2019 | | and Pancreas GI | [address] [place] | calculus (Primary | | | | South [address] | [address] [place] | Dx) | | | | [address] | [address] | | | | | [place] | | | | | | [address] | | | | | | [phone] | | | +--------+ + + + [...]
--- OUTSIDE RECORDS SUMMARY | ~2018-09-02 | XMS | Encounter Summary ---
Demographics + + + | Address | [address] | | | [place] [address] | + + + | Home Phone | | + + + | Preferred Language | Unknown | + + + | Marital Status | Single | + + + | Latter-Day Affiliation | Unknown | + + + | Race | Unknown | + + + | Ethnic Group | Unknown | + + + Author + + + | Author | [facility] | | | and [place] | + + + | Organization | [facility] | | | and [place] | + + + | Address | Unknown | + + + | Phone | Unavailable | + + + Support + + + + + | Name | Relationship | Address | Phone | + + + + + | Mariana Scott | ECON | [place] | | | | | [address] | | + + + + + Care Team Providers + +------+ + | Care Diet Technician Registered Name | Role | Phone | + [...] | with sphincterotomy, | | | | [phone] | | dilation and stent | | | | [phone] | | placement | +--------+---------+ + + [...] might be differ ent from the original. [facility] FACULTY HOSPITALIST DISCHARGE SUMMARY PATIENT NAME: Swathi Dumont DATE OF : 1955 DATE OF ADMISSION: 08/26/2018 DATE OF DISCHARGE: 08/30/18 PRIMARY CARE PHYSICIAN: Herminio Gomez PA-C ISSUES REQUIRING FOLLOW UP AFTER DISCHARGE: as below FOLLOW UP: Herminio Gomez PA-C [address] [place] [address] office will call to schedule appt Marj Colbert MD [address] [place] [address] [facility] [phone] will need f/up for stent placement in [...] this chart may have been created with CallmyName voice recognition software. Occasi onal wrong-word or [...] harm your pancreas. This includes any new waju-djh-ohgsuun medicines, vitamins, or herbal supplements. Tell your [...] if you have any of the following: Jutolhh251.4F(38.0C) or higher, or as advised by your provider Severe pain from your upper belly to your back Nausea and vomiting Feely dizzy or lightheaded Yellowing of your skin or eyes (jaundice) Bruises on your belly or back Belly swelling and tenderness Rapid pulse Shallow, fast breathing Date Last Reviewed: 11/09/201519998465-[address] [employer] [place], [place] [id number]. All righ ts reserved. This information is [...] Ms Swathi Dumont has been hospitalized at [facility] from 08/27/18 to 08/09 06/26. She was transferred from [facility] where she stayed from 08/25/18 [...] meds to dilaudid and va lium from [facility] 10 to see if helped. Pt toleratign [...] this chart may have been created with CallmyName voice recognition software. Occasi onal wrong-word or sound-alike substitutions may have occurred due to the inherent pino itations of voice recognition software. Please read the chart carefully and recognize, using context, where these substitutions have occurred Davida Barnard RN - 08/29/2018 1316 PDTVAT: assessed both forearms with ultrasound and could not fine viable vein. She has some surface veins that may accommodate a 24 gauge. Primary RN says th at she has oral medications ordered and is ok without IV access at this time. May consider m idline placement if reliable access is needed. Electronically signed by: Kathy Morales 08/29/2018 13:48 Kristen Howard PERSONAL COMPANION - 08/29/2018 1038 PDTBlue: no d/c needs [...] the Assessment and Plan. Brianna Connolly PA-C [place] [facility] ocascLynne rushing MD - 08/28/2018 1557 PDT [...] this chart may have been created with CallmyName voice recognition software. Occasi onal wrong-word or sound-alike substitutions may have occurred due to the inherent pino itations of voice recognition software. Please read the chart carefully and recognize, using context, where these substitutions have occurred Luz Yu RN - 08/28/2018 1207 PDT Nursing Handoff Note Room # 553/553-01 Isolation: None Code Status: See prior hospital encounter Item for assessment services manager Comments Shift Summary: A/O X4 ANXIOUS AT [...] None Last bowel movement: Stool Occurrence: 1(In [facility] for nurse/doc to see. Type 6.) (08/27/18 1607) Last Bowel Movement: 08/24/18 (08/28/18 0104) Pain Management: Next Dose: CAM CAM Score: no MD Notification: Notification Provider Name/Title: DR VILLA (08/28/18851) Reason for Communication: (LOST IV) (08/28/18851) Method of Communication: Call (08/28/18851) Specifications Checker for Provider: LUZ ZHAO (08/28/18851) Response: See [...] the Assessment and Plan. Brianna Connolly PA-C [place] [facility] Dallas Reyes RN [...] this chart may have been created with CallmyName voice recognition software. Occasi onal wrong-word or sound-alike substitutions may have occurred due to the inherent pino itations of voice recognition software. Please read the chart carefully and recognize, using context, where these substitutions have occurred NAClNiki tamez RN - 08/26/2018 1536 PDTAdmission screen completed by Mil Prince Report handoff given to [address] [place] [address] PAVEL Jaeger RN has completed admission flow [...] | | MEDICAL | | | | [facility] [address], | | CENTER | | | | [place] [address] | | LABORATORY | | | | [...] [address] | [place] [address] | | | [facility] | | | | | BRENDA [...] JEREMIAH | | | | Performed by [facility] [address] | | [place] | | | | [place] | | HEART | | | | [address] | | MEDICAL | | | | [...] + + | JEREMIAH [facility] | [address] | [place] [address] | | | HEART MEDICAL CENTER | [...] PROVIDENCE | | | | Performed by [facility] [address] | | SACRED | | | | [address] [place] | | HEART | | | | [address] | | MEDICAL | | | | [...] SACRED | [address] | [place] [address] | | | HEART MEDICAL CENTER | [...] | | MEDICAL | | | | [facility] [address], | | CENTER | | | | [place] [address] | | LABORATORY | | | | [...] [address] | [place] [address] | | | [facility] | | | | | LABORATORY [...] PROVIDENCE | | | | Performed by [facility] [address] | | SACRED | | | | [address], [place] | | HEART | | | | [address] | | MEDICAL | | | | [...] + + | JEREMIAH PULIDO | [address] | [place] [address] | | | [facility] | | | | | [...] | | MEDICAL | | | | [facility] [address], | | CENTER | | | | [place] [address] | | LABORATORY | | | | | | [place] | | + + + + + + + + | Specimen | + + | Blood | + + + + + + + | Performing | Address | City/State/Zipcode | Phone Number | | Organization | | | | + + + + + | [facility] | [address] | [place] [address] | | | [facility] | | | | | LABORATORY [...] PROVIDE NCE | | | | by [facility] [address], | | SACRED | | | | [place] [address] | | HEART | | | |Performed by [facility] [address], [place] [address] | | MEDICAL | | | | [...] + + | JEREMIAH PULIDO | [address] | [place] [address] | | | HEART [facility] CENTER | | | | [...] Performed At | + + + | [place] | [place] | | [facility] | PROVATION | | CenterGI | | | Patient Name: Swathi Dumont Procedure | | | Date: 08/27/2018 10:42 AMMRN: | | | [id number] Account Number: | | | [id number] of : 1955 Note | | | Status: FinalizedAttending MD: MARJ COLBERT MD | | | | | | Procedure Type: Upper | | | EUSIndications: Suspected | | | choledocholithiasisPatient Profile: Patient with | | | choledocholithiasis, had a failed ERCP | | | yesterday in [place], | | | undergoing EUS to evaluate [...] On: 08/27/2018 10:42 AMNumber of Addenda: 0 [facility] | | | [facility] End[facility] | | | | | | Formerly [facility] | | + [...] | [place] | [place] | | [facility] | PROVATION | | CenterGI | | | Patient Name: Swathi Dumont Procedure | | | Date: 08/27/2018 10:42 AMMRN: | | | [id number] Account Number: | | | [id number] of : 1955 Note | | | [...] | | | | | Findings: A catcher plug film of the abdomen | | | [...] 10 mm x 4 cm fully covered [employer] | | | wall flex biliary [...] On: 08/27/2018 10:42 AMNumber of Addenda: 0 [facility] | | | [facility] | | + [...] PROVIDENCE | | | | Performed by [facility] [address] | | SACRED | | | | [address] [place] | | HEART | | | | [address] | | MEDICAL | | | | [...] + | JEREMIAH PULIDO | [address] | [place] [address] | | | [facility] | | | | | LABORATORY [...] | | MEDICAL | | | | [facility] [address], | | CENTER | | | | [place] [address] | | LABORATORY | | | | | | [place] | | + + + + + + + + | Specimen | + + | Blood | + + + + + + + | Performing | Address | City/State/Zipcode | Phone Number | | Organization | | | | + + + + + | JEREMIAH PULIDO | [address] | [place] [address] | | | [facility] | | | | | BRENDA [...] | | Granulocyte | [address] [place] | | HEART | | | s | [phone] | | MEDICAL | | | | [...] PULIDO | [address] | [place] [address] | | | [facility] | | | | | LABORATORY [...]
--- OUTSIDE RECORDS SUMMARY | 2018-09-02 10:16 | XMS ---
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 Satish VISIT COUNT (12 MO.) 5 [facility] TOTAL 5 NOTE: Visits indicate total known visits. ED/UCC VISIT TRACKING (12 MO.) 09/02/2018 10:13 [facility] [place] TYPE: Emergency COMPLAINT: - ABD PAIN/POST OP PROBLEM 08/25/2018 07:43 [facility] [place] TYPE: Emergency COMPLAINT: - ABD PAIN DIAGNOSES: - Personal history of nicotine dependence - Acquired absence of other specified parts of digestive tract - Essential (primary) hypertension - Hyperlipidemia, unspecified - Calculus of bile duct without cholangitis or cholecystitis with obstruction - Upper abdominal pain, unspecified - Acquired absence of both cervix and uterus 04/25/2018 13:55 [facility] [place] TYPE: Emergency COMPLAINT: - ABD PAIN DIAGNOSES: - Personal history of transient ischemic attack (TIA), and cerebral infarction without residual deficits - Essential (primary) hypertension - Nausea - Major depressive disorder, single episode, unspecified - Hyperlipidemia, unspecified - Upper abdominal pain, unspecified - Gastro-esophageal reflux disease without esophagitis 12/25/2017 13:57 [facility] [place] TYPE: Emergency COMPLAINT: - ABD PAIN DIAGNOSES: - Unspecified abdominal pain - Gastro-esophageal reflux disease without esophagitis - Essential (primary) hypertension - Noninfective gastroenteritis and colitis, unspecified - Other mcc (current) drug therapy 10/24/2017 19:24 [facility] [place] TYPE: Emergency COMPLAINT: - ABD PAIN DIAGNOSES: - Essential (primary) hypertension - Personal history of nicotine dependence - Generalized abdominal pain - Gastroparesis - Other mcc (current) drug therapy INPATIENT VISIT TRACKING (12 MO.) 08/26/2018 14:33 [facility] TYPE: Surgical Services DIAGNOSES: - Acute pancreatitis without necrosis or infection, unspecified - Major depressive disorder, single episode, unspecified - Essential (primary) hypertension - Calculus of bile duct with acute and chronic cholecystitis with obstruction - Biliary acute pancreatitis without necrosis or infection - Calculus of bile duct without cholangitis or cholecystitis without obstruction - Other specified postprocedural states - COMMON BILE DUCT STONES [facility]2018 11[facility] DIAGNOSES: - Calculus of gallbladder without cholecystitis without obstruction - Calculus of bile duct without cholangitis or cholecystitis with obstruction - Mixed hyperlipidemia - Essential (primary) hypertension - Biliary acute pancreatitis without necrosis or infection - Other visual disturbances [email or web address]
--- NOTE | 2018-09-02 14:58 | NUR ---
REPORT RECEIVED FROM JEZ ZHAO VIA TELEPHONE.
--- NOTE | 2018-09-02 15:25 | NUR ---
PT ARRIVED TO FLOOR VIA STRETCHER. REPORTS PAIN 8/10. PRN DILAUDID ADMINISTERED. REPORTS NAUSEA, PT IS DRY HEAVING. EMESIS BAG PROVIDED. FLUIDS STARTED. MEDICATIONS ADMINSTERED. ORIENTED TO ROOM. CALL LIGHT IN REACH.
--- NOTE | 2018-09-02 19:05 | NUR ---
ROUNDED CHARGE. PATIENT IS RESTING IN IN BED WITH EYES CLOSED, RR 17. CALL LIGHT IN REACH.
--- NOTE | 2018-09-02 20:58 | NUR ---
SITTING UP IN BED, WAS SEMI COOPERATIVE WITH ASSESSMENT AND VITASL, CONTINUES NPO X FOR MEDS. ASPIRATION PRECAUTIONS IN PLACE. NURSING STAFF IN ROOM WITHIN ARMS REACH TO PREVENT ACCIDENTAL DISLODGEMENT OF IV TUBES. IVF INFUSING W/O PROBLEMS. PT HAS A F/C CHRONIC, PATENT. CALM AT THIS TIME
--- NOTE | 2018-09-02 21:39 | NUR ---
MEDICATED WITH DILAUDID 1MG IV C/O 09/17 ABD PAIN, DRY HEAVING, GOT SCHEDULED REGLAN, COOP WITH ASSESSMENT. CALL LIGHT AT BEDSIDE, NPO, DOES OWN MOUTH CARE
--- NOTE | 2018-09-02 21:53 | NUR ---
UP TO BR, VOIDED DARK YELLOW URINE. BACK TO BED, TOLERATED FAIR. ICE PACK TO BACK OF HEAD. NO OTHER REQUESTS.
--- NOTE | 2018-09-03 00:16 | NUR ---
PT RESTING, NO FURTHER C/O DRY HEAVING OR PAIN. NO RESP DISTRESS, CALL LIGHT AT BEDSIDE,
--- NOTE | 2018-09-03 03:24 | NUR ---
RSTING, NO C/O N/V, NO C/O PAIN. TURNS SELF IN BED. CALL LIGHT AT BEDSIDE
--- NOTE | 2018-09-03 05:56 | NUR ---
AWAKE, DENIES NEEDING TO GET UP TO URINATE. C/O ABD PAIN 07/18. MEDICATED WITH DILAUDID 0.5MG IV. NO DRY HEAVING NOTED OR STATED AT THIS TIME. PT STATES SHE FEELS BETTER., CONTINUES NPO, CALL LIGHT AT BEDSIDE.
--- NOTE | 2018-09-03 06:06 | NUR ---
PT AWAKE, CALER, NO FURTHER C/O DRY HEAVING. GETS REGLAN ATC. EFFECTIVE, WAS MEDICATED WITH DILAUDID WITH GOOD PAIN RELIEF. PT GOT UP TO BR 2X VOIDING DARK YELLOW URINE. SLIGHTLY UNSTEADY GAIT DUE TO 'ABD PAIN' STATED. HAS BEEN NPO. IVF INFUSING W/O PROBLEMS. CALL LIGHT AT BEDSIDE
--- NOTE | 2018-09-03 07:50 | NUR ---
REPORT RECEIVED FROM PAVEL JOSEPH. PT APPEARS TO BE RESTING WITH EYES CLOSED.
--- NOTE | 2018-09-03 08:26 | NUR ---
ADMINISTERED MORNING MEDS. PT AMB TO BATHROOM WITH SBA. INCREASED PAIN UPON RETURNING TO BED. ADMINISTERED DILAUIDID. PT NOW ON PHONE. MG HANGING.
--- NOTE | 2018-09-03 10:15 | NUR ---
PATIENT IN BED RESTING. CALL LIGHT IN REACH. NO FURTHER NEEDS AT THIS TIME.
--- NOTE | 2018-09-03 10:34 | NUR ---
CHANGED PT IVF BAG OUT. PT DENIES CONCERNS.
--- NOTE | 2018-09-03 12:51 | NUR ---
pt dry heeving, producing no emesis, 4mg i.v. zofran administered at this time.
[2018-09-03] MEDS ORDERED: OXYCODON-ACETA1 EAC2 PO (12:58)
--- NOTE | 2018-09-03 13:22 | NUR ---
PT ROCKING BACK AND FORTH IN PAIN. STATES THE DRY HEAVING CAME FIRST THEN THE PAIN. ADMINISTERED PRN PAIN MED.S
--- NOTE | 2018-09-03 14:07 | NUR ---
PATIENT IN BED RESTING WITH EYES CLOSED. CALL LIGHT IN REACH. NO FURTHER NEEDS AT THIS TIME. NO VOID, RN NOTIFIED.
--- NOTE | 2018-09-03 16:15 | NUR ---
administered meds and removed tele. pt resting with eyes closed.
--- NOTE | 2018-09-03 17:33 | NUR ---
PT HAD SEVERAL EPISODES OF DRY HEAVING TODAY. GIVEN SCHEDULED REGLAN AND ZOFRAN. PAIN WELL CONTROLLED WITH IV DILAUDID X2. D5 1/2NS +20K @125. SBA.
--- NOTE | 2018-09-03 18:12 | NUR ---
PATIENT IN BED RESTING WITH EYES CLOSED. CALL LIGHT IN REACH. NO FURTHER NEEDS AT THIS TIME.
--- NOTE | 2018-09-03 19:10 | NUR ---
CHARGE NURSE REPORT RECEIVED FROM ARNULFO PRADHAN IN BED. NO NEEDS.
--- NOTE | 2018-09-03 19:25 | NUR ---
RECEIVED REPORT FROM DAY SHIFT RNLUCA. PT IN BED RESTING WITH EYES CLOSED. RR EVEN AND UNLABORED. IV INFUSING. CALL LIGHT IN REACH.
--- NOTE | 2018-09-03 20:55 | NUR ---
PRN PAIN MEDICATION GIVEN FOR C/O 7/10 ABDOMINAL PAIN. NO C/O NAUSEA AT THIS TIME. PM MEDS GIVEN. ASSESSMENT COMPLETE. WARM PACK PROVIDER TO ABDOMEN FOR PT COMFORT. PT UP TO BR WITH SBA TO VOID YELLOW URINE, TO WELL. BACK TO BED. CALL LIGHT IN REACH.
--- NOTE | 2018-09-03 21:35 | NUR ---
V/S DONE AND CHARTED. WARM PACKED PROVIDED.
--- NOTE | 2018-09-04 00:26 | NUR ---
PT RESTING IN BED WITH EYES CLOSED. RR EVEN AND UNLABORED. CALL LIGHT IN REACH.
--- NOTE | 2018-09-04 03:48 | NUR ---
PT UP TO BR WITH SBA TO VOID 300 ML CLEAR YELLOW URINE, INCREASED PAIN NOTED WITH AMBULATION. BACK TO BED. MEDICATED WITH PRN DILAUDED FOR C/0 5/10 ABDOMINAL PAIN. HEAT PACK PROVIDED. CALL LIGHT IN REACH.
--- NOTE | 2018-09-04 05:14 | NUR ---
PT MEDICATED X 2 FOR ABDOMINAL PAIN. NO C/O OF NAUSEA OR VOMITING. VOIDING QS. PT AMBULATES IN ROOM WITH SBA, INCREASED PAIN WITH AMBULATION.
--- NOTE | 2018-09-04 07:28 | NUR ---
BEDSIDE REPORT...PT RESTING IN BED ALERT TO NAME, REPORTS PAIN, PATIENT HAS BEEN GIVEN PAIN MEDICATION WITHIN 30MIN. WILL MONITOR FOR EFFECTIVENESS.
--- NOTE | 2018-09-04 08:00 | NUR ---
PATIENT UP TO BATHROOM AND BACK TO BED, SBA. RN IN ROOM. CALL LIGHT IN REACH. NO FURTHER NEEDS AT THIS TIME.
--- NOTE | 2018-09-04 08:01 | NUR ---
PT RESTING IN BED AFTER UP TO BATHROOM, REQUESTS POPSICLE AND JELLO. RESTLESS IN BED.
--- NOTE | 2018-09-04 09:49 | NUR ---
PT UP IN SHOWER, SHE REPORTS SHE IS TOLERATING THE JELLO AND POPSICLE THIS AM WELL NO NAUSEA.
--- NOTE | 2018-09-04 10:25 | NUR ---
PATIENT SITTING IN CHAIR. CALL LIGHT IN REACH. NO FURTHER NEEDS AT THIS TIME.
[2018-09-04] MEDS ORDERED: AMOXICILLIN500 MG PO (10:55)
--- NOTE | 2018-09-04 10:59 | NUR ---
LINENS CHANGED PT BACK TO BED FROM RECLINER.
--- NOTE | 2018-09-04 13:20 | NUR ---
PATIENT UP TO BATHROOM AND BACK TO BED, INDEPENDENT. CALL LIGHT IN REACH. NO FURTHER NEEDS AT THIS TIME.
--- NOTE | 2018-09-04 15:16 | NUR ---
PT IS RESTLESS HAS MILD ANXIETY VISTRIL GIVEN PO PRN AT THIS TIME
--- NOTE | 2018-09-04 17:01 | NUR ---
PT REPORTS PAIN 8/ ABD, REGLAN SCHEDULED GIVEN AND 1MG I.V. DILAUDID PRN AT THIS TIME.
--- NOTE | 2018-09-04 17:30 | NUR ---
PT HAS BEEN UP IN CHAIR AND WALKING IN ROOM. SHE SHOWERED THIS AM. SHE HAS HAD SOME ANXIETY TODAY WITH ABD PAIN. VISTRIL PRN GIVEN TWICE, PT REPORTS MUCH IMPROVED NAUSEA TODAY AND PAIN. PAIN MEDICATIONS ONLY GIVEN ONCE ON DAYSHIFT. NEW IV STARTED FOR IV MEDS. TOLERATING FULL LIQUIDS PLUS TOLERATED TODAY WITH NO DRY HEEVING. SHE HAS BEEN UP IN RECLINER THIS AM.
--- NOTE | 2018-09-04 19:15 | NUR ---
SHIFT REPORT RECEIVED. PATIENT RESTING IN BED. DENIES ANY PAIN OR NAUSEA AT THIS TIME. CALL LIGHT IN REACH.
--- NOTE | 2018-09-04 21:55 | NUR ---
PATIENT APPEARED TO BE SLEEPING WHEN RN ENTERTED ROOM. PATIENT WOKE EASILY TO VOICE. PATIENT REPORTS MILD STOMACH UPSET FROM AN UNPLESANT SMELL IN HER ROOM. OFFERED TO LEAVE DOOR OPEN TO HELP FRESH AIR TO CIRCULATE, PATIENT AGREES. NO NAUSEA AT THIS TIME. PATIENT REPORTS PAIN BUT DENIES NEED FOR PRN PAIN MEDS AT THIS TIME. ABD TENDER, BOWEL SOUNDS ACTIVE. LUNGS ARE CLEAR. PATIENT DENIES FURTHER NEEDS.
--- NOTE | 2018-09-04 23:15 | NUR ---
PATIENT REPORTS 7/10 PAIN IN HER ABD. CLARENCE HERNÁNDEZ PROVIDED. DISCUSSED PAIN MANAGEMENT WITH PATIENT AND PROVIDED VERBAL EDUCATION ON NEW PAIN MEDICATION. PATIENT VERBALIZED UNDERSTANDING. DENIES FURTHER NEEDS. DENIES NAUSEA.
--- NOTE | 2018-09-05 01:45 | NUR ---
PATIENT APPEARS TO BE SLEEPING SOUNDLY. RR 18. CALL LIGHT IN REACH.
--- NOTE | 2018-09-05 04:39 | NUR ---
PATIENT APPEARS TO BE SLEEPING SOUNDLY. RR 16. CALL LIGHT IN REACH.
--- NOTE | 2018-09-05 05:00 | NUR ---
PATIENT REPORTS "SOME NAUSEA" AND STATES "IT'S NOT HURTING TOO BAD BUT IT'S THERE CONSTANTLY, MAYBE I COULD GET SOMETHING TO TAKE THE EDGE OFF". PRN W[place]ATT PROVIDED FOR NAUSEA. DISCUSSED PAIN MANAGEMENT WITH PATIENT. SHE AGREED TO WAIT AND SEE IF THE CRAMPING IMPROVED WITH THE ZOFRAN. PATIENT RESTING IN BED. HEAD COVERED. APPEARS TO BE TALKING NORMALLY AND DENIES ANY FURTHER NEEDS. ALLOWED PATIENT TO REST.
--- NOTE | 2018-09-05 06:00 | NUR ---
SCHEDULED REGLAN AND PRN NORCO PROVIDED. PATIENT STATES SHE HAS "JUST A LITTLE NAUSEA" BUT MOSTLY FEELS LIKE GAS. PAIN IS ONGOING.
--- NOTE | 2018-09-05 06:10 | NUR ---
PATIENT ABLE TO SLEEP MOST OF THE SHIFT. NAUSEA MINIMAL TO NONE. PAIN CONTROLLED WITH PRN NORCO X2. PATIENT TOLERATING REGULAR DIET WITH GOOD ORAL INTAKE. VS STABLE. PATIENT APPEARS TIRED BUT IN GOOD SPIRITS THIS MORNING.
--- NOTE | 2018-09-05 07:25 | NUR ---
Pt sleeping at this time, resp even and non labored. Personal supplies and call light within reach. No needs at this time.
[2018-09-05] MEDS ORDERED: LISINOPRIL20 MG PO (07:50)
[2018-09-05] MEDS ORDERED: HYDROMORPHONE HC4 MG PO (07:52)
[2018-09-05] MEDS ORDERED: AMLODIPINE BESYL5 MG PO (07:53)
[2018-09-05] MEDS ORDERED: PANTOPRAZOLE SO40 MG PO (07:53)
[2018-09-05] MEDS ORDERED: ONDANSETRON ODT4 MG PO (07:54)
[2018-09-05] MEDS ORDERED: METOCLOPRAMIDE H5 M1 PO (09:43)
[2018-09-05] MEDS ORDERED: HYDROXYZINE PAM25 MG PO (09:43)
--- NOTE | 2018-09-05 10:37 | NUR ---
PATIENT IS IN SHOWER. SHE IS GOING HOME. CALL LIGHT IN REACH. WATER REFRESHED. NO FURTHER NEEDS AT THIS TIME.
[2018-09-05] MEDS ORDERED: HYDROXYZINE HCL25 MG PO (11:26)
[2018-09-05] MEDS ORDERED: REGLAN5 MG PO (11:27)
== END 2018-09-05 15:44 | disposition home or self-care (01) ==
LOC: ED 10:13 → MS 10:14
PROVIDERS: ADMIT Internal Medicine
DX: G43.A0 Cyclical vomiting, in migraine, not intractable (principal); E86.0 Dehydration; I10 Essential (primary) hypertension; K21.9 Gastro-esophageal reflux disease without esophagitis; F32.9 Major depressive disorder, single episode, unspecified; E78.5 Hyperlipidemia, unspecified; G43.909 Migraine, unspecified, not intractable, without status migrainosus; K31.84 Gastroparesis; Z79.899 Other long term (current) drug therapy; Z86.73 Personal history of transient ischemic attack (TIA), and cerebral infarction without residual deficits; Z90.49 Acquired absence of other specified parts of digestive tract
CPT/HCPCS: 36415; 74177; 80048; 80053; 81001; 83690; 83735; 84100; 85025; 96361; 96375; 96376; 99285-25; C9113; G0378; J0360; J1170; J2060; J2405; J2765; J3475; J3480; J7030; J7060; Q0177

== ENCOUNTER 2018-12-09 19:44 | Emergency (ER) | payer BC, OTHER ==
[~2018-12-09] VITALS: Ht 160 cm; Wt 74.8 kg
[~2018-12-09 19:44] MED LIST changes: +AMLODIPINE BESYL5 MG PO; +AMOXICILLIN500 MG PO; +HYDROMORPHONE HC4 MG PO; +HYDROXYZINE HCL25 MG PO; +HYDROXYZINE PAM25 MG PO; +LISINOPRIL20 MG PO; +METOCLOPRAMIDE H5 M1 PO; +ONDANSETRON ODT4 MG PO; +OXYCODON-ACETA1 EAC2 PO; +PANTOPRAZOLE SO40 MG PO; +REGLAN5 MG PO
== END 2018-12-10 08:25 | disposition short-term general hospital (02) ==
LOC: ED 19:44
DX: K83.09 Other cholangitis (principal); Z86.73 Personal history of transient ischemic attack (TIA), and cerebral infarction without residual deficits; I10 Essential (primary) hypertension; K21.9 Gastro-esophageal reflux disease without esophagitis; F32.9 Major depressive disorder, single episode, unspecified; E78.5 Hyperlipidemia, unspecified
CPT/HCPCS: 74177; 80053; 81001; 83605; 83690; 83735; 85025; 96361; 99285-25; J1170; J2405; J2543; J2550; J7030; J7060

== ENCOUNTER 2019-05-09 19:25 | Emergency (ER) | payer BC, OTHER ==
[~2019-05-09] VITALS: Ht 160 cm; Wt 74.8 kg
[2019-05-09] MEDS ORDERED: REGLAN10 MG PO (22:11)
== END 2019-05-09 22:33 | disposition home or self-care (01) ==
LOC: ED 19:25
DX: K31.84 Gastroparesis (principal); Z86.73 Personal history of transient ischemic attack (TIA), and cerebral infarction without residual deficits; I10 Essential (primary) hypertension; Z87.891 Personal history of nicotine dependence
CPT/HCPCS: 36415; 80053; 81001; 83690; 85025; 96374; 96375; 99284-25; J1170; J1200; J2405; J2765

== ENCOUNTER 2019-05-30 15:27 | Emergency (ER) | payer OTHER ==
[~2019-05-30] VITALS: Ht 160 cm; Wt 63.5 kg
--- OUTSIDE RECORDS SUMMARY | 2019-05-30 15:28 | XMS ---
PreManage Notification: MICHAEL DAWSON Security Stationary Engineer Refrigeration Events No recent Security Events currently on file CRITERIA MET - [facility] - 2 Visits in 30 Days CARE PROVIDERS DONA LIN Physician Lathe Machinist: Medical 12/26/2017-Current PHONE: Unknown Simeon has no Care Guidelines for this patient. Satish VISIT COUNT (12 MO.) 5 [facility] TOTAL 5 NOTE: Visits indicate total known visits. ED/UCC VISIT TRACKING (12 MO.) 05/30/2019 15:27 [facility] TYPE: Emergency COMPLAINT: - ABDOMINAL PAIN 05/09/2019 19:25 [facility] [place] TYPE: Emergency COMPLAINT: - ABDOMINAL PAIN DIAGNOSES: - Gastroparesis - Essential (primary) hypertension - Personal history of nicotine dependence - Epigastric pain - Prsnl hx of TIA (TIA), and cereb infrc w/o resid deficits 12/09/2018 19:44 [facility] [place] TYPE: Emergency COMPLAINT: - ABD PAIN, N/V/D DIAGNOSES: - Prsnl hx of TIA (TIA), and cereb infrc w/o resid deficits - Upper abdominal pain, unspecified - Other cholangitis - OTHER CHOLANGITIS - Gastro-esophageal reflux disease without esophagitis - Hyperlipidemia, unspecified - Major depressive disorder, single episode, unspecified - Essential (primary) hypertension 09/02/2018 10:13 [facility] [place] TYPE: Emergency COMPLAINT: - ABD PAIN/POST OP PROBLEM 08/25/2018 07:43 [facility] [place] TYPE: Emergency COMPLAINT: - ABD PAIN DIAGNOSES: - Personal history of nicotine dependence - Acquired absence of other specified parts of digestive tract - Essential (primary) hypertension - Hyperlipidemia, unspecified - Calculus of bile duct w/o cholangitis or cholecyst w obst - Upper abdominal pain, unspecified - Acquired absence of both cervix and uterus INPATIENT VISIT TRACKING (12 MO.) 12/10/2018 11:35 [facility] TYPE: Surgical Services DIAGNOSES: - Upper abdominal pain, unspecified - Right upper quadrant pain - Nausea with vomiting, unspecified - Encounter for fitting and adjustment of oth devices - Other cholangitis - Essential (primary) hypertension - Elevated white blood cell count, unspecified 09/02/2018 10:14 [facility] [place] TYPE: Observation COMPLAINT: - ABDOMINAL PAIN DIAGNOSES: - Cyclical vomiting, in migraine, not intractable - Major depressive disorder, single episode, unspecified - Other snf (current) drug therapy - Gastro-esophageal reflux disease without esophagitis - Dehydration - Acquired absence of other specified parts of digestive tract - Hyperlipidemia, unspecified - Essential (primary) hypertension - Prsnl hx of TIA (TIA), and cereb infrc w/o resid deficits - Gastroparesis - Migraine, unsp, not intractable, without status migrainosus - Nausea with vomiting, unspecified 08/26/2018 14:33 [facility] TYPE: Surgical Services DIAGNOSES: - Acute pancreatitis without necrosis or infection, unsp - Major depressive disorder, single episode, unspecified - Essential (primary) hypertension - Calculus of bile duct w acute and chronic cholecyst w obst - Biliary acute pancreatitis without necrosis or infection - Calculus of bile duct w/o cholangitis or cholecyst w/o obst - Other specified postprocedural states - COMMON BILE DUCT STONES 08/25/2018 11:43 [facility]ia [facility] TYPE: Surgical Services DIAGNOSES: - Calculus of gallbladder w/o cholecystitis w/o obstruction - Calculus of bile duct w/o cholangitis or cholecyst w obst - Mixed hyperlipidemia - Essential (primary) hypertension - Biliary acute pancreatitis without necrosis or infection - Other visual disturbances [email or web address]
[2019-05-30] MEDS ORDERED: REGLAN10 MG PO (19:36)
== END 2019-05-30 19:45 | disposition home or self-care (01) ==
LOC: ED 15:27
DX: K31.84 Gastroparesis (principal); I10 Essential (primary) hypertension; K21.9 Gastro-esophageal reflux disease without esophagitis; F32.9 Major depressive disorder, single episode, unspecified; E78.5 Hyperlipidemia, unspecified
CPT/HCPCS: 80053; 83690; 85025; 96361; 96374; 96375; 99284-25; J1170; J1790; J2765; J7030

== ENCOUNTER 2020-01-25 11:15 | Emergency (ER) | payer OTHER ==
--- OUTSIDE RECORDS SUMMARY | 2020-01-25 16:34 | XMS ---
PreManage Notification: MICHAEL DAWSON Security Flight Communications Operator Events No recent Security Events currently on file CRITERIA MET - Group Notification - [facility] - Has Care Guidelines CARE PROVIDERS DONA LIN Physician Filling Station Laborer: Medical 12/26/2017-Current PHONE: Unknown Simeon has no Care Guidelines for this patient. 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 MEMBER. \T\middot;\T\nbsp; PLEASE REFER PATIENT TO [facility] FOR NON EMERGENT MEDICAL NEEDS. \T\middot;\ T\nbsp; [facility] CAN SEE PATIENTS SAME DAY FOR APTS IF PATIENT CALLS FIRST THING IN THE MORNING. E.D. VISIT COUNT (12 MO.) 3 [facility] TOTAL 3 NOTE: Visits indicate total known visits. ED/UCC VISIT TRACKING (12 MO.) 01/25/2020 11:15 [facility] [place] TYPE: Emergency 05/30/2019 15:27 [facility] [place] TYPE: Emergency COMPLAINT: - ABDOMINAL PAIN DIAGNOSES: - Unspecified abdominal pain - Major depressive disorder, single episode, unspecified - Gastroparesis - Hyperlipidemia, unspecified - Essential (primary) hypertension - Gastro-esophageal reflux disease without esophagitis 05/09/2019 19:[address] [facility] [place] TYPE: Emergency COMPLAINT: - ABDOMINAL PAIN DIAGNOSES: - Gastroparesis - Essential (primary) hypertension - Personal history of nicotine dependence - Epigastric pain - Personal history of transient ischemic attack (TIA), and cere INPATIENT VISIT TRACKING (12 MO.) No inpatient visits to display in this time frame [email or web address]
== END 2020-01-25 15:10 | disposition home or self-care (01) ==
LOC: ED 11:15
DX: R11.10 Vomiting, unspecified (principal); R10.10 Upper abdominal pain, unspecified; I10 Essential (primary) hypertension; Z90.49 Acquired absence of other specified parts of digestive tract
CPT/HCPCS: 74177; 80053; 83690; 85025; 99284-25; Q9967

== ENCOUNTER 2020-06-10 17:10 | Emergency (ER) | payer SELFPAY ==
[~2020-06-10] VITALS: Ht 160 cm; Wt 63.5 kg
--- OUTSIDE RECORDS SUMMARY | 2020-06-10 17:12 | XMS ---
PreManage Notification: MICHAEL DAWSON Security Hole Filler Events No recent Security Events currently on file CRITERIA MET - Group Notification CARE PROVIDERS DONA LIN Physician Computer Systems Hardware Analyst: Medical 12/26/2017-[facility] PHONE: Unknown [facility] 01/27/2020-[facility] PHONE: [phone] Simeon has no Care Guidelines for this patient. Care History Medical/Surgical 06/03/2019 [facility] - PATIENT IS [facility] ELIGIBLE, \T\middot;\T\nbsp; PLEASE REFER PATIENT TO [facility] FOR NON EMERGENT MEDICAL NEEDS. \T\middot;\T\nbsp; [facility] CAN SEE PATIENTS SAME DAY FOR APTS IF PATIENT CALLS FIRST THING IN THE MORNING. E.D. VISIT COUNT (12 MO.) [address] [facility] TOTAL 2 NOTE: Visits indicate total known visits. ED/UCC VISIT TRACKING (12 MO.) 06/10/2020 17:11 [facility] [place] TYPE: Emergency COMPLAINT: - VOMITING 01/25/2020 11:15 [facility] [place] TYPE: Emergency DIAGNOSES: - Upper abdominal pain, unspecified - Vomiting, unspecified - Acquired absence of other specified parts of digestive tract - Essential (primary) hypertension - Unspecified abdominal pain INPATIENT VISIT TRACKING (12 MO.) No inpatient visits to display in this time frame [email or web address]
[2020-06-10] MEDS ORDERED: ZOFRAN4 MG PO (21:12)
== END 2020-06-10 21:44 | disposition home or self-care (01) ==
LOC: ED 17:10
DX: R11.10 Vomiting, unspecified (principal); I10 Essential (primary) hypertension; K21.9 Gastro-esophageal reflux disease without esophagitis; Z86.73 Personal history of transient ischemic attack (TIA), and cerebral infarction without residual deficits; E78.5 Hyperlipidemia, unspecified
CPT/HCPCS: 80053; 83690; 83735; 85025; 96372; 99284; J1630

== ENCOUNTER 2020-09-27 12:46 | Inpatient (IN) | payer OTHER ==
[~2020-09-27] VITALS: Ht 160 cm; Wt 71.7 kg
[~2020-09-27 12:46] MED LIST changes: +ZOFRAN4 MG PO
--- OUTSIDE RECORDS SUMMARY | 2020-09-27 12:54 | XMS ---
PreManage Notification: MICHAEL DAWSON Security Standpipe Tender Events No recent Security Events currently on file CRITERIA MET - Group Notification CARE PROVIDERS DONA LIN Physician Tobacco Sieve Operator: Medical 12/26/2017-[facility] PHONE: Unknown [facility]/[place] 01/27/2020-[facility] PHONE: [phone] Simeon has no Care Guidelines for this patient. Care History Medical/Surgical 06/03/2019 [facility] - PATIENT IS [facility] ELIGIBLE, \T\middot;\T\nbsp; PLEASE REFER PATIENT TO [facility] FOR NON EMERGENT MEDICAL NEEDS. \T\middot;\T\nbsp; [facility] CAN SEE PATIENTS SAME DAY FOR APTS IF PATIENT CALLS FIRST THING IN THE MORNING. E.D. VISIT COUNT (12 MO.) [address] [facility] TOTAL 3 NOTE: Visits indicate total known visits. ED/UCC VISIT TRACKING (12 MO.) 09/27/2020 12:47 [facility] TYPE: Emergency COMPLAINT: - ABD PAIN, N/V 06/10/2020 17:11 [facility] TYPE: Emergency COMPLAINT: - VOMITING DIAGNOSES: - Vomiting, unspecified - Gastro-esophageal reflux disease without esophagitis - Headache, unspecified - Essential (primary) hypertension - Vomiting, unspecified - Personal history of transient ischemic attack (TIA), and cerebral infarction without residual deficits - Hyperlipidemia, unspecified 01/25/2020 11:15 [facility] TYPE: Emergency DIAGNOSES: - Upper abdominal pain, unspecified - Vomiting, unspecified - Acquired absence of other specified parts of digestive tract - Essential (primary) hypertension - Unspecified abdominal pain INPATIENT VISIT TRACKING (12 MO.) No inpatient visits to display in this time frame [email or web address]
--- NOTE | 2020-09-27 19:20 | NUR ---
PATIENT TOOK A SHOWER. DRIED FLOOR AND PICKED UP USED TOWELS.
--- NOTE | 2020-09-27 20:24 | NUR ---
arrived at 2009 from ed via [place], c/o dry heaving and low abd pain. carey, on room air. assessment completd. iv RFA, IVF and K rider startred, med teaching done, stated understanding, will elevated arm. no c/o pain. on clear liquids
--- NOTE | 2020-09-27 20:53 | NUR ---
MEDICATIONS GIVEN PER PRIMARY RN INSTRUCTION. NO FURTHER REQUESTS AT THIS TIME. RATED PAIN 8/10 CRAMPS.
--- NOTE | 2020-09-27 22:53 | NUR ---
TURNS AND REPOSITINS SELF, NO FURTHER C/O N/V OR PAIN. IVF AND K RIDER INFUSING, TOLERATING WELL
--- NOTE | 2020-09-28 05:45 | NUR ---
Pt has slept. on room air, IVF infusing, received 40mEq K IV. tolerated well. Up to br, 1PA, slow gait, tolerated well, back to bed, voiding small amounts medium yellow urine. Medicated with Toradol and Nubain per abd pain.effective Zofran for upset stomach and dry heaving, effective.. Pleasant and coop. tolerating small zips of fluids, no emesis, aware of need for stool culture
--- NOTE | 2020-09-28 05:45 | NUR ---
pt up to br, voided, back to bed, c/o abd pain 5/10 medicated with Toradol 30mg IV. coop with assessment. passing gas
--- NOTE | 2020-09-28 07:39 | NUR ---
REPORT RECEIVED. PT LYING IN BED WITH EYES CLOSED. D5LR AT 100 ML/HR INFUSING. RESPIRATIONS EQUAL AND NONLABORED. CALL LIGHT IN REACH.
--- NOTE | 2020-09-28 10:00 | NUR ---
PT ADVANCED DIET TO REGULAR. PT ABLE TO EAT HALF OF FRUIT AND COUPLE BITES OF OATMEAL. PT DENIES NAUSEA AT THIS TIME. ASSESSMENT COMPLETED. PT REPORTS ABDOMEN IS TENDER AND ACHING. ALSO REPORTING A HEADACHE. TYLENOL ADMINSTERED. PT WILL AMBULATE IN HALLS WITH HOUSEHOLD MANAGER.
--- NOTE | 2020-09-28 10:31 | NUR ---
PATIENT AMBULATED IN HALLWAY, 1/2 LAP, SBA. PATIENT STATED SHE FELT WEAK AND HAD TO TAKE 3 BREAKS DURING THE WALK. MADE IT BACK TO ROOM AND PATIENT COMPLAINED OF HIPS HURTING, RN NOTIFIED. PATIENT IN BED RESTING AT THIS TIME. CALL LIGHT IN REACH. NO FURTHER NEEDS AT THIS TIME.
--- NOTE | 2020-09-28 11:12 | NUR ---
MED REC COMPLETE
--- NOTE | 2020-09-28 13:00 | NUR ---
PT LYING IN BED, ATE ABOUT 25% OF LUNCH. NOW REPORTING SOME SLIGHT NAUSEA AND ABDOMINAL PAIN. PRN PAIN AND NAUSEA MEDS ADMINSTERED. PIPERS FURTHER NEEDS CALL LIGHT IN REACH.
--- NOTE | 2020-09-28 13:38 | NUR ---
DISCHARGE ISNTRUCTIONS PROVIDED. PT DENIES QUESTIONS. PHARMACY DISCUSSED MEDICAITONS. IV DC'D CATH INTACT. VITALS TAKEN AND STABLE. AMBULATORY FOR DICHARGE.
--- NOTE | 2020-09-28 15:15 | NUR ---
PATIENT WAS IN BED RESTING. VITALS AND I&O'S CHARTED. NO VOID AND TEMP SLIGHTLY ELEVATED. ENCOURAGED PATIENT TO GET UP TP THE BATHROOM. PATIENT UP TO BATHROOM, SBA. PATIENT VOIDED. ENCOURAGED PATIENT TO GO FOR A WALK, PATIENT REFUSED SHE WAS TO TIRED FROM GETTING UP TO THE BATHROOM. PATIENT NOW IN CHAIR. CALL LIGHT IN REACH. NO FURTHER NEEDS AT THIS TIME.
--- NOTE | 2020-09-28 18:51 | NUR ---
PT FOUND IN ROOM DRY HEAVING. PT IS REPORTING ABDOMINAL CRAMPS WELL. PHENERGAN ADMISTNERED OVER 5 MINUTES @ 1740. COLD CLOTH PLACED ON HEAD. PT UP IN BED. AFTER PHENERGAN PT IS STILL CONSTANLY DRY HEAVING. ZOFRAN THEN GIVEN @1752. PT SEEMS TO CALM DOWN A LITTLE. LET PT REST FOR 30 MINUTES. CAME BACK TO ROOM TO ASSESS NASUEA. PT REPROTS SOMEWHAT IMPROVING BUT STILL DRY HEAVING. PT IS EMOTIONAL AND CRYING. PT REPORTS ABDOMINAL PAIN 01/17. BENTYL AND TYLENOL ADMISNTERED FOR PAIN AND CRAMPING @1830. VITAL SIGNS ASSESSED AND PT WAS FOUND TO HAVE ELEVATED BLOOD PRESSURE. DR GUNTER NOTIFIED OF ALL PT COMPLAINTS AT 1840. ORDERS TO MONITOR AND REASSESS BLOOD PRESSURE IN 45 MINUTES. THIS NURSE SITTING AT BEDSIDE WITH PT.
--- NOTE | 2020-09-28 19:09 | NUR ---
COMPAZINE ADMISNTERED FOR MORE NAUSEA/DRY HEAVING.
--- NOTE | 2020-09-28 19:26 | NUR ---
DR GUNTER UPDATED ON CURRENT BLOOD PRESSURE AND PULSE. DR ROTHMAN PUT ORDERS IN
--- NOTE | 2020-09-28 20:16 | NUR ---
SCHEDULED MEDCIATION ADMINISTERED. PT LYING IN BED, WRITHING IN PAIN, AND WHIMPERING. PT ACTIVELY DRY HEAVING. PRN PAIN MEDICATION ADMINISTERED PER PT REQUEST. PT UP TO THE BATRHROOM WITH 1PA AND BACK TO BED. BT'S HYPERACTIVE. ABD VERY TENDER TO TOUCH. NO DISTENSION NOTIED. PT DENIES BM SINCE YESTERDAY. IV FLUSHED. WNL. PT DENIES FURTHER NEEDS. CALL LIGHT IN REACH.
--- NOTE | 2020-09-28 23:06 | NUR ---
STACKER DRIVER TO ROOM FOR SCHEDULED MED ADMINISTRATION. PT REPORTS PAIN MUCH IMPROVED, RATES 3-4/10. STATES THAT DRY HEAVING IS MOSTLY SUBSIDED. PT UP TO BATHROOM AND BACK TO BED. STATES THAT THIS HAS CAUSED A CRAMP UNDER HER RIBS. LINEN AND GOWN CHANGED DUE TO SWEATING PER PT. GOWN SLIGHTLY DAMP. PT DENIES FURTHER NEEDS AT THIS TIME.C ALL LIGHT IN REACH.
--- NOTE | 2020-09-29 00:44 | NUR ---
PT RESTING IN BED ON HER BACK, EYES CLOSED. DOES NOT WAKE WHEN FUNDRAISING OFFICER OPENS THE DOOR. APPEARS TO BE SLEEPING. CALL LIGHTIN REACH.
--- NOTE | 2020-09-29 03:08 | NUR ---
PATIENT CALLED. SBA. UP TO THE BATHROOM AND BACK TO BED. NO OTHER NEEDS AT THIS TIME. PATIENT STATED "FEELING MUCH BETTER NOW".
--- NOTE | 2020-09-29 04:04 | NUR ---
PT UP TO BATHROOM AND BACK TO BED WITH VOICE DATA COMMUNICATIONS ENGINEER. HEARING AID CONSULTANT TO ROOM FOR PT ASSESSMENT. PT'S GENERAL APPEARANCE IS TREMENOUSLY IMPROVED FROM PREVIOUS IN THE SHIFT. PT ENDORSES FEELING MUCH BETTER. RATES PAIN 3-4/10 WITH ONLY MILD ABD TENDERNESS TO TOUCH. PT DENIES RECENT DRY HEAVING. BT'S HYPERACTIVE. PT DENIES FURTHER NEEDS AT THIS TIME. CALL LIGHT IN REACH.
--- NOTE | 2020-09-29 07:43 | NUR ---
REPORT RECEIVED. PT LYING IN BED WITH EYES CLOSED. RESPIRATIONS EQUAL AND NONLABORED. CALL LIGHT IN REACH.
--- NOTE | 2020-09-29 09:16 | NUR ---
PATIENT IN BED RESTING. PATIENT FELT REALLY GOOD WHEN I CAME IN ROOM, STARTED VITALS AND THEN PATIENT INSTANTLY FELT SICK TO HER STOMACH, RN NOTIFIED. WASH CLOTH GIVEN. VITALS AND I&O'S CHARTED. BLOOD PRESSURE HIGH, RN NOTIFIED. CALL LIGHT IN REACH. NO FURTHER NEEDS AT THIS TIME.
--- NOTE | 2020-09-29 10:00 | NUR ---
SHOE SALESMAN REPORTED ELVATED BLOOD PRESSURE AND PT C/O NAUSEA AND DRY HEAVING. THIS NURSE TO BEDSIDE. PT FOUND DRY HEAVING, CRYING AND C/O ABDOMINAL PAIN. TORIDOL, ZOFRAN AND NORMADYNE ADMISNTERED. WAITED 30 TO SEE IF MEDICATIONS WILL HELP. PT CALLED CALLED TO NURSING STATION 20 MINUTES LATER TO REPORT NO RELIEF FROM NAUSEA. COMPAZINE THEN ADMISNTERED AND PT ASSISTED TO SHOWER. PT REPORTS SHOWER IS HELPING WITH NAUSEA. PT LEFT TO SHOWER INDEPENDENTLY. PT TO CALL WHEN DONE.
--- NOTE | 2020-09-29 10:30 | NUR ---
PT COMPLETED SHOWER AND REPORTS PAIN AND NAUSEA IS COMPLETELY GONE. PT NOW UP IN CHAIR. CALL LIGHT AND PERSONAL ITEMS WITHIN REACH.
--- NOTE | 2020-09-29 11:30 | NUR ---
Pt lives with her adult grandchildren. She lives in an apartment with 3 steps. Pt denies needs and plans on dc to home when cleared medical ly. Pt. does not drive and use uses the [employer] shuttle. Denies reji rider issues. Will dc home when.
--- NOTE | 2020-09-29 13:47 | NUR ---
PATIENT IN BED RESTING WITH EYES CLOSED. VITALS AND I&O'S CHARTED. FRESH WATER GIVEN. CALL LIGHT IN REACH. NO FURTHER NEEDS AT THIS TIME.
--- NOTE | 2020-09-29 15:00 | NUR ---
PAVEL PRUITT REQUESTED I NOT DISTURB PT SHE IS SLEEPING. WILL CHECK BACK
--- NOTE | 2020-09-29 15:30 | NUR ---
ROUNDED ON PT FOR ASSESSMENT. PT DENEIS PAIN. NO NAUSEA/VOMITING. D5LR INFUSING. MEDICAIOTNS ADMINSTERED.
--- NOTE | 2020-09-29 18:00 | NUR ---
ROUNDED ON PT. DINNER STILL NOT AT BEDSIDE. KITCHEN CALLED. AUDREY ARE BRINGING IT NOW.
--- NOTE | 2020-09-29 18:59 | NUR ---
PATIENT UP TO BATHROOM AND BACK TO BED, SBA. CALL LIGHT IN REACH. NO FURTHER NEEDS AT THIS TIME.
--- NOTE | 2020-09-29 19:39 | NUR ---
REPORT RECEIVED FROM DAY SHIFT RN. PT LYING IN BED ALERT AND ORIENTED. DENIES NEEDS AT THIS TIME. WHITE BOARD UPDATED. CALL LIGHT IN REACH.
--- NOTE | 2020-09-29 20:25 | NUR ---
SCHEDULED MEDS ADMINISTERED. PIV IN RFA INFILTRATED. DC'D WNL. TIP INTACT.
--- NOTE | 2020-09-29 21:57 | NUR ---
NEW IV STARTED. PATIENT TOLERATED IT WELL. IV FLUIDS INFUSING. LIZZIE ZHAO IN ROOM.
--- NOTE | 2020-09-29 22:30 | NUR ---
EVENING ASSESSMENT COMPLETE. SCHEDULED MEDS ADMINISTERED PER EMAR. BP MEDS HELD DUE TO LOW BP AND HR. DR. GUNTER NOTIFIED. NO NEW ORDERS RECEIVED. PT DENIES PAIN OR NAUSEA. IVF INFUSING. WARM BLANKET PROVIDED. NO FURTHER NEEDS AT THIS TIME. CALL LIGHT IN REACH.
--- NOTE | 2020-09-30 00:30 | NUR ---
PT AWAKENED FOR MED ADMINISTRATION. UP TO BR WITH SBA TO VOID. GAIT UNSTEADY AT TIMES. PT REPORTS SHE USES WALKER AT HOME ON "WEAK DAYS". BACK TO BED, KAY WELL. DENIES PAIN, NAUSEA, OR ABD CRAMPING. STATES "I CAN EVEN BEND OVER AND PUT MY SOCKS ON". DENIES FURTHER NEEDS. CALL LIGHT IN REACH.
--- NOTE | 2020-09-30 01:06 | NUR ---
CALL LIGHT ANSWERED. PT SITTING UP IN BED ROCKING BACK AND FORTH. REPORTS NAUSEA AND 9/10 ABD PAIN. PRN FOR PAIN AND NAUSEA ADMINISTERED PER EMAR.
--- NOTE | 2020-09-30 02:01 | NUR ---
PT CONTINUES TO REPORT NAUSEA. ENCOURAGED PT TO HAVE SNACK WITH THE THOUGHT PO POTASSIUM MAY HAVE CAUSED NAUSEA. ENSURE PROVIDED. PT CURRENTLY DRINKING ENSURE IN BED.
--- NOTE | 2020-09-30 02:26 | NUR ---
PT RESTING ON RIGHT SIDE WITH EYES CLOSED, NAD.
--- NOTE | 2020-09-30 05:05 | NUR ---
PT UP TO BR WITH SBA TO VOID. BACK TO BED. UPON RETURNING TO BED PT BEGAN DRY HEAVING. REPORTS ABD PAIN 12/18. PRN ORAL AND TOPICAL ANALGESIA ADMINISTERED FOR PAIN. BP NOTED TO BE ELEVATED. DISCUSSED WITH DECISION UNIT RN. SCHEDULED BETA-JUDIT ADMINISTERED EARLY. WILL UPDATE MD.
--- NOTE | 2020-09-30 06:31 | NUR ---
VS REASSESSED. BP REMAINS ELEVATED. PT APPEARS ANXIOIUS AND CONTINUES TO REPORT CRAMPING ABD PAIN THAT WORSENS WITH ANY MOVEMENT. UP TO BR WITH SBA TO VOID. PT INCONTINENT OF URINE ON THE WAY. CLEAN BRIEF AND GOWN PROVIDED. BACK TO BED. DR. GUNTER NOTIFIED OF ELEVATED BP. WILL REASSESS BP WHEN PT APPEARS LESS ANXIOUS AND REPORT BACK.
--- NOTE | 2020-09-30 07:07 | NUR ---
REPORT RECEIVED FROM PAVEL SAMUEL. PT RESTING IN BED ON LEFT SIDE. PT REPORTS 5/10 PAIN IN STOMACH AND 5/10 NAUSEA. PT STATES "I GET THE NAUSEA AND THEN THE PAIN COMES" PT STATES SHE THINKS THE NAUSEA IS CAUSING THE PAIN. PT DENIES ADDITIOAL REQUESTS OR COMPLAINTS AT THIS TIME. CALL LIGHT WITHIN REACH. BED RAILS UP.
--- NOTE | 2020-09-30 07:23 | NUR ---
DR. GUNTER NOTIFIED OF UPDATED BP. NEW TELEPHONE ORDERS RECEIVED VERIFIED WITH READ BACK METHOD.
--- NOTE | 2020-09-30 07:28 | NUR ---
MORNING ASSESSMENT AND MEDICATION DUE. PT CONTINUES RESTING IN BED ON LEFT SIDE. PT REPORTS LYING ON HER STOMACH ALSO HELPS WITH THE PAIN AND NAUSEA. PT CONTINUES TO REPROTS 5/10 ACHING ABDOMINAL PAIN AND IS TENDER TO TOUCH THROUGHOUT ABDOMEN. BOWEL TONES NOTED. PT CONTINUES TO REPORT NAUSEA, PHENEGRAN GIVEN: IV ASSESSED, FLUSHES EASILY, MILD BLOOD RETURN NOTED. PHENEGRAN DILUTED IN 20ML NS AND GIVEN BY SLOW IV PUSH. BLOOD RETURN NOTED EVERY 5ML OF PHENEGRAN PUSH. VITAL SIGNS ASSESSED, BLOOD PRESSURE CONTINUES TO BE ELEVATED. MD CALLED BY PAVEL SAMUEL, WHO STATES MD STATES TO GIVE LOSTARTAN NOW. ORDERS ENTERED BY PAVEL SAMUEL. SEE MAR FOR MEDICATION GIVEN. PT REPORTS HEAT HELPS WITH NAUSEA AND PAIN, HEAT PACK PROVIDED. PT ALSO REPORTS HISTORY OF STOMACH ULCERS BUT IS UNABLE TO RECAL IF THIS PAIN/NAUSEA FEELS SIMILAR TO THOSE EPISODES. GENERALIZED WEAKNESS CONTINUES WHICH PT ATTRIBUTES TO THE PAIN/NAUSEA. PT ABLE TO AMBULATE WITH STAND BY ASSIST. PT REPORTS SHE IS ABLE TO FEEL THE MEDICATION STARTING TO WORK, UNABLE TO TELL IF IT IS EFFECTIVE AT THIS TIME. PO MEDICATIONS GIVEN. PT CONTINUES RESTING IN BED. NO ADDITIONAL REQUESTS OR COMPLAINTS AT THIS TIME. CALL LIGHT WITHIN REACH. BED RAILS UP.
--- NOTE | 2020-09-30 07:31 | NUR ---
Updated notes sent to [facility] per request.
--- NOTE | 2020-09-30 07:58 | NUR ---
PT AWAKE IN BED. PT DECLINED WARM CLOTH FOR FACE. WHITE BOARD UPDATED. CALL LIGHT WITHIN REACH. NO FURTHER NEEDS AT THIS TIME.
--- NOTE | 2020-09-30 08:36 | NUR ---
THIS RN TO ROOM TO CHECK ON PT. PT RESTING ON RIGHT SIDE WITH EYES CLOSED. RESPIRATIONS EVEN AND UNALBORED. BED RAILS UP. CALL LIGHT WITHIN REACH. PT ALLOWED TO REST UNDESTURBED.
--- NOTE | 2020-09-30 09:13 | NUR ---
THIS RN TO ROOM TO CHECK ON PT. PT RESTING ON RIGHT SIDE WITH EYES CLOSED. PT AWAKENS TO MOVEMENT IN THE ROOM. PT REPORTS HER ABDOMINAL PAIN AND NAUSEA "ARE GONE." STAND BY ASSIST UP TO RESTROOM. PT VOIDS WITHOUT ISSUE. VITALS SIGNS REASSESED, BLOOD PRESSURE NOW WNL. PT RESTING IN BED. CALL LIGHT WITHIN REACH. ICE WATER REFILLED. BED RAILS UP.
--- NOTE | 2020-09-30 11:02 | NUR ---
THIS RN TO ROOM TO CHECK ON PT. PT RESTINGIN BED WATCHING TV. PT DENIES PAIN AND NAUSEA AT THIS TIME REPORTING "I'M DOING PRETTY GOOD RIGHT NOW." PT ENCOURAGED TO CALL IF NAUSEA OR PAIN STARTS TO RETURN. PT DENIES ADDITIONAL REQUESTS OR COMPLAINTS AT THIS TIME. CALL LIGHT WITHIN REACH. BED RAILS UP.
--- NOTE | 2020-09-30 11:15 | NUR ---
Pt. resting, cont. with abd pain. No change in plan for dc.
--- NOTE | 2020-09-30 11:19 | NUR ---
THIS RN TO ROOM WITH MD FOR ROUNDS. PT REPORTS SHE CONTINUES TO FEEL BETTER SO FAR TODAY. pT CURRENTLY REPORTS ACHING PAIN IN ABDOMEN AT 3/10 AND NAUSEA AT 5/10. PT REQUESTS MEDICATION. PHENEGRAN TITRATED UP TO FULL DOSE (SEE MAR). IF ASSESSED, MILD BLOOD RETURN NOTED. PHENEGRAN GIVEN DILUTED IN 20ML NORMAL SALINE OVER SLOW IV PUSH IN FREE FLOWING IV. PT REPORTS SHE HAD SURGERY PREVIOUSLY IN [place], WILL OBTAIN RECORDS. CALL LIGTH WITHIN REACH. PT DENIES ADDITONAL REQUESTS OR COMPLAINTS AT THIS TIME. CALL LIGHT WITHIN REACH. BED RAILS UP.
--- NOTE | 2020-09-30 11:48 | NUR ---
CALLED [facility]ON[facility] TO REQUEST DISCHARGE SUMMARY AND OPERATIVE NOTES. SENT OFF THE FAX REQUEST PER THEIR REQUEST.
--- NOTE | 2020-09-30 12:44 | NUR ---
THIS RN TO ROOM TO CHECK ON PT. PT EATING SOUP AND SMALL BITES OF EGG SALAD. PT DENIES ABDOMINAL PAIN AND NAUSEA. PT DENIES REQUESTS OR COMPLAINTS AT THIS TIME. CALL LIGHT WITHIN REACH. BED RAILS UP.
--- NOTE | 2020-09-30 13:48 | NUR ---
AFTERNOON ASSESSMENT DUE. PT CALL LIGHT ON. PT REQUESTS ASSISTANCE UP TO THE RESTROOM. STAND BY ASSIST UP TO RESTROOM. PT VOIDS 700ML CLEAR YELLOW URINE WITHOUT ISSUE. STAND BY ASSIST BACK TO BED. VITAL SIGNS IMPROVNG. BLOOD PRESSURE WNL. ASSESSMENT DONE: LUNG SOUNDS. CLEAR. HEART TONES REGULAR. ABDOMEN CONTINUES TO BE TENDER TO TOUCH. BOWEL TONES NOTED. PT REPORTS 3/10 ACHING PAIN IN ABDOMEN, PT DENIES NEED FOR MEDICATION AT THIS TIME. PT DENIES NAUSEA AT THIS TIME. PT REPORTS HER THINKING FEELS FOGGY "I'VE BEEN TRYING TO REMEMBER STUFF AND I JUST KEEP FORGETTING." PT ORIENTED TO ALL AND ANSWERING QUESTIONS APPROPRIATLY. PT DENIES ADDITIONAL REQUESTS OR COMPLAINTS. CALL LIGHT WITHIN REACH. BED RAILS UP.
--- NOTE | 2020-09-30 15:14 | NUR ---
THIS RN TO ROOM TO CHECK ON PT. PT SITTING UP IN BED ORDERING DINNER. PT DENIES NAUSEA AND REPORTS 2/10 ACHING ABDOMINAL PAIN. PT DENIES NEED FOR MEDICATIONS AT THIS TIME. PT ENCOURAGED TO AMBULATE, AGREES. PT UP TO AMBULATE X1 LAP IN [place] WITH STAND BY ASSIST. PT UP FOR SHOWER, INDEPENDANT WITH SHOWER CHAIR. FRESH GOWN, SOCKS, AND DEPENDS PROVIDED. LINENS CHANGED. PT PERFORMS HER OWN SHAMPOO, SKIN CARE, ORAL CARE AND NALLELY CARE. PT BACK TO BED. NO ADDITIONAL REQUESTS OR COMPLAINTS. CALL YURIY ZHAO. BED RAILS UP.
--- NOTE | 2020-09-30 15:40 | NUR ---
PT HERE FOR ABDOIMAL PAIN AND ENTERCOLITIS WITH NAUSEA AND VOMITING. PT UP WITH STAND BY ASSIST THIS SHIFT TO SHOWER AND AMBULATE IN HALLS. NAUSEA CONTROLED WITH PRN PHENEGRAN, DECREASING THROUGHOUT SHIFT. PT TOELRATED SOUP AND SMALL BITES OF EGG SALAD FOR LUNCH. 0-5/10 ACHING ABDOMINAL PAIN CONTROLED WITH PRN NAUSEA MEDICAITONS AND HEAT PACKS. LABS REPEATED THIS SHIFT. IV FLUIDS CONTINUE. PT REPORTS FEELING "BETTER TODAY." VOIDING QUANTITY SUFFICIENT. PT USES CALL LIGHT APPROPRIATLY AND MAKES NEEDS KNOWN.
--- NOTE | 2020-09-30 17:29 | NUR ---
THIS RN TO ROOM TO CHECK ON PT. PT UP TO CHAIR EATING DINNER. PT ABLE TO EAT 50% OF HER SALMON AND MASHED POTATOES. PT DENIES ABDOMINAL PAIN OR NAUSEA AT THIS TIME. IV ASSESSED, WNL, NO PAIN REDNESS OR SWELLING NOTED. PT DENIES ADDITIONAL REQUESTS OR COMPLAINTS AT THIS TIME. CALL LIGHT WITHIN REACH.
--- NOTE | 2020-09-30 18:37 | NUR ---
THIS RN TO ROOM TO CHECK ON PT. PT RESTING IN BED. PT DENIES PAIN AND NAUSEA T THIS TIME. PT DENIES ADDITIONAL REQUESTS OR COMPLAINTS. IV, WNL. BED RAILS UP. CALL LIGHT WITHIN REACH.
--- NOTE | 2020-09-30 21:07 | NUR ---
coop with assessment, on room air, c/o abd pain, no emesis or dry heaving, medicated wt norco. cooperative. IVF infusing, Up to br, voiding QS yellow urine. call light, fluids and ice chips at bedside
--- NOTE | 2020-09-30 23:09 | NUR ---
medicated with phenergan 6.25mg IV dry heaving, pt stated that she got startled and scared when this nurse opened door and curtains. I apologized and will try to open door in a more very, super slow motion at hs. Pt cooperative, no emeis, call light and fluids at bedside.
--- NOTE | 2020-10-01 00:35 | NUR ---
RESTING, NO DISTRESS, CALL LIGHT AT BEDSIDE
--- NOTE | 2020-10-01 01:10 | NUR ---
RESTSING, ON ROOM AIR, EYES CLOSED, NO FURTHER C/O PAINOR DRY HEAVING, NO EMESIS, TOLERATIANG LIQUIDS WELL, USES CALL LIGHT, IVF INFUSING
--- NOTE | 2020-10-01 04:11 | NUR ---
Resting, eyes closed, no distress, on room air, IVF infusing, call light at hands reach
--- NOTE | 2020-10-01 05:34 | NUR ---
pT HAS SLEPT THIS SHIFT, WAS MEDICATED WITH PHENERGAN 6.25MG X2 PER DRY HEAVING, EFFECTIVE, IVF INFUSING, NO EMESIS, HAS TOLERATED ICE CHIPS AND FLUIDS. SBA , VOIDING QS. MEDICATED X1 PER C/OABD PAIN, EFFECTIVE. PLEASANT AND COOP.
--- NOTE | 2020-10-01 08:30 | NUR ---
MORNING MEDICATIONS GIVEN. PT DENIES NAUSEA OR ABD PAIN THIS AM AFTER RECEIVING PHENERGAN & NORCO EARLIER. REPORTS 5/10 HEADACHE, GIVEN TYLENOL. PT INDEPENDENT IN THE ROOM, STEADY ON FEET. VSS. LUNG SOUNDS ARE CLEAR THROUGHOUT, BOWEL TONES ACTIVE. PT REPORTS SHE HAS NOT YET HAD A BM SINCE 09/27 THOUGH IS STILL PASSING GAS. STATES SHE NORMAL HAS REGULAR BM'S DAILY AT HOME, THOUGH INTAKE HAS BEEN MUCH DECREASED OVER THE LAST WEEK PER PT. CALL LIGHT IN REACH AND PT CALLS APPROPRIATELY.
--- NOTE | 2020-10-01 10:30 | NUR ---
I was able to meet with Swathi briefly this morning, I did not spend a great deal of time in her room as the nursing staff members were attempting to start a new IV. Swathi reports that her nausea and abdominal pain is decreased, at least for the time being, and she reports that she was able to keep down some cream of wheat and peaches this morning. Swathi again reports that she is very happy with the care that she has received in the hospital, and she is pleased with the nurses and other care givers that have cared for her here. She is alert and oriented to person, place and time, and she is able to answer questions appropriately. She additionally added that she was able to sleep good last night, which is something that she has not done for "a very long time." Swathi has no questions or concerns for me at this time.
--- NOTE | 2020-10-01 10:58 | NUR ---
SET PATIENT UP FOR A SHOWER SOMETIME TODAY. SHE WANTED TO WAIT AND TALK TO THE DOCTOR FIRST.
--- NOTE | 2020-10-01 14:00 | NUR ---
Spoke with Swathi. She is having pain this afternoon. States she had several hours of being pain free and felt really well. States concern she may have an ulcer. Gave me her granddaughters phone number who lives with her. Sarah [phone].
--- NOTE | 2020-10-01 15:45 | NUR ---
PT AMBULATED SHORT DISTANCE IN [place] SBA, SLIGHTLY UNSTEADY ON FEET, REPORTS FEELING SLIGHTLY DIZZY WHEN SHE STOOD UP. VSS, SEE CHART. PT BACK TO CHAIR. D5LR INFUSING AT 50 MLS/HR. CALL LIGHT IN REACH.
--- NOTE | 2020-10-01 18:01 | NUR ---
Patient asked for help to organize her room and this was completed successfully, resident went for a 5 minute walk, and is now resting in bed with fresh ice water. Call light and personal items are in reach.
--- NOTE | 2020-10-01 20:31 | NUR ---
declines lactulose at this time, will offer agin t/o this shift. no bm at this time, stated passing as
--- NOTE | 2020-10-01 20:31 | NUR ---
up to br, voided, back to bed, tolerated well, no c/o pain or n/v. IVF infusing. call light and fluids at bedside. Coop with assessment
--- NOTE | 2020-10-01 23:04 | NUR ---
Awakes easily, no c/o pain orn/v. ivf infusing. no bm, cont to decline lactulose, "I do not want it if it will make me cramp". semi receptive to med [employer].
--- NOTE | 2020-10-02 00:08 | NUR ---
iv beeping, arm straightened, on room air, no c/o pain or n/v. goes back to sleep. call light and fluids at bedside, no bm, continues to decline lactulose. semi receptive to med teaching
--- NOTE | 2020-10-02 02:19 | NUR ---
resting, no distress, on room air, ivf infusing. call light and fluids at bedside
--- NOTE | 2020-10-02 03:06 | NUR ---
resting, laying on left side, no distess, ivf infusing. turns and repositions self.
--- NOTE | 2020-10-02 04:49 | NUR ---
Pt has slept most of this shift. On room air. No c/o abd pain or emesis this shift, has had no bm, abd soft, HEA, declined lactulose that was ordered due to fear of "abd cramping" semi receptive to med info give. SB, when up, toleraing well, IVF infusing w/o problems, Voiding QS.
--- NOTE | 2020-10-02 06:50 | NUR ---
RESTING, NO DISTRESS, TURNS AND REPOSITIONS SELF IN BED. IVF INFUSING, NO FURTHER C/O PAIN, NO EMESIS
--- NOTE | 2020-10-02 09:08 | NUR ---
PATIENT AWAKE IN BED, VITALS AND I&OS CHARTED. CALL LIGHT IN REACH, NO OTHER NEEDS AT THIS TIME
--- NOTE | 2020-10-02 10:30 | NUR ---
PT HAS NOT HAD BM SINCE 10/03. PT REPORTEDLY REFUSED LACTULOSE OFFERED LAST NIGHT SHE FELT SHE WAS ABOUT TO HAVE BM AND WAS AFRAID MEDICATION WOULD CAUSE ABDOMINAL CRAMPING. PT WAS OFFERED MAGNESIUM CITRATE THIS AM BY DR GUNTER AND PT AGAIN REFUSED EVEN AFTER CONSTIPATION. ENCOURAGED AMBULATION WHEN PT RETURNS HOME TO KEEP BOWELS ACTIVE. PT HAS DENIED NAUSEA THIS SHIFT AND ALSO DENIES PAIN AT THIS TIME. REVIEWED DC INSTRUCTIONS AND PT VERBALIZED UNDERSTANDING. VSS. RFA IV REMOVED CATH INTACT. I CALLED FOR PT AND AWAITING ARRIVAL.
[2020-10-02] MEDS ORDERED: LABETALOL HCL100 MG PO (10:38)
[2020-10-02] MEDS ORDERED: LOSARTAN POTASS50 MG PO (10:38)
[2020-10-02] MEDS ORDERED: CAPSAICIN42.5 GM TOP (10:39)
[2020-10-02] MEDS ORDERED: ONDANSETRON ODT4 MG SL (10:39)
[2020-11-10] MEDS ORDERED: ONDANSETRON ODT4 MG PO (12:42)
== END 2020-10-02 11:30 | disposition home or self-care (01) | DRG 392 ==
LOC: ED 12:46 → MS 12:48
PROVIDERS: ADMIT Internal Medicine; ATTEND Internal Medicine
DX: R11.2 Nausea with vomiting, unspecified (principal); E87.1 Hypo-osmolality and hyponatremia; F12.90 Cannabis use, unspecified, uncomplicated; I16.0 Hypertensive urgency; E87.6 Hypokalemia; E83.42 Hypomagnesemia
CPT/HCPCS: 36415; 51701; 74177; 80053; 81001; 83605; 83690; 83735; 85025; 85651; 96372; 96375; 96376; 99285-25; C9803; G0378; J0500; J0780; J1170; J1650; J1885; J2405; J2550; J3475; J3480; J7030; J7121; Q9967; U0003

== ENCOUNTER → 2020-11-10 | Emergency (ER) | payer OTHER ==
[~2020-11-10] VITALS: Ht 160 cm; Wt 71.7 kg
[~2020-11-10] MED LIST changes: +CAPSAICIN42.5 GM TOP; +LABETALOL HCL100 MG PO; +LOSARTAN POTASS50 MG PO; +ONDANSETRON ODT4 MG SL
--- OUTSIDE RECORDS SUMMARY | 2020-11-10 10:46 | XMS ---
PreManage Notification: MICHAEL DAWSON Security Manager Six Sigma Events No recent Security Events currently on file CRITERIA MET - Group Notification CARE PROVIDERS DONA LIN Physician Dye Weigher: Medical 12/26/2017-[facility] PHONE: Unknown [facility] 01/27/2020-[facility] PHONE: [phone] Simeon has no Care Guidelines for this patient. Care History Medical/Surgical 06/03/2019 [facility] - PATIENT IS [facility] ELIGIBLE, \T\middot;\T\nbsp; PLEASE REFER PATIENT TO [facility] FOR NON EMERGENT MEDICAL NEEDS. \T\middot;\T\nbsp; [facility] CAN SEE PATIENTS SAME DAY FOR APTS IF PATIENT CALLS FIRST THING IN THE MORNING. E.D. VISIT COUNT (12 MO.) 4 [facility] TOTAL 4 NOTE: Visits indicate total known visits. ED/UCC VISIT TRACKING (12 MO.) 11/10/2020 00:14 [facility] TYPE: Emergency COMPLAINT: - VOMITING 09/27/2020 12:47 [facility] TYPE: Emergency [...] abdominal pain INPATIENT VISIT TRACKING (12 MO.) 09/29/2020 11:57 [facility] TYPE: Medical Surgical COMPLAINT: - ENTEROCOLITIS DIAGNOSES: - Hypertensive urgency - Cannabis use, unspecified, uncomplicated - Hypomagnesemia - Nausea with vomiting, unspecified - Hypo-osmolality and hyponatremia - Noninfective gastroenteritis and colitis, unspecified - Hypokalemia [email or web address]
== END ==
LOC: ED 00:13
DX: R11.2 Nausea with vomiting, unspecified (principal); F12.90 Cannabis use, unspecified, uncomplicated; Z20.822 Contact with and (suspected) exposure to COVID-19; I10 Essential (primary) hypertension; K21.9 Gastro-esophageal reflux disease without esophagitis; E78.5 Hyperlipidemia, unspecified; Z87.891 Personal history of nicotine dependence; Z79.899 Other long term (current) drug therapy
CPT/HCPCS: 70450; 74177; 80053; 81001; 83605; 83690; 83735; 84484; 85025; 96375; 99284-25; C9803; J1200; J1630; J1885; J2270; J2765; J3475; J7121; Q9967; U0003

== ENCOUNTER 2021-03-01 07:36 | Emergency (ER) | payer OTHER ==
[~2021-03-01] VITALS: Ht 160 cm; Wt 71.7 kg
--- OUTSIDE RECORDS SUMMARY | 2021-03-01 07:44 | XMS ---
PreManage Notification: MICHAEL DAWSON Security Adolescent Psychiatrist Events No recent Security Events currently on file CRITERIA MET - Group Notification CARE PROVIDERS DONA LIN Physician Music Producer: Medical 12/26/2017-[facility] PHONE: Unknown [facility]/[place] 01/27/2020-[facility] PHONE: [phone] Simeon has no Care Guidelines for this patient. Care History Medical/Surgical 06/03/2019 [facility] - PATIENT IS [facility] ELIGIBLE, \T\middot;\T\nbsp; PLEASE REFER PATIENT TO [facility] FOR NON EMERGENT MEDICAL NEEDS. \T\middot;\T\nbsp; [facility] CAN SEE PATIENTS SAME DAY FOR APTS IF PATIENT CALLS FIRST THING IN THE MORNING. E.D. VISIT COUNT (12 MO.) [address] [facility] TOTAL 4 NOTE: Visits indicate total known visits. ED/UCC VISIT TRACKING (12 MO.) 03/01/2021 07:37 [facility] TYPE: Emergency COMPLAINT: - BACK PAIN 11/10/2020 00:14 [facility] TYPE: Emergency COMPLAINT: - VOMITING DIAGNOSES: - Cannabis use, unspecified, uncomplicated - Unspecified abdominal pain - Other halfway (current) drug therapy - Hyperlipidemia, unspecified - Essential (primary) hypertension - Nausea with vomiting, unspecified - Personal history of nicotine dependence - Gastro-esophageal reflux disease without esophagitis 09/27/2020 12:47 [facility] TYPE: Emergency COMPLAINT: - ABD PAIN, N/V 06/10/2020 17:11 [facility] TYPE: Emergency COMPLAINT: - VOMITING DIAGNOSES: - Vomiting, unspecified - Gastro-esophageal reflux disease without esophagitis - Headache, unspecified - Essential (primary) hypertension - Vomiting, unspecified - Personal history of transient ischemic attack (TIA), and cerebral infarction without residual deficits - Hyperlipidemia, unspecified INPATIENT VISIT TRACKING (12 MO.) 09/29/2020 11:57 [facility] TYPE: Medical Surgical COMPLAINT: - ENTEROCOLITIS DIAGNOSES: - Hypertensive urgency - Cannabis use, unspecified, uncomplicated - Hypomagnesemia - Nausea with vomiting, unspecified - Hypo-osmolality and hyponatremia - Noninfective gastroenteritis and colitis, unspecified - Hypokalemia [email or web address]
[2021-03-01] MEDS ORDERED: PREDNISONE20 MG PO (09:32)
== END 2021-03-01 09:50 | disposition home or self-care (01) ==
LOC: ED 07:36
DX: M54.42 Lumbago with sciatica, left side (principal); I10 Essential (primary) hypertension; K21.9 Gastro-esophageal reflux disease without esophagitis; E78.5 Hyperlipidemia, unspecified; Z87.891 Personal history of nicotine dependence; Z79.899 Other long term (current) drug therapy
CPT/HCPCS: 96374; 96375; 99283-25; J1100; J1885

== ENCOUNTER 2021-04-14 06:27 | Inpatient (IN) | payer OTHER ==
[~2021-04-14] VITALS: Ht 160 cm; Wt 71.0 kg
[~2021-04-14 06:27] MED LIST changes: +PREDNISONE20 MG PO
--- OUTSIDE RECORDS SUMMARY | 2021-04-14 06:30 | XMS ---
PreManage Notification: MICHAEL DAWSON Security Circuit Rider Events No recent Security Events currently on file CRITERIA MET - Group Notification CARE PROVIDERS DONA LIN Physician Knuckle Bender: Medical 12/26/2017-[facility] PHONE: Unknown [facility] 01/27/2020-[facility] PHONE: [phone] Simeon has no Care Guidelines for this patient. Care History Medical/Surgical 03/02/2021 [facility] - PATIENT IS [facility] ELIGIBLE, PLEASE REFER PATIENT TO [facility] FOR NON EMERGENT MEDICAL NEEDS. [facility] CAN SEE PATIENTS SAME DAY FOR APTS IF PATIENT CALLS FIRST THING IN THE MORNING. E.D. VISIT COUNT (12 MO.) [address] [facility] TOTAL 5 NOTE: Visits indicate total known visits. ED/UCC VISIT TRACKING (12 MO.) 04/14/2021 06:27 [facility] TYPE: Emergency COMPLAINT: - ABDOMINAL PAIN, NAUSEA 03/01/2021 07:37 [facility] TYPE: Emergency COMPLAINT: - BACK PAIN DIAGNOSES: - LOW BACK PAIN, UNSPECIFIED - Personal history of nicotine dependence - Other long term care phlebotomist (current) drug therapy - Hyperlipidemia, unspecified - Essential (primary) hypertension - Gastro-esophageal reflux disease without esophagitis - Lumbago with sciatica, left side 11/10/2020 00:14 [facility] [place] TYPE: Emergency COMPLAINT: - VOMITING DIAGNOSES: - Cannabis use, unspecified, uncomplicated - Unspecified abdominal pain - Other care home (current) drug therapy - Hyperlipidemia, unspecified - Essential (primary) hypertension - Nausea with vomiting, unspecified - Personal history of nicotine dependence - Gastro-esophageal reflux disease without esophagitis 09/27/2020 12:47 [facility] [place] TYPE: Emergency COMPLAINT: - ABD PAIN, N/V 06/10/2020 17:11 [facility] [place] TYPE: Emergency COMPLAINT: - VOMITING DIAGNOSES: [...] Noninfective gastroenteritis and colitis, unspecified - Hypokalemia [email or web address]
--- NOTE | 2021-04-14 12:15 | NUR ---
PT TO FLOOR WITH PAVEL SIMON. PT AMBULATED TO BED ON OWN. HOOKED TO IVF AND BOLUS. RUNNING AT HALF SPEED FOR BOLUS HER IV IS SMALL AND HARD START FOR NOW. PT DENIES EMESIS OR NAUSEA.STATES SHE FEELS WORN OUT.
--- NOTE | 2021-04-14 14:02 | NUR ---
PT LAYING QUIETLY IN BED. PT COMPLAINS OF STOMACH FEELING SPORE. CALL LIGHT WITHIN REACH, NO FURTHER NEEDS AT THIS TIME.
--- NOTE | 2021-04-14 14:12 | NUR ---
PT IN BED WATCHING TV AND RESTING. PREVIOUSLY UP TO RESTROOM FOR VOID. DENIES CONCERNS
--- NOTE | 2021-04-14 15:03 | NUR ---
PT AWAKE AFTER TAKING A NAP. PT STATES SHE FEELS RESTLESS BUT NO COMPLAINTS. ADMINISTERED SCHEDULED MED.
--- NOTE | 2021-04-14 15:06 | NUR ---
MED REC COMPLETED BY PHARMACY
--- NOTE | 2021-04-14 17:21 | NUR ---
PT SITTING IN CHAIR WATCHING TV AND CHATTING WITH THIS POKER SUPERVISOR. PT SEEMS TO BE MUCH MORE ZIG ZAG STITCHER. CALL LIGHT WITHIN REACH, NO FURTHER NEEDS AT THIS TIME.
--- NOTE | 2021-04-14 19:30 | NUR ---
SHIFT REPORT RECEIVED FROM LUCA ZHAO. PT RESTING IN BED. DENIES NAUSEA AT THIS TIME. CALL LIGHT IN REACH.
--- NOTE | 2021-04-14 20:21 | NUR ---
ASSESSMENT, VS AND I&O COMPLETED. GCS 15, A&O X4. LUNGS CLEAR, HEART TONES REGULAR. ABD MODERATELY DISTENDED, TENDER, BOWEL TONES ACTIVE, PT DENIES NAUSEA. CMS INTACT. IV CDI, FLUSHED WELL, IV FLUIDS INFUSING PER ORDER. ICE WATER AND JELLO PROVIDED. NO OTHER NEEDS. CALL LIGHT IN REACH.
--- NOTE | 2021-04-14 21:50 | NUR ---
PT REQUEST SLEEP MED. PROVIDED. NO OTHER NEEDS. CALL LIGHT IN REACH.
--- NOTE | 2021-04-14 22:45 | NUR ---
PT RESTING IN BED, EYES CLOSED. RR EVEN, UNLABORED. IV FLUIDS INFUSING PER ORDER. CALL LIGHT IN REACH.
--- NOTE | 2021-04-15 01:10 | NUR ---
VS AND I&O COMPLETED. PT UP TO BR AND BACK TO BED. PT DENIES NAUSEA AND PAIN. ICE WATER PROVIDED. NO OTHER NEEDS. CALL LIGHT IN REACH.
--- NOTE | 2021-04-15 03:00 | NUR ---
PT RESTING IN BED, EYES CLOSED. RR EVEN, UNLABORED. IV FLUIDS INFUSING PER ORDER. CALL LIGHT IN REACH.
--- NOTE | 2021-04-15 05:45 | NUR ---
ASSESSMENT, VS AND I&O COMPLETED. PT REPORTS 5/10 JOINT PAIN IN ANKLES, HIPS ABD AND KNEES. PRN PAIN OINTMENT PROVIDED. PT DENIES NAUSEA AND HAS HAD NO BMs THIS SHIFT. IV WNL, IV FLUIDS INFUSING PER ORDER. TEA AND WARM PACK PROVIDED. NO OTHER NEEDS AT THIS TIME. CALL LIGHT IN REACH.
--- NOTE | 2021-04-15 07:20 | NUR ---
REPORT RECIEVED FROM STIFF LEG DERRICK OPERATOR RN, PT IN BED RESTING, NO NEEDS AT THE MOMENT.
--- NOTE | 2021-04-15 08:51 | NUR ---
RN IN ROOM TO DO MORNING MEDS AND ASSESSMENT, PT DENIES ANY NAUSEA, STILL HAS TENDERNESS TO ABD DENIES ANY OTHER NEEDS.
--- NOTE | 2021-04-15 09:24 | NUR ---
DISCUSSED WITH PATIENT HER FOOD PREFERENCES. SHE DOES NOT LIKE CITRUS FRUITS OR JUICES. CRANBERRY OR GRAPE JUICE IS OK. KITCHEN IS NOTIFIED.
--- NOTE | 2021-04-15 10:37 | NUR ---
RN IN ROOM TO ADMINSISTER POTASSIUM TABLETS AND CHANGE IV FLUID RATE, RESTING COMFORTABLE IN BED NO NEEDS AT THE MOMENT
--- NOTE | 2021-04-15 12:21 | NUR ---
RN IN ROOM TO ROUND ON PT, EATING LUNCH, FULL LIQUID TOLERATED WELL, ENCOURGAED PT TO GET UP TO AMBULATE
--- NOTE | 2021-04-15 13:24 | NUR ---
RN IN ROOM TO ADMINISTER POTASIUM TABLET, PT JUST GETTING OUT OF THE SHOWER, TOLEREATED FULL LIQUID DIET, WILL ADVANCE DIET PER ORDER
--- NOTE | 2021-04-15 15:46 | NUR ---
RN IN ROOM TO ROUND ON PT, PT AWAKE UP IN BATHRROM DENIES N/V DIET ADVNACED, WATER REFILLED WARM BLANKET PROVIDED NO OTHER NEEDS
--- NOTE | 2021-04-15 16:00 | NUR ---
Spoke with pt and she states she lives in town. Her granddaughter and great granddaughter live with her. She does not drive, uses a taxi for transportation. States she uses a cane as she has many body aches. She has 4 steps into her apartment. Granddaughter does all house hold chores and pt cooks. Pt denies needs. Would like a shower bench for her claw foot tub, but will need to measure. Gave her the name of the [facility] to check if they would have a bench which would fit her tub.
--- NOTE | 2021-04-15 17:23 | NUR ---
MED REC COMPLETE
--- NOTE | 2021-04-15 18:40 | NUR ---
RN IN ROOM TO DO i&oS AND VS, STABLE, DENIES ANY NEEDS AT THE MOMENT WANT TO HAVE MELATONIN TONIGHT
--- NOTE | 2021-04-15 19:39 | NUR ---
BEDSIDE REPORT FROM JESUS ZHAO, PT RESTING IN BED ALERT AND ORIENTED. SHE HAS NO REQUESTS, SHE SAID SHE IS COMFORTABLE AT THIS TIME. SHE DID SAY SHE WOULD LIKE MELATONIN TONIGHT.
--- NOTE | 2021-04-15 21:02 | NUR ---
PT BACK TO BED INDEPENDENTLY FROM BATHROOM AT THIS TIME. SHE REPORTS NO PAIN OR NAUSEA. MELATONIN ADMNISTERED PER PT REQUEST AT THIS TIME
--- NOTE | 2021-04-16 01:24 | NUR ---
PT ALERT TO RN ROUNDING, SHE WAS IN FACT STARTED WHEN THIS RN OPENED DOOR TRYING NOT TO WAKE PT. SHE SAID SHE WAS JUST BACK TO BED FROM BATHROOM. SHE HAS FINISHED HER CAMOMILE TEA AND WAS ADMINISTERED MELATONIN AT HS AND IS STILL UNABLE TO SLEEP. SHE SAID SHE CAN NOT THINK OF ANYTHING THIS RN CAN PROVIDE TO HELP HER SLEEP. WILL CONTINUE TO MONITOR.
--- NOTE | 2021-04-16 05:51 | NUR ---
PT HAS HAD DIFFICULTY SLEEPING OVER SHIFT, SHE REPORTS SHE WAS ABLE TO SLEEP ABOUT THREE OURS STRAIGHT. SHE SAID SHE FEELS RESTED. SHE IS INDEPENDENT IN THE ROOM, SHE HAS HAD NO PAIN OR NAUSEA OVER SHIFT.
--- NOTE | 2021-04-16 06:51 | NUR ---
PT V/S AND I/O COMPLETE. PT ALERT TO RN IN ROOM. PT REPORTS NO NAUSEA OR PAIN THIS AM.
--- NOTE | 2021-04-16 07:44 | NUR ---
report recieved from cage shift manager, pt in bed resting, call lightwithin reach no needs at the moment wants to go home today
--- NOTE | 2021-04-16 08:49 | NUR ---
RN IN ROOM TO ASSESS PT AND GIVE MORNING MEDS, PT COMPLAINING OF A LITTLE NAUSEA AFTER EATING EGGS IV IS NOT WORKING ORAL CHUCK GIVEN.
--- NOTE | 2021-04-16 10:00 | NUR ---
rn in to round on pt, states miriam helped her, denies any other needs at the moment
--- NOTE | 2021-04-16 11:54 | NUR ---
DR GUNTER ROUNDING ON PT, UPDATED ON PT CONDITION.
[2021-04-16] MEDS ORDERED: ONDANSETRON ODT4 MG SL (11:55)
--- NOTE | 2021-04-16 12:09 | NUR ---
PT REQUESTING DIET EDUCAITONS. WANIGAN CLERK CONSULTED TO SEE PT BEFORE DISCHARGE.
--- NOTE | 2021-04-16 12:45 | NUR ---
Spoke with Swathi. She is eating lunch. States she has a difficult time eating as she is lactose intolerant, cannot eat any citrus, red meat, any fruit with a peal and many others. She feels this is due to her stomach being repaired. She states she fudges as she gets hungry and they she suffers with abd pain and cramping. She denies needs for dc and will go home to her family. She denies need to speak with a housing installer. No needs at this time.
--- NOTE | 2021-04-16 13:06 | NUR ---
PATIENT ASKED TO SPEAK TO ME TO HELP HER FIGURE OUT A BETTER DIET SO SHE DOESN'T HAVE DRY HEAVES AND NAUSEA MUCH. SHE HAD HER UPPER AND LOWER ESOPHAGUS RECONSTRUCTED AT SEPARATE TIMES SO SHE CANNOT TOLERATE BREAD, RED MEAT, STRINGY FOODS, CITRUS, TOMATO, LACTOSE, AND SEEDS. SHE ATE A STEAK ON MONDAY AND ENDED UP HERE. I HELPED HER FIGURE OUT WHAT FOODS FROM THE DIFFERENT FOOD GROUPS THAT SHE CAN EAT. I WROTE THEM OUT ON A PIECE OF PAPER. I REMINDED HER THAT GOOD HEALTH DEPENDS ON A BALANCED DIET, SO EVEN WITH HER FOOD INTOLERANCES BALANCED MEALS ARE IMPORTANT. 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 MY NAME AND OFFICE # ARE ON THE PAPER.
== END 2021-04-16 13:40 | disposition home or self-care (01) | DRG 392 ==
LOC: ED 06:27 → MS 11:06
PROVIDERS: ADMIT Internal Medicine; ATTEND Internal Medicine
DX: R11.2 Nausea with vomiting, unspecified (principal); N17.9 Acute kidney failure, unspecified; E87.1 Hypo-osmolality and hyponatremia; F12.10 Cannabis abuse, uncomplicated; I10 Essential (primary) hypertension; Z20.822 Contact with and (suspected) exposure to COVID-19; K21.9 Gastro-esophageal reflux disease without esophagitis; F32.A Depression, unspecified; E86.0 Dehydration; E86.1 Hypovolemia; E78.5 Hyperlipidemia, unspecified; Z87.442 Personal history of urinary calculi; Z87.891 Personal history of nicotine dependence; Z90.49 Acquired absence of other specified parts of digestive tract; Z90.710 Acquired absence of both cervix and uterus; Z98.890 Other specified postprocedural states; Z79.899 Other long term (current) drug therapy; Z71.51 Drug abuse counseling and surveillance of drug abuser
CPT/HCPCS: 74176; 80048; 80053; 81001; 83690; 83735; 85025; 87045; 87493; 96374; 96375; 99285-25; A9270; C9803; J1170; J1650; J1790; J2405; J7030; J7121; U0003

== ENCOUNTER 2021-08-26 09:37 | Emergency (ER) | payer OTHER ==
[~2021-08-26] VITALS: Ht 160 cm; Wt 72.6 kg
--- OUTSIDE RECORDS SUMMARY | 2021-08-26 09:44 | XMS ---
PreManage Notification: MICHAEL DAWSON Security Draw Operator Events No recent Security Events currently on file CRITERIA MET - Group Notification CARE PROVIDERS DONA LIN Physician Physical Therapy Aide: Medical 12/26/2017-[facility] PHONE: Unknown [facility]/[place] 01/27/2020-[facility] PHONE: [phone] Simeon has no Care Guidelines for this patient. Care History Medical/Surgical 03/02/2021 [facility] - PATIENT IS [facility] ELIGIBLE, PLEASE REFER PATIENT TO [facility] FOR NON EMERGENT MEDICAL NEEDS. [facility] CAN SEE PATIENTS SAME DAY FOR APTS IF PATIENT CALLS FIRST THING IN THE MORNING. E.D. VISIT COUNT (12 MO.) [address] [facility] TOTAL 5 NOTE: Visits indicate total known visits. ED/UCC VISIT TRACKING (12 MO.) 08/26/2021 09:38 [facility] TYPE: Emergency COMPLAINT: - DIFFICULTY BREATHING, FEVER, JOINT PAIN, HEADACHE 04/14/2021 06:27 [facility] TYPE: Emergency COMPLAINT: - ABDOMINAL PAIN, NAUSEA 03/01/2021 07:37 [facility] TYPE: Emergency COMPLAINT: - BACK PAIN DIAGNOSES: - LOW BACK PAIN, UNSPECIFIED - Personal history of nicotine dependence - Other termite treater (current) drug therapy - Hyperlipidemia, unspecified - Essential (primary) hypertension - Gastro-esophageal reflux disease without esophagitis - Lumbago with sciatica, left side 11/10/2020 00:14 [facility] TYPE: Emergency COMPLAINT: - VOMITING DIAGNOSES: - Cannabis use, unspecified, uncomplicated - Unspecified abdominal pain - Other mcc (current) drug therapy - Hyperlipidemia, unspecified - Essential (primary) hypertension - Nausea with vomiting, unspecified - Personal history of nicotine dependence - Gastro-esophageal reflux disease without esophagitis 09/27/2020 12:47 [facility] TYPE: Emergency COMPLAINT: - ABD PAIN, N/V INPATIENT VISIT TRACKING (12 MO.) 04/14/2021 11:06 [facility] TYPE: Medical Surgical COMPLAINT: - CANNABIS HYPEREMESIS OMAR DIAGNOSES: - Essential (primary) hypertension - Acquired absence of other specified parts of digestive tract - Dehydration - Other specified postprocedural states - Hypovolemia - Hypo-osmolality and hyponatremia - Vomiting without nausea - Essential (primary) hypertension - DEPRESSION, UNSPECIFIED - Dehydration - Cannabis abuse, uncomplicated - Hyperlipidemia, unspecified - Gastro-esophageal reflux disease without esophagitis - Personal history of nicotine dependence - Other termite treater (current) drug therapy - DEPRESSION, UNSPECIFIED - Personal history of nicotine dependence - Other mcc (current) drug therapy - Hyperlipidemia, unspecified - Nausea with vomiting, unspecified - Personal history of urinary calculi - Gastro-esophageal reflux disease without esophagitis - Drug abuse counseling and surveillance of drug abuser - Acquired absence of both cervix and uterus - Nausea with vomiting, unspecified - Acute kidney failure, unspecified - Acquired absence of other specified parts of digestive tract - Drug abuse counseling and surveillance of drug abuser - Cannabis abuse, uncomplicated - Acquired absence of both cervix and uterus - Acute kidney failure, unspecified - Other specified postprocedural states - Personal history of urinary calculi - Hypo-osmolality and hyponatremia - Hypovolemia 09/29/2020 11:57 [facility] TYPE: Medical Surgical COMPLAINT: - ENTEROCOLITIS DIAGNOSES: - Hypertensive urgency - Cannabis use, unspecified, uncomplicated - Hypomagnesemia - Nausea with vomiting, unspecified - Hypo-osmolality and hyponatremia - Noninfective gastroenteritis and colitis, unspecified - Hypokalemia [email or web address]
[2021-08-26] MEDS ORDERED: HYDROCODON-ACE1 EA10 PO (19:36)
--- NOTE | 2021-08-29 08:54 | EKG ---
[facility] [address] [place] [address] Signed Normal sinus rhythm Normal ECG When compared with ECG of 25-AUG-2018 07:50, No significant change was found Confirmed by YOSSI GUNTER MD ([id number]) on 08/29/2021 8:54:12 AM Electronically Signed By: YOSSI GUNTER MD 08/29/21 0854 PATIENT NAME: MIHCAEL DAWSON Electrocardiogram DATE OF : 57 PHYSICIAN: YOSSI GUNTER MD REPORT #: [id number] REPORT IS CONFIDENTIAL AND NOT TO BE RELEASED WITHOUT AUTHORIZATION
== END 2021-08-26 19:55 | disposition home or self-care (01) ==
LOC: ED 09:37
DX: R10.9 Unspecified abdominal pain (principal); I10 Essential (primary) hypertension; Z86.73 Personal history of transient ischemic attack (TIA), and cerebral infarction without residual deficits; K21.9 Gastro-esophageal reflux disease without esophagitis; E78.5 Hyperlipidemia, unspecified; Z87.891 Personal history of nicotine dependence
CPT/HCPCS: 36415; 71045; 71260; 74177; 80053; 81001; 83690; 84484; 85025; 85379; 93005; 93010; 96374; 96375; 99284-25; A9270; J1170; J1885; J7030; Q9967

== ENCOUNTER 2023-10-08 09:20 | Emergency (ER) | payer MEDICARE, OTHER ==
[~2023-10-08] VITALS: Ht 160 cm; Wt 74.0 kg
[~2023-10-08 09:20] MED LIST changes: +HYDROCODON-ACE1 EA10 PO; +PROMETHEGAN25 MG PR
[2023-10-08 09:41] LABS: HEMATOCRIT 53.4 % (35.0-50.0); MCH 29.5 (27-36); MCHC 33.7 g/dl (30-36); MCV 87.6 fl (81-99); PLATELET COUNT 477 K/uL (140-440); RDW 14.5 (10.5-15.0)
[2023-10-08] MEDS ORDERED: SODIUM CHLORIDE 0.9% 1,000 ML IV PRN ×3 (09:45→15:30)
[2023-10-08] MEDS ORDERED: HALOPERIDOL LACTATE 5 MG/ML VIAL IV ONE (09:45)
[2023-10-08 09:54] LABS: ALBUMIN 4.5 g/dL (3.4-5.0); ALBUMIN/GLOBULIN RATIO 1.1 (1.1-2.4); BILIRUBIN, TOTAL 1.2 ng/dL (0.2-1.0); BUN/CREATININE RATIO 10.09 (6.0-28.6); CALCIUM 9.5 mg/dL (8.5-10.1); CREATININE, SERUM 2.18 mg/dL (0.55-1.02); PROTEIN, TOTAL 8.6 g/dL (6.4-8.2)
[2023-10-08 10:00] LABS: EOSINOPHILS, MANUAL DIFF 2; LYMPHOCYTES, MANUAL DIFF 18; MONOCYTES, MANUAL DIFF 8; NEUTROPHILS, MANUAL DIFF 72
[2023-10-08] MEDS ORDERED: hydrALAZINE HCL 20 MG/ML VIAL IV ONE (10:15)
[2023-10-08] MEDS ORDERED: SODIUM CHLORIDE 0.9% 1,000 ML IV SCH (10:15)
[2023-10-08] MEDS ORDERED: CAPSAICIN 0.1% 56.6 GM TUBE TOP ONE (10:45)
[2023-10-08] MEDS ORDERED: MAGNESIUM SULFATE 2 GM/50 ML BAG IV ONE (10:45)
[2023-10-08] MEDS ORDERED: POTASSIUM CHLORIDE 10 MEQ/100 ML BAG IV ONE (10:45)
[2023-10-08] MEDS ORDERED: droPERidol 5 MG/2 ML VIAL IV ONE (12:00)
[2023-10-08 12:11] LABS: BILIRUBIN, URINE NEGATIVE (negative); BLOOD/HGB, URINE SMALL (Negative); KETONE, URINE TRACE (Negative); LEUK ESTERASE, URINE NEGATIVE (negative); NITRITE, URINE NEGATIVE (negative)
[2023-10-08 12:16] LABS: EPITHELIAL CELLS, URINE SQUAMOUS 3+ /lpf (0-1+)
[2023-10-08 12:17] LABS: CRYSTALS, URINE NONE SEEN (0-1+)
[2023-10-08 12:18] LABS: BACTERIA, URINE 1+ /hpf (negative)
[2023-10-08 12:19] LABS: CASTS, URINE HYALINE 1+ \\lpf; COLLECTION TYPE, URINE CLEAN CATCH; REFLEX CULTURE, URINE No (No)
[2023-10-08 12:25] LABS: AMPHETAMINES, URINE NEGATIVE (NEGATIVE); BARBITURATES, URINE NEGATIVE (NEGATIVE); BENZODIAZEPINE, URINE NEGATIVE (NEGATIVE); BUPRENORPHINE, URINE NEGATIVE (NEGATIVE); CANNABINOID, URINE POSITIVE (NEGATIVE); COCAINE, URINE NEGATIVE (NEGATIVE); ECSTASY, URINE NEGATIVE (NEGATIVE); FENTANYL, URINE NEGATIVE (NEGATIVE); METHADONE, URINE NEGATIVE (NEGATIVE); OPIATES, URINE NEGATIVE (NEGATIVE); OXYCODONE, URINE NEGATIVE (NEGATIVE); PHENCYCLIDINE, URINE NEGATIVE (NEGATIVE)
[2023-10-08] MEDS ORDERED: diphenhydrAMINE HCL 50 MG/ML VIAL IV ONE (13:45)
[2023-10-08] MEDS ORDERED: METOCLOPRAMIDE HCL 10 MG/2 ML SDV IV ONE (13:45)
[2023-10-08] MEDS ORDERED: ondansetron HCL 4 MG/2 ML VIAL IV ONE (14:45)
[2023-10-08] MEDS ORDERED: MORPHINE SULFATE 4 MG/ML VIAL IV ONE (14:45)
[2023-10-08 18:32] VITALS: BP 130/78
== END 2023-10-08 18:34 | disposition home or self-care (01) ==
LOC: ED 09:20
PROVIDERS: Emergency Medicine
DX: R11.2 Nausea with vomiting, unspecified (principal); F12.90 Cannabis use, unspecified, uncomplicated; I10 Essential (primary) hypertension; Z86.73 Personal history of transient ischemic attack (TIA), and cerebral infarction without residual deficits; Z87.891 Personal history of nicotine dependence
CPT/HCPCS: 36415; 74176; 80053; 80307; 81001; 83605; 83690; 85025; 87040; 96361; 96365; 96368; 96375; 99284-25; J0360; J1200; J1630; J1790; J2270; J2405; J2765; J3475; J3480; J7030

== ENCOUNTER 2024-04-06 08:32 | Observation (INO) | payer OTHER ==
[~2024-04-06] VITALS: Ht 160 cm; Wt 77.4 kg
[2024-04-06] MEDS ORDERED: ondansetron HCL 4 MG/2 ML VIAL IV PRN ×2 (09:00→12:00)
[2024-04-06] MEDS ORDERED: SODIUM CHLORIDE 0.9% 1,000 ML IV ONE (09:00)
[2024-04-06 09:34] LABS: EOSINOPHILS 0.5 % (0-6); HEMATOCRIT 53.5 % (35.0-50.0); HEMOGLOBIN 18.5 g/dL (12.0-18.0); LYMPHOCYTES 15.7 % (24-44); MCH 29.8 (27-36); MCHC 34.7 g/dl (30-36); MCV 86.1 fl (81-99); NEUTROPHILS 76.8 % (39-80); PLATELET COUNT 409 K/uL (140-440); RBC 6.21 M/ul (4.3-5.7); RDW 14.7 (10.5-15.0)
[2024-04-06 10:08] LABS: ALBUMIN 4.2 g/dL (3.4-5.0); ALBUMIN/GLOBULIN RATIO 1.08 (1.1-2.4); ANION GAP 20.3 (7-21); BILIRUBIN, TOTAL 1.3 ng/dL (0.2-1.0); BUN/CREATININE RATIO 11.53 (6.0-28.6); CREATININE, SERUM 2.08 mg/dL (0.55-1.02); POTASSIUM 3.3 mmol/L (3.5-5.1); PROTEIN, TOTAL 8.1 g/dL (6.4-8.2)
[2024-04-06] MEDS ORDERED: droPERidol 5 MG/2 ML VIAL IV ONE (11:00)
[2024-04-06] MEDS ORDERED: diphenhydrAMINE HCL 50 MG/ML VIAL IM ONE (11:30)
[2024-04-06] MEDS ORDERED: MORPHINE SULFATE 4 MG/ML VIAL IV PRN (11:45)
[2024-04-06] MEDS ORDERED: NICOTINE 21 MG/24 HR 1 EA TDSY TD SCH (11:56)
[2024-04-06] MEDS ORDERED: ENOXAPARIN SODIUM 40 MG/0.4 ML SYR SUB-Q SCH (11:56)
[2024-04-06] MEDS ORDERED: PROCHLORPERAZINE EDISYLATE 10 MG/2 ML VIAL IV PRN (12:00)
[2024-04-06] MEDS ORDERED: SODIUM CHLORIDE 0.9% 1,000 ML IV SCH (12:00)
[2024-04-06] MEDS ORDERED: PHARMACY RENAL DOSE ADJUSTMENT 1 DOSE MISC PO SCH (12:00)
[2024-04-06] MEDS ORDERED: AMLODIPINE BESYLATE 10 MG TAB PO SCH (12:03)
[2024-04-06 12:39] VITALS: BP 147/86; BP 163/83
[2024-04-06] MEDS ORDERED: POTASSIUM CHLORIDE 40 MEQ,LIDOCAINE HCL 1% 40 MG in DEXTROSE 5% 250 ML IV ONE (17:45)
[2024-04-06 17:54] VITALS: BP 131/71
[2024-04-06 18:33] VITALS: BP 131/71
[2024-04-06] MEDS ORDERED: POTASSIUM CHLORIDE 10 MEQ/100 ML BAG IV SCH (18:45)
[2024-04-06 19:44] VITALS: BP 150/62
[2024-04-06 19:46] VITALS: BP 121/76
[2024-04-06 20:38] VITALS: BP 150/62
[2024-04-07 02:05] VITALS: BP 128/70
[2024-04-07 05:14] LABS: BASOPHILS 0.6 % (0-2); EOSINOPHILS 1.3 % (0-6); HEMATOCRIT 42.9 % (35.0-50.0); HEMOGLOBIN 14.8 g/dL (12.0-18.0); LYMPHOCYTES 33.5 % (24-44); MCH 30.3 (27-36); MCHC 34.4 g/dl (30-36); MONOCYTES 11.4 % (0-12); NEUTROPHILS 53.2 % (39-80); PLATELET COUNT 328 K/uL (140-440); RBC 4.88 M/ul (4.3-5.7); RDW 14.1 (10.5-15.0)
[2024-04-07 05:28] LABS: CREATININE, SERUM 1.23 mg/dL (0.55-1.02); MAGNESIUM 2.1 mg/dL (1.8-2.4)
[2024-04-07 05:36] VITALS: BP 123/82
[2024-04-07 05:40] VITALS: BP 123/82
[2024-04-07] MEDS ORDERED: AMLODIPINE BESY10 MG PO (08:57)
[2024-04-07] MEDS ORDERED: PROCHLORPERAZINE5 MG PO (08:59)
[2024-04-07] MEDS ORDERED: CAPSAICIN60 GM TOP (09:03)
[2024-04-07 09:22] VITALS: BP 147/80
[2024-04-07 09:35] VITALS: BP 147/80
--- NOTE | 2024-04-10 20:23 | EKG ---
[facility] [address] [place] [address] Signed Normal sinus rhythm Normal ECG When compared with ECG of 26-AUG-2021 09:41, No significant change was found Confirmed by Kristen Yi DO ([id number]) on 04/10/2024 8:22:56 PM Electronically Signed By: KRISTEN YI DO 04/10/242022 PATIENT NAME: MICHAEL DAWSON Electrocardiogram DATE OF : 57 PHYSICIAN: KRISTEN YI DO REPORT #: [id number] REPORT IS CONFIDENTIAL AND NOT TO BE RELEASED WITHOUT AUTHORIZATION
== END 2024-04-07 10:00 | disposition home or self-care (01) ==
LOC: ED 08:32 → MS 08:33
PROVIDERS: Emergency Medicine; ADMIT Internal Medicine; ATTEND Internal Medicine
DX: T40.711A Poisoning by cannabis, accidental (unintentional), initial encounter (principal); R11.2 Nausea with vomiting, unspecified; I10 Essential (primary) hypertension; E78.5 Hyperlipidemia, unspecified; K21.9 Gastro-esophageal reflux disease without esophagitis; Z87.891 Personal history of nicotine dependence; Z79.899 Other long term (current) drug therapy
CPT/HCPCS: 36415; 74176; 80048; 80053; 83690; 83735; 85025; 93005; 93010; 96361; 96365; 96366; 96372; 96374; 96375; 96376; 99285-25; G0378; J0780; J1200; J1650; J1790; J2270; J2405; J3480; J7030

== ENCOUNTER 2024-04-11 18:48 | Emergency (ER) | payer OTHER ==
[~2024-04-11] VITALS: Ht 160 cm; Wt 75.7 kg
[~2024-04-11 18:48] MED LIST changes: +AMLODIPINE BESY10 MG PO; +CAPSAICIN60 GM TOP; +PROCHLORPERAZINE5 MG PO
[2024-04-11] MEDS ORDERED: ONDANSETRON 4 MG TAB ODT SL ONE (22:00)
[2024-04-11] MEDS ORDERED: ACETAMINOPHEN 500 MG TAB PO ONE (22:00)
[2024-04-11 22:34] LABS: INFLUENZA B NAA NEGATIVE (NEGATIVE); RESPIRATORY SYNCYTIAL VIR NAA NEGATIVE (NEGATIVE)
[2024-04-11] MEDS ORDERED: OSELTAMIVIR PHOSPHATE 75 MG HOME.PACK PO ONE (23:45)
[2024-04-11 23:54] VITALS: BP 148/86
== END 2024-04-11 23:56 | disposition home or self-care (01) ==
LOC: ED 18:48
PROVIDERS: Emergency Medicine
DX: J10.1 Influenza due to other identified influenza virus with other respiratory manifestations (principal); I10 Essential (primary) hypertension; K21.9 Gastro-esophageal reflux disease without esophagitis; E78.5 Hyperlipidemia, unspecified; G43.809 Other migraine, not intractable, without status migrainosus; Z86.73 Personal history of transient ischemic attack (TIA), and cerebral infarction without residual deficits; Z87.891 Personal history of nicotine dependence; Z79.899 Other long term (current) drug therapy
CPT/HCPCS: 71045; 87502; 99283-25; A9270; U0002

== ENCOUNTER 2024-12-08 11:38 | Emergency (ER) | payer MEDICARE, OTHER ==
[~2024-12-08] VITALS: Ht 160 cm; Wt 77.0 kg
[2024-12-08] MEDS ORDERED: IBUPROFEN 600 MG TAB PO ONE (12:00)
[2024-12-08] MEDS ORDERED: HYDROCODONE/ACETA 7.5/325 TAB PO ONE (12:00)
[2024-12-08] MEDS ORDERED: ALBUTEROL SULFATE 8 GM HOME.PACK INH ONE (13:00)
[2024-12-08] MEDS ORDERED: VENTOLIN HFA18 GM INH (13:03)
[2024-12-08 14:01] VITALS: BP 176/85
== END 2024-12-08 14:02 | disposition home or self-care (01) ==
LOC: ED 11:38
DX: S83.92XA Sprain of unspecified site of left knee, initial encounter (principal); R09.02 Hypoxemia; S80.211A Abrasion, right knee, initial encounter; I10 Essential (primary) hypertension; K21.9 Gastro-esophageal reflux disease without esophagitis; E78.5 Hyperlipidemia, unspecified; Z86.73 Personal history of transient ischemic attack (TIA), and cerebral infarction without residual deficits; Z87.891 Personal history of nicotine dependence; X50.0XXA Overexertion from strenuous movement or load, initial encounter; W19.XXXA Unspecified fall, initial encounter
CPT/HCPCS: 73560; 94640; 94664; 99283; A9270

== ENCOUNTER 2025-02-10 22:26 | Emergency (ER) | payer MEDICARE, OTHER ==
[~2025-02-10 22:26] MED LIST changes: +VENTOLIN HFA18 GM INH
[2025-02-10] MEDS ORDERED: SODIUM CHLORIDE 0.9% 1,000 ML IV ONE (22:45)
[2025-02-10 23:57] LABS: BASOPHILS 0.3 % (0.1-1.2); EOSINOPHILS 0.1 % (0.7-5.8); LYMPHOCYTES 4.7 % (19.3-51.7); MCH 29.7 PG (25.6-32.2); MCHC 34.4 g/dL (32.2-35.5); MCV 86.3 fL (79.4-94.8); MONOCYTES 2.9 % (4.7-12.5); NEUTROPHILS 91.2 % (34.0-71.1); RBC 5.53 M/uL (3.93-5.22)
[2025-02-11 00:13] LABS: ALT (SGPT) 6.0 U/L (14-59); AST (SGOT) 15.0 U/L (15-37); GLOMERULAR FILTRATION RATE,EST 67.0 mL/min (>60); PROTEIN, TOTAL 7.9 g/dL (6.4-8.2); UREA NITROGEN 10.0 mg/dL (7-18)
[2025-02-11] MEDS ORDERED: POTASSIUM CHLORIDE 10 MEQ TABCR PO ONE (00:30)
[2025-02-11] MEDS ORDERED: ONDANSETRON 4 MG HOME.PACK SL ONE (00:30)
[2025-02-11] MEDS ORDERED: PROMETHAZINE HCL 25 MG SUPP. HOME.PACK PR ONE (00:30)
[2025-02-11 00:35] LABS: BLOOD/HGB, URINE MODERATE (Negative); KETONE, URINE SMALL (Negative); LEUK ESTERASE, URINE NEGATIVE (negative); NITRITE, URINE NEGATIVE (negative)
[2025-02-11] MEDS ORDERED: ONDANSETRON ODT8 MG PO (00:39)
[2025-02-11 00:40] LABS: BACTERIA, URINE RARE /hpf (negative); CRYSTALS, URINE NONE SEEN (0-1+); EPITHELIAL CELLS, URINE SQUAMOUS 1+ /lpf (0-1+)
[2025-02-11 00:41] LABS: CASTS, URINE NONE SEEN \\lpf; REFLEX CULTURE, URINE No (No)
[2025-02-11] MEDS ORDERED: PROCHLORPERAZINE EDISYLATE 10 MG/2 ML VIAL IV ONE (01:30)
[2025-02-11] MEDS ORDERED: KETOROLAC TROMETHAMINE 30 MG/ML VIAL IV ONE (01:30)
[2025-02-11 01:45] VITALS: BP 197/105
== END 2025-02-11 01:45 | disposition home or self-care (01) ==
LOC: ED 22:26
PROVIDERS: Family Medicine
DX: R11.16 Cannabis hyperemesis syndrome (principal); I10 Essential (primary) hypertension; K21.9 Gastro-esophageal reflux disease without esophagitis; E78.5 Hyperlipidemia, unspecified; Z87.891 Personal history of nicotine dependence
CPT/HCPCS: 36415; 80053; 81001; 83690; 85025; 96361; 96374; 96375; 99284-25; A9270; J0780; J1790; J1885; J7030